=== PATIENT | female | born 1940 | race Caucasian/White ===

== ENCOUNTER → 2018-01-15 | Outpatient (CLI) | payer MEDICARE ==
[2018-01-15 09:41] LABS: HCT 42.8 % (34.0-46.0); HGB 14.7 gm/dL (11.4-16.0); MCH 29.1 pg (25.0-35.0); MCHC 34.4 g/dL (31.0-37.0); MCV 84.4 fL (80.0-100.0); Mean Platelet Volume 6.6; Platelet Count 217 k/uL (150-450); RBC 5.07 m/uL (3.80-5.40); RDW 13.6 % (11.5-15.5)
[2018-01-15 10:19] LABS: ALT 18 U/L (9-52); AST 13 U/L (14-36); Alkaline Phosphatase 105 U/L (38-126); Anion Gap 12 mmol/L; Blood Urea Nitrogen 17 mg/dL (7-17); Calcium 9.3 mg/dL (8.4-10.2); Carbon Dioxide 27 mmol/L (22-30); Chloride 98 mmol/L (98-107); Cholesterol 205 mg/dL (<200); Glucose 302 mg/dL (74-99); HDL Cholesterol 44 mg/dL (40-60); LDL Cholesterol,Calculated 132 mg/dL (0-99); Potassium 4.5 mmol/L (3.5-5.1); Sodium 137 mmol/L (137-145); Total Bilirubin 0.6 mg/dL (0.2-1.3); Total Protein 6.8 g/dL (6.3-8.2); Triglycerides 146 mg/dL (<150)
[2018-01-15 10:31] LABS: T4, Free (Free Thyroxine) 1.34 ng/dL (0.78-2.19)
--- NOTE | 2018-01-15 12:23 | XR ---
EXAMINATION TYPE: XR chest 2V DATE OF EXAM: 01/15/2018 COMPARISON: NONE HISTORY: Shortness of breath TECHNIQUE: Frontal and lateral views of the chest are obtained. FINDINGS: Scattered senescent parenchymal changes noted. Hyperinflation compatible with COPD. No evidence for infiltrate. No evidence for atelectasis. Heart size is stable. Mediastinal structures are stable and grossly unremarkable. No evidence for hilar prominence. Degenerative changes dorsal spine. IMPRESSION: 1. No evidence for acute pulmonary disease.
[2018-01-15 20:06] LABS: Hemoglobin A1C 11.7 % (4.0-6.0)
== END | disposition home or self-care (01) ==
LOC: LABWHC1 09:00
PROVIDERS: ATTEND Internal Medicine
DX: R05 Cough (principal); E11.9 Type 2 diabetes mellitus without complications; E78.5 Hyperlipidemia, unspecified; E03.9 Hypothyroidism, unspecified
CPT/HCPCS: 36415; 71046; 80053; 80061; 82043; 82570; 83036; 84439; 84443; 85027

== ENCOUNTER → 2018-04-30 | Outpatient (CLI) | payer MEDICARE ==
--- NOTE | 2018-04-30 12:00 | CT ---
EXAMINATION TYPE: CT abdomen pelvis w con DATE OF EXAM: 04/30/2018 HISTORY: Abnormal weight loss and type 2 diabetes w/out complications per order. CT DLP: 597.20mGycm Automated Exposure Control for Dose Reduction was Utilized. CONTRAST: CT scan of the abdomen and pelvis is performed with oral water and with IV Contrast, patient injected with 100 ml mL of Isovue 300. Pancreas protocol. COMPARISON: None FINDINGS: LUNG BASES: No significant abnormality is appreciated. LIVER/GB: There is porcelain type gallbladder or calcified wall. PANCREAS: Pancreas is moderately atrophic in appearance particularly mid to distal body and head/unci jesica process. No surrounding inflammatory change or well-formed fluid is present. No calcification or ductal dilatation is noted. SPLEEN: There is peripheral left lateral rim calcification of spleen. ADRENALS: Low dense thickening to both adrenal glands favors benign hyperplasia. KIDNEYS: No significant abnormality is seen. BOWEL: Small size hiatal hernia is present. There is moderate wall thickening of the distal esophagus just superior to this with mildly dilated fluid and air-filled esophagus just proximal to this. Cons ider further investigation with esophagram and/or direct visualization to exclude mass and/or strictu re. The oral contrast does not reach colonic level making evaluation slightly suboptimal. Normal-appearin g appendix is seen from base of cecum best axial image 106. There is no suspicious small or large bow el dilatation. Prominent diverticula are seen in the sigmoid colon without convincing evidence for ac bishop paiute diverticulitis. There is some fecal prominence in the rectum. UTERUS/ADNEXA: Retroverted uterus is seen. Calcification along the left margin axial image 142 favors fibroid LYMPH NODES: No greater than 1cm abdominal or pelvic lymph nodes are appreciated. OSSEOUS STRUCTURES: Osseous structures are demineralized. There is advanced disc space narrowing or o ssific fusion at lumbosacral junction. There is multilevel facet arthropathy in the lower lumbar spin e. OTHER: Moderate calcified plaque of aorta extends into branch vessels. IMPRESSION: 1. Porcelain type gallbladder noted. Surgical referral advised due to increased risk for carcinoma. 2. Attention to distal esophagitis as detailed above. 3. Fairly moderate fat replaced atrophy of pancreas.
== END | disposition home or self-care (01) ==
LOC: RADCTMAIN 09:22
PROVIDERS: ATTEND Internal Medicine
DX: K20.9 Esophagitis, unspecified (principal); K86.89 Other specified diseases of pancreas; E11.9 Type 2 diabetes mellitus without complications
CPT/HCPCS: 74177; Q9967

== ENCOUNTER 2020-06-12 19:56 | Emergency (ER) | payer MEDICARE ==
[2020-06-12 21:03] LABS: Glucose,Whole Blood 218 mg/dL (75-99)
--- NOTE | 2020-06-12 21:04 | CT ---
EXAMINATION TYPE: CT brain claribel tucker con DATE OF EXAM: 06/12/2020 COMPARISON: None HISTORY: Pt fall, hitting front of face on tile floor. CT DLP: 1113.7 mGycm Automated exposure control for dose reduction was used. There is cerebral cortical atrophy. There is no mass effect nor midline shift. There is no sign of in tracranial hemorrhage. Calvarium is intact. Skull base is intact. Cervical vertebra have normal alignment. There is narrowing at C5-6 disc space. The posterior element s are intact. Prevertebral soft tissues are intact. IMPRESSION: Mild degenerative disc changes C5-6. No fracture. Cerebral atrophy. No acute intracranial abnormality. Left frontal scalp hematoma noted.
--- NOTE | 2020-06-12 21:07 | CT ---
EXAMINATION TYPE: CT facial bones wo con DATE OF EXAM: 06/12/2020 COMPARISON: None HISTORY: Pt fall, hitting front of face on tile floor. CT DLP: 1113.7 mGycm Automated exposure control for dose reduction was used. Images were obtained from the bottom of the mandible to the top of the frontal sinuses without contra st. The mandibular ring is intact. Temporomandibular joints appear intact. There is anterior position of the right mandibular condyle that could be due to open mouth position. The zygomatic arches are intac t. There is fairly normal aeration of the paranasal sinuses. There is comminuted fracture of the ante rior nasal bone bilaterally. There is soft tissue swelling around the nasal bone and debris in the an terior nasopharynx. There is soft tissue swelling over the frontal bone. The orbital margins are inta ct. There is no evidence of retro-orbital mass. There is no evidence of a blowout fracture. IMPRESSION: Comminuted nasal bone fracture. Frontal scalp soft tissue swelling.
--- NOTE | 2020-06-12 21:25 | ED ---
General Adult HPI - General Chief complaint: Fall Stated complaint: Fall Time Seen by Provider: 06/12/20 20:10 Source: patient, family, RN notes reviewed, old records reviewed Mode of arrival: wheelchair Limitations: no limitations - History of Present Illness Initial comments: 79-year-old female patient presents to ED for evaluation of chemical fall which occurred about 5 PM. Patient reports that she was walking when she tripped over a box, fell forward, hitting her head on the floor. Pt butch any consciousness. Does report that she has swelling to forehead region, bruising around her eyes. Denies any changes in vision. Denies any other injury. Ambulatory without difficulty. Denies any use of blood thinners. Systemic: Pt denies fatigue, fever/chills, rash. Pt denies weakness, night sweats, weight loss. Neuro: Pt denies headache, visual disturbances, syncope or pre-syncope. HEENT: Pt denies ocular discharge or irritation, otalgia, rhinorrhea, pharyngitis or notable lymphadenopathy. Cardiopulmonary: Pt denies chest pain, SOB, heart palpitations, dyspnea on exertion. Abdominal/GI: Pt denies abdominal pain, n/v/d. : Pt denies dysuria, burning w/ urination, frequency/urgency. Denies new onset urinary or bowel incontinence. MSK: Pt denies myalgia, loss of strength or function in extremities. Neuro: Pt denies new onset weakness, paresthesias. - Related Data Allergies Allergy/AdvReac Type Severity Reaction Status Date / Time No Known Allergies Allergy Verified 06/12/20 20:04 Review of Systems ROS Statement: Those systems with pertinent positive or pertinent negative responses have been documented in the HPI. ROS Other: All systems not noted in ROS Statement are negative. Past Medical History Past Medical History: Diabetes Mellitus, Hyperlipidemia, Hypertension History of Any Multi-Drug Resistant Organisms: None Reported Past Surgical History: No Surgical Hx Reported Past Psychological History: No Psychological Hx Reported Smoking Status: Never smoker Past Alcohol Use History: Occasional Past Drug Use History: None Reported General Exam - General Exam Comments Initial Comments: Constitutional: NAD, AOX3, Pt has pleasant affect. HEENT: NC/AT, trachea midline, neck supple, no lymphadenopathy. Posterior pharynx non erythematous, without exudates. External ears appear normal, without discharge. Mucous membranes moist. Eyes PERRLA, EOM intact. There is no scleral icterus. No pallor noted. Frontal hematoma is noted. Bruising under her eyes bilaterally mild. Swelling to the bridge of nose. No septal hematoma. Cardiopulmonary: RRR, no murmurs, rubs or gallops, no JVD noted. Lungs CTAB in anterior and posterior reilly. No peripheral edema. Abdominal exam: Abdomen soft and non-distended. Abdomen non-tender to palpation in all 4 quadrants. Bowel sounds active in LLQ. No hepatosplenomegaly. No ecchymosis Neuro: CN II-XII intact. No nuchal rigidity. no maritnez sign, no hemotympanum. No cervical spinal tenderness. MSK: Full active ROM in upper and lower extremities, 5/5 stregnth. Limitations: no limitations Course Vital Signs 06/12/20 20:01 Temperature 98.5 F Pulse Rate 85 Respiratory 20 Rate Blood Pressure 202/90 O2 Sat by Pulse 98 Oximetry Medical Decision Making - Medical Decision Making 79-year-old female patient of [facility] chief complaint mechanical fall facial injury. Patient vital signs display mild hypertension, recheck wnl. Physical exam doesn't display frontal scalp hematoma, swelling and bruising around bridge of nose and the eyes. CT brain and C-spine did not display any acute process. CT facial bones displayed comminuted nasal fracture. Patient will be discharged for follow-up with ENT as well as primary care provider return to ED if any worsening symptoms. Case discussed with Dr. Larson. - Lab Data Lab Results 06/12/20 Range/Units 21:02 POC Glucose (mg/dL) 218 H (75-99) mg/dL POC Glu Service Order Clerk ID Pat Willis Disposition Clinical Impression: Nasal bone fracture, Fall Disposition: HOME SELF-CARE Condition: Stable Instructions (If sedation given, give patient instructions): Nasal Fracture (ED), Fall Prevention (ED) Additional Instructions: Follow-up with primary care provider and ENT tomorrow. Do not blow your nose. Return to ER if any worsening symptoms. Is patient prescribed a controlled substance at d/c from ED?: No Referrals: Luc Rivera MD [Primary Care Provider] - 1-2 days Anil Roberto MD [STAFF PHYSICIAN] - 1-2 days
[2020-06-12 22:08] VITALS: BP 186/78; PULSE 84; RESP 18
[2020-06-12 22:12] VITALS: TEMP 98
== END 2020-06-12 22:11 | disposition home or self-care (01) ==
LOC: EC 19:56
DX: S02.2XXA Fracture of nasal bones, initial encounter for closed fracture (principal); I10 Essential (primary) hypertension; W01.198A Fall on same level from slipping, tripping and stumbling with subsequent striking against other object, initial encounter; Y93.01 Activity, walking, marching and hiking; Y92.009 Unspecified place in unspecified non-institutional (private) residence as the place of occurrence of the external cause
CPT/HCPCS: 36415; 70450; 70486; 72125; 99284

== ENCOUNTER 2020-12-26 18:39 | Inpatient (IN) | payer MEDICARE ==
--- NOTE | 2020-12-26 19:10 | ED ---
General Adult HPI - General Chief complaint: Neuro Symptoms/Deficit Stated complaint: trouble gathering thoughts Time Seen by Provider: 12/26/20 18:56 Source: patient, family, RN notes reviewed, old records reviewed Mode of arrival: wheelchair Limitations: no limitations - History of Present Illness Initial comments: 80-year-old female presenting for evaluation of repetitive speech, word finding difficulty. History is provided by the patient and her nephew who is at bedside. He states that he called the patient 2 hours ago and her speech is abnormal she was repeating herself. He is uncertain exactly when this started but according to the patient's nephew yesterday evening at dinner the patient did seem somewhat off. He is unable to exactly quantify what these symptoms. He is unsure what her speech was like. There is no complaint of facial asymmetry, no focal numbness or weakness. No headache. No chest pain. No fever. No recent illnesses. - Related Data Home Medications Medication Instructions Recorded Confirmed Aspirin [Adult Low Dose Aspirin EC] 40.5 mg PO DAILY 12/26/20 12/26/20 Glimepiride [Amaryl] 2 mg PO BID 12/26/20 12/26/20 Lisinopril [Zestril] 10 mg PO DAILY 12/26/20 12/26/20 metFORMIN HCL [Glucophage] 500 mg PO BID 12/26/20 12/26/20 Allergies Allergy/AdvReac Type Severity Reaction Status Date / Time No Known Allergies Allergy Verified 12/26/20 19:59 Review of Systems ROS Statement: Those systems with pertinent positive or pertinent negative responses have been documented in the HPI. ROS Other: All systems not noted in ROS Statement are negative. Past Medical History Past Medical History: Diabetes Mellitus, Hyperlipidemia, Hypertension History of Any Multi-Drug Resistant Organisms: None Reported Past Surgical History: No Surgical Hx Reported Past Psychological History: No Psychological Hx Reported Smoking Status: Never smoker Past Alcohol Use History: Occasional Past Drug Use History: None Reported General Exam Limitations: no limitations General appearance: alert, in no apparent distress Head exam: Present: atraumatic, normocephalic Eye exam: Present: normal appearance, PERRL, EOMI ENT exam: Present: normal exam Neck exam: Present: normal inspection. Absent: tenderness, meningismus Respiratory exam: Present: normal lung sounds bilaterally. Absent: respiratory distress, wheezes Cardiovascular Exam: Present: regular rate, normal rhythm GI/Abdominal exam: Present: soft. Absent: distended, tenderness, guarding Extremities exam: Present: normal inspection, normal capillary refill. Absent: pedal edema Neurological exam: Present: alert, CN II-XII intact, motor sensory deficit (Expressive aphasia). Absent: oriented X3 (2) Psychiatric exam: Present: normal affect, normal mood Skin exam: Present: warm, dry, intact. Absent: cyanosis, diaphoretic Course Vital Signs 12/26/20 12/26/20 18:42 19:47 Temperature 98.2 F Pulse Rate 84 80 Respiratory 18 16 Rate Blood Pressure 233/105 215/99 O2 Sat by Pulse 99 95 Oximetry - Reevaluation(s) Reevaluation #1: 12/26/20 19:10 NIH of 2 EKG Findings - EKG Comments: EKG Findings:: EKG: Normal sinus rhythm, PVC, rate of 86, WA interval 122, QRS duration 84, QTC 4:[address] segment elevation. Medical Decision Making - Medical Decision Making 80 yo female presenting with expressive aphasia, NIH of 2, unclear exactly when the symptoms began. I did discuss case initially with stroke neurologist Dr. Sandoval, patient is not a TPA candidate given the low NIH and uncertain onset of symptoms. He recommends medical management. Head CT is negative for intracranial hemorrhage, CT angiography showing a narrowing at the left middle cerebral artery 1.2 cm may be related to spasm. Recommending MRI. Chest x-rays negative. CBC CMP unremarkable. Patient is in sinus rhythm. She's given aspirin, IV fluids in the emergency department. Case is discussed with Dr. Vega will admit. - Lab Data Result diagrams: 12/26/20 19:06 12/26/20 19:06 Lab Results 12/26/20 12/26/20 12/26/20 Range/Units 19:06 19:06 19:06 WBC 5.5 (3.8-10.6) k/uL RBC 4.00 (3.80-5.40) m/uL Hgb 12.1 (11.4-16.0) gm/dL Hct 34.9 (34.0-46.0) % MCV 87.1 (80.0-100.0) fL MCH 30.2 (25.0-35.0) pg MCHC 34.6 (31.0-37.0) g/dL RDW 14.5 (11.5-15.5) % Plt Count 154 (150-450) k/uL MPV 6.7 Neutrophils % 72 % Lymphocytes % 18 % Monocytes % 6 % Eosinophils % 3 % Basophils % 1 % Neutrophils # 3.9 (1.3-7.7) k/uL Lymphocytes # 1.0 (1.0-4.8) k/uL Monocytes # 0.3 (0-1.0) k/uL Eosinophils # 0.2 (0-0.7) k/uL Basophils # 0.0 (0-0.2) k/uL PT 10.2 (9.0-12.0) sec INR 0.9 (<1.2) APTT 23.3 (22.0-30.0) sec Sodium 136 L (137-145) mmol/L Potassium 4.7 (3.5-5.1) mmol/L Chloride 104 (98-107) mmol/L Carbon Dioxide 26 (22-30) mmol/L Anion Gap 6 mmol/L BUN 25 H (7-17) mg/dL Creatinine 1.07 H (0.52-1.04) mg/dL Est GFR (CKD-EPI)AfAm 58 (>60 ml/min/1.73 sqM) Est GFR (CKD-EPI)NonAf 50 (>60 ml/min/1.73 sqM) Glucose 166 H (74-99) mg/dL Calcium 8.4 (8.4-10.2) mg/dL Total Bilirubin 0.4 (0.2-1.3) mg/dL AST 22 (14-36) U/L ALT 13 (4-34) U/L Alkaline Phosphatase 99 (38-126) U/L Troponin I (0.000-0.034) ng/mL Total Protein 5.5 L (6.3-8.2) g/dL Albumin 3.3 L (3.5-5.0) g/dL 12/26/20 Range/Units 19:06 WBC (3.8-10.6) k/uL RBC (3.80-5.40) m/uL Hgb (11.4-16.0) gm/dL Hct (34.0-46.0) % MCV (80.0-100.0) fL MCH (25.0-35.0) pg MCHC (31.0-37.0) g/dL RDW (11.5-15.5) % Plt Count (150-450) k/uL MPV Neutrophils % % Lymphocytes % % Monocytes % % Eosinophils % % Basophils % % Neutrophils # (1.3-7.7) k/uL Lymphocytes # (1.0-4.8) k/uL Monocytes # (0-1.0) k/uL Eosinophils # (0-0.7) k/uL Basophils # (0-0.2) k/uL PT (9.0-12.0) sec INR (<1.2) APTT (22.0-30.0) sec Sodium (137-145) mmol/L Potassium (3.5-5.1) mmol/L Chloride (98-107) mmol/L Carbon Dioxide (22-30) mmol/L Anion Gap mmol/L BUN (7-17) mg/dL Creatinine (0.52-1.04) mg/dL Est GFR (CKD-EPI)AfAm (>60 ml/min/1.73 sqM) Est GFR (CKD-EPI)NonAf (>60 ml/min/1.73 sqM) Glucose (74-99) mg/dL Calcium (8.4-10.2) mg/dL Total Bilirubin (0.2-1.3) mg/dL AST (14-36) U/L ALT (4-34) U/L Alkaline Phosphatase (38-126) U/L Troponin I <0.012 (0.000-0.034) ng/mL Total Protein (6.3-8.2) g/dL Albumin (3.5-5.0) g/dL Critical Care Time Critical Care Time: Yes Total Critical Care Time: 35 Disposition Clinical Impression: Cerebrovascular accident (CVA) Disposition: ADMITTED IP TO THIS [facility] Condition: Stable Is patient prescribed a controlled substance at d/c from ED?: No Referrals: Inocente Tate MD [Primary Care Provider] - 1-2 days Decision to Admit Reason: Admit from EC Decision Date: 12/26/20 Decision Time: 20:30
[2020-12-26 19:15] LABS: Basophils % (A) 1 %; Eosinophils # (A) 0.2 k/uL (0-0.7); Eosinophils % (A) 3 %; HCT 34.9 % (34.0-46.0); HGB 12.1 gm/dL (11.4-16.0); Lymphocytes % (A) 18 %; MCH 30.2 pg (25.0-35.0); MCHC 34.6 g/dL (31.0-37.0); MCV 87.1 fL (80.0-100.0); Mean Platelet Volume 6.7; Monocytes # (A) 0.3 k/uL (0-1.0); Monocytes % (A) 6 %; Neutrophils # (A) 3.9 k/uL (1.3-7.7); Neutrophils % (A) 72 %; Platelet Count 154 k/uL (150-450); RDW 14.5 % (11.5-15.5); WBC 5.5 k/uL (3.8-10.6)
[2020-12-26 19:25] LABS: INR 0.9 (<1.2); Partial Thromboplastin Time 23.3 sec (22.0-30.0); Prothrombin Time 10.2 sec (9.0-12.0)
[2020-12-26 19:27] LABS: Albumin 3.3 g/dL (3.5-5.0); Calcium 8.4 mg/dL (8.4-10.2); Potassium 4.7 mmol/L (3.5-5.1); Total Bilirubin 0.4 mg/dL (0.2-1.3); Total Protein 5.5 g/dL (6.3-8.2)
--- NOTE | 2020-12-26 19:28 | CT ---
EXAMINATION TYPE: CT brain wo con for TPA DATE OF EXAM: 12/26/2020 COMPARISON: CT scan of the head from 06/12/2020. HISTORY: Neuro deficits. CT DLP: 1055.8 mGycm Automated exposure control for dose reduction was used. FINDINGS: There is no acute intracranial hemorrhage. There is no evidence of large mass. There is no midline sh ift. Tiny low-attenuation areas are seen in the basal ganglia bilaterally and may represent old lacunar in farcts. Mild cerebral atrophy with prominence of the ventricles including the third ventricle is noted. There is no displaced skull fracture. Orbits and globes are intact. Paranasal sinuses are clear. Mastoid air cells are clear. IMPRESSION: NO ACUTE INTRACRANIAL HEMORRHAGE. Tiny foci of mosaic attenuation in the bases bilaterally may repres ent old lacunar infarcts.
--- NOTE | 2020-12-26 19:42 | CT ---
EXAMINATION TYPE: CT angio head neck DATE OF EXAM: 12/26/2020 HISTORY: Neuro deficits. COMPARISON: Correlation made with CT scan of the head obtained on the same day. CT DLP: 330.5 mGycm. Automated Exposure Control for Dose Reduction was Utilized. TECHNIQUE: CTA scan of the neck is performed with IV Contrast, patient injected with 65ml mL of Isov ue 370, axial images are obtained, coronal and sagittal reformatted images are reviewed. Three-D dorian nstructed images are created on an independent workstation and reviewed. Images were obtained. Multiplanar reconstruction submitted images also provided. FINDINGS: Carotid/Vascular Structures: Mild assess grapelike is seen of the origin of the left subclavian arter y. The common carotid and internal carotid arteries are patent. Horizontal M1 portion of the left middle cerebral artery on the left demonstrates long segment stenos is. This could be related to spasm or chronic stenosis. Intervention of the M2 segment widely patent. Right MCA, anterior cerebral arteries, and posterior sternal arteries are patent. Vertebral arteries are widely patent. IMPRESSION: There is a 1.2 cm long segment of stenosis involving the horizontal portion of left middl e cerebral artery which could be related to spasm or chronic disease. MRA or conventional angiography is recommended.
--- NOTE | 2020-12-26 19:59 | XR ---
EXAMINATION TYPE: XR chest 2V DATE OF EXAM: 12/26/2020 COMPARISON: 01/15/2018 HISTORY: Acute mental status change. TECHNIQUE: Frontal and lateral views of the chest are obtained. FINDINGS: There is no focal air space opacity, pleural effusion, or pneumothorax seen. The cardiac silhouette size is within normal limits. The osseous structures are intact. IMPRESSION: No acute cardiopulmonary process.
[2020-12-26] MEDS ORDERED: ASPIRIN 325 MG TAB PO STA (20:02)
[2020-12-26] MEDS ORDERED: SODIUM CHLORIDE 0.9% 500 ML 500 ML IV ONE (20:02)
[2020-12-26] MEDS: SODIUM CHLORIDE 0.9% 1,000 ML IV SCH (20:43)
--- NOTE | 2020-12-26 23:46 | P.HPIM ---
History of Present Illness H&P Date: 12/26/20 The patient is a 80-year-old female with a PMH of type II DM and hypertension who presented to the emergency room with complaints of confusion and speech impairment. History supplemented by the nephew at the bedside. He reports that he last spoke to the patient 2 days ago and she appeared to be doing okay. When he spoke to her again today, she appeared to be confused. He subsequently went to her house and drove her over to the emergency room. He reports that she is having difficulty finding the words to complete her thoughts and that she is repeating herself. Her symptoms reportedly improved en-route to the hospital which she continued to be confused at time of interview as per the nephew. He also reports that over the past year, he has noticed a gradual decline in her ability to perform her ADLs where she is no longer able to organize her medications and manage all the finances etc. When the patient is asked why she is is at the hospital, she notes that she is "not well". She reports that her ankles have been somewhat swollen and that might be why she was brought in. She had word finding difficulty during the interview. The patient is unable to state when her symptoms may have started and the nephew is also not sure. She however denied additional complaints. Denied weakness, numbness, tingling. Denied headaches, visual disturbances, slurred speech, facial asymmetry. Denied chest pain, shortness of breath, fever, chills, cough, nausea, vomiting, abdominal pain, diarrhea. In the emergency room, the patient underwent an extensive evaluation with a CT brain that revealed no acute abnormalities. Vital signs upon presentation were BP 233/105, pulse 85, SpO2 99% on room air, temperature 98.2. 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 Chest x-ray revealed no abnormalities. EKG revealed normal sinus rhythm PVCs at 86 bpm with no ischemic ST/T-wave changes noted as reviewed by me. Laboratory evaluation was remarkable for a sodium 136, BUN 25, creatinine 1.07, glucose 166, troponin less than 0.012, and a coronavirus PCR negative. The patient was evaluated by neuro arch cushion press operator in the emergency room and deemed not a candidate for TPA. Review of Systems Pertinent positives and negatives as discussed in HPI, a complete review of systems was performed and all other systems are negative. Past Medical History Past Medical History: Diabetes Mellitus, Hyperlipidemia, Hypertension History of Any Multi-Drug Resistant Organisms: None Reported Past Surgical History: No Surgical Hx Reported Past Psychological History: No Psychological Hx Reported Smoking Status: Never smoker Past Alcohol Use History: Occasional Past Drug Use History: None Reported Medications and Allergies Home Medications Medication Instructions Recorded Confirmed Type Aspirin [Adult Low Dose Aspirin EC] 40.5 mg PO DAILY 12/26/20 12/26/20 History Glimepiride [Amaryl] 2 mg PO BID 12/26/20 12/26/20 History Lisinopril [Zestril] 10 mg PO DAILY 12/26/20 12/26/20 History metFORMIN HCL [Glucophage] 500 mg PO BID 12/26/20 12/26/20 History Allergies Allergy/AdvReac Type Severity Reaction Status Date / Time No Known Allergies Allergy Verified 12/26/20 19:59 Physical Exam Vitals: Vital Signs Temp Pulse Resp BP Pulse Ox 12/26/20 20:30 80 18 218/115 95 12/26/20 19:47 80 16 215/99 95 12/26/20 18:42 98.2 F 84 18 233/105 99 Intake and Output 12/26/20 12/26/20 12/26/20 06:59 14:59 22:59 Other: Weight 52.163 kg General: non toxic, no distress, appears at stated age, normal weight Derm: no unusual rashes/lesions no unusual ecchymoses, warm, dry Head: atraumatic, normocephalic, symmetric Eyes: EOMI, no lid lag, anicteric sclera, pupils equal round reactive to light ENT: Nose and ears atraumatic, no thrush, no pharyngeal erythema Neck: No thyromegaly, no cervical lymphadenopathy, trachea midline, supple Mouth: no lip lesion, mucus membranes moist Cardiovascular: S1S2 reg, no murmur, positive posterior tibial pulse bilateral, trace marcy LE edema, capillary refill less than 2 seconds Lungs: CTA bilateral, no rhonchi, no rales , no accessory muscle use Abdominal: soft, nontender to palpation, no guarding, no appreciable organomegaly, normal bowel sounds Ext: no gross muscle atrophy, muscle strength 5 out of 5 in all 4 extremities grossly, no contractures, Neuro: CN II-XI grossly intact, light touch intact all 4 extremities, finger to nose within normal limits, no pronator drift noted, no facial asymmetry, expressive aphasia noted Psych: Alert, oriented to person and place, not oriented to time Results CBC & Chem 7: 12/26/20 19:06 12/26/20 19:06 Labs: Abnormal Lab Results - Last 24 Hours (Table) 12/26/20 Range/Units 19:06 Sodium 136 L (137-145) mmol/L BUN 25 H (7-17) mg/dL Creatinine 1.07 H (0.52-1.04) mg/dL Glucose 166 H (74-99) mg/dL Total Protein 5.5 L (6.3-8.2) g/dL Albumin 3.3 L (3.5-5.0) g/dL Assessment and Plan Plan: Expressive aphasia with AMS, suspected CVA -C/w Aspirin -Neurochecks -Neurology consult -Obtain Echocardiogram -Fall precautions -Speech eval -Obtain UA Hypertensive urgency -Permissive HTN in setting of suspected acute CVA -Will restart home meds with no additional antihypertensives for now since systolic < 220 mmHg Type 2 DM -ADDY with FS -No oral hypoglycemics -Check A1C ALIZE, prerenal -C/w gentle hydration -Monitor BMP DVT prophylaxis -IPCDs The patient is admitted with an anticipated greater than 2 midnight stay for evaluation of suspected CVA CODE STATUS: Full Code Discussed with: Patient Anticipated discharge date: 2-[address]: home A total of 35 minutes was spent on the care of this complex patient more than 50% of the time was spent in counseling and care coordination.
[2020-12-27 04:52] LABS: Appearance,Urine Cloudy (Clear); Bacteria,Urine Moderate /hpf; Bilirubin,Urine Negative (Negative); Blood,Urine Small (Negative); Color,Urine Light Yellow; Glucose,Urine (UA) Trace (Negative); Hyaline Casts,Urine 3 /lpf (0-2); Ketones,Urine Negative (Negative); Leukocyte Esterase,Urine Large (Negative); Mucus,Urine Rare /hpf; Nitrite,Urine Positive (Negative); Protein,Urine 3+ (Negative); RBC,Urine 12 /hpf (0-5); Specific Gravity,Urine 1.018 (1.001-1.035); Squamous Epithelial Cell,Urine <1 /hpf (0-4); Urobilinogen,Urine <2.0 mg/dL (<2.0); WBC,Urine >182 /hpf (0-5)
[2020-12-27 06:16] LABS: Glucose,Whole Blood 159 mg/dL (75-99)
[2020-12-27] MEDS: INSULIN ASPART (NovoLOG) 100 UNIT/ML VIAL SQ SCH ×4 (07:28→22:27)
[2020-12-27] MEDS ORDERED: ACETAMINOPHEN TAB 325 MG TAB PO PRN (07:42)
[2020-12-27 08:02] LABS: Calcium 8.2 mg/dL (8.4-10.2)
[2020-12-27] MEDS: ASPIRIN 325 MG TAB PO SCH (08:25)
[2020-12-27] MEDS: HEPARIN SODIUM,PORCINE 5,000 UNIT/ML 1 ML VIAL SQ SCH ×2 (08:25→22:28)
[2020-12-27] MEDS ORDERED: lisinopriL 10 MG TAB PO SCH (09:00)
[2020-12-27 11:58] LABS: Glucose,Whole Blood 227 mg/dL (75-99)
[2020-12-27] MEDS: CLOPIDOGREL 75 MG TAB PO SCH (12:31)
[2020-12-27] MEDS: amLODIPine 5 MG TAB PO SCH (12:31)
[2020-12-27] MEDS: SODIUM CHLORIDE 0.9% 1,000 ML IV SCH (12:32)
[2020-12-27] MEDS: ATORVASTATIN 80 MG TAB PO SCH (12:32)
--- NOTE | 2020-12-27 12:39 | ECHOF ---
Referral Reason:Thrombus MEASUREMENTS -------- HEIGHT: 162.6 cm WEIGHT: 52.2 kg BP: 203/104 RVIDd: 2.6 cm (< 3.3) IVSd: 1.7 cm (0.6 - 1.1) LVIDd: 3.4 cm (3.9 - 5.3) LVPWd: 1.9 cm (0.6 - 1.1) IVSs: 1.8 cm LVIDs: 2.8 cm LVPWs: 2.0 cm LAESV Index (A-L): 46.54 ml/m Ao Diam: 3.2 cm (2.0 - 3.7) AV Cusp: 1.5 cm (1.5 - 2.6) MV EXCURSION: 15.184 mm (> 18.000) MV EF SLOPE: 66 mm/s (70 - 150) EPSS: 0.5 cm MV E Osman: 0.68 m/s MV DecT: 222 ms MV A Osman: 1.64 m/s MV E/A Ratio: 0.41 FINDINGS -------- Sinus rhythm. This was a technically adequate study. The left ventricular size is normal. There is severe concentric left ventricular hypertrophy. Ove rall left ventricular systolic function is normal with, an EF between 55 - 60 %. The right ventricle is normal in size. LA is severely dilated >40 ml/m2 The right atrial size is normal. There is moderate aortic valve sclerosis. There is no evidence of aortic regurgitation. Moderate mitral annular calcification present. Mild mitral regurgitation is present. Mild tricuspid regurgitation present. Right ventricular systolic pressure is normal at < 35 mmHg. The pulmonic valve was not well visualized. There is no pulmonic regurgitation present. The aortic root size is normal. There is no pericardial effusion. CONCLUSIONS -------- 1. There is severe concentric left ventricular hypertrophy. 2. Overall left ventricular systolic function is normal with, an EF between 55 - 60 %. 3. LA is severely dilated >40 ml/m2 4. There is moderate aortic valve sclerosis. 5. Moderate mitral annular calcification present. 6. Mild mitral regurgitation is present. 7. Mild tricuspid regurgitation present. 8. There is no pericardial effusion. HELP DESK REPRESENTATIVE: Arleen Valdez RDCS
--- NOTE | 2020-12-27 14:55 | P.PN ---
Subjective Progress Note Date: 12/27/20 Patient is awake and alert. She denies any difficulty with her speech this morning. No facial droop. No weakness or numbness anywhere in her body. She is scheduled for MRI of the brain later today. No acute events overnight reported by nursing staff. Objective - Vital Signs Vital signs: Vital Signs Temp 98 F 12/27/20 08:00 Pulse 75 12/27/20 12:00 Resp 16 12/27/20 12:00 BP 202/103 12/27/20 12:00 Pulse Ox 97 12/27/20 12:00 Intake & Output 12/26/20 12/27/20 12/27/20 18:59 06:59 18:59 Intake Total 600 Output Total 500 300 Balance -500 300 Weight 52.163 kg 57.7 kg Intake: Oral 600 Output: Urine 500 300 Other: Voiding Method Toilet Toilet # Voids 1 # Bowel Movements 2 - Exam General: The patient is awake and alert, in no distress Eye: there is normal conjunctiva bilaterally. Neck: The neck is supple, there is no JVD. Cardiovascular: Normal S1-S2, no S3-S4, no murmurs. Respiratory: Lungs clear to auscultation bilaterally Gastrointestinal: Abdomen is soft, nontender Musculoskeletal: There is no pedal edema. Neurological:. Speech is normal. Skin: Skin is warm and dry - Labs CBC & Chem 7: 12/26/20 19:06 12/27/20 06:49 Labs: Abnormal Lab Results - Last 24 Hours (Table) 12/26/20 12/27/20 12/27/20 Range/Units 19:06 03:25 06:15 Sodium 136 L (137-145) mmol/L BUN 25 H (7-17) mg/dL Creatinine 1.07 H (0.52-1.04) mg/dL Glucose 166 H (74-99) mg/dL POC Glucose (mg/dL) 159 H (75-99) mg/dL Calcium (8.4-10.2) mg/dL Total Protein 5.5 L (6.3-8.2) g/dL Albumin 3.3 L (3.5-5.0) g/dL Triglycerides (<150) mg/dL Cholesterol (<200) mg/dL LDL Cholesterol, Calc (0-99) mg/dL Urine Appearance Cloudy H (Clear) Urine Protein 3+ H (Negative) Urine Glucose (UA) Trace H (Negative) Urine Blood Small H (Negative) Urine Nitrite Positive H (Negative) Ur Leukocyte Esterase Large H (Negative) Urine RBC 12 H (0-5) /hpf Urine WBC >182 H (0-5) /hpf Urine WBC Clumps Few H (None) /hpf Urine Bacteria Moderate H (None) /hpf Hyaline Casts 3 H (0-2) /lpf Urine Mucus Rare H (None) /hpf 12/27/20 12/27/20 Range/Units 06:49 11:53 Sodium 136 L (137-145) mmol/L BUN 19 H (7-17) mg/dL Creatinine (0.52-1.04) mg/dL Glucose 162 H (74-99) mg/dL POC Glucose (mg/dL) 227 H (75-99) mg/dL Calcium 8.2 L (8.4-10.2) mg/dL Total Protein (6.3-8.2) g/dL Albumin (3.5-5.0) g/dL Triglycerides 192 H (<150) mg/dL Cholesterol 286 H (<200) mg/dL LDL Cholesterol, Calc 195 H (0-99) mg/dL Urine Appearance (Clear) Urine Protein (Negative) Urine Glucose (UA) (Negative) Urine Blood (Negative) Urine Nitrite (Negative) Ur Leukocyte Esterase (Negative) Urine RBC (0-5) /hpf Urine WBC (0-5) /hpf Urine WBC Clumps (None) /hpf Urine Bacteria (None) /hpf Hyaline Casts (0-2) /lpf Urine Mucus (None) /hpf Microbiology - Last 24 Hours (Table) 12/27/20 03:25 Urine Culture - Preliminary Urine,Voided Assessment and Plan Assessment: The patient is a 80-year-old female with a PMH of type II DM and hypertension who presented to the emergency room with complaints of confusion and speech impairment. Patient was evaluated in the ER and admitted to the hospital for further management of her medical problems noted below. In the emergency room, the patient underwent an extensive evaluation with a CT brain that revealed no acute abnormalities. Vital signs upon presentation were BP 233/105, pulse 85, SpO2 99% on room air, temperature 98.2. Chest x-ray revealed no abnormalities. EKG revealed normal sinus rhythm PVCs at 86 bpm with no ischemic ST/T-wave changes noted as reviewed by me. Laboratory evaluation was remarkable for a sodium 136, BUN 25, creatinine 1.07, glucose 166, troponin less than 0.012, and a coronavirus PCR negative. The patient was evaluated by neuro slot editor in the emergency room and deemed not a candidate for TPA. 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 -MRI/MRA of the brain pending -C/w Aspirin. Started on Plavix by neurology -Neurology consulted, appreciate recommendation -Echocardiogram showed preserved ejection fraction with no significant valvular abnormalities and no intracardiac source of stroke -Fall precautions -Speech eval, PT/OT eval Hypertensive emergency -Permissive HTN allowed since admission in setting of suspected acute CVA -Continue home dose of lisinopril 10 mg daily. Add Norvasc 5 mg daily to her regimen. Continue to monitor closely. Uncomplicated UTI -Started on IV ceftriaxone awaiting urine culture Hyperlipidemia -Total cholesterol 286, LDL 195 -Started on Lipitor 80 mg daily Toxo metabolic encephalopathy, now resolved -On presentation secondary to UTI and hypertensive emergency -Need to rule out CVA Type 2 DM -ADDY with FS -No oral hypoglycemics -A1C ordered ALIZE, prerenal -C/w gentle hydration -Monitor BMP DVT prophylaxis -Subcu heparin The patient is admitted with an anticipated greater than 2 midnight stay for evaluation of suspected CVA CODE STATUS: Full Code Discussed with: Patient Anticipated discharge date: 2-[address]: home A total of 35 minutes was spent on the care of this complex patient more than 50% of the time was spent in counseling and care coordination.
[2020-12-27 15:10] LABS: Hemoglobin A1C 6.6 % (4.0-6.0)
--- NOTE | 2020-12-27 15:14 | P.CNNES ---
History of Present Illness Consult date: 12/27/20 Requesting physician: John Paul Guillaume Reason for Consult: CVA History of Present Illness: Patient is a 80-year-old female came to the hospital yesterday at 6:39 PM for evaluation of possible CVA. Patient's provided the history, stating that she was in usual state of health yesterday at 3 PM (LKW). Patient's went to take his dogs for a walk and then he went to [facility]. When he came back at 4:30 PM, he noticed patient was having trouble speaking. She was putting dishes at that time, but having difficulty with finishing words that she started, also her speech was slurring. She could understand everything, but had hard time putting sentences together and difficulty speaking. She was not c onfused. There was no facial droop or focal weakness noted. Apparently they've related for couple more hours before they arrived to the hospital. Vital signs on arrival blood pressure 233/105, pulse rate 84 temperature 98.2. The blood pressure has stayed up, and most recent blood pressure is 196/94. Patient's blood test shares normal CBC, PT/PTT, Chem-7 with sodium 136 potassium 4.7, BUN 25, creatinine 1.07, hepatic panel is normal, troponin negative. Total cholesterol 286, LDL 195, HDL 53 and triglycerides were 92. UA shows large amount of leukocyte Estrace, > 182 WBCs with few clamps. Gonsales S negative. CT head showed no acute intracranial hemorrhage. Tiny foci of mosaic attenuation in the bases bilaterally may represent old lacunar infarcts. CTA of head and neck showed 1.2 cm long segment of stenosis involving the horizontal portion of the left MCA, which could be related to spasm or chronic disease. MRA or conventional angiography is recommended. Chest x-ray showed no acute cardiopulmonary process. EKG shows sinus rhythm with occasional PVCs. Patient takes metformin, lisinopril, glimepiride. Patient states that she takes aspirin only when her foot is hurting, which is very sporadically. She does not take aspirin regimen as mentioned in her home medication list. Patient also mentioning that something was hurting, pointing to the left lower anterior chest region, like everything was poking. She says her head was getting numb, couldn't remember couldn't talk. Patient was only a very light smoker, quit 20 years ago. She has diabetes diagnosed about 2 or 3 years ago which she claims is borderline. She has hypertension. No previous history of strokes or TIA. Patient's mentions that on Saturday, 2 days prior to arrival, patient was laying in the bed when she told her "today is my last day". Her called the ambulance, who checked her out and everything was fine, and they left, as patient declined to go to the hospital. She did not have any focal symptoms at that time. Review of Systems Patient is hard of hearing. Patient has some speech difficulty. Denies any headache any problem with the vision, hoarseness, sore throat dysphagia. She has some left-sided chest pain pointing to the left lower rib cage. All other 14 point of review of systems unremarkable. Past Medical History Past Medical History: Diabetes Mellitus, Hyperlipidemia, Hypertension History of Any Multi-Drug Resistant Organisms: None Reported Past Surgical History: No Surgical Hx Reported Additional Past Surgical History / Comment(s): CATRACTS ABBE 2000 Past Anesthesia/Blood Transfusion Reactions: No Reported Reaction Past Psychological History: No Psychological Hx Reported Smoking Status: Never smoker Past Alcohol Use History: Occasional Past Drug Use History: None Reported - Past Family History Father Family Medical History: No Reported History Mother Family Medical History: No Reported History Medications and Allergies Home Medications Medication Instructions Recorded Confirmed Type Aspirin [Adult Low Dose Aspirin EC] 40.5 mg PO DAILY 12/26/20 12/26/20 History Glimepiride [Amaryl] 2 mg PO BID 12/26/20 12/26/20 History Lisinopril [Zestril] 10 mg PO DAILY 12/26/20 12/26/20 History metFORMIN HCL [Glucophage] 500 mg PO BID 12/26/20 12/26/20 History Allergies Allergy/AdvReac Type Severity Reaction Status Date / Time No Known Allergies Allergy Verified 12/26/20 19:59 Physical Examination - Vital Signs Vital Signs: Vital Signs Temp Pulse Pulse Resp BP BP Pulse Ox 12/27/20 08:00 98 F 71 16 196/94 97 12/27/20 04:00 97.7 F 77 18 203/104 100 12/27/20 00:00 98.2 F 66 18 193/85 96 12/26/20 22:20 98.3 F 82 18 191/85 96 12/26/20 20:30 80 18 218/115 95 12/26/20 19:47 80 16 215/99 95 12/26/20 18:42 98.2 F 84 18 233/105 99 Intake and Output 12/26/20 12/27/20 12/27/20 22:59 06:59 14:59 Output Total 200 300 Balance -200 -300 Output: Urine 200 300 Other: Voiding Method Toilet # Voids 2 1 Weight 52.163 kg 57.7 kg On examination patient is an elderly female, in no acute distress. Patient is alert and awake fully oriented. Patient has some word hesitancy. She can name very well, repeat fine. Patient follows commands well. Mild dysarthria. On cranial examination pupils are round and reactive to light, visual reilly revealed possible right visual field deficits. Extraocular muscles are intact. Face is symmetric, tongue protrudes the midline. Palatal elevation and sensation normal, hearing is significantly decreased, shoulder shrug normal. Facial sensation normal. On muscle strength testing patient has very mild right pronation or drift. The strength is normal in the arms and legs. Deep tendon reflexes are overall decrease and plantars are downgoing. Sensory to touch revealed washable neglect on the left with double simultaneous stimulation, but was very inconsistent. Patient has difficulty with carrying the tasks at times. No obvious ataxia for [id number] testing, tone and bulk of muscles normal. Gait deferred. On general exemption there is no bruit or murmur, since audible. Abdomen soft nontender, peripheral pulses present. No edema. Results - Laboratory Findings CBC and BMP: 12/26/20 19:06 12/27/20 06:49 Abnormal Lab Findings: Abnormal Labs 12/26/20 12/27/20 12/27/20 19:06 03:25 06:15 Sodium 136 L BUN 25 H Creatinine 1.07 H Glucose 166 H POC Glucose (mg/dL) 159 H Calcium Total Protein 5.5 L Albumin 3.3 L Triglycerides Cholesterol LDL Cholesterol, Calc Urine Appearance Cloudy H Urine Protein 3+ H Urine Glucose (UA) Trace H Urine Blood Small H Urine Nitrite Positive H Ur Leukocyte Esterase Large H Urine RBC 12 H Urine WBC >182 H Urine WBC Clumps Few H Urine Bacteria Moderate H Hyaline Casts 3 H Urine Mucus Rare H 12/27/20 06:49 Sodium 136 L BUN 19 H Creatinine Glucose 162 H POC Glucose (mg/dL) Calcium 8.2 L Total Protein Albumin Triglycerides 192 H Cholesterol 286 H LDL Cholesterol, Calc 195 H Urine Appearance Urine Protein Urine Glucose (UA) Urine Blood Urine Nitrite Ur Leukocyte Esterase Urine RBC Urine WBC Urine WBC Clumps Urine Bacteria Hyaline Casts Urine Mucus Assessment and Plan Assessment: * Probable CVA manifesting with speech difficulty, slurring and possible right visual field deficit. CTA of head and neck showed left MCA stenosis. * Hypertension * Diabetes * Hyperlipidemia * Hard of hearing. Plan: * Patient will undergo MRI of the brain to confirm CVA, and also MRA of the brain to follow-up on the left MCA stenosis. * Patient was taking aspirin only sporadically when her foot was hurting. She was not on any antiplatelet medication. Patient has been started on dual antiplatelet medication. Per patient and her , she is already improving as compared to yesterday. * Patient has poorly controlled lipids with cholesterol 286 and LDL 195 and triglycerides were 92. Patient will be started on high-dose statins, Lipitor 80 mg. * We will hemoglobin A1c. * Continue telemetry monitoring. So far showing sinus rhythm in 60s to 70s. * Speech therapy. * We will follow.
--- NOTE | 2020-12-27 16:11 | MR ---
EXAMINATION TYPE: MR angio head wo con DATE OF EXAM: 12/27/2020 COMPARISON: CT angiogram of the head and neck 12/26/2020 HISTORY: CVA, possible left MCA stenosis versus vasospasms TECHNIQUE: Time of flight images focusing on the [place] were performed without contrast. Th ree-dimensional reconstructions performed on an alternate workstation. FINDINGS: Posterior and anterior circulation are patent. There is no evident aneurysm, dissection, or embolus. Stenotic segment of the middle cerebral artery on the left is again seen. 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
--- NOTE | 2020-12-27 16:27 | MR ---
MR brain without contrast HISTORY: Cerebrovascular accident, neuro deficit, acute stroke suspected Multiplanar multisequence imaging through the brain Correlation to CT brain 12/26/2020, MRI brain CTA from Cortical atrophy is noted. There is restricted diffusion in the left posterior parietal lobe, watersh ed area, corresponding increased signal present on inversion recovery T2-weighted sequences. Confluen t hyperintensities also present on inversion recovery T2-weighted sequences in the periventricular, p ericallosal, subcortical white matter. There is asymmetric appearance to the M1 segment of the general intern al carotid artery on the left, some intermediate signal is present corresponding to stenosis seen on MRA possibly corresponding to flow changes at this level due to the stenotic segment. Corpus callosum , pituitary, cervical medullary junction, cerebellopontine angles are within normal limits. Inflammat ory changes present in the mastoid air cells on the right. 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 Age-related changes of atrophy and chronic small vessel ischemia.
[2020-12-27 16:47] LABS: Glucose,Whole Blood 195 mg/dL (75-99)
[2020-12-27 21:17] LABS: Glucose,Whole Blood 208 mg/dL (75-99)
[2020-12-28 06:07] LABS: Glucose,Whole Blood 153 mg/dL (75-99)
[2020-12-28] MEDS: INSULIN ASPART (NovoLOG) 100 UNIT/ML VIAL SQ SCH ×4 (06:46→20:55)
[2020-12-28 08:09] LABS: Basophils % (A) 1 %; Eosinophils # (A) 0.1 k/uL (0-0.7); Eosinophils % (A) 4 %; HCT 34.4 % (34.0-46.0); HGB 11.4 gm/dL (11.4-16.0); Lymphocytes # (A) 0.9 k/uL (1.0-4.8); Lymphocytes % (A) 25 %; MCH 29.7 pg (25.0-35.0); MCHC 33.3 g/dL (31.0-37.0); MCV 89.1 fL (80.0-100.0); Monocytes # (A) 0.2 k/uL (0-1.0); Monocytes % (A) 5 %; Neutrophils # (A) 2.4 k/uL (1.3-7.7); Neutrophils % (A) 65 %; Platelet Count 133 k/uL (150-450); RBC 3.86 m/uL (3.80-5.40); RDW 14.6 % (11.5-15.5); WBC 3.7 k/uL (3.8-10.6)
[2020-12-28 08:34] LABS: Calcium 8.5 mg/dL (8.4-10.2); Potassium 4.2 mmol/L (3.5-5.1)
[2020-12-28] MEDS: HEPARIN SODIUM,PORCINE 5,000 UNIT/ML 1 ML VIAL SQ SCH ×2 (09:16→20:56)
[2020-12-28] MEDS: ASPIRIN 325 MG TAB PO SCH (09:17)
[2020-12-28] MEDS: CLOPIDOGREL 75 MG TAB PO SCH (09:18)
[2020-12-28] MEDS: amLODIPine 5 MG TAB PO SCH (09:18)
[2020-12-28] MEDS: ATORVASTATIN 80 MG TAB PO SCH (09:18)
[2020-12-28] MEDS: lisinopriL 20 MG TAB PO SCH ×2 (09:18→12:30)
[2020-12-28] MEDS ORDERED: amLODIPine 5 MG TAB PO STA (10:49)
--- NOTE | 2020-12-28 10:55 | P.PN ---
Subjective Progress Note Date: 12/28/20 Patient is awake and alert today. She was working with speech therapy when I saw her. Her speech is relatively clear but occasionally patient is having hard time finding words. It is not clear to me if that's secondary to the recent stroke or to her language deficits as patient is [place] and continues to speak [place] at home. She moved here when she was 37 years old. Blood pressure is still not well controlled. I added Norvasc 5 mg daily to her regimen yesterday with no significant improvement in her blood pressure. Objective - Vital Signs Vital signs: Vital Signs Temp 98.5 F 12/28/20 04:00 Pulse 69 12/28/20 04:00 Resp 16 12/28/20 04:00 BP 186/85 12/28/20 04:00 Pulse Ox 97 12/28/20 04:00 Intake & Output 12/27/20 12/28/20 12/28/20 18:59 06:59 18:59 Intake Total 1140 Output Total 700 500 Balance 440 -500 Weight 57 kg Intake: Oral 1140 Output: Urine 700 500 Other: Voiding Method Toilet Toilet # Bowel Movements 1 - Exam General: The patient is awake and alert, in no distress Eye: there is normal conjunctiva bilaterally. Neck: The neck is supple, there is no JVD. Cardiovascular: Normal S1-S2, no S3-S4, no murmurs. Respiratory: Lungs clear to auscultation bilaterally Gastrointestinal: Abdomen is soft, nontender Musculoskeletal: There is no pedal edema. Neurological:. Speech is normal. Skin: Skin is warm and dry - Labs CBC & Chem 7: 12/28/20 07:36 12/28/20 07:36 Labs: Abnormal Lab Results - Last 24 Hours (Table) 12/27/20 12/27/20 12/27/20 Range/Units 06:49 11:53 16:46 WBC (3.8-10.6) k/uL Plt Count (150-450) k/uL Lymphocytes # (1.0-4.8) k/uL BUN (7-17) mg/dL Creatinine (0.52-1.04) mg/dL Glucose (74-99) mg/dL POC Glucose (mg/dL) 227 H 195 H (75-99) mg/dL Hemoglobin A1c 6.6 H (4.0-6.0) % 12/27/20 12/28/20 12/28/20 Range/Units 21:15 06:06 07:36 WBC 3.7 L (3.8-10.6) k/uL Plt Count 133 L (150-450) k/uL Lymphocytes # 0.9 L (1.0-4.8) k/uL BUN (7-17) mg/dL Creatinine (0.52-1.04) mg/dL Glucose (74-99) mg/dL POC Glucose (mg/dL) 208 H 153 H (75-99) mg/dL Hemoglobin A1c (4.0-6.0) % 12/28/20 Range/Units 07:36 WBC (3.8-10.6) k/uL Plt Count (150-450) k/uL Lymphocytes # (1.0-4.8) k/uL BUN 22 H (7-17) mg/dL Creatinine 1.05 H (0.52-1.04) mg/dL Glucose 148 H (74-99) mg/dL POC Glucose (mg/dL) (75-99) mg/dL Hemoglobin A1c (4.0-6.0) % Microbiology - Last 24 Hours (Table) 12/27/20 03:25 Urine Culture - Preliminary Urine,Voided Assessment and Plan Assessment: The patient is a 80-year-old female with a PMH of type II DM and hypertension who presented to the emergency room with complaints of confusion and speech impairment. Patient was evaluated in the ER and admitted to the hospital for further management of her medical problems noted below. In the emergency room, the patient underwent an extensive evaluation with a CT brain that revealed no acute abnormalities. Vital signs upon presentation were BP 233/105, pulse 85, SpO2 99% on room air, temperature 98.2. Chest x-ray revealed no abnormalities. EKG revealed normal sinus rhythm PVCs at 86 bpm with no ischemic ST/T-wave changes noted as reviewed by me. Laboratory evaluation was remarkable for a sodium 136, BUN 25, creatinine 1.07, glucose 166, troponin less than 0.012, and a coronavirus PCR negative. The patient was evaluated by neuro welfare project manager in the emergency room and deemed not a candidate for TPA. 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 -MRI/MRA showed subacute infarct of the left parietal lobe with stenotic segment of the left MCA -CT head on presentation with no acute finding -CT angiogram of the head and neck revealed a 1.2 cm long segment of stenosis involving the horizontal portion of the left MCA possibly due to spasm versus chronic disease with an MRA recommended. -Now on dual antiplatelet therapy with aspirin and Plavix as directed by neurology -Neurology following closely, appreciate recommendation -Echocardiogram showed preserved ejection fraction with no significant valvular abnormalities and no intracardiac source of stroke -Fall precautions -Speech eval, PT/OT eval Hypertensive emergency -Permissive HTN allowed on admission in setting of suspected acute CVA -Home dose of lisinopril increased to 20 mg daily. Norvasc 10 mg daily added to her regimen. Uncomplicated UTI -Started on IV ceftriaxone awaiting urine culture Hyperlipidemia -Total cholesterol 286, LDL 195 -Started on Lipitor 80 mg daily Toxo metabolic encephalopathy, now resolved -On presentation secondary to UTI, CVA, and hypertensive emergency Type 2 DM -ADDY with FS -Well controlled. A1c 6.6 ALIZE, prerenal -Received IV fluid hydration DVT prophylaxis -Subcu heparin CODE STATUS: Full Code Discussed with: Patient Anticipated discharge date: Possibly tomorrow Anticipated discharge place: home A total of 35 minutes was spent on the care of this complex patient more than 50% of the time was spent in counseling and care coordination.
[2020-12-28 11:49] LABS: Glucose,Whole Blood 223 mg/dL (75-99)
--- NOTE | 2020-12-28 16:01 | P.PN ---
Subjective Progress Note Date: 12/28/20 Patient was seen for a follow-up. Patient still has some speech difficulty, per is slightly confused. However no new focal symptoms. Denies headache. Objective - Vital Signs Vital signs: Vital Signs Temp 99.1 F 12/28/20 08:00 Pulse 81 12/28/20 12:00 Resp 16 12/28/20 14:00 BP 204/90 12/28/20 12:00 Pulse Ox 97 12/28/20 12:00 Intake & Output 12/27/20 12/28/20 12/28/20 18:59 06:59 18:59 Intake Total 1140 476 Output Total 700 500 Balance 440 -500 476 Weight 57 kg Intake: Oral 1140 476 Output: Urine 700 500 Other: Voiding Method Toilet Toilet Toilet # Voids 2 # Bowel Movements 1 - Exam Patient able to name some objects, but sometimes not able to name certain other objects and would perseverate. Patient was able to name pen, glasses, but would say pen for straw, pen for thumb. Slight difficulty with repetition. 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 Face is sym metric. Muscle strength normal. Sensations equal. Patient has significant issues with sensation. She can feel either side, but sometimes would neglect the right, sometimes the left on double simultaneous stimulation, very inconsistent. Motor appears normal. No ataxia. - Labs CBC & Chem 7: 12/28/20 07:36 12/28/20 07:36 Labs: Abnormal Lab Results - Last 24 Hours (Table) 12/27/20 12/27/20 12/28/20 Range/Units 16:46 21:15 06:06 WBC (3.8-10.6) k/uL Plt Count (150-450) k/uL Lymphocytes # (1.0-4.8) k/uL BUN (7-17) mg/dL Creatinine (0.52-1.04) mg/dL Glucose (74-99) mg/dL POC Glucose (mg/dL) 195 H 208 H 153 H (75-99) mg/dL 12/28/20 12/28/20 12/28/20 Range/Units 07:36 07:36 11:47 WBC 3.7 L (3.8-10.6) k/uL Plt Count 133 L (150-450) k/uL Lymphocytes # 0.9 L (1.0-4.8) k/uL BUN 22 H (7-17) mg/dL Creatinine 1.05 H (0.52-1.04) mg/dL Glucose 148 H (74-99) mg/dL POC Glucose (mg/dL) 223 H (75-99) mg/dL Microbiology - Last 24 Hours (Table) 12/27/20 03:25 Urine Culture - Preliminary Urine,Voided Gram Neg Bacilli Assessment and Plan Assessment: * Acute CVA involving left parietal lobe, manifesting with speech difficulty, slurring and possible right visual field deficit. CTA of head and neck showed left MCA stenosis. * Acute UTI with gram-negative bacilli in the urine. * Hypertension * Diabetes * Hyperlipidemia * Hard of hearing. Plan: * MRI of the brain revealed subacute infarct left parietal lobe. * MRA of the brain revealed stenotic segment of the left middle cerebral artery in the M1 segment. * Patient needs aggressive medical management at this time. * Continue dual antiplatelet medications indefinitely, because of high risk of recurrent stroke from left MCA stenosis. * We will add Pepcid 20 mg twice a day for gastric ulcer prophylaxis. * Patient has poorly controlled lipids with cholesterol 286 and LDL 195 and triglycerides were 92. Continue high-dose statins, Lipitor 80 mg. * Hemoglobin A1c 6.6, well-controlled diabetes. * Speech therapy. * Patient on Rocephin for acute UTI. * Telemetry monitoring showing sinus rhythm with no arrhythmia. * Discussed with patient's in detail. Addendum: 7:20 PM Nurse reported patient's blood pressure is going around 192-212 systolics. Patient is neurologically unchanged. I spoke to Dr. Ashley about left MCA stenosis, if he would recommend transfer to [facility] for possible MCA stenting. He recommended maximal medical treatment. Only if patient's neurological status get worse, then MCA stenting is indicated. He agreed to cautiously decreased blood pressure. We will start lisinopril 10 mg at bedtime as well. Patient already has received lisinopril 20 mg in the morning, and No rvasc 10 mg in the morning. If patient stays neurologically stable and blood pressure stays up, we will increase lisinopril to 20 mg twice a day. He agreed to maintain on aspirin and Plavix regimen and high-dose statins.
[2020-12-28 16:51] LABS: Glucose,Whole Blood 160 mg/dL (75-99)
[2020-12-28] MEDS ORDERED: lisinopriL 10 MG TAB PO STA (19:14)
[2020-12-28 20:24] LABS: Glucose,Whole Blood 180 mg/dL (75-99)
[2020-12-28] MEDS: FAMOTIDINE 20 MG TAB PO SCH (20:56)
[2020-12-28] MEDS ORDERED: hydrALAZINE HCL 25 MG TAB PO STA (23:15)
[2020-12-29 06:13] LABS: Glucose,Whole Blood 130 mg/dL (75-99)
[2020-12-29] MEDS: INSULIN ASPART (NovoLOG) 100 UNIT/ML VIAL SQ SCH ×4 (06:15→20:06)
[2020-12-29] MEDS: FAMOTIDINE 20 MG TAB PO SCH (08:50)
[2020-12-29] MEDS: amLODIPine 10 MG TAB PO SCH (08:50)
[2020-12-29] MEDS: ASPIRIN 81 MG PO SCH (08:50)
[2020-12-29] MEDS: hydrALAZINE HCL 25 MG TAB PO SCH ×2 (08:50→20:07)
[2020-12-29] MEDS: HEPARIN SODIUM,PORCINE 5,000 UNIT/ML 1 ML VIAL SQ SCH ×2 (08:51→20:06)
[2020-12-29] MEDS: ATORVASTATIN 80 MG TAB PO SCH (08:51)
[2020-12-29] MEDS: CLOPIDOGREL 75 MG TAB PO SCH (08:51)
[2020-12-29] MEDS: lisinopriL 20 MG TAB PO SCH ×2 (08:51→20:07)
[2020-12-29 09:10] LABS: Basophils % (A) 1 %; Eosinophils # (A) 0.2 k/uL (0-0.7); Eosinophils % (A) 4 %; HCT 33.8 % (34.0-46.0); HGB 11.5 gm/dL (11.4-16.0); Lymphocytes # (A) 0.9 k/uL (1.0-4.8); Lymphocytes % (A) 23 %; MCH 29.8 pg (25.0-35.0); MCHC 34.1 g/dL (31.0-37.0); MCV 87.3 fL (80.0-100.0); Mean Platelet Volume 7.3; Monocytes # (A) 0.2 k/uL (0-1.0); Monocytes % (A) 5 %; Neutrophils # (A) 2.5 k/uL (1.3-7.7); Neutrophils % (A) 65 %; Platelet Count 148 k/uL (150-450); RBC 3.87 m/uL (3.80-5.40); RDW 14.5 % (11.5-15.5); WBC 3.8 k/uL (3.8-10.6)
[2020-12-29 09:37] LABS: Calcium 8.3 mg/dL (8.4-10.2); Potassium 4.5 mmol/L (3.5-5.1)
--- NOTE | 2020-12-29 09:50 | P.PN ---
Subjective Progress Note Date: 12/29/20 Patient is awake and alert today. Blood pressure still not well controlled. Her regimen is been adjusted. Patient denies any headache Objective - Vital Signs Vital signs: Vital Signs Temp 98 F 12/29/20 08:00 Pulse 80 12/29/20 08:00 Resp 16 12/29/20 08:00 BP 184/92 12/29/20 08:00 Pulse Ox 96 12/29/20 08:00 Intake & Output 12/28/20 12/29/20 12/29/20 18:59 06:59 18:59 Intake Total 712 180 Balance 712 180 Weight 57.1 kg Intake: Oral 712 180 Other: Voiding Method Toilet # Voids 2 2 - Exam General: The patient is awake and alert, in no distress Eye: there is normal conjunctiva bilaterally. Neck: The neck is supple, there is no JVD. Cardiovascular: Normal S1-S2, no S3-S4, no murmurs. Respiratory: Lungs clear to auscultation bilaterally Gastrointestinal: Abdomen is soft, nontender Musculoskeletal: There is no pedal edema. Neurological:. Speech is normal. Skin: Skin is warm and dry - Labs CBC & Chem 7: 12/29/20 07:15 12/29/20 07:15 Labs: Abnormal Lab Results - Last 24 Hours (Table) 12/28/20 12/28/20 12/28/20 Range/Units 11:47 16:49 20:23 Hct (34.0-46.0) % Plt Count (150-450) k/uL Lymphocytes # (1.0-4.8) k/uL BUN (7-17) mg/dL Glucose (74-99) mg/dL POC Glucose (mg/dL) 223 H 160 H 180 H (75-99) mg/dL Calcium (8.4-10.2) mg/dL 12/29/20 12/29/20 12/29/20 Range/Units 06:12 07:15 07:15 Hct 33.8 L (34.0-46.0) % Plt Count 148 L (150-450) k/uL Lymphocytes # 0.9 L (1.0-4.8) k/uL BUN 21 H (7-17) mg/dL Glucose 130 H (74-99) mg/dL POC Glucose (mg/dL) 130 H (75-99) mg/dL Calcium 8.3 L (8.4-10.2) mg/dL Microbiology - Last 24 Hours (Table) 12/27/20 03:25 Urine Culture - Preliminary Urine,Voided Gram Neg Bacilli Assessment and Plan Assessment: The patient is a 80-year-old female with a PMH of type II DM and hypertension who presented to the emergency room with complaints of confusion and speech impairment. Patient was evaluated in the ER and admitted to the hospital for further management of her medical problems noted below. In the emergency room, the patient underwent an extensive evaluation with a CT brain that revealed no acute abnormalities. Vital signs upon presentation were BP 233/105, pulse 85, SpO2 99% on room air, temperature 98.2. Chest x-ray revealed no abnormalities. EKG revealed normal sinus rhythm PVCs at 86 bpm with no ischemic ST/T-wave changes noted as reviewed by me. Laboratory evaluation was remarkable for a sodium 136, BUN 25, creatinine 1.07, glucose 166, troponin less than 0.012, and a coronavirus PCR negative. The patient was evaluated by neuro beam sealer in the emergency room and deemed not a candidate for TPA. Assessment and Plan: Subacute stroke involving the left parietal lobe -Presented with expressive aphasia and altered mental status, now improved significantly. -MRI/MRA showed subacute infarct of the left parietal lobe with stenotic segment of the left MCA -CT head on presentation with no acute finding -CT angiogram of the head and neck revealed a 1.2 cm long segment of stenosis involving the horizontal portion of the left MCA possibly due to spasm versus chronic disease with an MRA recommended. -Now on dual antiplatelet therapy with aspirin and Plavix as directed by neurology -Neurology following closely, appreciate recommendation -Echocardiogram showed preserved ejection fraction with no significant valvular abnormalities and no intracardiac source of stroke -Fall precautions -Speech eval, PT/OT eval Hypertensive emergency -Permissive HTN allowed on admission in setting of suspected acute CVA -Home dose of lisinopril increased to 20 mg daily. Norvasc 10 mg daily added to her regimen. -Today, I added hydralazine 25 mg twice daily. Continue to monitor blood pressure closely. Uncomplicated UTI -Started on IV ceftriaxone awaiting urine culture to finalize Hyperlipidemia -Total cholesterol 286, LDL 195 -Started on Lipitor 80 mg daily Toxo metabolic encephalopathy, now resolved -On presentation secondary to UTI, CVA, and hypertensive emergency Type 2 DM -ADDY with FS -Well controlled. A1c 6.6 ALIZE, prerenal -Received IV fluid hydration DVT prophylaxis -Subcu heparin CODE STATUS: Full Code Discussed with: Patient Anticipated discharge date: Possibly tomorrow Anticipated discharge place: home A total of 35 minutes was spent on the care of this complex patient more than 50% of the time was spent in counseling and care coordination.
[2020-12-29 11:41] LABS: Glucose,Whole Blood 227 mg/dL (75-99)
--- NOTE | 2020-12-29 13:33 | P.PN ---
Subjective Progress Note Date: 12/29/20 Patient was seen for a follow-up. Patient is doing better than yesterday. Patient denies headache. Patient's speech is better than yesterday. Blood pressure is better controlled 184/92. Objective - Vital Signs Vital signs: Vital Signs Temp 98 F 12/29/20 08:00 Pulse 82 12/29/20 12:00 Resp 16 12/29/20 12:00 BP 164/99 12/29/20 12:00 Pulse Ox 97 12/29/20 12:00 Intake & Output 12/28/20 12/29/20 12/29/20 18:59 06:59 18:59 Intake Total 712 360 Balance 712 360 Weight 57.1 kg Intake: Oral 712 360 Other: Voiding Method Toilet Toilet # Voids 2 2 2 # Bowel Movements 1 - Exam Patient is alert and awake, sitting in the chair. Patient able to name pen silk, then would not able to name nose, ear, straw or a brush. However about 5- 6 minutes later, patient was able to name all these objects with some hesitancy. Patient still has problem with repetition. She was able to point to the window (to her right) and the door (to her left). Previously she was having difficulty acknowledging the window. On muscle strength testing patient has mild right pronator drift. The strength however appears normal. Telemetry monitoring showing sinus rhythm in the 60s. Visual reilly revealed much better acknowledgment of the right side with less neglect. No sensory neglect in the extremities. No ataxia for [id number] testing. - Labs CBC & Chem 7: 12/29/20 07:15 12/29/20 07:15 Labs: Abnormal Lab Results - Last 24 Hours (Table) 12/28/20 12/28/20 12/29/20 Range/Units 16:49 20:23 06:12 Hct (34.0-46.0) % Plt Count (150-450) k/uL Lymphocytes # (1.0-4.8) k/uL BUN (7-17) mg/dL Glucose (74-99) mg/dL POC Glucose (mg/dL) 160 H 180 H 130 H (75-99) mg/dL Calcium (8.4-10.2) mg/dL 12/29/20 12/29/20 12/29/20 Range/Units 07:15 07:15 11:39 Hct 33.8 L (34.0-46.0) % Plt Count 148 L (150-450) k/uL Lymphocytes # 0.9 L (1.0-4.8) k/uL BUN 21 H (7-17) mg/dL Glucose 130 H (74-99) mg/dL POC Glucose (mg/dL) 227 H (75-99) mg/dL Calcium 8.3 L (8.4-10.2) mg/dL Microbiology - Last 24 Hours (Table) 12/27/20 03:25 Urine Culture - Final Urine,Voided Escherichia coli Assessment and Plan Assessment: * Acute CVA involving left parietal lobe, manifesting with speech difficulty, slurring and possible right visual field deficit. * CTA of head and neck showed left MCA stenosis involving M1 segment. * Acute UTI with gram-negative bacilli in the urine. * Hypertension * Diabetes * Hyperlipidemia * Hard of hearing. Plan: * Patient is doing better today as compared to yesterday. Her speech and comprehension and language functions have improved. Continue current medications. Her blood pressure is getting better controlled. May slowly bring it down. If needed, the dose of lisinopril can be increased to 20 mg twice a day. * MRI of the brain revealed subacute infarct left parietal lobe. * MRA of the brain revealed stenotic segment of the left middle cerebral artery in the M1 segment. * Patient needs aggressive medical management at this time. * Continue dual antiplatelet medications indefinitely, because of high risk of recurrent stroke from left MCA stenosis. * We will add Pepcid 20 mg twice a day for gastric ulcer prophylaxis. * Patient has poorly controlled lipids with cholesterol 286 and LDL 195 and triglycerides were 92. Continue high-dose statins, Lipitor 80 mg. * Hemoglobin A1c 6.6, well-controlled diabetes. * Speech therapy. * Patient on Rocephin for acute UTI. * Telemetry monitoring in the last 24 hours showing sinus rhythm with no arrhythmia. * Discussed with patient's in detail.
[2020-12-29 16:58] LABS: Glucose,Whole Blood 215 mg/dL (75-99)
[2020-12-29 19:51] LABS: Glucose,Whole Blood 236 mg/dL (75-99)
[2020-12-30 05:11] VITALS: RESP 16
[2020-12-30 06:27] LABS: Glucose,Whole Blood 156 mg/dL (75-99)
[2020-12-30] MEDS: INSULIN ASPART (NovoLOG) 100 UNIT/ML VIAL SQ SCH (06:36)
[2020-12-30 07:03] LABS: Basophils % (A) 1 %; Eosinophils # (A) 0.3 k/uL (0-0.7); Eosinophils % (A) 6 %; HCT 34.6 % (34.0-46.0); HGB 11.8 gm/dL (11.4-16.0); Lymphocytes # (A) 0.8 k/uL (1.0-4.8); Lymphocytes % (A) 19 %; MCH 29.9 pg (25.0-35.0); MCHC 34.2 g/dL (31.0-37.0); MCV 87.4 fL (80.0-100.0); Mean Platelet Volume 6.9; Monocytes # (A) 0.2 k/uL (0-1.0); Monocytes % (A) 5 %; Neutrophils # (A) 2.7 k/uL (1.3-7.7); Neutrophils % (A) 68 %; Platelet Count 143 k/uL (150-450); RBC 3.96 m/uL (3.80-5.40); RDW 14.5 % (11.5-15.5)
[2020-12-30 07:20] LABS: Calcium 8.4 mg/dL (8.4-10.2); Potassium 4.5 mmol/L (3.5-5.1)
--- NOTE | 2020-12-30 08:24 | P.DS ---
Providers Date of admission: 12/26/20 20:27 Expected date of discharge: 12/30/20 Attending physician: Pepe Vega MD Consults: 12/26/20 20:27 Consult Physician Routine Consulting Provider: Basilia Cruz Consult Reason/Comments: CVA Do you want consulting provider notified?: Yes Primary care physician: Inocente Tate MD Hospital Course: The patient is a 80-year-old female with a PMH of type II DM and hypertension who presented to the emergency room with complaints of confusion and speech impairment. Patient was evaluated in the ER and admitted to the hospital for further management of her medical problems noted below. In the emergency room, the patient underwent an extensive evaluation with a CT brain that revealed no acute abnormalities. Vital signs upon presentation were BP 233/105, pulse 85, SpO2 99% on room air, temperature 98.2. Chest x-ray revealed no abnormalities. EKG revealed normal sinus rhythm PVCs at 86 bpm with no ischemic ST/T-wave changes noted as reviewed by me. Laboratory evaluation was remarkable for a sodium 136, BUN 25, creatinine 1.07, glucose 166, troponin less than 0.012, and a coronavirus PCR negative. The patient was evaluated by neuro webfed offset press operator in the emergency room and deemed not a candidate for TPA. Assessment and Plan: Subacute stroke involving the left parietal lobe -Presented with expressive aphasia and altered mental status, now improved significantly. -MRI/MRA showed subacute infarct of the left parietal lobe with stenotic segment of the left MCA -CT head on presentation with no acute finding -CT angiogram of the head and neck revealed a 1.2 cm long segment of stenosis involving the horizontal portion of the left MCA possibly due to spasm versus chronic disease with an MRA recommended. -continue dual antiplatelet therapy with aspirin and Plavix indefinitely as directed by neurology -Echocardiogram showed preserved ejection fraction with no significant valvular abnormalities and no intracardiac source of stroke -Fall precautions -Speech eval, PT/OT eval Hypertensive emergency -Permissive HTN allowed on admission in setting of suspected acute CVA -Patient regimen adjusted to amlodipine 10 mg daily, lisinopril 20 mg twice a day, hydralazine 25 mg 3 times a day with good improvement in her blood pressure readings -Patient needs close follow-up with PCP in the next 3 days and may require further adjustment on her blood pressure medications Uncomplicated UTI -Started on IV ceftriaxone. Urine culture grew E. coli. Will finish 5 days course of antibiotic Hyperlipidemia -Total cholesterol 286, LDL 195 -Started on Lipitor 80 mg daily Toxo metabolic encephalopathy, now resolved -On presentation secondary to UTI, CVA, and hypertensive emergency Type 2 DM -Resume home dose of metformin and Gliburyde -Well controlled. A1c 6.6 ALIZE, prerenal -Resolved with IV fluid hydration Patient will be discharged home in a stable condition. For further details about this hospitalization please refer to the electronic chart. Time spent on discharge > 30 minutes including counseling and coordination of care Patient Condition at Discharge: Stable Plan - Discharge Summary Discharge Rx Participant: No New Discharge Prescriptions: New hydrALAZINE HCL [Apresoline] 25 mg PO TID #90 tab Aspirin 81 mg PO DAILY #30 chew Atorvastatin [Lipitor] 80 mg PO DAILY #30 tab amLODIPine [Norvasc] 10 mg PO DAILY #30 tab Famotidine [Pepcid] 20 mg PO DAILY #30 tab Clopidogrel [Plavix] 75 mg PO DAILY #30 tab lisinopriL [Zestril] 20 mg PO BID #60 tab Continue metFORMIN HCL [Glucophage] 500 mg PO BID Glimepiride [Amaryl] 2 mg PO BID Discontinued Lisinopril [Zestril] 10 mg PO DAILY Aspirin [Adult Low Dose Aspirin EC] 40.5 mg PO DAILY Discharge Medication List Glimepiride [Amaryl] 2 mg PO BID 12/26/20 [History] metFORMIN HCL [Glucophage] 500 mg PO BID 12/26/20 [History] Aspirin 81 mg PO DAILY #30 chew 12/30/20 [Rx] Atorvastatin [Lipitor] 80 mg PO DAILY #30 tab 12/30/20 [Rx] Clopidogrel [Plavix] 75 mg PO DAILY #30 tab 12/30/20 [Rx] Famotidine [Pepcid] 20 mg PO DAILY #30 tab 12/30/20 [Rx] amLODIPine [Norvasc] 10 mg PO DAILY #30 tab 12/30/20 [Rx] hydrALAZINE HCL [Apresoline] 25 mg PO TID #90 tab 12/30/20 [Rx] lisinopriL [Zestril] 20 mg PO BID #60 tab 12/30/20 [Rx] Follow up Appointment(s)/Referral(s): Inocente Tate MD [Primary Care Provider] - 1-2 days [facility], [NON-STAFF] - Discharge Disposition: HOME WITH HOME HEALTH SERVICES
[2020-12-30] MEDS: ATORVASTATIN 80 MG TAB PO SCH (08:57)
[2020-12-30] MEDS: HEPARIN SODIUM,PORCINE 5,000 UNIT/ML 1 ML VIAL SQ SCH (08:57)
[2020-12-30] MEDS: amLODIPine 10 MG TAB PO SCH (08:57)
[2020-12-30] MEDS: hydrALAZINE HCL 25 MG TAB PO SCH (08:57)
[2020-12-30] MEDS: ASPIRIN 81 MG PO SCH (08:57)
[2020-12-30] MEDS: CLOPIDOGREL 75 MG TAB PO SCH (08:57)
[2020-12-30] MEDS: lisinopriL 20 MG TAB PO SCH (08:57)
[2020-12-30] MEDS ORDERED: FAMOTIDINE 20 MG TAB PO SCH (09:00)
[2020-12-30 09:09] VITALS: BP 187/88; PULSE 78; TEMP 97.6
== END 2020-12-30 10:50 | disposition home health service (06) | DRG 64 ==
LOC: EC 18:39 → 3SCARD 20:27
PROVIDERS: ADMIT Internal Medicine; ATTEND Internal Medicine
DX: I63.512 Cerebral infarction due to unspecified occlusion or stenosis of left middle cerebral artery (principal); G92 Toxic encephalopathy; N17.9 Acute kidney failure, unspecified; N39.0 Urinary tract infection, site not specified; H53.9 Unspecified visual disturbance; R47.01 Aphasia; I10 Essential (primary) hypertension; E11.9 Type 2 diabetes mellitus without complications; Z79.84 Long term (current) use of oral hypoglycemic drugs; I16.0 Hypertensive urgency; F17.200 Nicotine dependence, unspecified, uncomplicated; E78.5 Hyperlipidemia, unspecified; Z20.822 Contact with and (suspected) exposure to COVID-19
CPT/HCPCS: 36415; 70450; 70496; 70498; 70544; 70551; 71046; 80048; 80053; 80061; 81001; 83036; 84484; 85025; 85610; 85730; 87077; 87086; 87186; 87635; 93005; 93306; 99291

== ENCOUNTER 2021-02-16 06:27 | Emergency (ER) | payer MEDICARE ==
[2021-02-16 06:41] VITALS: RESP 18; TEMP 97.7
[2021-02-16] MEDS ORDERED: HYDROmorphone 0.5 MG/0.5 ML SYRINGE IVP STA (06:47)
--- NOTE | 2021-02-16 07:18 | ED ---
Fall HPI - General Chief Complaint: Fall Stated Complaint: Fall Time Seen by Provider: 02/16/21 06:34 Source: patient, family, EMS Mode of arrival: EMS Limitations: no limitations - History of Present Illness Initial Comments: This a 80-year-old female presents emergency from via EMS with chief complaint of fall. Patient had a trip and fall onto her right side, has a small laceration to her right hip region. Patient had no head injury no loss conscious. Patient complains of right hip, right leg and right foot pain. Patient denies abdominal pain no chest pain or shortness breath no syncopal episode. received 75 g of fentanyl by EMS prior arrival. - Related Data Home Medications Medication Instructions Recorded Confirmed Glimepiride [Amaryl] 2 mg PO BID 12/26/20 02/16/21 metFORMIN HCL [Glucophage] 500 mg PO BID 12/26/20 02/16/21 Previous Rx's Medication Instructions Recorded Aspirin 81 mg PO DAILY #30 chew 12/30/20 Atorvastatin [Lipitor] 80 mg PO DAILY #30 tab 12/30/20 Clopidogrel [Plavix] 75 mg PO DAILY #30 tab 12/30/20 Famotidine [Pepcid] 20 mg PO DAILY #30 tab 12/30/20 amLODIPine [Norvasc] 10 mg PO DAILY #30 tab 12/30/20 hydrALAZINE HCL [Apresoline] 25 mg PO TID #90 tab 12/30/20 lisinopriL [Zestril] 20 mg PO BID #60 tab 12/30/20 Allergies Allergy/AdvReac Type Severity Reaction Status Date / Time No Known Allergies Allergy Verified 02/16/21 07:50 Review of Systems ROS Statement: Those systems with pertinent positive or pertinent negative responses have been documented in the HPI. ROS Other: All systems not noted in ROS Statement are negative. Past Medical History Past Medical History: Diabetes Mellitus, Hyperlipidemia, Hypertension History of Any Multi-Drug Resistant Organisms: None Reported Past Surgical History: No Surgical Hx Reported Additional Past Surgical History / Comment(s): CATRACTS ABBE 2000 Past Anesthesia/Blood Transfusion Reactions: No Reported Reaction Past Psychological History: No Psychological Hx Reported Smoking Status: Never smoker Past Alcohol Use History: Occasional Past Drug Use History: None Reported - Past Family History Father Family Medical History: No Reported History Mother Family Medical History: No Reported History General Exam Limitations: altered mental status (Prior CVA) General appearance: alert, in no apparent distress Head exam: Present: atraumatic, normocephalic, normal inspection Eye exam: Present: normal appearance, PERRL, EOMI. Absent: scleral icterus, conjunctival injection, periorbital swelling ENT exam: Present: normal exam, normal oropharynx, mucous membranes moist Neck exam: Present: normal inspection, full ROM. Absent: tenderness, meningismus, lymphadenopathy Respiratory exam: Present: normal lung sounds bilaterally. Absent: respiratory distress, wheezes, rales, rhonchi, stridor Cardiovascular Exam: Present: regular rate, normal rhythm, normal heart sounds. Absent: systolic murmur, diastolic murmur, rubs, gallop, clicks Extremities exam: Present: tenderness (Tenderness the right hip, right femur region and right foot pulses are palpable), other (Small 1 cm laceration to the right hip.). Absent: full ROM Neurological exam: Present: alert, CN II-XII intact, reflexes normal. Absent: oriented X3, motor sensory deficit Skin exam: Present: warm, dry, intact, normal color. Absent: rash Course Vital Signs 02/16/21 02/16/21 02/16/21 06:30 07:58 07:59 Temperature 97.7 F Pulse Rate 78 76 Respiratory 18 18 Rate Blood Pressure 149/89 142/47 O2 Sat by Pulse 93 L 87 L 98 Oximetry Medical Decision Making - Medical Decision Making 80-year-old female presents emergency Department for a fall. X-ray were r eviewed after completion which shows displaced femur fracture. At this time given that there is a fracture and an opening and antibiotics were ordered. Tetanus is updated. I did contact orthopedics who reviewed the images and will come evaluate the patient's patient will be admitted I did contact medicine for surgical clearance. Disposition Clinical Impression: Fall, Fracture of proximal end of right femur, Scapular fracture, Rib fractures Disposition: ADMITTED IP TO THIS [facility] Condition: Fair
[2021-02-16] MEDS ORDERED: DIPH,PERTUS(ACELL)TETVAC-LF 0.5 ML VIAL IM ONE (07:32)
--- NOTE | 2021-02-16 07:38 | XR ---
EXAMINATION TYPE: XR chest 1V DATE OF EXAM: 02/16/2021 COMPARISON: 12/26/2020 HISTORY: Pain TECHNIQUE: Single frontal view of the chest is obtained. FINDINGS: Evaluation the right hemithorax limited due to positioning. Left lung is clear. Coarsened interstitium noted on the right which could be related to positioning. Heart size prominent. Metallic artifact overlying the right hemithorax. IMPRESSION: 1. Limited exam demonstrates coarsened interstitium which could be on the basis of chronic interstiti al lung disease or interstitial pneumonitis.
--- NOTE | 2021-02-16 07:39 | XR ---
EXAMINATION TYPE: XR foot limited RT DATE OF EXAM: 02/16/2021 COMPARISON: NONE HISTORY: Pain TECHNIQUE: Two views are submitted. FINDINGS: The osseous structures are intact. There is no acute fracture or dislocation. Severe arthropathy o f the first MTP joint. Diffuse osteopenia. Calcaneal spurs noted. There is arthropathy of the tarsome tatarsal junction.. IMPRESSION: 1. No acute fracture or dislocation. If symptoms persist, follow-up exam in 7 to 10 days could be ob tained.
--- NOTE | 2021-02-16 07:39 | XR ---
EXAMINATION TYPE: XR femur RT DATE OF EXAM: 02/16/2021 COMPARISON: NONE HISTORY: Pain TECHNIQUE: 5 views submitted FINDINGS: There is a comminuted oblique displaced fracture of the proximal diaphysis of the right fem ur. Soft tissue edema and emphysema noted. There are vascular calcifications. Arthropathy of the hip. Arthropathy of the knee joint. IMPRESSION: Comminuted undisplaced fracture of the proximal femur.
--- NOTE | 2021-02-16 07:40 | XR ---
EXAMINATION TYPE: XR pelvis AP view DATE OF EXAM: 02/16/2021 COMPARISON: NONE HISTORY: Pain There is a displaced fracture of the right femur length is difficult to position the patient results in nondiagnostic exam. Vascular calcifications and diffuse osteopenia noted. IMPRESSION: 1. Displaced fracture of the right femur length difficulty positioning and nondiagnostic exam..
[2021-02-16] MEDS ORDERED: ONDANSETRON 4 MG/2 ML VIAL IVP PRN (07:51)
[2021-02-16] MEDS ORDERED: HYDROmorphone 1 MG/ML 1 ML SYRINGE IVP PRN (07:51)
[2021-02-16] MEDS ORDERED: NALOXONE 0.4 MG/ML 1 ML VIAL IV PRN (07:51)
[2021-02-16] MEDS ORDERED: SODIUM CHLORIDE 0.9% 1,000 ML IV SCH (08:00)
--- NOTE | 2021-02-16 08:24 | XR ---
EXAMINATION TYPE: XR shoulder limited RT DATE OF EXAM: 02/16/2021 CLINICAL HISTORY: Fall injury with pain. TECHNIQUE: 2 views of the right shoulder are attempted. COMPARISON: Same day chest x-ray. FINDINGS: Osseous structures are demineralized which is noted to lower radiographic sensitivity. In a ddition exam is suboptimal due to patient's inability to proper position. There is also overlying yanick thing or blanket material making evaluation suboptimal. No obvious acute displaced fracture is seen at glenohumeral joint. Spurring from the lateral aspect h umeral head. There is mild to moderate narrowing inferior acromioclavicular joint. High positioned hu meral head suggests chronic rotator cuff tear. There is however comminuted displaced fracture through the mid body of the scapula. In addition there are at least acute displaced right lateral rib fractures. Follow-up chest CT is likely warranted. IMPRESSION: As above.
[2021-02-16] MEDS: HYDROmorphone 0.5 MG/0.5 ML SYRINGE IVP PRN ×2 (08:40→10:42)
[2021-02-16 08:42] LABS: Anisocytosis Slight; Basophils # (A) 0.1 k/uL (0-0.2); Basophils % (A) 1 %; Eosinophils # (A) 0.2 k/uL (0-0.7); Eosinophils % (A) 2 %; HCT 23.1 % (34.0-46.0); Lymphocytes # (A) 0.6 k/uL (1.0-4.8); Lymphocytes % (A) 6 %; MCH 29.7 pg (25.0-35.0); MCHC 34.3 g/dL (31.0-37.0); MCV 86.7 fL (80.0-100.0); Monocytes # (A) 0.3 k/uL (0-1.0); Monocytes % (A) 3 %; Neutrophils # (A) 9.3 k/uL (1.3-7.7); Neutrophils % (A) 89 %; Platelet Count 193 k/uL (150-450); RBC 2.67 m/uL (3.80-5.40); RDW 16.4 % (11.5-15.5); WBC 10.5 k/uL (3.8-10.6)
[2021-02-16 08:49] LABS: HGB 7.9 gm/dL (11.4-16.0)
[2021-02-16 08:56] LABS: Albumin 2.1 g/dL (3.5-5.0); Calcium 7.7 mg/dL (8.4-10.2); Potassium 4.1 mmol/L (3.5-5.1); Total Bilirubin 0.3 mg/dL (0.2-1.3); Total Protein 4.2 g/dL (6.3-8.2)
--- NOTE | 2021-02-16 09:00 | P.CNOR ---
History of Present Illness - [facility] Consult date: 02/16/21 Consult reason: fracture History of present illness: Patient is a 80-year-old pleasant female who sustained a fall this morning around 5:30 when she fell down some stairs at home. she is accompanied by her son. The patient is normally a community ambulate or without any assistance. She gets around her house quite well. She did sustain a small stroke last month and was hospitalized due to this but apparently she was not having any physical effects. The son says that she may have had some speech effects from this and some slight cognition effects but otherwise she was getting around fine. She lives at home with her who is also a community ambulate or without any assistance. The patient says that she was on the stairs and slipped and fell. She denies loss of consciousness. She noted acute sudden pain at her right leg. She was found by her and she is brought to the emergency room via ambulance. She is found have a right comminuted proximal femur subtrochanteric shaft fracture. She is found have an area of significant bleeding at the proximal thigh as well. She was neurovascularly intact. She is alert and oriented 3. She denies prior problems with her right leg. She normally endplates without any assistance. Review of Systems She is on Plavix due to her recent cerebral vascular accident. She was prediabetic and is on a number of medicines due to her recent hospitalization. She denies loss of consciousness. She denies any pain in her upper extremities or her left lower extremity. She denies any pain in her back or chest. She denies any neck pain. Her primary complaint of pain is at her right leg with any sort of motion. Past Medical History Past Medical History: CVA/TIA, Diabetes Mellitus, Hyperlipidemia, Hypertension Additional Past Medical History / Comment(s): Last month the patient was hospitalized due to a cerebrovascular accident. Reportedly she did not have any motor loss. The son states that she had some speech changes since then and possibly some cognition changes the time. She is normally a community ambulate without any assistance. History of Any Multi-Drug Resistant Organisms: None Reported Past Surgical History: No Surgical Hx Reported Additional Past Surgical History / Comment(s): CATRACTS ABBE 2000 Past Anesthesia/Blood Transfusion Reactions: No Reported Reaction Past Psychological History: No Psychological Hx Reported Smoking Status: Never smoker Past Alcohol Use History: Occasional Past Drug Use History: None Reported - Past Family History Father Family Medical History: No Reported History Mother Family Medical History: No Reported History Medications and Allergies Home Medications Medication Instructions Recorded Confirmed Type Glimepiride [Amaryl] 2 mg PO BID 12/26/20 02/16/21 History metFORMIN HCL [Glucophage] 500 mg PO BID 12/26/20 02/16/21 History Aspirin 81 mg PO DAILY #30 chew 12/30/20 02/16/21 Rx Atorvastatin [Lipitor] 80 mg PO DAILY #30 tab 12/30/20 02/16/21 Rx Clopidogrel [Plavix] 75 mg PO DAILY #30 tab 12/30/20 02/16/21 Rx Famotidine [Pepcid] 20 mg PO DAILY #30 tab 12/30/20 02/16/21 Rx amLODIPine [Norvasc] 10 mg PO DAILY #30 tab 12/30/20 02/16/21 Rx hydrALAZINE HCL [Apresoline] 25 mg PO TID #90 tab 12/30/20 02/16/21 Rx lisinopriL [Zestril] 20 mg PO BID #60 tab 12/30/20 02/16/21 Rx Allergies Allergy/AdvReac Type Severity Reaction Status Date / Time No Known Allergies Allergy Verified 02/16/21 07:50 Physical Examination Osteopathic Statement: *. No significant issues noted on an osteopathic structural exam other than those noted in the History and Physical/Consult. - Fracture right femur Location of fracture: Right femur some trochanteric area Appearance: varus angulation Open wound: At the right proximal femur there is obvious deformity. Her compartments are soft. There is a small 1 cm area where there is oozing blood at the anterior lateral proximal thigh. She has obvious deformity and crepitus with any sort of motion. Her thigh and calf are soft her ankle and foot is soft and nontender. Her compartments are soft. She is able to move her toes. Her capillary refills less than 2 seconds. Distal pulses are intact. There is obvious instability at her femur. At her left lower extremity compartments are soft. She has good motion. She is nontender to palpation and motion. Her back is nontender pelvis is stable to rock. Her upper extremities have good active passive range motion. Her neck is nontender to palpation range motion. HEENT normocephalic/atraumatic Distal extremity neurovascularly intact: Yes Other injury: muscle injury: yes (Grade 1 open laceration at the proximal thigh) Results - Labs Labs: Abnormal Lab Results - Last 24 Hours (Table) 02/16/21 Range/Units 08:15 RBC 2.67 L (3.80-5.40) m/uL Hgb 7.9 L D (11.4-16.0) gm/dL Hct 23.1 L (34.0-46.0) % RDW 16.4 H (11.5-15.5) % Neutrophils # 9.3 H (1.3-7.7) k/uL Lymphocytes # 0.6 L (1.0-4.8) k/uL H & H 02/16/21 Range/Units 08:15 Hgb 7.9 L D (11.4-16.0) gm/dL Hct 23.1 L (34.0-46.0) % Result Diagrams: 02/16/21 08:15 - Diagnostic results Hip x-ray: report reviewed, image reviewed (Sub trochanteric comminuted displaced proximal femur fracture) Assessment and Plan Assessment: Grade 1 open acute traumatic subtrochanteric femur fracture, comminuted and dis placed Status post fall today at home Recent history of she will vascular accident on Plavix Plan: Grade 1 open acute traumatic subtrochanteric femur fracture, comminuted and displaced Status post fall today at home Recent history of she will vascular accident on Plavix The patient has an acute traumatic grade 1 open subtrochanteric comminuted femur fracture that will require emergent surgical irrigation and debridement with fixation. The patient is on Plavix but she will need surgical intervention despite that today. She is having evaluation with medicine for risk ratification and surgical clearance. Certainly the patient is at increased risk due to her advanced age and recent CVA with current anticoagulation medications. Despite this we will need to pursue surgical intervention on an emergent basis due to the open nature of the injury. I discussed the fact that the open fracture increases the risk with the injury to the patient and with her son at bedside. We will plan surgical irrigation and debridement of the open fracture with internal fixation likely with cerclage wiring and intramedullary rodding. This would give her the best chance of recovery healing and jainism of function. I discussed with him the fact that this is a major injury and has serious potential consequences and she may lose significant amount of her mobility status and independence. Discussed the risk of bleeding risk of infection risk of need for further surgery risk of decreased loss of motion loss of function malunion nonunion hardware failure nerve damage as well as possible palpitations with surgery regarding her heart lungs and overall medical status. I answered their questions best my ability healing which they can understand and they elect to proceed with surgical intervention today.
[2021-02-16 09:02] LABS: Prothrombin Time 10.6 sec (9.0-12.0)
[2021-02-16 09:05] LABS: Partial Thromboplastin Time 20.5 sec (22.0-30.0)
[2021-02-16 09:12] LABS: Appearance,Urine Cloudy (Clear); Bacteria,Urine Many /hpf; Bilirubin,Urine Negative (Negative); Blood,Urine Moderate (Negative); Color,Urine Yellow; Glucose,Urine (UA) Negative (Negative); Ketones,Urine Negative (Negative); Leukocyte Esterase,Urine Large (Negative); Mucus,Urine Rare /hpf; Nitrite,Urine Negative (Negative); PH, Urine 6.5 (5.0-8.0); Protein,Urine 3+ (Negative); RBC,Urine 46 /hpf (0-5); Specific Gravity,Urine 1.013 (1.001-1.035); Squamous Epithelial Cell,Urine <1 /hpf (0-4); Urobilinogen,Urine <2.0 mg/dL (<2.0); WBC,Urine 180 /hpf (0-5)
--- NOTE | 2021-02-16 10:07 | P.HPIM ---
History of Present Illness H&P Date: 02/16/21 Chief Complaint: Fall and right hip pain This is a 80-year-old female with very complex past medical history noted below that presented to the emergency room with right hip pain after sustaining a fall at home. Patient is not providing much history and most of the history was obtained by her son. Apparently she sustained a fall this morning around 5:30 AM when she fell down the stairs at home. Patient does not recall the circumstances of the fall and does not recall whether she hit her head or not. She was complaining of severe right hip pain and was brought into the emergency room for further evaluation. In the ER, patient was found to have a displaced fracture of the right femur, displaced fracture of the right scapula and upper ribs. Computed tomography scan of the chest was recommended for further evaluation. Patient did not have a computed tomography scan of the head or cervical spine on presentation. Patient herself is awake and alert. She appears comfortable when I saw her. She said that her pain is better now after getting pain medications. Patient was discharged last month from the hospital after being admitted for subacute stroke involving the parietal lobe. She is on dual antiplatelet therapy with aspirin and Plavix. She denies any chest pain or shortness of breath at this time. She is usually fairly active and is able to climb stairs with no difficulty. She is known to have underlying hypertension and diabetes. No known chronic kidney disease. 12-lead EKG done in the emergency room reviewed by me showed normal sinus rhythm. Review of Systems Review of system: 14 points review of systems were obtained and were negative except to what were mentioned in the HPI. Past Medical History Past Medical History: CVA/TIA, Diabetes Mellitus, Hyperlipidemia, Hypertension Additional Past Medical History / Comment(s): Last month the patient was hospitalized due to a cerebrovascular accident. Reportedly she did not have any motor loss. The son states that she had some speech changes since then and possibly some cognition changes the time. She is normally a community ambulate without any assistance. History of Any Multi-Drug Resistant Organisms: None Reported Past Surgical History: No Surgical Hx Reported Additional Past Surgical History / Comment(s): CATRACTS ABBE 2000 Past Anesthesia/Blood Transfusion Reactions: No Reported Reaction Past Psychological History: No Psychological Hx Reported Smoking Status: Never smoker Past Alcohol Use History: Occasional Past Drug Use History: None Reported - Past Family History Father Family Medical History: No Reported History Mother Family Medical History: No Reported History Medications and Allergies Home Medications Medication Instructions Recorded Confirmed Type Glimepiride [Amaryl] 2 mg PO BID 12/26/20 02/16/21 History metFORMIN HCL [Glucophage] 500 mg PO BID 12/26/20 02/16/21 History Aspirin 81 mg PO DAILY #30 chew 12/30/20 02/16/21 Rx Atorvastatin [Lipitor] 80 mg PO DAILY #30 tab 12/30/20 02/16/21 Rx Clopidogrel [Plavix] 75 mg PO DAILY #30 tab 12/30/20 02/16/21 Rx Famotidine [Pepcid] 20 mg PO DAILY #30 tab 12/30/20 02/16/21 Rx amLODIPine [Norvasc] 10 mg PO DAILY #30 tab 12/30/20 02/16/21 Rx hydrALAZINE HCL [Apresoline] 25 mg PO TID #90 tab 12/30/20 02/16/21 Rx lisinopriL [Zestril] 20 mg PO BID #60 tab 12/30/20 02/16/21 Rx Allergies Allergy/AdvReac Type Severity Reaction Status Date / Time No Known Allergies Allergy Verified 02/16/21 07:50 Physical Exam Vitals: Vital Signs Temp Pulse Resp BP Pulse Ox 02/16/21 07:59 98 02/16/21 07:58 76 18 142/47 87 L 02/16/21 06:30 97.7 F 78 18 149/89 93 L Intake and Output 02/15/21 02/16/21 02/16/21 22:59 06:59 14:59 Other: Weight 52.163 kg General: The patient is awake and alert, in no distress Eye: there is normal conjunctiva bilaterally. Neck: The neck is supple, there is no JVD. Cardiovascular: Normal S1-S2, no S3-S4, no murmurs. Respiratory: Lungs clear to auscultation bilaterally Gastrointestinal: Abdomen is soft, nontender Musculoskeletal: There is +1 pedal edema. On the right Neurological:. Speech is normal. Skin: Skin is warm and dry Results CBC & Chem 7: 02/16/21 08:15 02/16/21 08:15 Labs: Abnormal Lab Results - Last 24 Hours (Table) 02/16/21 02/16/21 02/16/21 Range/Units 08:15 08:15 08:15 RBC 2.67 L (3.80-5.40) m/uL Hgb 7.9 L D (11.4-16.0) gm/dL Hct 23.1 L (34.0-46.0) % RDW 16.4 H (11.5-15.5) % Neutrophils # 9.3 H (1.3-7.7) k/uL Lymphocytes # 0.6 L (1.0-4.8) k/uL APTT 20.5 L (22.0-30.0) sec Sodium (137-145) mmol/L Chloride (98-107) mmol/L BUN (7-17) mg/dL Glucose (74-99) mg/dL Calcium (8.4-10.2) mg/dL Total Protein (6.3-8.2) g/dL Albumin (3.5-5.0) g/dL Urine Appearance Cloudy H (Clear) Urine Protein 3+ H (Negative) Urine Blood Moderate H (Negative) Ur Leukocyte Esterase Large H (Negative) Urine RBC 46 H (0-5) /hpf Urine WBC 180 H (0-5) /hpf Urine WBC Clumps Few H (None) /hpf Urine Bacteria Many H (None) /hpf Urine Mucus Rare H (None) /hpf SARS-CoV-2 (PCR) (Not Detectd) 02/16/21 02/16/21 Range/Units 08:15 08:15 RBC (3.80-5.40) m/uL Hgb (11.4-16.0) gm/dL Hct (34.0-46.0) % RDW (11.5-15.5) % Neutrophils # (1.3-7.7) k/uL Lymphocytes # (1.0-4.8) k/uL APTT (22.0-30.0) sec Sodium 136 L (137-145) mmol/L Chloride 109 H (98-107) mmol/L BUN 20 H (7-17) mg/dL Glucose 185 H (74-99) mg/dL Calcium 7.7 L (8.4-10.2) mg/dL Total Protein 4.2 L (6.3-8.2) g/dL Albumin 2.1 L (3.5-5.0) g/dL Urine Appearance (Clear) Urine Protein (Negative) Urine Blood (Negative) Ur Leukocyte Esterase (Negative) Urine RBC (0-5) /hpf Urine WBC (0-5) /hpf Urine WBC Clumps (None) /hpf Urine Bacteria (None) /hpf Urine Mucus (None) /hpf SARS-CoV-2 (PCR) Detected A (Not Detectd) Assessment and Plan Assessment: This is a 80-year-old female with very complex past medical history noted below that presented to the emergency room after she sustained a fall at home while going down stairs. Patient was evaluated in the ER and admitted to the hospital under orthopedic surgery for further management of her medical problems noted below. I was asked to see her for medical management and preoperative clearance . 1. Displaced fracture of the right femur: Seen and evaluated by orthopedic. Plan for OR this morning. Patient is at moderate but acceptable risk for surgery. I reviewed her lab work results and 12-lead EKG. 2. Displaced fracture of the right scapula and upper ribs. Computed tomography scan of the chest ordered for further evaluation 3. Mechanical fall with questionable head trauma on dual antiplatelet therapy, I recommended a noncontrast computed tomography scan of the head and cervical spine 4. Uncomplicated UTI, started on IV ceftriaxone awaiting urine culture 5. Recent COVID-19 infection with positive diagnosis 4 weeks ago at the local [facility] pharmacy according to her son. Patient is currently asymptomatic. Chest x- ray showed no acute findings. Patient is not requiring oxygen at this time. 6. Recent CVA involving the left perietal lobe, on dual antiplatelet therapy with aspirin and Plavix. Resume if CT head with no acute findings. 7. Essential hypertension: Blood pressure within acceptable range. I would hold home dose of amlodipine and hydralazine and continue lisinopril 20 mg twice daily 8. Type 2 diabetes, hold oral medications and continue sliding scale insulin 9. DVT prophylaxis with subcu Lovenox
--- NOTE | 2021-02-16 10:08 | P.PN ---
Progress Note - Text Progress Note Date: 02/16/21 Advanced Care Planning Active Diagnosis: Right hip fracture, right scapular and right upper rib fracture Persons present: Patient and her son Summary: Discussed the patient's goals of care in detail. The patient initially was unclear whether she wanted to receive resuscitation or not. Her son is not sure whether she has advanced directive. We discussed the meaning of resuscitation including CPR and possibly intubation. Patient and her son decided to continue with full CODE STATUS for now Time spent: Total time spent face to face in education and discussion directly related to advanced care plannin minutes
[2021-02-16] MEDS ORDERED: ACETAMINOPHEN TAB 325 MG TAB PO PRN (10:16)
--- NOTE | 2021-02-16 10:24 | CT ---
EXAMINATION TYPE: CT chest wo con DATE OF EXAM: 02/16/2021 COMPARISON: Chest and right shoulder x-ray earlier today HISTORY: Fall injury with right-sided pain. Abnormal x-ray. CT DLP: 248.4 mGycm. Automated Exposure Control for Dose Reduction was Utilized. TECHNIQUE: CT scan of the thorax is performed without IV contrast. FINDINGS: LUNGS: There are small right-sided pneumothorax estimated near 10% greatest anteriorly when patient l aying supine. There is small right pleural fluid collection or hemothorax. Patchy groundglass opaciti es throughout both lungs right greater than left could reflect edema and/or infiltrates, pulmonary co ntusion injury is in differential. Areas of organizing consolidation are noted bilaterally greatest i n the periphery of both lungs. Correlate clinically. No mediastinal shift. MEDIASTINUM: Lack of IV contrast is noted to limit evaluation for mediastinal and especially hilar ad enopathy. There are no definitive greater than 1 cm hilar or mediastinal lymph nodes. Small pericardi al effusion is seen measuring up to 9 mm thickness anteriorly. Heart size upper limits of normal. Mil d to moderate right atrial dilatation noted. Enlarged right and left pulmonary arteries, CT findings consistent with underlying pulmonary artery hypertension. Severe three-vessel coronary artery calcifi cation. Calcification at level of mitral valve annulus. OTHER: Demineralization with underlying scoliosis. Mild chronic compression type fracture T4 level wi th superior height loss. Calcified gallbladder wall or porcelain-type gallbladder. Moderate to severe narrowing right acromioclavicular joint. Moderate narrowing right glenohumeral joint. Confirmation of acute comminuted displaced fracture through the right scapula not involving the osseo us glenoid is confirmed. There are additional acute displaced fractures involving the lateral right t hird rib axial image 14 and minimally displaced fractures involving posterior lateral fourth and fift h ribs axial image 16 and 19 respectively. IMPRESSION: 1. Small right-sided pneumothorax estimated 10%. Confirmation of acute comminuted displaced right sca pular fracture without glenoid involvement. Confirmation of acute displaced right lateral third rib a nd minimally displaced posterolateral right fourth and fifth rib fractures. Small right-sided basilar pneumothorax. No mediastinal shift. 2. Bilateral multifocal groundglass opacities and organizing consolidations could reflect pulmonary c ontusion injury, other infectious etiologies not excluded. Progress study advised. 3. Small pericardial effusion. 4. Porcelain type gallbladder, nonemergent surgical consult for cholecystectomy advised. Case discussed with ordering emergency care physician certified first assistant via telephone at time of dictation.
[2021-02-16 10:28] LABS: African American GFR (CKD) 74 (>60 ml/min/1.73 sqM); Anion Gap 0 mmol/L; Blood Urea Nitrogen 21 mg/dL (7-17); Calcium 7.9 mg/dL (8.4-10.2); Carbon Dioxide 27 mmol/L (22-30); Chloride 108 mmol/L (98-107); Glucose 204 mg/dL (74-99); Non-African American GFR(CKD) 64 (>60 ml/min/1.73 sqM); Potassium 4.4 mmol/L (3.5-5.1); Sodium 135 mmol/L (137-145)
--- NOTE | 2021-02-16 10:29 | CT ---
EXAMINATION TYPE: CT brain cspine wo con DATE OF EXAM: 02/16/2021 COMPARISON: Prior CT trauma June 12, 2020 HISTORY: Fall injury with headache and neck pain. CT DLP: 2313.5 mGycm. Automated Exposure Control for Dose Reduction was Utilized. TECHNIQUE: CT scan of the head and cervical spine are performed without contrast. FINDINGS: There is no acute intracranial hemorrhage or midline shift identified. Mild to moderate v entricular and sulcal prominence. Moderate low attenuation throughout the deep and periventricular wh ite matter redemonstrated. There is small to moderate size high right frontal parietal acute scalp he matoma axial image 44 noted. The calvarium is intact. The globes are intact and the visualized sinuse s are clear. Vascular calcification distal internal carotid arteries redemonstrated. Cervical spine is visualized in its entirety from C1 through upper thoracic levels and demonstrates s atisfactory alignment without evidence of acute fracture or dislocation. Prevertebral soft tissue ap pears within normal limits. The C1-C2 articulation is within normal limits on the coronal images. V ertebral body heights are maintained. Osseous structures are demineralized. There is underlying levoc onvex scoliosis centered near cervicothoracic junction redemonstrated. Stable moderate disc space arnaud rowing with mild/moderate posterior spurring C5-C6 level. Stable mild/moderate chronic compression ty pe fracture deformity at T3 level. Axial images show multilevel uncovertebral and facet degenerative changes contributing to multilevel bilateral neural foraminal narrowing. Thyroid gland appears within normal limits. Lung apices redemonstrated known right-sided pneumothorax. There is partial visualiza tion of known acute comminuted displaced right scapular fracture. IMPRESSION: 1. There is no acute fracture or dislocation evident in the cervical spine. 2. No acute intracranial hemorrhage or midline shift is seen. New small to moderate-sized high right frontoparietal acute scalp hematoma noted.
[2021-02-16] MEDS ORDERED: VANCOMYCIN 1,000 MG in SODIUM CHLORIDE 0.9% 250 ML IVPB STA (10:32)
--- NOTE | 2021-02-16 10:39 | P.PN ---
Progress Note - Text Progress Note Date: 02/16/21 The patient has been reevaluated with further testing now available. I had initially been under the impression that this was isolated right femur, however she is found have poly-traumatic issues due to her fall including scapular fracture multiple rib fractures and pneumothorax. With her pneumothorax and recent CVA on load thinners, along with her scapular fracture and upper rib fractures, also a somewhat recent Covid infection, as well as her grade 1 open proximal femur fracture I think the patient is at significant increased risk. Her orthopedic issues certainly need emergent attention however given her multiple traumatic issues and pneumothorax I think she would be best served with definitive care in a tertiary facility. I discussed this with the patient and her son at bedside and they would like to be transferred to tertiary facility. I discussed this with the emergency room staff and he'll start making arrangements for emergent transfer. She is going to receive vancomycin and a right arm sling as well as cleaning and dressing at the right femur wound prior to transfer.
[2021-02-16 11:10] LABS: ALT 18 U/L (4-34); AST 34 U/L (14-36); Albumin 2.1 g/dL (3.5-5.0); Alkaline Phosphatase 75 U/L (38-126); Globulin 2.1 g/dL; Total Bilirubin 0.3 mg/dL (0.2-1.3); Total Protein 4.2 g/dL (6.3-8.2)
[2021-02-16 11:20] VITALS: BP 139/61; PULSE 80
--- NOTE | 2021-02-16 11:26 | ED ---
Medical Decision Making - Medical Decision Making 80-year-old female presented emergency department for a fall patient is found to have fever fracture. Patient's case was discussed with Dr. Reveles evaluated the patient along with hospitalist. Patient started to complain of right shoulder pain x-ray showed possibility of scapular fracture and rib fractures CT was obtained of the chest ordered by Dr. Reveles shows evidence of displaced Rib fracture, 3 rib fractures, small pneumothorax less than 10% not requiring chest tube. Dr. Reveles for the patient very transferred to [facility]. I did discuss the case with Dr. Molina who accepts admission he did state that he would contact trauma team and emergency department patient will be transferred to [facility]. Admission was accepted by Dr. Molina. Patient is neurovascularly intact CT her brain and C-spine is unremarkable. Patient does have evidence of urinary tract infection though she did receive antibiotics for possibility of open fracture. Patient also tested positive for COVID-19 though she had initial test positived 4 weeks ago. - Lab Data Result diagrams: 02/16/21 08:15 02/16/21 10:00 Disposition Clinical Impression: Fall, Fracture of proximal end of right femur, Scapular fracture, Rib fractures, Multiple fractures of ribs, right side, sequela, Pneumothorax, UTI (u rinary tract infection) Disposition: OTHER INSTITUTION NOT DEFINED Condition: Fair - Out of Hospital Transfer - Req. Specs Out of Hospital Transfer - Requested Specifics: Other Emergency Center ([facility])
[2021-02-16] MEDS ORDERED: INSULIN ASPART (NovoLOG) 100 UNIT/ML VIAL SQ SCH (12:30)
[2021-02-16] MEDS ORDERED: lisinopriL 20 MG TAB PO SCH (21:00)
[2021-02-17] MEDS ORDERED: ATORVASTATIN 80 MG TAB PO SCH (09:00)
[2021-02-17] MEDS ORDERED: ENOXAPARIN 40 MG/0.4 ML SYRINGE SQ SCH (09:00)
[2021-02-17] MEDS ORDERED: CLOPIDOGREL 75 MG TAB PO SCH (09:00)
[2021-02-17] MEDS ORDERED: ASPIRIN 81 MG PO SCH (09:00)
[2021-02-17] MEDS ORDERED: FAMOTIDINE 20 MG TAB PO SCH (09:00)
== END 2021-02-16 12:10 | disposition other institution (70) ==
LOC: EC 06:27 → UNDOADMIN 08:06 → 5NMEDONC 08:06 → 4SSUR 09:47
DX: S72.001A Fracture of unspecified part of neck of right femur, initial encounter for closed fracture (principal); S42.111A Displaced fracture of body of scapula, right shoulder, initial encounter for closed fracture; S22.31XA Fracture of one rib, right side, initial encounter for closed fracture; E11.9 Type 2 diabetes mellitus without complications; E78.5 Hyperlipidemia, unspecified; I10 Essential (primary) hypertension; Z23 Encounter for immunization; W01.0XXA Fall on same level from slipping, tripping and stumbling without subsequent striking against object, initial encounter; Z79.84 Long term (current) use of oral hypoglycemic drugs
CPT/HCPCS: 36415; 93005; 86900; 86901; 80053; 85025; 85610; 85730; 86850; 81001; 87086; 87077; 87186; 87636; 72170; 73552; 73020; 73620; 71045; 72125; 70450; 71250; 90715; 99285; 96365; 96367; 90471; 96375 ×2; 96376 ×3; J3370; J0690; J0696; J1170 ×2

== ENCOUNTER → 2021-06-27 | Outpatient (CLI) | payer MEDICARE ==
[2021-06-27 11:24] LABS: Basophils % (A) 1 %; Eosinophils # (A) 0.1 k/uL (0-0.7); Eosinophils % (A) 1 %; HCT 35.9 % (34.0-46.0); HGB 12.3 gm/dL (11.4-16.0); Lymphocytes # (A) 2.1 k/uL (1.0-4.8); Lymphocytes % (A) 38 %; MCH 31.8 pg (25.0-35.0); MCHC 34.1 g/dL (31.0-37.0); Mean Platelet Volume 7.1; Monocytes # (A) 0.3 k/uL (0-1.0); Monocytes % (A) 5 %; Neutrophils % (A) 54 %; Platelet Count 233 k/uL (150-450); Poikilocytosis Slight; RBC 3.86 m/uL (3.80-5.40); RDW 14.4 % (11.5-15.5); WBC 5.6 k/uL (3.8-10.6)
[2021-06-27 11:34] LABS: Albumin 2.3 g/dL (3.5-5.0); Calcium 8.1 mg/dL (8.4-10.2); Potassium 3.4 mmol/L (3.5-5.1); Total Bilirubin 0.6 mg/dL (0.2-1.3); Total Protein 4.9 g/dL (6.3-8.2)
--- NOTE | 2021-06-27 14:54 | US ---
EXAMINATION TYPE: US abdomen limited DATE OF EXAM: 06/27/2021 COMPARISON: CT CLINICAL HISTORY: K82.[address] in PACs EXAM MEASUREMENTS: Liver Length: 14.7 cm CBD: 0.6 cm Right Kidney: 10.9 x 4.5 x 4.7 cm Pancreas: 3mm duct visualized, tail obscured by overlying bowel gas Liver: wnl Gallbladder: ROCIO sign, unable to visualize wall thickness Evidence for sonographic Chairez's sign: No CBD: wnl Right Kidney: Possible parapelvic cyst mid= 1.4 cm Incidental finding of right pleural effusion and small amount of ascites IMPRESSION: 1. Large stone filling the gallbladder. This appearance can also be compatible with patient's reporte d porcelain gallbladder. 2. Peripelvic cyst right kidney
[2021-06-27 15:33] LABS: Creatinine,Urine Random 119.6 mg/dL
[2021-06-27 15:35] LABS: Appearance,Urine Turbid (Clear); Bacteria,Urine Many /hpf; Bilirubin,Urine Negative (Negative); Blood,Urine Large (Negative); Color,Urine Light Red; Glucose,Urine (UA) Negative (Negative); Ketones,Urine Negative (Negative); Leukocyte Esterase,Urine Large (Negative); Mucus,Urine Few /hpf; Nitrite,Urine Negative (Negative); PH, Urine 6.5 (5.0-8.0); Protein,Urine 3+ (Negative); RBC,Urine >182 /hpf (0-5); Specific Gravity,Urine 1.024 (1.001-1.035); Squamous Epithelial Cell,Urine 2 /hpf (0-4); WBC,Urine >182 /hpf (0-5)
[2021-06-28 00:59] LABS: Chol/HDL Ratio 2.84; LDL Cholesterol,Calculated 92.8 mg/dL (0.0-131.0); VLDL Calculation 23.2 mg/dL (5.00-40.00)
== END | disposition home or self-care (01) ==
LOC: RADUSWWP 09:48
PROVIDERS: ATTEND Family Medicine
DX: K80.20 Calculus of gallbladder without cholecystitis without obstruction (principal); N28.1 Cyst of kidney, acquired
CPT/HCPCS: 76705; 80053; 80061; 81001; 82570; 84156; 85025

== ENCOUNTER 2021-07-07 17:27 | Inpatient (IN) | payer MEDICARE ==
--- NOTE | 2021-07-07 18:00 | ED ---
Neuro HPI - General Chief Complaint: Neuro Symptoms/Deficit Stated Complaint: AMS/weak Time Seen by Provider: 07/07/21 17:44 Source: family Mode of arrival: wheelchair Limitations: no limitations - History of Present Illness Is the patient presenting with stroke symptoms?: Yes Initial Comments: Is a 81-year-old female with a history of CVA, hypertension, hyperlipidemia, diabetes who presents him in [facility] for suspected strokelike symptoms. The patient was last seen normal sometime this morning between 4 and 5 AM. The jimenez lozano stated that she got up this morning and went to the bathroom with him and he assisted her. He states that she then woke up around 9:00 which is when the daughter got there. She noted that she wasn't quite herself and wasn't quite acting right at 9:00 however was totally ambulatory and able to carry on with ADLs. She does typically get around with a walker and requires assistance with ambulation and some ADLs. The patient then took a nap around 11 to 11:30 AM. She woke up at 1 PM and the family noted that she seemed very confused and was having slurring of her words and difficulty with speech. She was unable to ambulate so they have decided to bring her to the emergency department because was not improving. The patient does have a history of a stroke back in December of this year that affected the left parietal lobe. She's got some stenosis of the left MCA segment. She is currently on aspirin and Plavix however no anticoagulation. She is reportedly compliant with this. - Related Data Home Medications: Home Medications Medication Instructions Recorded Confirmed Glimepiride [Amaryl] 2 mg PO BID 12/26/20 07/07/21 metFORMIN HCL [Glucophage] 500 mg PO BID 12/26/20 07/07/21 Furosemide [Lasix] 20 mg PO DAILY PRN 07/07/21 07/07/21 Multivit with Calcium,Iron,Min 1 tab PO DAILY 07/07/21 07/07/21 [Women's Multivitamin] Previous Rx's Medication Instructions Recorded Aspirin 81 mg PO DAILY #30 chew 12/30/20 Atorvastatin [Lipitor] 80 mg PO DAILY #30 tab 12/30/20 Clopidogrel [Plavix] 75 mg PO DAILY #30 tab 12/30/20 Famotidine [Pepcid] 20 mg PO DAILY #30 tab 12/30/20 amLODIPine [Norvasc] 10 mg PO DAILY #30 tab 12/30/20 hydrALAZINE HCL [Apresoline] 25 mg PO TID #90 tab 12/30/20 lisinopriL [Zestril] 20 mg PO BID #60 tab 12/30/20 Allergies/Adverse Reactions: Allergies Allergy/AdvReac Type Severity Reaction Status Date / Time No Known Allergies Allergy Verified 07/07/21 17:34 Review of Systems ROS Statement: Those systems with pertinent positive or pertinent negative responses have been documented in the HPI. ROS Other: All systems not noted in ROS Statement are negative. General Exam - General Exam Comments Initial Comments: Constitutional: Awake alert Appears comfortable Head: Normocephalic atraumatic Eyes: no conjunctival injection No scleral icterus EOMI Neck: No JVD Supple Heart: Regular rate rhythm normal S1-S2 no murmurs Lungs: Clear to auscultation bilaterally No wheezing No rales Abdomen: Soft nondistended nontender Extremities: Non edematous DP pulses intact Radial pulses intact Neuro: Patient is awake and alert however unable to really speak. She is able to state her name. Unable to name the month or her age. She seems to have some weakness in the right upper and lower extremity. The left upper Chev[place] seems to be normal. Left lower extremity does have some mild weakness however is deaf stronger when compared to the right. The patient does not have a noticeable facial droop. Patient states that she can feel me in all extremities. However she does have severe medication problems. Appears to be slightly slurring her words. She does blink to threat and all 4 visual reilly. Unable to really perform [id number] her finger to nose testing. The patient won't follow commands. INH of 14 on initial examination Psych: Appropriate mood and affect Limitations: no limitations Stroke MDM - Lab Data Result diagrams: 07/07/21 18:00 07/07/21 18:00 Lab Results 07/07/21 07/07/21 07/07/21 Range/Units 18:00 18:00 18:00 WBC 6.2 (3.8-10.6) k/uL RBC 3.85 (3.80-5.40) m/uL Hgb 12.1 (11.4-16.0) gm/dL Hct 34.6 (34.0-46.0) % MCV 90.0 (80.0-100.0) fL MCH 31.4 (25.0-35.0) pg MCHC 34.9 (31.0-37.0) g/dL RDW 14.7 (11.5-15.5) % Plt Count 361 (150-450) k/uL MPV 6.7 Neutrophils % 58 % Lymphocytes % 36 % Monocytes % 3 % Eosinophils % 1 % Basophils % 1 % Neutrophils # 3.6 (1.3-7.7) k/uL Lymphocytes # 2.2 (1.0-4.8) k/uL Monocytes # 0.2 (0-1.0) k/uL Eosinophils # 0.1 (0-0.7) k/uL Basophils # 0.0 (0-0.2) k/uL Hyperchromasia Slight Poikilocytosis Slight PT 10.3 (9.0-12.0) sec INR 1.0 (<1.2) APTT 23.5 (22.0-30.0) sec Sodium 136 L (137-145) mmol/L Potassium 3.5 (3.5-5.1) mmol/L Chloride 104 (98-107) mmol/L Carbon Dioxide 30 (22-30) mmol/L Anion Gap 2 mmol/L BUN 20 H (7-17) mg/dL Creatinine 0.86 (0.52-1.04) mg/dL Est GFR (CKD-EPI)AfAm 75 (>60 ml/min/1.73 sqM) Est GFR (CKD-EPI)NonAf 65 (>60 ml/min/1.73 sqM) Glucose 156 H (74-99) mg/dL Calcium 8.0 L (8.4-10.2) mg/dL Total Bilirubin 0.4 (0.2-1.3) mg/dL AST 30 (14-36) U/L ALT 14 (4-34) U/L Alkaline Phosphatase 134 H (38-126) U/L Troponin I (0.000-0.034) ng/mL Total Protein 5.1 L (6.3-8.2) g/dL Albumin 2.3 L (3.5-5.0) g/dL Urine Color Urine Appearance (Clear) Urine pH (5.0-8.0) Ur Specific [place] (1.001-1.035) Urine Protein (Negative) Urine Glucose (UA) (Negative) Urine Ketones (Negative) Urine Blood (Negative) Urine Nitrite (Negative) Urine Bilirubin (Negative) Urine Urobilinogen (<2.0) mg/dL Ur Leukocyte Esterase (Negative) Urine RBC (0-5) /hpf Urine WBC (0-5) /hpf Urine WBC Clumps (None) /hpf Ur Squamous Epith Cells (0-4) /hpf Urine Bacteria (None) /hpf Urine Mucus (None) /hpf Urine Yeast (Budding) (None) /hpf 07/07/21 07/07/21 Range/Units 18:00 19:19 WBC (3.8-10.6) k/uL RBC (3.80-5.40) m/uL Hgb (11.4-16.0) gm/dL Hct (34.0-46.0) % MCV (80.0-100.0) fL MCH (25.0-35.0) pg MCHC (31.0-37.0) g/dL RDW (11.5-15.5) % Plt Count (150-450) k/uL MPV Neutrophils % % Lymphocytes % % Monocytes % % Eosinophils % % Basophils % % Neutrophils # (1.3-7.7) k/uL Lymphocytes # (1.0-4.8) k/uL Monocytes # (0-1.0) k/uL Eosinophils # (0-0.7) k/uL Basophils # (0-0.2) k/uL Hyperchromasia Poikilocytosis PT (9.0-12.0) sec INR (<1.2) APTT (22.0-30.0) sec Sodium (137-145) mmol/L Potassium (3.5-5.1) mmol/L Chloride (98-107) mmol/L Carbon Dioxide (22-30) mmol/L Anion Gap mmol/L BUN (7-17) mg/dL Creatinine (0.52-1.04) mg/dL Est GFR (CKD-EPI)AfAm (>60 ml/min/1.73 sqM) Est GFR (CKD-EPI)NonAf (>60 ml/min/1.73 sqM) Glucose (74-99) mg/dL Calcium (8.4-10.2) mg/dL Total Bilirubin (0.2-1.3) mg/dL AST (14-36) U/L ALT (4-34) U/L Alkaline Phosphatase (38-126) U/L Troponin I <0.012 (0.000-0.034) ng/mL Total Protein (6.3-8.2) g/dL Albumin (3.5-5.0) g/dL Urine Color Light Yellow Urine Appearance Cloudy H (Clear) Urine pH 6.5 (5.0-8.0) Ur Specific [place] 1.011 (1.001-1.035) Urine Protein 2+ H (Negative) Urine Glucose (UA) Negative (Negative) Urine Ketones Negative (Negative) Urine Blood Moderate H (Negative) Urine Nitrite Negative (Negative) Urine Bilirubin Negative (Negative) Urine Urobilinogen <2.0 (<2.0) mg/dL Ur Leukocyte Esterase Large H (Negative) Urine RBC 67 H (0-5) /hpf Urine WBC 41 H (0-5) /hpf Urine WBC Clumps Few H (None) /hpf Ur Squamous Epith Cells <1 (0-4) /hpf Urine Bacteria Moderate H (None) /hpf Urine Mucus Occasional H (None) /hpf Urine Yeast (Budding) Few H (None) /hpf - NIH Stroke Scale 1a. Level of Consciousness: (0) alert 1b. LOC Questions: (2) answers no questions correctly 1c. LOC Commands: (1) performs 1 task correctly 2. Best Gaze: (0) normal 3. Visual: (0) no visual loss 4. Facial Palsy: (0) normal symmetrical movement 5a. Motor Arm Left: (0) no drift 5b. Motor Arm Right: (1) drift 6a. Motor Leg Left: (3) no gravity effort 6b. Motor Leg Right: (2) some gravity effort 7. Limb Ataxia: (2) present 2 limbs 8. Sensory: (0) normal 9. Best Language: (2) severe aphasia 10. Dysarthria: (1) mild/moderate dysarthria 11. Extinction/Inattention: (0) no abnormality - Medical Decision Making This is 81-year-old female presents emergency department for strokelike symptoms. Last known normal was sometime between 4 and 5 AM. The patient had not been acting right since about 9 AM today. She took a nap around 11:00 he woke up at 1 and then was having trouble with speech and cannot ambulate and was confused. Family brought her in to the emergency department. The patient was outside the TPA window. Initially she was awake and alert however did have an NIH of 14 and seemed to be severely aphasic. She was taken off her CT and CTA which were both unremarkable except for old septal malacia from previous stroke in December. When she returned she did have a seizure. This stopped on its own and it appeared that she was coming back to baseline however was still somewhat postictal when she had a second seizure. Decision was made at that time to intubate the patient started on propofol and lower with Keppra. Patient's blood pressure also was severely elevated on arrival which is improved now that she i s on a ventilator and sedated. I did speak with the neurologist on-call, Dr. paul estrada, who agreed no TPA and stated that there is no intervention performed landed for the patient. Patient will be admitted here to the ICU under Dr. Duvall. Dr. Fraser was consulted. Psoas Dr. Giraldo appeared Past Medical History Past Medical History: CVA/TIA, Diabetes Mellitus, Hyperlipidemia, Hypertension Additional Past Medical History / Comment(s): Last month the patient was hospitalized due to a cerebrovascular accident. Reportedly she did not have any motor loss. The son states that she had some speech changes since then and possibly some cognition changes the time. She is normally a community ambulate without any assistance. History of Any Multi-Drug Resistant Organisms: None Reported Past Surgical History: No Surgical Hx Reported Additional Past Surgical History / Comment(s): CATRACTS ABBE 2000 Past Anesthesia/Blood Transfusion Reactions: No Reported Reaction Past Psychological History: No Psychological Hx Reported Smoking Status: Never smoker Past Alcohol Use History: Occasional Past Drug Use History: None Reported - Past Family History Father Family Medical History: No Reported History Mother Family Medical History: No Reported History Course Vital Signs 07/07/21 07/07/21 07/07/21 17:29 18:22 19:20 Temperature 98.4 F Pulse Rate 84 82 77 Respiratory 16 18 14 Rate Blood Pressure 210/98 260/112 132/88 O2 Sat by Pulse 95 100 100 Oximetry - Reevaluation(s) Reevaluation #1: 07/07/21 18:30 Patient was found to have a seizure. She was postictal and the room and satting in the 60s. The patient appears cyanotic. I was able to perform rescue breathing for her for a brief period of time. The plan was to attempt int ubation however the patient started to wake up and open her eyes to voice. Reevaluation #2: 07/07/21 19:02 Patient had a second seizure and decision was made to intubate the patient at this time due to status epilepticus. Propofol was started. 1 g of Keppra was ordered. The patient did have resolution of the seizure activity prior to intubation however was postictal. See procedure report for further details. Patient will be sedated with propofol. I did speak with Dr. galindo about left from neurology prior to this occurring who stated that patient is not TPA candidate because of outside the window. States it likely nothing to be done even if there is a large vessel occlusion due the patient's baseline status and history of heart. He stated that he would call back if he determine the patient to be a candidate. Reevaluation #3: 07/07/21 19:09 EKG showing normal sinus rhythm with a rate of 80. No abnormal ST segment changes. There is T-wave flattening inferiorly. QTC is 459. Other intervals normal. No ectopy. Procedures - Intubation Mg Given: 2 (Ativan) Paralytic: Succinylcholine Mg Given: 100 Laryngoscope: Sanya Size: 4 ET Tube Size: 7.5 ET Tube Uncuffed: Yes Tube Secured Depth (cm): 21 Tube Secured Location: lips Tube Placement Confirmation: visualized tube passing through cords, equal breath sounds bilaterally, no breath sounds over epigastrium, confirmation by capnometry Patient Tolerated Procedure: well Intubation Complications: none Critical Care Time Critical Care Time: Yes Total Critical Care Time: 60 Critical Care Time: Critical care time spent getting history from the family and the patient, examining the patient, multiple re-evaluations of the patient, entering orders or labs and radiographic studies, interpreting those labs and radiographic studies, consultation with multiple consultants, ventilator management, cardiac monitoring, hypertensive emergency, status epilepticus, and acute strokelike symptoms Disposition Clinical Impression: Status epilepticus, UTI (urinary tract infection), Stroke-like symptoms Disposition: ADMITTED IP TO THIS HOSP Condition: Critical Instructions (If sedation given, give patient instructions): Seizure/Epilepsy Discharge Instructions & Follow-Up Referrals: Inocente Tate MD [Primary Care Provider] - 1-2 days
[2021-07-07 18:12] LABS: Basophils % (A) 1 %; Eosinophils # (A) 0.1 k/uL (0-0.7); Eosinophils % (A) 1 %; HCT 34.6 % (34.0-46.0); HGB 12.1 gm/dL (11.4-16.0); Hyperchromasia Slight; Lymphocytes # (A) 2.2 k/uL (1.0-4.8); Lymphocytes % (A) 36 %; MCH 31.4 pg (25.0-35.0); MCHC 34.9 g/dL (31.0-37.0); Mean Platelet Volume 6.7; Monocytes # (A) 0.2 k/uL (0-1.0); Monocytes % (A) 3 %; Neutrophils # (A) 3.6 k/uL (1.3-7.7); Neutrophils % (A) 58 %; Platelet Count 361 k/uL (150-450); Poikilocytosis Slight; RBC 3.85 m/uL (3.80-5.40); RDW 14.7 % (11.5-15.5); WBC 6.2 k/uL (3.8-10.6)
[2021-07-07 18:22] LABS: Albumin 2.3 g/dL (3.5-5.0); Potassium 3.5 mmol/L (3.5-5.1); Total Bilirubin 0.4 mg/dL (0.2-1.3); Total Protein 5.1 g/dL (6.3-8.2)
[2021-07-07 18:23] LABS: Partial Thromboplastin Time 23.5 sec (22.0-30.0); Prothrombin Time 10.3 sec (9.0-12.0)
[2021-07-07] MEDS ORDERED: levETIRAcetam IV 1,000 MG in SALINE 1 100ML.BAG IVPB STA (18:24)
--- NOTE | 2021-07-07 18:34 | CT ---
EXAMINATION TYPE: CT brain wo con for TPA DATE OF EXAM: 07/07/2021 COMPARISON: 02/16/2021 HISTORY: Altered mental status. CT DLP: 1102.8 mGycm Automated exposure control for dose reduction was used. There is cerebral cortical atrophy. There is old 5 cm wedge-shaped cortical infarct in the left poste rior temporal lobe. There is no mass effect nor midline shift. There is no sign of intracranial hemor rhage. Calvarium is intact. Skull base is intact. IMPRESSION: Old left posterior temporal lobe infarct has increased in size compared to old exam.
[2021-07-07] MEDS ORDERED: LORazepam 2 MG/ML INJ IV STA (18:36)
[2021-07-07] MEDS ORDERED: SUCCINYLCHOLINE CHLORIDE VIAL 200 MG/10 ML VIAL IV STA (18:38)
--- NOTE | 2021-07-07 18:40 | XR ---
EXAMINATION TYPE: XR chest 1V portable DATE OF EXAM: 07/07/2021 COMPARISON: NONE HISTORY: Fall. Trauma. TECHNIQUE: Single view FINDINGS: There is blunting of the costophrenic angles. There is pulmonary vascular congestion. There are chest leads. Heart appears slightly enlarged. There are no hilar masses. There is increased dens ity over the Right lung consistent with a layering pleural effusion. There is deformity of the right scapula that could relate to destructive changes. Clinical correlation needed. IMPRESSION: There is moderate right pleural effusion and small left pleural effusion significantly in creased compared to old exam. There is probably some congestive heart failure. No pneumothorax. Old r ight-sided rib fractures noted. Possible destructive changes or deformity at the right scapula.
--- NOTE | 2021-07-07 18:55 | CT ---
EXAMINATION TYPE: CT angio head neck DATE OF EXAM: 07/07/2021 COMPARISON: 12/26/2020 HISTORY: Altered mental status. CT DLP: 284.7 mGycm Automated exposure control for dose reduction was used. CONTRAST: Performed with IV Contrast, patient injected with 65 mL of Isovue 370. Images obtained from the aortic arch to the vertex of the brain with IV contrast. There are 3-D post processed images. There are moderately large bilateral pleural effusions. There is normal branching pattern of the grea t vessels on the aortic arch. There is bilateral arterial flow in the subclavian arteries. There is a rterial flow in the common internal and external carotid arteries bilaterally. There is wide patency of the carotid artery bifurcations. There is arterial flow in both vertebral arteries. There is arter ial flow in the vertebrobasilar artery system. There is no evidence of carotid or vertebral artery an eurysm or dissection. There is arterial flow in the anterior middle and posterior cerebral arteries. There is no mass effec t. I see no evidence of intracranial arterial stenosis. There is no sign of aneurysm or neovascularit y. There is normal enhancement of the venous sinuses. IMPRESSION: Negative CT angiogram of the neck. Negative CT angiogram of the brain. No adverse change. No evidence of hemodynamic stenosis.
--- NOTE | 2021-07-07 18:57 | XR ---
EXAMINATION TYPE: XR chest 1V DATE OF EXAM: 07/07/2021 COMPARISON: 07/07/2021 HISTORY: Single view TECHNIQUE: FINDINGS: There is blunting of the costophrenic angles. Endotracheal tube is 1 cm from the artem. There is mi ld pulmonary congestion. There are chest leads. IMPRESSION: Endotracheal tube is low and should BE pulled back 2 cm. There are pleural effusions and basilar pulmonary infiltrates without change compared to exam one hour ago.
[2021-07-07 19:34] LABS: Appearance,Urine Cloudy (Clear); Bacteria,Urine Moderate /hpf; Bilirubin,Urine Negative (Negative); Blood,Urine Moderate (Negative); Budding Yeast,Urine Few /hpf; Color,Urine Light Yellow; Glucose,Urine (UA) Negative (Negative); Ketones,Urine Negative (Negative); Leukocyte Esterase,Urine Large (Negative); Mucus,Urine Occasional /hpf; Nitrite,Urine Negative (Negative); PH, Urine 6.5 (5.0-8.0); Protein,Urine 2+ (Negative); RBC,Urine 67 /hpf (0-5); Specific Gravity,Urine 1.011 (1.001-1.035); Squamous Epithelial Cell,Urine <1 /hpf (0-4); Urobilinogen,Urine <2.0 mg/dL (<2.0); WBC,Urine 41 /hpf (0-5)
[2021-07-07] MEDS: SODIUM CHLORIDE 0.9% 1,000 ML IV SCH (20:20)
[2021-07-07] MEDS: levETIRAcetam IV 750 MG in SODIUM CHLORIDE 0.9% 100 ML IVPB SCH (21:47)
[2021-07-07 22:43] LABS: Glucose,Whole Blood 157 mg/dL (75-99)
[2021-07-07] MEDS ORDERED: LORazepam 2 MG/ML INJ IV PRN (23:12)
[2021-07-07] MEDS ORDERED: hydrALAZINE HCL 25 MG TAB PO SCH (23:26)
[2021-07-07] MEDS ORDERED: CLEVIDIPINE BUTYRATE 25 MG in EMPTY BAG 1 BAG IV SCH (23:30)
[2021-07-08] MEDS: FAMOTIDINE 20 MG/2 ML VIAL IV SCH ×2 (00:01→09:04)
--- NOTE | 2021-07-08 01:12 | P.HPIM ---
History of Present Illness H&P Date: 07/07/21 Chief Complaint: right sided weakness , aphasia 81 year old female with DM , HTN , recent stroke , patient brought in for stroke like symptoms she woke up at 4-5 AM and was doing ok, as her baseline needed help going to the bathroom, then around 9 am she did not look quite well, and around 11 am she decided to take a nap, when woke up around 1 PM she had speech difficulties, slurring, and unable to ambulate with right sided weakness, that when family decided to get her to the hospital initial evaluation in the ED, showed NIH of 14 however, she was out of the ther aputic window for Tpa, CTA of head and neck unremarkable , CT of brain showed old left posterior christian lobe infarct increase in size compared to December 2020. patient then had two seizure episodes aborted on its own, however, second one was followed by post ictal confusion , and ED decided to intubate patient and load her with Keppra , her blood pressure at that point was elevated too. ED discussed case with interventional neurology mergers and acquisitions attorney , and no recommendation for any immediate intervention at this time patient is currently intubated and sedated, history obtained from medical records and talking to the nephew at bedside. Nephew indicated that she was feeling weak for couple days now , she has poor apetite , and she spends all day laying down in bed, he is not aware of any pressure ulcers. she does not have chronic partida Review of Systems ROS unobtainable: due to endotracheal tube Past Medical History Past Medical History: CVA/TIA, Diabetes Mellitus, Hyperlipidemia, Hypertension Additional Past Medical History / Comment(s): Last month the patient was hospitalized due to a cerebrovascular accident. Reportedly she did not have any motor loss. The son states that she had some speech changes since then and possibly some cognition changes the time. She is normally a community ambulate without any assistance. History of Any Multi-Drug Resistant Organisms: None Reported Past Surgical History: No Surgical Hx Reported Additional Past Surgical History / Comment(s): CATRACTS ABBE 2000 Past Anesthesia/Blood Transfusion Reactions: No Reported Reaction Past Psychological History: No Psychological Hx Reported Smoking Status: Never smoker Past Alcohol Use History: Occasional Past Drug Use History: None Reported - Past Family History Father Family Medical History: No Reported History Mother Family Medical History: No Reported History Medications and Allergies Home Medications Medication Instructions Recorded Confirmed Type Glimepiride [Amaryl] 2 mg PO BID 12/26/20 07/07/21 History metFORMIN HCL [Glucophage] 500 mg PO BID 12/26/20 07/07/21 History Aspirin 81 mg PO DAILY #30 chew 12/30/20 07/07/21 Rx Atorvastatin [Lipitor] 80 mg PO DAILY #30 tab 12/30/20 07/07/21 Rx Clopidogrel [Plavix] 75 mg PO DAILY #30 tab 12/30/20 07/07/21 Rx Famotidine [Pepcid] 20 mg PO DAILY #30 tab 12/30/20 07/07/21 Rx amLODIPine [Norvasc] 10 mg PO DAILY #30 tab 12/30/20 07/07/21 Rx hydrALAZINE HCL [Apresoline] 25 mg PO TID #90 tab 12/30/20 07/07/21 Rx lisinopriL [Zestril] 20 mg PO BID #60 tab 12/30/20 07/07/21 Rx Furosemide [Lasix] 20 mg PO DAILY PRN 07/07/21 07/07/21 History Multivit with Calcium,Iron,Min 1 tab PO DAILY 07/07/21 07/07/21 History [Women's Multivitamin] Allergies Allergy/AdvReac Type Severity Reaction Status Date / Time No Known Allergies Allergy Verified 07/07/21 17:34 Physical Exam Vitals: Vital Signs Temp Pulse Resp BP Pulse Ox 07/07/21 22:00 98.0 F 68 14 142/88 100 07/07/21 21:00 98.1 F 68 14 140/86 100 07/07/21 20:55 70 14 146/87 100 07/07/21 20:20 69 14 133/83 100 07/07/21 20:00 98.1 F 72 14 113/73 100 07/07/21 19:20 77 14 132/88 100 07/07/21 19:00 98.1 F 86 14 207/114 100 07/07/21 18:40 98.2 F 101 H 14 208/160 100 07/07/21 18:25 98.3 F 80 22 210/118 100 07/07/21 18:22 82 18 260/112 100 07/07/21 17:29 98.4 F 84 16 210/98 95 Intake and Output 07/07/21 07/07/21 07/08/21 14:59 22:59 06:59 Intake Total 7.683 Balance 7.683 Intake: Intake, IV Titration 7.683 Amount propofoL 1,000 mg In 7.683 Empty Bag 1 bag @ Titrate IV .Q0M [facility] Rx#: [id number] Other: Weight 61.235 kg Constitutional: intubated sedated Eyes: Anicteric sclerae, moist conjunctiva, Pupils equal round reactive to light ENMT: NC/AT Neck: Supple, no masses, or JVD No carotid bruits No thyromegaly Lungs: Clear to auscultation Clear to percussion Normal respiratory effort, no accessory muscle use Cardiovascular: Heart regular in rate and rhythm, No murmurs, gallops, or rubs +3 peripheral edema Abdominal: Soft, edema of the flanks Nontender, no guarding, rebound or rigidity Abdomen moving with respiration Normoactive bowel sounds No hepatomegaly, No splenomegaly No palpable mass No abdominal wall hernia noted Skin: cold extremities, no rashes no ulcers , unknown if patient has pressure ulcers at this time, will re-evaluate when she goes to ICU Extremities: No digital cyanosis No clubbing Pedal pulses weak bilaterally , capillary refill immediate Radial pulses intact and symmetrical bilateral leg and thigh edema , dependant type , pitting , no blisters Psychiatric: intubated sedated Neuro unable to assess at this time Lymphatics: no palpable cervical or supraclavicular , or inguinal lymph nodes Results CBC & Chem 7: 07/07/21 18:00 07/07/21 18:00 Labs: Abnormal Lab Results - Last 24 Hours (Table) 07/07/21 07/07/21 07/07/21 Range/Units 18:00 19:19 22:41 Sodium 136 L (137-145) mmol/L BUN 20 H (7-17) mg/dL Glucose 156 H (74-99) mg/dL POC Glucose (mg/dL) 157 H (75-99) mg/dL Calcium 8.0 L (8.4-10.2) mg/dL Alkaline Phosphatase 134 H (38-126) U/L Total Protein 5.1 L (6.3-8.2) g/dL Albumin 2.3 L (3.5-5.0) g/dL Urine Appearance Cloudy H (Clear) Urine Protein 2+ H (Negative) Urine Blood Moderate H (Negative) Ur Leukocyte Esterase Large H (Negative) Urine RBC 67 H (0-5) /hpf Urine WBC 41 H (0-5) /hpf Urine WBC Clumps Few H (None) /hpf Urine Bacteria Moderate H (None) /hpf Urine Mucus Occasional H (None) /hpf Urine Yeast (Budding) Few H (None) /hpf Assessment and Plan Assessment: Stroke like symptoms with recent stroke back in December 2020 status epilepticus (2 seizures in ED, with no return to baseline after second seizure episode) Vent dependant for airway protection due to metabolic encephalopathy with stroke and recurrent seizure plan continue with ASA , plavix neuro checks neuro consult check limited Echo (LVEF December 2020 55-60%) lipid profile CT brain and CTA head and neck reviewed ,in crease size of old left posterior temporal infarct sedation with propofol continue with keppra ICU consult icu care check EEG DM hyperglycemia insulin sliding scale Q6hr malignant hypertension allow for permissive hypertension for 24-48 hours await further neuro recommendations monitor for early signs of hemorrhagic conversion UTI follow up cultures rocephin IVPB q24hr prognosis guarded follow up electrolytes full code mechanical DVT PPX anticipated length of stay > 2 midnights PT eval , for discharge planning
[2021-07-08 01:49] LABS: Glucose,Whole Blood 114 mg/dL (75-99)
[2021-07-08] MEDS: INSULIN ASPART (NovoLOG) 100 UNIT/ML VIAL SQ SCH ×4 (02:17→19:09)
[2021-07-08 05:48] LABS: ABG HCO3 31 mmol/L (21-25); ABG Oxygen Saturation 99.6 % (94-97); ABG PCO2 34 mmHg (35-45); ABG PO2 149 mmHg (83-108); ABG TCO2 32 mmol/L (19-24); Allen Test Performed? Yes
[2021-07-08 06:00] LABS: ABG PH 7.57 (7.35-7.45)
[2021-07-08 06:24] LABS: Glucose,Whole Blood 97 mg/dL (75-99)
[2021-07-08 06:39] LABS: Calcium 7.5 mg/dL (8.4-10.2)
--- NOTE | 2021-07-08 07:22 | XR ---
EXAMINATION TYPE: XR chest 1V portable DATE OF EXAM: 07/08/2021 COMPARISON: 07/07/2020 HISTORY: 81 years Female. STUDY INDICATION GIVEN: Severe aspiration risk/Mechanically ventilated . TECHNIQUE: Portable chest radiograph IMPRESSION: Endotracheal tube the midthoracic trachea. Enteric tube courses into the stomach, sidehole is at the gastroesophageal junction recommend advancing 5 cm. Small bilateral left greater than right pleural effusion and bibasilar left greater than right opacit ies which could be on the basis of subsegmental atelectasis and/or pneumonic infiltrate. Mild pulmona ry edema changes. Findings are not significantly changed compared to prior. Nonenlarged cardiac silhouette. Curvilinear opacity over the right lower abdomen unknown clinical significance, was seen on prior dontrell dy. Should be correlated with surgical history and external objects. Osseous structures appear stable. Mild chest wall edema.
[2021-07-08 07:27] LABS: Potassium 2.7 mmol/L (3.5-5.1)
[2021-07-08] MEDS: SODIUM CHLORIDE 0.9% 1,000 ML IV SCH ×2 (07:41→19:10)
[2021-07-08] MEDS ORDERED: amLODIPine 10 MG TAB PO SCH (09:00)
[2021-07-08] MEDS ORDERED: ASPIRIN 81 MG PO SCH (09:00)
[2021-07-08] MEDS ORDERED: lisinopriL 20 MG TAB PO SCH (09:00)
[2021-07-08] MEDS: POTASSIUM CHLORIDE 10 MEQ in WATER FOR INJECTION 1 100ML.BAG IVPB SCH ×6 (09:04→20:35)
[2021-07-08] MEDS: CLOPIDOGREL 75 MG TAB PO SCH (09:04)
[2021-07-08] MEDS: ATORVASTATIN 80 MG TAB PO SCH (09:04)
--- NOTE | 2021-07-08 09:34 | P.CNNES ---
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 Seems that the patient was last seen normal between 4:56 AM on 07/07/2021 and she got up to the bathroom with him and he assisted her and she took then the daughter felt like the patient was not herself around 9:00 in the morning yesterday then she took a nap around 11 to 11:30 AM and woke up at 1 PM and that the family felt that she was very confused having slurring the speech difficulty with speech and as a result the they called EMS. Some of the patient's home medication consist of Lipitor 80 mg a daily, Plavix 75 mg daily, aspirin 81 mg daily, Lasix, amlodipine, hydralazine, lisinopril, metformin, glimepiride. Upon reviewing medical record the patient was last seen by Dr. Cruz (Neuro- Hospitalist) on 12/29/2020 and he noted that the patient had acute CVA over the left parietal manifesting with speech difficulties slurring speech and possible right visual field defect. At that time also she had a left MCA stenosis involving the M1 and it seems that the patient did not get any intervention. It was recommended for patient to be on dual antiplatelet but definitely because of risk of recurrent stroke from left MCA according to the's note and to continue Lipitor 80 mg daily at bedtime. Please defer to Dr. Cruz's note for further details. Some of the workup in hospital consisted of: Initial vital signs was blood pressure of 210/98, heart rate of 84, respiratory of 16, temperature of 98.4 Fahrenheit oral and pulse ox of 95% room air. Her most recent blood pressure systolic is been in the range of 130s to 140s but predominantly in the 140s and diastolic between 70s and 80s. He be switched differential is unremarkable. Chemistry panel is the initial serum glucose is 156 which is slightly elevated but not remarkable. Initial sodium is 136 which is not remarkable produced minimally low, creatinine L4 0.86, calcium of 8.0. AST of 30 ALT of 14. In the ED the patient NIH stroke scale was 14 (2 loss of consciousness question, 1 for loss of consciousness commands, 1 for right arm drift, 3 for left leg drift, 2 for left leg drift, 2 for limb ataxia, 2 for language, 1 for dysarthria) Then the patient in the ED was found to have a seizure and was post ictal and satting in the 60s and she was appeared cyanotic but then she started to wake up and opening her eyes to voice per the ED team. Then she had a second seizure after 30 minutes from the onset of the first one and as a result the the ED team intubated her since they're concerned that patient was in status and they start the patient on propofol and ordered 1 g of Keppra. The ED team stated he gave patient total of 2mg of Ativan (but do not see an order for it or that it was given. Unless it was not scanned in the computer system). CT of the head was done and it was reported as old left posterior temporal lobe infarct has increased in size compared to old exam. I personally feel it's was predominately left parietal. CT angiography of the head and neck was reported as negative for both. Stroke code was activated in the ED spoke with the stroke/intervention neurologist and they stated that the patient is not a TPA candidate since outside the window. No intervention. Other workup patient has a urinalysis which is suggestive of urinary tract infection Review of Systems Review of system is limited because of the patient condition but the prone positive and negative as per HPI. Past Medical History Past Medical History: CVA/TIA, Diabetes Mellitus, Hyperlipidemia, Hypertension Additional Past Medical History / Comment(s): Last month the patient was hospitalized due to a cerebrovascular accident. Reportedly she did not have any motor loss. The son states that she had some speech changes since then and possibly some cognition changes the time. She is normally a community ambulate without any assistance. History of Any Multi-Drug Resistant Organisms: None Reported Past Surgical History: No Surgical Hx Reported Additional Past Surgical History / Comment(s): CATRACTS ABBE 2000 Past Anesthesia/Blood Transfusion Reactions: No Reported Reaction Past Psychological History: No Psychological Hx Reported Smoking Status: Never smoker Past Alcohol Use History: Occasional Past Drug Use History: None Reported - Past Family History Father Family Medical History: No Reported History Mother Family Medical History: No Reported History Medications and Allergies Home Medications Medication Instructions Recorded Confirmed Type Glimepiride [Amaryl] 2 mg PO BID 12/26/20 07/07/21 History metFORMIN HCL [Glucophage] 500 mg PO BID 12/26/20 07/07/21 History Aspirin 81 mg PO DAILY #30 chew 12/30/20 07/07/21 Rx Atorvastatin [Lipitor] 80 mg PO DAILY #30 tab 12/30/20 07/07/21 Rx Clopidogrel [Plavix] 75 mg PO DAILY #30 tab 12/30/20 07/07/21 Rx Famotidine [Pepcid] 20 mg PO DAILY #30 tab 12/30/20 07/07/21 Rx amLODIPine [Norvasc] 10 mg PO DAILY #30 tab 12/30/20 07/07/21 Rx hydrALAZINE HCL [Apresoline] 25 mg PO TID #90 tab 12/30/20 07/07/21 Rx lisinopriL [Zestril] 20 mg PO BID #60 tab 12/30/20 07/07/21 Rx Furosemide [Lasix] 20 mg PO DAILY PRN 07/07/21 07/07/21 History Multivit with Calcium,Iron,Min 1 tab PO DAILY 07/07/21 07/07/21 History [Women's Multivitamin] Allergies Allergy/AdvReac Type Severity Reaction Status Date / Time No Known Allergies Allergy Verified 07/07/21 17:34 Physical Examination - Vital Signs Vital Signs: Vital Signs Temp Pulse Resp BP Pulse Ox 07/08/21 07:00 94.8 F L 56 L 14 99 07/08/21 06:30 55 L 11 L 99 07/08/21 06:00 54 L 11 L 149/79 99 07/08/21 05:30 55 L 14 141/76 100 07/08/21 05:00 54 L 11 L 137/85 99 07/08/21 04:30 57 L 10 L 147/80 99 07/08/21 04:00 97.6 F 57 L 11 L 143/76 99 07/08/21 03:30 58 L 13 138/76 99 07/08/21 03:00 57 L 11 L 136/75 100 07/08/21 02:30 57 L 14 132/75 99 07/08/21 02:00 61 5 L 150/82 99 07/08/21 01:30 63 4 L 142/74 99 07/08/21 01:00 67 6 L 138/75 99 07/08/21 00:30 68 3 L 133/83 100 07/08/21 00:00 65 8 L 133/76 99 07/07/21 23:41 64 14 133/76 99 07/07/21 23:30 65 5 L 181/96 100 07/07/21 23:07 97.5 F L 66 14 133/76 100 07/07/21 23:00 66 14 181/96 100 07/07/21 22:41 72 20 07/07/21 22:00 98.0 F 68 14 142/88 100 07/07/21 21:00 98.1 F 68 14 140/86 100 07/07/21 20:55 70 14 146/87 100 07/07/21 20:20 69 14 133/83 100 07/07/21 20:00 98.1 F 72 14 113/73 100 07/07/21 19:20 77 14 132/88 100 07/07/21 19:00 98.1 F 86 14 207/114 100 07/07/21 18:40 98.2 F 101 H 14 208/160 100 07/07/21 18:25 98.3 F 80 22 210/118 100 07/07/21 18:22 82 18 260/112 100 07/07/21 17:29 98.4 F 84 16 210/98 95 Intake and Output 07/07/21 07/08/21 07/08/21 22:59 06:59 14:59 Intake Total 7.683 800 100 Output Total 390 30 Balance 7.683 410 70 Intake: IV 800 100 Sodium Chloride 0.9% 1, 800 100 000 ml @ 100 mls/hr IV . Q10H [facility] Rx#:[id number] Intake, IV Titration 7.683 Amount propofoL 1,000 mg In 7.683 Empty Bag 1 bag @ Titrate IV .Q0M [facility] Rx#: [id number] Output: Urine 390 30 Other: Voiding Method Indwelling Catheter Weight 62 kg 70.7 kg GENERAL: The patient is lying in bed and does not seem in acute distress. CHEST: The heart rate is regular rate rhythm. No murmurs to auscultation. No carotid bruit bilaterally. LUNG: Clear to auscultation bilaterally no wheezing noted throughout. Not labored breathing. Intubated and on ventilator. ABDOMEN/GI: Bowel sounds present in all 4 quadrants. No tenderness to palpation throughout. NEUROLOGICAL: Limited since patient was on Propofol 30mcg/kg/min that was held for 10 minutes prior to examination and Intubated and on ventilator. Higher mental function: She not communicating but squeezed her left hand to command. The patient is moving her head side to side. Cranial nerves: I had to manually open her eyes. The pupils are round, equal (3mm) and reactive to light. Primary gaze is midline. She will turn her head side to side. No appreciable facial weakness. Is breathing over the vent. Motor: The strength is moving bilateral upper extremities spontaneously (left > right). Also moving the left lower extremity and minimally over the right. Normal bulk. Cerebellum:Could not assess. Sensation: Could not assess light touch. Reflexes (right/left): 2+ Plantars are mute bilaterally. Results - Laboratory Findings CBC and BMP: 07/08/21 05:21 07/08/21 05:21 Abnormal Lab Findings: Abnormal Labs 07/07/21 07/07/21 07/07/21 18:00 19:19 22:41 ABG pH ABG pCO2 ABG pO2 ABG HCO3 ABG Total CO2 ABG O2 Saturation Sodium 136 L Potassium BUN 20 H Glucose 156 H POC Glucose (mg/dL) 157 H Calcium 8.0 L Alkaline Phosphatase 134 H Total Protein 5.1 L Albumin 2.3 L Urine Appearance Cloudy H Urine Protein 2+ H Urine Blood Moderate H Ur Leukocyte Esterase Large H Urine RBC 67 H Urine WBC 41 H Urine WBC Clumps Few H Urine Bacteria Moderate H Urine Mucus Occasional H Urine Yeast (Budding) Few H 07/08/21 07/08/21 07/08/21 01:47 05:21 05:45 ABG pH 7.57 H* ABG pCO2 34 L ABG pO2 149 H ABG HCO3 31 H ABG Total CO2 32 H ABG O2 Saturation 99.6 H Sodium Potassium 2.7 L* BUN 19 H Glucose POC Glucose (mg/dL) 114 H Calcium 7.5 L Alkaline Phosphatase Total Protein Albumin Urine Appearance Urine Protein Urine Blood Ur Leukocyte Esterase Urine RBC Urine WBC Urine WBC Clumps Urine Bacteria Urine Mucus Urine Yeast (Budding) Assessment and Plan Assessment: New onset seizure: Likely due to history of stroke and exacerbated by acute UTI.--no further seizure since in ICU Old left parietal ischemic stroke (12/2020) and seems there is some progression compared to prior imaging Acute UTI which can exacerbate patient old stroke symptoms. Rule out new stroke. 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 Acute respiratory distress requiring intubation and ventilation because of seizure. Hypertension and presented uncontrolled Hyperlipidemia Hard of hearing Plan: * Ordered MRI of the brain and to be done once the patient is stable. * Continue Keppra 750 mg IV every 12 hours. * EEG is ordered. * Patient is currently on aspirin 300 mg rectally for now and she has an order for Plavix 75 mg daily. When she is able to swallow which changed to aspirin to 81 mg daily. She does have a new stroke then the possibly we can stop Plavix and start the patient on Brilinta 90mg 1 tab bid. She is on Lipitor 80 mg daily. * 2-D echo, lipid panel are ordered and pending. Ordered TSH level. * Routine neurochecks * Placed on cardiac monitoring * PT, OT and PRUNER are consulted. * We'll defer the management of urinary tract infection to primary team. Currently she is on ceftriaxone. * We'll defer the rest of the medical management to the primary team and ICU team. The plan is discussed with the ICU team. Thank for the consultation. Brett Rich M.D. Neuro-hospitalist Time with Patient: Greater than 30
[2021-07-08] MEDS: MAGNESIUM SULFATE-D5W PMX 1 GM in DEXTROSE/WATER 1 100ML.BAG IVPB SCH ×2 (09:59→15:03)
[2021-07-08] MEDS: levETIRAcetam IV 750 MG in SODIUM CHLORIDE 0.9% 100 ML IVPB SCH ×2 (09:59→20:34)
[2021-07-08 10:36] LABS: Magnesium 2.1 mg/dL (1.6-2.3)
[2021-07-08 10:38] LABS: Basophils % (A) 1 %; Eosinophils % (A) 1 %; HCT 28.8 % (34.0-46.0); Lymphocytes # (A) 1.8 k/uL (1.0-4.8); Lymphocytes % (A) 33 %; MCH 31.8 pg (25.0-35.0); MCHC 34.2 g/dL (31.0-37.0); MCV 93.2 fL (80.0-100.0); Mean Platelet Volume 7.7; Monocytes # (A) 0.2 k/uL (0-1.0); Monocytes % (A) 5 %; Neutrophils # (A) 3.2 k/uL (1.3-7.7); Neutrophils % (A) 60 %; Platelet Count 265 k/uL (150-450); RBC 3.09 m/uL (3.80-5.40); WBC 5.4 k/uL (3.8-10.6)
[2021-07-08 10:48] LABS: HGB 9.8 gm/dL (11.4-16.0)
[2021-07-08] MEDS: ASPIRIN 300 MG SUPP RECTAL SCH (11:08)
[2021-07-08 11:54] LABS: Chol/HDL Ratio 3.37; LDL Cholesterol,Calculated 62.2 mg/dL (0.0-131.0); VLDL Calculation 34.8 mg/dL (5.00-40.00)
[2021-07-08 11:56] LABS: T4, Free (Free Thyroxine) 0.82 ng/dL (0.78-2.19)
--- NOTE | 2021-07-08 12:26 | P.CNPUL ---
History of Present Illness Consult date: 07/08/21 Requesting physician: Megan Rivas Reason for consult: other (Acute CVA) Chief complaint: Mental status change History of present illness: This is a 81-year-old female with history of previous CVA, back in December 2020, history of hypertension and dyslipidemia diabetes, history of dyslipidemia, patient was brought into the ER mostly because of 1 day history of mental status change, and weakness. Patient was also noted by her daughter to be confused, weak, and unable to speak. Speech was noted to be slurred, hence she was brought into the ER by EMS, and workup was initiated for potential acute CVA, patient had basically had been diagnostic studies, and as she returned to the ER from her diagnostic studies, patient had 2 seizures. And it up intubated and mechanically ventilated. Admitted to the ICU and I was asked to see her on consultation. Not much history could be obtained from the patient. Patient is intubated, on mechanical ventilation, assist control rate of 12 tidal volume of 375 FiO2 35% PEEP of 5 ABG showed a pO2 of 149 pCO2 of 34 pH of 7.57 patient is now off propofol, she did receive Keppra yesterday in the ER, she was seen by the neurologist today, and he had no problem weaning and extubating the patient, felt that her seizures are presently under control. He is recommending however an MRI, and hopefully this will be done post extubation. CBC today is re latively normal. ABG as noted earlier. Potassium is low at 2.7 being corrected as per protocol. Rest of her metabolic profile was basically unremarkable. Troponin was 0.0-4. Blood sugar was 97 chest x-ray this morning showed no significant abnormality except for minimal subsegmental atelectasis, doubt infiltrate Review of Systems ROS unobtainable: due to endotracheal tube Past Medical History Past Medical History: CVA/TIA, Diabetes Mellitus, Hyperlipidemia, Hypertension Additional Past Medical History / Comment(s): Last month the patient was hospitalized due to a cerebrovascular accident. Reportedly she did not have any motor loss. The son states that she had some speech changes since then and possibly some cognition changes the time. She is normally a community ambulate without any assistance. History of Any Multi-Drug Resistant Organisms: None Reported Past Surgical History: No Surgical Hx Reported Additional Past Surgical History / Comment(s): CATRACTS ABBE 2000 Past Anesthesia/Blood Transfusion Reactions: No Reported Reaction Past Psychological History: No Psychological Hx Reported Smoking Status: Never smoker Past Alcohol Use History: Occasional Past Drug Use History: None Reported - Past Family History Father Family Medical History: No Reported History Mother Family Medical History: No Reported History Medications and Allergies Home Medications Medication Instructions Recorded Confirmed Type Glimepiride [Amaryl] 2 mg PO BID 12/26/20 07/07/21 History metFORMIN HCL [Glucophage] 500 mg PO BID 12/26/20 07/07/21 History Aspirin 81 mg PO DAILY #30 chew 12/30/20 07/07/21 Rx Atorvastatin [Lipitor] 80 mg PO DAILY #30 tab 12/30/20 07/07/21 Rx Clopidogrel [Plavix] 75 mg PO DAILY #30 tab 12/30/20 07/07/21 Rx Famotidine [Pepcid] 20 mg PO DAILY #30 tab 12/30/20 07/07/21 Rx amLODIPine [Norvasc] 10 mg PO DAILY #30 tab 12/30/20 07/07/21 Rx hydrALAZINE HCL [Apresoline] 25 mg PO TID #90 tab 12/30/20 07/07/21 Rx lisinopriL [Zestril] 20 mg PO BID #60 tab 12/30/20 07/07/21 Rx Furosemide [Lasix] 20 mg PO DAILY PRN 07/07/21 07/07/21 History Multivit with Calcium,Iron,Min 1 tab PO DAILY 07/07/21 07/07/21 History [Women's Multivitamin] Allergies Allergy/AdvReac Type Severity Reaction Status Date / Time No Known Allergies Allergy Verified 07/07/21 17:34 Physical Exam Vitals: Vital Signs Temp Pulse Resp BP Pulse Ox 07/08/21 11:00 71 19 164/96 99 07/08/21 10:00 64 12 146/86 99 07/08/21 09:00 64 20 138/78 98 07/08/21 08:00 94.6 F L 53 L 14 127/71 99 07/08/21 07:00 94.8 F L 56 L 14 99 07/08/21 06:30 55 L 11 L 99 07/08/21 06:00 54 L 11 L 149/79 99 07/08/21 05:30 55 L 14 141/76 100 09/18/21 05:00 54 L 11 L 137/85 99 07/08/21 04:30 57 L 10 L 147/80 99 07/08/21 04:00 97.6 F 57 L 11 L 143/76 99 07/08/21 03:30 58 L 13 138/76 99 07/08/21 03:00 57 L 11 L 136/75 07/08/21 02:30 57 L 14 132/75 07/08/21 02:00 61 5 L 150/82 99 07/08/21 01:30 63 4 L 142/74 99 07/08/21 01:00 67 6 L 138/75 99 07/08/21 00:30 68 3 L 133/83 07/08/21 00:00 65 8 L 133/76 99 07/07/21 23:41 64 14 133/76 99 07/07/21 23:30 65 5 L 181/96 07/07/21 23:07 97.5 F L 66 14 133/76 07/07/21 23:00 66 14 181/96 07/07/21 22:41 72 20 07/07/21 22:00 98.0 F 68 14 142/88 07/07/21 21:00 98.1 F 68 14 140/86 07/07/21 20:55 70 14 146/87 07/07/21 20:20 69 14 133/83 07/07/21 20:00 98.1 F 72 14 113/73 07/07/21 19:20 77 14 132/88 07/07/21 19:00 98.1 F 86 14 207/114 07/07/21 18:40 98.2 F 101 H 14 208/160 07/07/21 18:25 98.3 F 80 22 210/118 07/07/21 18:22 82 18 260/112 07/07/21 17:29 98.4 F 84 16 210/98 95 Intake and Output 07/07/21 07/08/21 07/08/21 22:59 06:59 14:59 Intake Total 7.683 800 300 Output Total 390 90 Balance 7.683 410 210 Intake: IV 800 300 Sodium Chloride 0.9% 1, 800 300 000 ml @ 100 mls/hr IV . Q10H [facility] Rx#:[id number] Intake, IV Titration 7.683 Amount propofoL 1,000 mg In 7.683 Empty Bag 1 bag @ Titrate IV .Q0M [facility] Rx#: [id number] Output: Urine 390 90 Other: Voiding Method Indwelling Catheter Weight 62 kg 70.7 kg Physical Exam: Revealed a 81-year-old female, intubated, mechanically ventilated, just went off propofol. Could not assess mental status. And her neurological status fully. Head: Atraumatic, normocephalic, endotracheal tube and orogastric tube are intact. HEENT:[Neck is supple.] [No neck masses.] [No thyromegaly.] [No JVD.] Chest: [Symmetrical chest expansion, diminished at the bases no crackles or rhonchi or wheezes. Cardiac Exam: [Normal S1 and S2, no S3 gallop, no murmur.] Abdomen: [Soft, nontender, no megaly, no rebound, no guarding, normal bowel sounds.] Extremities: [No clubbing, no edema, no cyanosis.] Neurological Exam: Patient is intubated mechanically ventilated, waking up from propofol, and follows very simple instructions. Psychiatric: Could not fully assess. Results - Laboratory Findings CBC and BMP: 07/08/21 05:21 07/08/21 05:21 ABG ABG pH 7.57 (7.35-7.45) H* 07/08/21 05:45 ABG pCO2 34 mmHg (35-45) L 07/08/21 05:45 ABG pO2 149 mmHg (83-108) H 07/08/21 05:45 ABG O2 Saturation 99.6 % (94-97) H 07/08/21 05:45 PT/INR, D-dimer PT 10.3 sec (9.0-12.0) 07/07/21 18:00 INR 1.0 (<1.2) 07/07/21 18:00 Abnormal lab findings: Abnormal Labs 07/07/21 07/07/21 07/07/21 18:00 19:19 22:41 RBC Hgb Hct ABG pH ABG pCO2 ABG pO2 ABG HCO3 ABG Total CO2 ABG O2 Saturation Sodium 136 L Potassium BUN 20 H Glucose 156 H POC Glucose (mg/dL) 157 H Calcium 8.0 L Alkaline Phosphatase 134 H Total Protein 5.1 L Albumin 2.3 L Triglycerides TSH Urine Appearance Cloudy H Urine Protein 2+ H Urine Blood Moderate H Ur Leukocyte Esterase Large H Urine RBC 67 H Urine WBC 41 H Urine WBC Clumps Few H Urine Bacteria Moderate H Urine Mucus Occasional H Urine Yeast (Budding) Few H 07/08/21 07/08/21 07/08/21 01:47 05:21 05:21 RBC 3.09 L Hgb 9.8 L D Hct 28.8 L ABG pH ABG pCO2 ABG pO2 ABG HCO3 ABG Total CO2 ABG O2 Saturation Sodium Potassium 2.7 L* BUN 19 H Glucose POC Glucose (mg/dL) 114 H Calcium 7.5 L Alkaline Phosphatase Total Protein Albumin Triglycerides 174.0 H TSH Urine Appearance Urine Protein Urine Blood Ur Leukocyte Esterase Urine RBC Urine WBC Urine WBC Clumps Urine Bacteria Urine Mucus Urine Yeast (Budding) 07/08/21 07/08/21 05:21 05:45 RBC Hgb Hct ABG pH 7.57 H* ABG pCO2 34 L ABG pO2 149 H ABG HCO3 31 H ABG Total CO2 32 H ABG O2 Saturation 99.6 H Sodium Potassium BUN Glucose POC Glucose (mg/dL) Calcium Alkaline Phosphatase Total Protein Albumin Triglycerides TSH 0.019 L Urine Appearance Urine Protein Urine Blood Ur Leukocyte Esterase Urine RBC Urine WBC Urine WBC Clumps Urine Bacteria Urine Mucus Urine Yeast (Budding) - Diagnostic Findings Chest x-ray: image reviewed (As noted in HPI.) Additional studies: Brain CT and CT angiography of the head and neck as noted earlier in HPI. Assessment and Plan Assessment: Impression: Acute hypoxic respiratory failure secondary to CVA and seizures/new onset. Old left parietal ischemic stroke Suspect acute urinary tract infection Benign essential hypertension Dyslipidemia History of left MCA stenosis History of right 2 diabetes. History of hypercholesterolemia. Recommendation: Continue ventilatory support however the patient will be given at least a trial of weaning off propofol. And if tolerated with good proceed to possible extubation. Antibiotics empirically for her presumptive urinary tract infection. Continue Keppra. Continue aspirin and Plavix Continue neuro checks. Continue to monitor in the ICU closely. EEG is pending. MRI is pending. Continue GI and DVT prophylaxis. We will continue to monitor while in the ICU. Again may consider at least a trial of weaning and if tolerated may extubate the patient today. Prognosis is relatively guarded. And the patient is critically ill. Time with Patient: Greater than 30
--- NOTE | 2021-07-08 12:33 | ECHOF ---
Referral Reason:recurrent stroke , anasarca MEASUREMENTS -------- HEIGHT: 165.1 cm WEIGHT: 70.3 kg BP: 136/75 RVIDd: 2.9 cm (< 3.3) IVSd: 1.5 cm (0.6 - 1.1) LVIDd: 3.5 cm (3.9 - 5.3) LVPWd: 1.4 cm (0.6 - 1.1) IVSs: 1.7 cm LVIDs: 2.0 cm LVPWs: 1.6 cm LA Diam: 3.5 cm (2.7 - 3.8) Ao Diam: 3.5 cm (2.0 - 3.7) AV Cusp: 1.9 cm (1.5 - 2.6) MV EXCURSION: 11.800 mm (> 18.000) MV EF SLOPE: 10 mm/s (70 - 150) EPSS: 0.9 cm MV E Osman: 0.60 m/s MV DecT: 532 ms MV A Osman: 1.06 m/s MV E/A Ratio: 0.57 RAP: 5.00 mmHg RVSP: 21.05 mmHg FINDINGS -------- Sinus rhythm. This was a technically adequate study. The left ventricular size is normal. There is moderate concentric left ventricular hypertrophy. L eft ventricular systolic function is hyperdynamic with an estimated EF of >70%. The right ventricle is normal in size. The left atrium is normal in size. The right atrium is normal in size. Interatrial and interventricular septum intact. The aortic valve is trileaflet, and appears structurally normal. No aortic stenosis or regurgitation. There is trace mitral regurgitation. Mild tricuspid regurgitation present. Right ventricular systolic pressure is normal at < 35 mmHg. Trace/mild (physiologic) pulmonic regurgitation. The aortic root size is normal. Normal inferior vena cava with normal inspiratory collapse consistent with estimated right atrial pre ssure of 5 mmHg. There is a small to moderate, generalized pericardial effusion present. No tamponade physiology. CONCLUSIONS -------- 1. The left ventricular size is normal. 2. There is moderate concentric left ventricular hypertrophy. 3. Left ventricular systolic function is hyperdynamic with an estimated EF of >70%. 4. The aortic valve is trileaflet, and appears structurally normal. No aortic stenosis or regurgitati on. 5. There is trace mitral regurgitation. 6. Mild tricuspid regurgitation present. 7. Trace/mild (physiologic) pulmonic regurgitation. 8. There is a small to moderate, generalized pericardial effusion present. 9. No tamponade physiology. BACKHAUL DRIVER: Shy Maddox RDCS
[2021-07-08 13:14] LABS: Glucose,Whole Blood 84 mg/dL (75-99)
--- NOTE | 2021-07-08 14:36 | P.PN ---
Subjective Progress Note Date: 07/08/21 Patient is a 81-year-old female with a history of diabetes, hypertension, and a recent stroke who presented to the ER with complaints of right-sided weakness. On arrival to the ER she had an NIH of 14 and was out of the therapeutic window for TPA. She underwent a CT of the head and neck which was unremarkable. CT of the brain showed old left posterior temporal lobe infarct with increased size compared to December 2020. Patient had 2 seizures on the ER which aborted spontaneously. The second one was followed by post ictal confusion and she was subsequently intubated and admitted to the ICU. Pulmonary and neurology were consulted. Patient seen and examined at bedside. She is currently sedated on the vent. She is shaking head yes and no but is not following commands. General: non toxic, no distress, appears at stated age Derm: warm, dry Head: atraumatic, normocephalic, symmetric Eyes: Pupils equal round react to light, EOMI, no lid lag, anicteric sclera Mouth: no lip lesion, mucus membranes moist Cardiovascular: S1S2 reg, no murmur, positive posterior tibial pulse bilateral, Lungs: CTA bilateral, no rhonchi, no rales , no accessory muscle use Abdominal: soft, nontender to palpation, no guarding, no appreciable organomegaly Ext: no gross muscle atrophy, diffuse anasarca, no contractures Neuro: Grimaces to pain in all 4 extremities, possible slight withdrawal, not moving all 4 extremities in response to commands. Psych: lethargic, nodding head yes or no but not moving extremities. Worsening of prior CVA symptoms Seizure 2 Vent dependent respiratory Left MCA stenosis - Neuro recs apprecaied, MRI once off vent, eeg, keppra - ASA, statin - conitnue plavix once passed swallow, conisder changing from plavix to Brillenta - pt/ot/bean snapper - await echo - allow 24 hours of premissive HTN -Critical care management of the vent -Plan is for wean today. diffuse anasarca sever protein calorie malnutrution - await echo - dietitan recs Diabetes mellitus type 2 -Home Glucophage, Amaryl -Sliding-scale insulin -Follow blood sugars -Check hemoglobin A1c Hypertensive urgency on admission - BP now in acceptable range - home meds on hold for 24 hours and treat if systolic >180 Hypokalemia, undetermined etiology -Replacement per protocol Sick euthyroidism -Repeat TSH in 4-6 weeks Anemia, no signs or symptoms of bleeding -Follow CBC -No indication for transfusion -Check iron studies UTI - rocephin - await culture results DVT prophylaxis: Lovenox Discussed with: Nursing Anticipated discharge: Undetermined Anticipated discharge place: Undetermined A total of 45 minutes was spent on the care of this complex patient more than 50% of the time was spent in counseling and care coordination. Objective - Vital Signs Vital signs: Vital Signs Temp 94.6 F L 07/08/21 08:00 Pulse 71 07/08/21 11:00 Resp 19 07/08/21 11:00 BP 164/96 07/08/21 11:00 Pulse Ox 99 07/08/21 11:00 Intake & Output 07/07/21 07/08/21 07/08/21 18:59 06:59 18:59 Intake Total 1.836 805.847 300 Output Total 390 90 Balance 1.836 415.847 210 Weight 61.235 kg 70.7 kg Intake: IV 800 300 Sodium Chloride 0.9% 1, 800 300 000 ml @ 100 mls/hr IV . Q10H [facility] Rx#:[id number] Intake, IV Titration 1.836 5.847 Amount propofoL 1,000 mg In 1.836 5.847 Empty Bag 1 bag @ Titrate IV .Q0M [facility] Rx#: [id number] Output: Urine 390 90 Other: Voiding Method Indwelling Catheter - Labs CBC & Chem 7: 07/08/21 05:21 07/08/21 05:21 Labs: Abnormal Lab Results - Last 24 Hours (Table) 07/07/21 07/07/21 07/07/21 Range/Units 18:00 19:19 22:41 RBC (3.80-5.40) m/uL Hgb (11.4-16.0) gm/dL Hct (34.0-46.0) % ABG pH (7.35-7.45) ABG pCO2 (35-45) mmHg ABG pO2 (83-108) mmHg ABG HCO3 (21-25) mmol/L ABG Total CO2 (19-24) mmol/L ABG O2 Saturation (94-97) % Sodium 136 L (137-145) mmol/L Potassium (3.5-5.1) mmol/L BUN 20 H (7-17) mg/dL Glucose 156 H (74-99) mg/dL POC Glucose (mg/dL) 157 H (75-99) mg/dL Calcium 8.0 L (8.4-10.2) mg/dL Alkaline Phosphatase 134 H (38-126) U/L Total Protein 5.1 L (6.3-8.2) g/dL Albumin 2.3 L (3.5-5.0) g/dL Triglycerides (0.0-149.0) mg/dL TSH (0.465-4.680) mIU/L Urine Appearance Cloudy H (Clear) Urine Protein 2+ H (Negative) Urine Blood Moderate H (Negative) Ur Leukocyte Esterase Large H (Negative) Urine RBC 67 H (0-5) /hpf Urine WBC 41 H (0-5) /hpf Urine WBC Clumps Few H (None) /hpf Urine Bacteria Moderate H (None) /hpf Urine Mucus Occasional H (None) /hpf Urine Yeast (Budding) Few H (None) /hpf 07/08/21 07/08/21 07/08/21 Range/Units 01:47 05:21 05:21 RBC 3.09 L (3.80-5.40) m/uL Hgb 9.8 L D (11.4-16.0) gm/dL Hct 28.8 L (34.0-46.0) % ABG pH (7.35-7.45) ABG pCO2 (35-45) mmHg ABG pO2 (83-108) mmHg ABG HCO3 (21-25) mmol/L ABG Total CO2 (19-24) mmol/L ABG O2 Saturation (94-97) % Sodium (137-145) mmol/L Potassium 2.7 L* (3.5-5.1) mmol/L BUN 19 H (7-17) mg/dL Glucose (74-99) mg/dL POC Glucose (mg/dL) 114 H (75-99) mg/dL Calcium 7.5 L (8.4-10.2) mg/dL Alkaline Phosphatase (38-126) U/L Total Protein (6.3-8.2) g/dL Albumin (3.5-5.0) g/dL Triglycerides 174.0 H (0.0-149.0) mg/dL TSH (0.465-4.680) mIU/L Urine Appearance (Clear) Urine Protein (Negative) Urine Blood (Negative) Ur Leukocyte Esterase (Negative) Urine RBC (0-5) /hpf Urine WBC (0-5) /hpf Urine WBC Clumps (None) /hpf Urine Bacteria (None) /hpf Urine Mucus (None) /hpf Urine Yeast (Budding) (None) /hpf 07/08/21 07/08/21 Range/Units 05:21 05:45 RBC (3.80-5.40) m/uL Hgb (11.4-16.0) gm/dL Hct (34.0-46.0) % ABG pH 7.57 H* (7.35-7.45) ABG pCO2 34 L (35-45) mmHg ABG pO2 149 H (83-108) mmHg ABG HCO3 31 H (21-25) mmol/L ABG Total CO2 32 H (19-24) mmol/L ABG O2 Saturation 99.6 H (94-97) % Sodium (137-145) mmol/L Potassium (3.5-5.1) mmol/L BUN (7-17) mg/dL Glucose (74-99) mg/dL POC Glucose (mg/dL) (75-99) mg/dL Calcium (8.4-10.2) mg/dL Alkaline Phosphatase (38-126) U/L Total Protein (6.3-8.2) g/dL Albumin (3.5-5.0) g/dL Triglycerides (0.0-149.0) mg/dL TSH 0.019 L (0.465-4.680) mIU/L Urine Appearance (Clear) Urine Protein (Negative) Urine Blood (Negative) Ur Leukocyte Esterase (Negative) Urine RBC (0-5) /hpf Urine WBC (0-5) /hpf Urine WBC Clumps (None) /hpf Urine Bacteria (None) /hpf Urine Mucus (None) /hpf Urine Yeast (Budding) (None) /hpf
[2021-07-08 16:49] LABS: Glucose,Whole Blood 76 mg/dL (75-99)
[2021-07-08] MEDS ORDERED: SODIUM CHLORIDE 0.9% 500 ML 500 ML IV ONE (17:20)
[2021-07-08 18:58] LABS: Glucose,Whole Blood 55 mg/dL (75-99)
[2021-07-08] MEDS ORDERED: DEXTROSE 50% SYRINGE 50 ML IVP ONE (19:06)
[2021-07-08 20:49] LABS: Glucose,Whole Blood 115 mg/dL (75-99)
[2021-07-08 23:51] LABS: Glucose,Whole Blood 72 mg/dL (75-99)
[2021-07-09] MEDS: INSULIN ASPART (NovoLOG) 100 UNIT/ML VIAL SQ SCH ×5 (00:36→22:08)
[2021-07-09] MEDS ORDERED: FUROSEMIDE 10 MG/ML 4 ML VIAL IV STA ×2 (02:08→09:55)
[2021-07-09] MEDS: POTASSIUM CHLORIDE 10 MEQ in WATER FOR INJECTION 1 100ML.BAG IVPB SCH ×4 (02:15→06:10)
[2021-07-09] MEDS: SODIUM CHLORIDE 0.9% 1,000 ML IV SCH ×2 (03:36→12:44)
[2021-07-09 04:20] LABS: HGB 9.3 gm/dL (11.4-16.0); MCH 31.4 pg (25.0-35.0); MCHC 33.2 g/dL (31.0-37.0); MCV 94.5 fL (80.0-100.0); Mean Platelet Volume 7.2; Platelet Count 235 k/uL (150-450); RBC 2.97 m/uL (3.80-5.40); RDW 14.6 % (11.5-15.5); WBC 4.8 k/uL (3.8-10.6)
[2021-07-09 04:45] LABS: Calcium 7.2 mg/dL (8.4-10.2); Potassium 3.5 mmol/L (3.5-5.1)
[2021-07-09] MEDS ORDERED: DEXTROSE 50% SYRINGE 50 ML IVP STA (05:04)
[2021-07-09 05:41] LABS: Glucose,Whole Blood 121 mg/dL (75-99)
[2021-07-09 06:55] LABS: Glucose,Whole Blood 106 mg/dL (75-99)
--- NOTE | 2021-07-09 09:27 | XR ---
EXAMINATION TYPE: XR chest 1V portable DATE OF EXAM: 07/09/2021 Comparison: 07/08/2021 Clinical History: 81-year-old female pleural effusion and pulmonary edema Findings: Multiple skin folds project at the right mid and lower lung limiting the evaluation. Heart appears jairo rderline enlarged. There are at least small bilateral pleural effusions. Prominent retrocardiac opaci ty persists. Multiple right-sided rib fracture deformities noted with patient's kyphotic positioning. Left apex obscured by the patient's overlying chin. Impression: Limited kyphotic positioning. The patient's chin obscures the left apex. Continued effusions bilatera lly, at least small in size. Extensive retrocardiac atelectasis and/or consolidation also persists. R ight-sided rib fracture deformities better seen on this kyphotic exam.
[2021-07-09] MEDS: CLOPIDOGREL 75 MG TAB PO SCH (10:20)
[2021-07-09] MEDS: ATORVASTATIN 80 MG TAB PO SCH (10:20)
[2021-07-09] MEDS: FAMOTIDINE 20 MG/2 ML VIAL IV SCH (10:20)
[2021-07-09] MEDS: levETIRAcetam IV 750 MG in SODIUM CHLORIDE 0.9% 100 ML IVPB SCH ×2 (10:20→20:37)
[2021-07-09 11:53] LABS: Ferritin 283.5 ng/mL (10.0-291.0)
[2021-07-09 12:03] LABS: % Iron Saturation 16.56 (12.00-45.00)
--- NOTE | 2021-07-09 12:09 | P.PN ---
Subjective Progress Note Date: 07/09/21 The patient is seen at bedside and per the ICU nurse she was extubated yesterday and no further seizure. She is not following commands but moving extremities spontaneously. Objective - Vital Signs Vital signs: Vital Signs Temp 98.6 F 07/09/21 08:00 Pulse 73 07/09/21 11:00 Resp 26 H 07/09/21 11:00 BP 170/94 07/09/21 11:00 Pulse Ox 94 L 07/09/21 11:00 Intake & Output 07/08/21 07/09/21 07/09/21 18:59 06:59 18:59 Intake Total 1100 2100 420 Output Total 340 720 700 Balance 760 1380 -280 Weight 71.3 kg Intake: IV 1100 2100 420 Potassium Chloride 10 meq 100 400 In Water For Injection 1 100ml.bag @ 100 mls/hr IVPB Q1HR [facility] Rx#: [id number] Sodium Chloride 0.9% 1, 1000 1200 420 000 ml @ 100 mls/hr IV . Q10H [facility] Rx#:[id number] Sodium Chloride 0.9% 500 500 ml 500 ml @ 999 mls/hr IV .Q31M [facility] Rx#:[id number] Output: Urine 340 720 700 Other: Voiding Method Indwelling Catheter Indwelling Catheter Indwelling Catheter - Exam GENERAL: The patient is lying in bed and is not in acute distress. NEUROLOGICAL: Higher mental function: The patient is awake, alert, oriented to self. But is repeating her name the year she is born. She is not following commands or otherwise having conversation. No neglect. Cranial nerves: The pupils are round, equal and reactive to light. EOM in tracking throughout the room and no nystagmus note. No facial weakness. No dysarthria. Rest of cranial nerves could not be assessed because of her conditi on. Motor: Gait is deferred. The strength is moving all extremities above gravity (but appears to be lifting left upper > right but seems inconsistent). Normal tone and bulk. Cerebellum: Could not assess. Sensation: Could not assess. Reflexes (right/left): 2+ uppers while lowers are 1+ (has moderate amount of edema in lowers). . WORK-UP: In the ED the patient NIH stroke scale was 14 (2 loss of consciousness question, 1 for loss of consciousness commands, 1 for right arm drift, 3 for left leg drift, 2 for left leg drift, 2 for limb ataxia, 2 for language, 1 for dysarthri a) Then the patient in the ED was found to have a seizure and was post ictal and satting in the 60s and she was appeared cyanotic but then she started to wake up and opening her eyes to voice per the ED team. Then she had a second seizure after 30 minutes from the onset of the first one and as a result the the ED team intubated her since they're concerned that patient was in status and they start the patient on propofol and ordered 1 g of Keppra. The ED team stated he gave patient total of 2mg of Ativan (but do not see an order for it or that it was given. Unless it was not scanned in the computer system). CT of the head was done and it was reported as old left posterior temporal lobe infarct has increased in size compared to old exam. I personally feel it's was predominately left parietal. CT angiography of the head and neck was reported as negative for both. 2-D echo was reported as moderate consider left ventricle hypertrophy. Ejection fraction more than 70%. Left atrium is normal in size. Small to moderate generalized pericardial effusion present. Lipid panel: Triglyceride of 174, cholesterol 138, LDL of the 62 and HDL 41. TSH of 0.019 which is low but the free T4 is 0.82. Other workup patient has a urinalysis which is suggestive of urinary tract infection AST of 30 ALT of 14 - Labs CBC & Chem 7: 07/09/21 03:29 07/09/21 08:19 Labs: Abnormal Lab Results - Last 24 Hours (Table) 07/08/21 07/08/21 07/08/21 Range/Units 18:57 20:46 23:04 RBC (3.80-5.40) m/uL Hgb (11.4-16.0) gm/dL Hct (34.0-46.0) % Sodium (137-145) mmol/L Potassium 3.3 L (3.5-5.1) mmol/L Chloride (98-107) mmol/L Glucose (74-99) mg/dL POC Glucose (mg/dL) 55 L 115 H (75-99) mg/dL Calcium (8.4-10.2) mg/dL 09/18/21 09/19/21 09/19/21 Range/Units 23:49 03:29 03:29 RBC 2.97 L (3.80-5.40) m/uL Hgb 9.3 L (11.4-16.0) gm/dL Hct 28.0 L (34.0-46.0) % Sodium 135 L (137-145) mmol/L Potassium (3.5-5.1) mmol/L Chloride 109 H (98-107) mmol/L Glucose 48 L* (74-99) mg/dL POC Glucose (mg/dL) 72 L (75-99) mg/dL Calcium 7.2 L (8.4-10.2) mg/dL 07/09/21 07/09/21 Range/Units 05:40 06:53 RBC (3.80-5.40) m/uL Hgb (11.4-16.0) gm/dL Hct (34.0-46.0) % Sodium (137-145) mmol/L Potassium (3.5-5.1) mmol/L Chloride (98-107) mmol/L Glucose (74-99) mg/dL POC Glucose (mg/dL) 121 H 106 H (75-99) mg/dL Calcium (8.4-10.2) mg/dL Assessment and Plan Assessment: New onset seizure: Likely due to history of stroke and exacerbated by acute UTI.--no further seizure since in ICU Encephalopathy seems due to (hypoglycemia 55) and underlying UTI. Rule out stroke especially since preservating. Hypoglycemia can mimic stroke. 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 Rule out new stro ke. 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 Acute respiratory distress requiring intubation and ventilation because of seizure. Hypertension and presented uncontrolled Hyperlipidemia Hard of hearing Plan: * MRI of the brain is pending. * Continue Keppra 750 mg IV every 12 hours. * EEG is ordered. * Patient is currently on aspirin 300 mg rectally for now and she has an order for Plavix 75 mg daily. Will change ASA to 81mg PO (home dose). If she does have a new stroke then the possibly we can stop Plavix and start the patient on Brilinta 90mg 1 tab bid. She is on Lipitor 80 mg daily. * Routine neurochecks * Placed on cardiac monitoring * PT, OT and STRATIGRAPHER are consulted. * Please avoid any hypoglycemic episodes, and will defer management to ICU and primary team. * We'll defer the management of urinary tract infection to primary team. Currently she is on ceftriaxone. * We'll defer the rest of the medical management to the primary team and ICU team. The plan is discussed with the ICU team. Thank for the consultation. Brett Rich M.D. Neuro-hospitalist Time with Patient: Less than 30
[2021-07-09 12:32] LABS: Glucose,Whole Blood 90 mg/dL (75-99)
--- NOTE | 2021-07-09 12:37 | P.PN ---
Subjective Progress Note Date: 07/09/21 Principal diagnosis: Acute hypoxic failure secondary to CVA and new onset seizure This is a 81-year-old female with history of previous CVA, back in December 2020, history of hypertension and dyslipidemia diabetes, history of dyslipidemia, patient was brought into the ER mostly because of 1 day history of mental status change, and weakness. Patient was also noted by her daughter to be confused, weak, and unable to speak. Speech was noted to be slurred, hence she was brought into the ER by EMS, and workup was initiated for potential acute CVA, patient had basically had been diagnostic studies, and as she returned to the ER from her diagnostic studies, patient had 2 seizures. And it up intubated and mechanically ventilated. Admitted to the ICU and I was asked to see her on consultation. Not much history could be obtained from the patient. Patient is intubated, on mechanical ventilation, assist control rate of 12 tidal volume of 375 FiO2 35% PEEP of 5 ABG showed a pO2 of 149 pCO2 of 34 pH of 7.57 patient is now off propofol, she did receive Keppra yesterday in the ER, she was seen by the neurologist today, and he had no problem weaning and extubating the patient, felt that her seizures are presently under control. He is recommending however an MRI, and hopefully this will be done post extubation. CBC today is relatively normal. ABG as noted earlier. Potassium is low at 2.7 being corrected as per protocol. Rest of her metabolic profile was basically un remarkable. Troponin was 0.0-4. Blood sugar was 97 chest x-ray this morning showed no significant abnormality except for minimal subsegmental atelectasis, doubt infiltrate Patient was reevaluated today on 07/09/2021, patient remains in the ICU, extubated, tolerated the extubation. Patient was extubated yesterday. She is moving all extremities spontaneously, seems to be a bit confused, thinks this is 1940, actually patient was born in [birth year]. Couldn't tell me where she was or time and person. Patient is oriented to self only. She knew her birthday otherwise she didn't know much. Patient seems to be quite comfortable from the pulmonary perspective, she is not in any distress, she is only on 2 L nasal cannula. And yesterday when she was extubated 2 was placed on 12/435% BiPAP. Patient had poor urine output yesterday, given fluid boluses later on given Lasix and she seems to improve with Lasix. Today she seems quite swollen and edematous, and I'm recommending more Lasix to be given today. Labs today she had relatively normal CBC and normal electrolytes, normal renal profile however her sugar was low earlier today at 48, presently 106. Chest x-ray showed cardiomegaly and bilateral pleural effusions, hence I'm recommending IV fluid to KVO, and diuretics today. Objective - Vital Signs Vital signs: Vital Signs Temp 97.7 F 07/09/21 12:00 Pulse 79 07/09/21 12:00 Resp 16 07/09/21 12:00 BP 162/87 07/09/21 12:00 Pulse Ox 95 07/09/21 12:00 Intake & Output 07/08/21 07/09/21 07/09/21 18:59 06:59 18:59 Intake Total 1100 2100 440 Output Total 340 720 950 Balance 760 1380 -510 Weight 71.3 kg Intake: IV 1100 2100 440 Potassium Chloride 10 meq 100 400 In Water For Injection 1 100ml.bag @ 100 mls/hr IVPB Q1HR [facility] Rx#: [id number] Sodium Chloride 0.9% 1, 1000 1200 440 000 ml @ 100 mls/hr IV . Q10H [facility] Rx#:[id number] Sodium Chloride 0.9% 500 500 ml 500 ml @ 999 mls/hr IV .Q31M [facility] Rx#:[id number] Output: Urine 340 720 950 Other: Voiding Method Indwelling Catheter Indwelling Catheter Indwelling Catheter - Exam Physical Exam: Revealed a 81-year-old female, sitting in bed, on 2 L nasal cannula, in no distress. Head: Atraumatic, normocephalic HEENT:[Neck is supple.] [No neck masses.] [No thyromegaly.] [No JVD.] Chest: [Symmetrical chest expansion, diminished at the bases , minimal crackles at the bases. Cardiac Exam: [Normal S1 and S2, no S3 gallop, no murmur.] Abdomen: [Soft, nontender, no megaly, no rebound, no guarding, normal bowel sounds.] Extremities: [No clubbing, 2+ bipedal edema, no cyanosis, forearms also also noted to be swollen. Neurological Exam: Patient is confused, moving all extremities properly, does not follow instructions, no gross focal deficits. Patient knows only the years she was born patient is generally weak. Psychiatric: Depressed mood, blunt affect, confused mental status. - Labs CBC & Chem 7: 07/09/21 03:29 07/09/21 08:19 Labs: Abnormal Lab Results - Last 24 Hours (Table) 07/08/21 07/08/21 07/08/21 Range/Units 18:57 20:46 23:04 RBC (3.80-5.40) m/uL Hgb (11.4-16.0) gm/dL Hct (34.0-46.0) % Sodium (137-145) mmol/L Potassium 3.3 L (3.5-5.1) mmol/L Chloride (98-107) mmol/L Glucose (74-99) mg/dL POC Glucose (mg/dL) 55 L 115 H (75-99) mg/dL Calcium (8.4-10.2) mg/dL Iron (50-170) ug/dL TIBC (228-460) ug/dL 07/08/21 07/09/21 07/09/21 Range/Units 23:49 03:29 03:29 RBC 2.97 L (3.80-5.40) m/uL Hgb 9.3 L (11.4-16.0) gm/dL Hct 28.0 L (34.0-46.0) % Sodium 135 L (137-145) mmol/L Potassium (3.5-5.1) mmol/L Chloride 109 H (98-107) mmol/L Glucose 48 L* (74-99) mg/dL POC Glucose (mg/dL) 72 L (75-99) mg/dL Calcium 7.2 L (8.4-10.2) mg/dL Iron 26 L (50-170) ug/dL TIBC 157 L (228-460) ug/dL 07/09/21 07/09/21 Range/Units 05:40 06:53 RBC (3.80-5.40) m/uL Hgb (11.4-16.0) gm/dL Hct (34.0-46.0) % Sodium (137-145) mmol/L Potassium (3.5-5.1) mmol/L Chloride (98-107) mmol/L Glucose (74-99) mg/dL POC Glucose (mg/dL) 121 H 106 H (75-99) mg/dL Calcium (8.4-10.2) mg/dL Iron (50-170) ug/dL TIBC (228-460) ug/dL Assessment and Plan Assessment: Impression: Acute hypoxic respiratory failure secondary to CVA and seizures/new onset. George swartz was initially intubated upon her initial presentation but she was extubated yesterday 07/08/2021 Old left parietal ischemic stroke Suspect acute urinary tract infection Benign essential hypertension Dyslipidemia History of left MCA stenosis History of right 2 diabetes. History of hypercholesterolemia. Recommendation: Continue to monitor in the ICU. Neurology is recommending MRI of the brain. And this is pending. Antibiotics empirically for her presumptive urinary tract infection. Continue Keppra. 750 mg IV push every 12 hours. EEG is pending. Continue aspirin and Plavix Continue neuro checks. Continue to monitor in the ICU closely. EEG is pending. Physical therapy and occupational therapy consulted. Continue to monitor sugars closely as she had episodes of hypoglycemia. Continue GI and DVT prophylaxis.. Prognosis is relatively guarded. Time with Patient: Less than 30
--- NOTE | 2021-07-09 15:58 | P.PN ---
Subjective Progress Note Date: 07/09/21 Principal diagnosis: Altered mentation Patient is a 81-year-old female with a history of diabetes, hypertension, and a recent stroke who presented to the ER with complaints of right-sided weakness. On arrival to the ER she had an NIH of 14 and was out of the therapeutic window for TPA. She underwent a CT of the head and neck which was unremarkable. CT of the brain showed old left posterior temporal lobe infarct with increased size compared to December 2020. Patient had 2 seizures on the ER which aborted spontaneously. The second one was followed by post ictal confusion and she was subsequently intubated and admitted to the ICU. Pulmonary and neurology were co nsulted. Patient was extubated on 07/08. She remained confused. Patient seen and examined at bedside. Eyes are open and she is looking at me. She follows some very simple commands but not others. When asked what year it is she reports June. General: non toxic, no distress, appears at stated age Derm: warm, dry Head: atraumatic, normocephalic, symmetric Eyes: Pupils equal round react to light, EOMI, no lid lag, anicteric sclera Mouth: no lip lesion, mucus membranes moist Cardiovascular: S1S2 reg, no murmur, positive posterior tibial pulse bilateral, Lungs: CTA bilateral, no rhonchi, no rales , no accessory muscle use Abdominal: soft, nontender to palpation, no guarding, no appreciable organomegaly Ext: no gross muscle atrophy, diffuse anasarca, no contractures Neuro: Withdrawal to pain in bilateral upper and lower extremities, pupils equal round reactive to light, tongue is symmetrical, uvula palate elevation symmetrical, motor racer strength equal bilaterally, patient was unable to follow commands to lift her legs off the bed or to keep her legs in the air. She was also unable to follow commands to flex and extend supinate and pronate her upper extremities. Psych: Awake, repeat the word yes to asking to do commands but does not follow through with them. When asked year she states June when asked where she has asked she does not answer the question. 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 greater than 70% - Resume lisinopril and follow blood pressures diffuse anasarca sever protein calorie malnutrution - Encourage oral intake - dietitan recs Diabetes mellitus type 2 with hypoglycemia -Home Glucophage, Amaryl -Sliding-scale insulin -Follow blood sugars -Hemoglobin A1c pending Hypertensive urgency on admission - BP now in acceptable range -Resume lisinopril Hypokalemia, undetermined etiology -Replacement per protocol Sick euthyroidism -Repeat TSH in 4-6 weeks Anemia, no signs or symptoms of bleeding -Follow CBC -No indication for transfusion -Check iron studies UTI - rocephin - await culture results Vent dependent respiratory, resolved DVT prophylaxis: Lovenox Discussed with: Nursing Anticipated discharge: Undetermined Anticipated discharge place: Undetermined A total of 45 minutes was spent on the care of this complex patient more than 50% of the time was spent in counseling and care coordination. Objective - Vital Signs Vital signs: Vital Signs Temp 97.7 F 07/09/21 12:00 Pulse 80 07/09/21 13:00 Resp 19 07/09/21 13:00 BP 169/97 07/09/21 13:00 Pulse Ox 94 L 07/09/21 13:00 Intake & Output 07/08/21 07/09/21 07/09/21 18:59 06:59 18:59 Intake Total 1100 2100 440 Output Total 340 720 950 Balance 760 1380 -510 Weight 71.3 kg Intake: IV 1100 2100 440 Potassium Chloride 10 meq 100 400 In Water For Injection 1 100ml.bag @ 100 mls/hr IVPB Q1HR [facility] Rx#: [id number] Sodium Chloride 0.9% 1, 1000 1200 440 000 ml @ 100 mls/hr IV . Q10H [facility] Rx#:[id number] Sodium Chloride 0.9% 500 500 ml 500 ml @ 999 mls/hr IV .Q31M [facility] Rx#:[id number] Output: Urine 340 720 950 Other: Voiding Method Indwelling Catheter Indwelling Catheter Indwelling Catheter - Labs CBC & Chem 7: 07/09/21 03:29 07/09/21 08:19 Labs: Abnormal Lab Results - Last 24 Hours (Table) 07/08/21 07/08/21 07/08/21 Range/Units 18:57 20:46 23:04 RBC (3.80-5.40) m/uL Hgb (11.4-16.0) gm/dL Hct (34.0-46.0) % Sodium (137-145) mmol/L Potassium 3.3 L (3.5-5.1) mmol/L Chloride (98-107) mmol/L Glucose (74-99) mg/dL POC Glucose (mg/dL) 55 L 115 H (75-99) mg/dL Calcium (8.4-10.2) mg/dL Iron (50-170) ug/dL TIBC (228-460) ug/dL 07/08/21 07/09/21 07/09/21 Range/Units 23:49 03:29 03:29 RBC 2.97 L (3.80-5.40) m/uL Hgb 9.3 L (11.4-16.0) gm/dL Hct 28.0 L (34.0-46.0) % Sodium 135 L (137-145) mmol/L Potassium (3.5-5.1) mmol/L Chloride 109 H (98-107) mmol/L Glucose 48 L* (74-99) mg/dL POC Glucose (mg/dL) 72 L (75-99) mg/dL Calcium 7.2 L (8.4-10.2) mg/dL Iron 26 L (50-170) ug/dL TIBC 157 L (228-460) ug/dL 07/09/21 07/09/21 Range/Units 05:40 06:53 RBC (3.80-5.40) m/uL Hgb (11.4-16.0) gm/dL Hct (34.0-46.0) % Sodium (137-145) mmol/L Potassium (3.5-5.1) mmol/L Chloride (98-107) mmol/L Glucose (74-99) mg/dL POC Glucose (mg/dL) 121 H 106 H (75-99) mg/dL Calcium (8.4-10.2) mg/dL Iron (50-170) ug/dL TIBC (228-460) ug/dL
[2021-07-09] MEDS: lisinopriL 20 MG TAB PO SCH (20:37)
[2021-07-09 22:09] LABS: Glucose,Whole Blood 97 mg/dL (75-99)
[2021-07-10] MEDS: SODIUM CHLORIDE 0.9% 1,000 ML IV SCH ×2 (01:04→09:48)
[2021-07-10 04:47] LABS: HCT 28.2 % (34.0-46.0); HGB 9.6 gm/dL (11.4-16.0); MCH 31.2 pg (25.0-35.0); MCHC 34.1 g/dL (31.0-37.0); MCV 91.6 fL (80.0-100.0); Mean Platelet Volume 6.9; Platelet Count 281 k/uL (150-450); RBC 3.08 m/uL (3.80-5.40); WBC 4.1 k/uL (3.8-10.6)
[2021-07-10 05:06] LABS: Calcium 7.4 mg/dL (8.4-10.2); Potassium 3.7 mmol/L (3.5-5.1)
[2021-07-10] MEDS: POTASSIUM CHLORIDE 10 MEQ in WATER FOR INJECTION 1 100ML.BAG IVPB SCH ×2 (06:36→06:37)
--- NOTE | 2021-07-10 08:54 | P.PN ---
Subjective Progress Note Date: 07/10/21 Principal diagnosis: Altered mentation Patient is a 81-year-old female with a history of diabetes, hypertension, and a recent stroke who presented to the ER with complaints of right-sided weakness. On arrival to the ER she had an NIH of 14 and was out of the therapeutic window for TPA. She underwent a CT of the head and neck which was unremarkable. CT of the brain showed old left posterior temporal lobe infarct with increased size compared to December 2020. Patient had 2 seizures on the ER which aborted spontaneously. The second one was followed by post ictal confusion and she was subsequently intubated and admitted to the ICU. Pulmonary and neurology were co nsulted. Patient was extubated on 07/08. She remained confused. Patient seen and examined at bedside. Eyes open, saying yes/no but no other words. Denies pain/ SOB. General: non toxic, no distress, appears at stated age Derm: warm, dry Head: atraumatic, normocephalic, symmetric Eyes: EOMI, no lid lag, anicteric sclera Mouth: no lip lesion, mucus membranes moist Cardiovascular: S1S2 reg, no murmur, positive posterior tibial pulse bilateral, Lungs: Decreased bs bilateral, no rhonchi, no rales , no accessory muscle use Abdominal: soft, nontender to palpation, no guarding, no appreciable organomegaly Ext: no gross muscle atrophy, no edema, no contractures Neuro: CN II-XI grossly intact, no focal neuro deficits Psych: Alert, oriented, appropriate affect Worsening of prior CVA symptoms -concerns for possible new stroke versus worsening of symptoms in the setting of UTI and possible hypoglycemia Seizure 2, without recurrence Left MCA stenosis, resolved on repeat CTA head and neck HTN urgency - Neuro recs apprecaied, MRI and eeg today, keppra - ASA, statin - After MRI conisder changing from plavix to Brillenta if new jaycee - 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 Vent dependent respiratory, resolved Hypokalemia, resolved DVT prophylaxis: Lovenox Discussed with: Nursing Anticipated discharge: Undetermined Anticipated discharge place: Undetermined A total of 35 minutes was spent on the care of this complex patient more than 50% of the time was spent in counseling and care coordination. Objective - Vital Signs Vital signs: Vital Signs Temp 98.0 F 07/10/21 08:00 Pulse 73 07/10/21 08:00 Resp 25 H 07/10/21 08:00 BP 185/86 07/10/21 08:00 Pulse Ox 97 07/10/21 08:00 Intake & Output 07/09/21 07/10/21 07/10/21 18:59 06:59 18:59 Intake Total 560 540 40 Output Total 1600 670 60 Balance -1040 -130 -20 Weight 70.9 kg Intake: IV 560 540 40 Potassium Chloride 10 meq 200 In Water For Injection 1 100ml.bag @ 100 mls/hr IVPB Q1HR [facility] Rx#: [id number] Sodium Chloride 0.9% 1, 560 240 40 000 ml @ 100 mls/hr IV . Q10H [facility] Rx#:[id number] levETIRAcetam IV 750 mg 100 In Sodium Chloride 0.9% 100 ml @ 400 mls/hr IVPB Q12HR [facility] Rx#:[id number] Output: Urine 1600 670 60 Other: Voiding Method Indwelling Catheter Indwelling Catheter Indwelling Catheter - Labs CBC & Chem 7: 07/10/21 04:03 07/10/21 04:03 Labs: Abnormal Lab Results - Last 24 Hours (Table) 07/09/21 07/10/21 07/10/21 Range/Units 03:29 04:03 04:03 RBC 3.08 L (3.80-5.40) m/uL Hgb 9.6 L (11.4-16.0) gm/dL Hct 28.2 L (34.0-46.0) % Sodium 135 L (137-145) mmol/L Glucose 72 L (74-99) mg/dL Calcium 7.4 L (8.4-10.2) mg/dL Iron 26 L (50-170) ug/dL TIBC 157 L (228-460) ug/dL
[2021-07-10] MEDS: ASPIRIN 81 MG PO SCH (09:34)
[2021-07-10] MEDS: lisinopriL 20 MG TAB PO SCH ×2 (09:34→22:18)
[2021-07-10] MEDS: ATORVASTATIN 80 MG TAB PO SCH (09:34)
[2021-07-10] MEDS: CLOPIDOGREL 75 MG TAB PO SCH (09:34)
[2021-07-10] MEDS: FAMOTIDINE 20 MG/2 ML VIAL IV SCH (09:35)
[2021-07-10] MEDS: INSULIN ASPART (NovoLOG) 100 UNIT/ML VIAL SQ SCH ×4 (09:37→21:30)
[2021-07-10] MEDS: amLODIPine 10 MG TAB PO SCH (09:37)
[2021-07-10] MEDS: FUROSEMIDE 10 MG/ML 4 ML VIAL IV SCH ×2 (09:37→15:45)
[2021-07-10] MEDS: hydrALAZINE HCL 25 MG TAB PO SCH ×4 (09:37→22:30)
--- NOTE | 2021-07-10 09:50 | P.PN ---
Subjective Progress Note Date: 07/10/21 Principal diagnosis: Acute hypoxic failure secondary to CVA and new onset seizure This is a 81-year-old female with history of previous CVA, back in December 2020, history of hypertension and dyslipidemia diabetes, history of dyslipidemia, patient was brought into the ER mostly because of 1 day history of mental status change, and weakness. Patient was also noted by her daughter to be confused, weak, and unable to speak. Speech was noted to be slurred, hence she was brought into the ER by EMS, and workup was initiated for potential acute CVA, patient had basically had been diagnostic studies, and as she returned to the ER from her diagnostic studies, patient had 2 seizures. And it up intubated and mechanically ventilated. Admitted to the ICU and I was asked to see her on consultation. Not much history could be obtained from the patient. Patient is intubated, on mechanical ventilation, assist control rate of 12 tidal volume of 375 FiO2 35% PEEP of 5 ABG showed a pO2 of 149 pCO2 of 34 pH of 7.57 patient is now off propofol, she did receive Keppra yesterday in the ER, she was seen by the neurologist today, and he had no problem weaning and extubating the patient, felt that her seizures are presently under control. He is recommending however an MRI, and hopefully this will be done post extubation. CBC today is relatively normal. ABG as noted earlier. Potassium is low at 2.7 being corrected as per protocol. Rest of her metabolic profile was basically u nremarkable. Troponin was 0.0-4. Blood sugar was 97 chest x-ray this morning showed no significant abnormality except for minimal subsegmental atelectasis, doubt infiltrate Patient was reevaluated today on 07/09/2021, patient remains in the ICU, extubated, tolerated the extubation. Patient was extubated yesterday. She is moving all extremities spontaneously, seems to be a bit confused, thinks this is 1940, actually patient was born in 1939. Couldn't tell me where she was or time and person. Patient is oriented to self only. She knew her birthday otherwise she didn't know much. Patient seems to be quite comfortable from the pulmonary perspective, she is not in any distress, she is only on 2 L nasal cannula. And yesterday when she was extubated 2 was placed on 12/435% BiPAP. Patient had poor urine output yesterday, given fluid boluses later on given Lasix and she seems to improve with Lasix. Today she seems quite swollen and edematous, and I'm recommending more Lasix to be given today. Labs today she had relatively normal CBC and normal electrolytes, normal renal profile however her sugar was low earlier today at 48, presently 106. Chest x-ray showed cardiomegaly and marcy ateral pleural effusions, hence I'm recommending IV fluid to KVO, and diuretics today. On 07/10/2021 patient seen in follow-up in the intensive care unit. She is awake, in no acute distress, she remains still disoriented to date, confused, but does not appear to be in any acute distress, she is breathing comfortably, she is on room air, her pulse ox is 97%. Afebrile, blood pressure is elevated on today's vital signs, 185/86, she is going to be started on hydralazine 25 mg 3 times daily, and Zestril 20 mg twice daily, and these are home medications. No acute events overnight, no seizure activity per nursing staff. She remains on Keppra, and Ativan for breakthrough seizures. Remains on Rocephin for urinary tract infection. Past chest x-ray yesterday showed continued pleural effusions bilaterally, small in size. There was extensive retrocardiac atelectasis and/or consolidation. There were right-sided rib fracture deformities. Patient has been getting diuretics intermittently, she received 2 doses of IV Lasix 40 mg, and she is in -1.1 L net fluid balance over the last 24 hours, today she was started on Lasix 40 mg twice daily. No fever or chills overnight. Today's labs have been reviewed, white blood cell count is 4.1, hemoglobin is 9.6, sodium is 135, Dostinex twice and renal profile were within normal limits. Objective - Vital Signs Vital signs: Vital Signs Temp 98.0 F 07/10/21 08:00 Pulse 73 07/10/21 08:00 Resp 25 H 07/10/21 08:00 BP 185/86 07/10/21 08:00 Pulse Ox 97 07/10/21 08:00 Intake & Output 07/09/21 07/10/21 07/10/21 18:59 06:59 18:59 Intake Total 560 540 40 Output Total 1600 670 60 Balance -1040 -130 -20 Weight 70.9 kg Intake: IV 560 540 40 Potassium Chloride 10 meq 200 In Water For Injection 1 100ml.bag @ 100 mls/hr IVPB Q1HR [facility] Rx#: [id number] Sodium Chloride 0.9% 1, 560 240 40 000 ml @ 100 mls/hr IV . Q10H [facility] Rx#:[id number] levETIRAcetam IV 750 mg 100 In Sodium Chloride 0.9% 100 ml @ 400 mls/hr IVPB Q12HR [facility] Rx#:[id number] Output: Urine 1600 670 60 Other: Voiding Method Indwelling Catheter Indwelling Catheter Indwelling Catheter - Exam GENERAL EXAM: Alert, very pleasant, 81-year-old confused white female, resting in bed, on room air with a pulse ox of 96% comfortable in no apparent distress. HEAD: Normocephalic/atraumatic. EYES: Normal reaction of pupils, equal size. Conjunctiva pink, sclera white. NOSE: Clear with pink turbinates. THROAT: No erythema or exudates. NECK: No masses, no JVD, no thyroid enlargement, no adenopathy. CHEST: No chest wall deformity. Symmetrical expansion. LUNGS: Equal air entry with diminished breath sounds and some crackles at the bases CVS: Regular rate and rhythm, normal S1 and S2, no gallops, no murmurs, no rubs ABDOMEN: Soft, nontender. No hepatosplenomegaly, normal bowel sounds, no guarding or rigidity. EXTREMITIES: No clubbing, no edema, no cyanosis, 2+ pulses and upper and lower extremities. MUSCULOSKELETAL: Muscle strength and tone normal. SPINE: No scoliosis or deformity SKIN: No rashes CENTRAL NERVOUS SYSTEM: Alert and oriented -2. No focal deficits, tone is normal in all 4 extremities. PSYCHIATRIC: Alert and oriented -2. Appropriate affect. Intact judgment and insight. - Labs CBC & Chem 7: 07/10/21 04:03 07/10/21 04:03 Labs: Abnormal Lab Results - Last 24 Hours (Table) 07/09/21 07/10/21 07/10/21 Range/Units 03:29 04:03 04:03 RBC 3.08 L (3.80-5.40) m/uL Hgb 9.6 L (11.4-16.0) gm/dL Hct 28.2 L (34.0-46.0) % Sodium 135 L (137-145) mmol/L Glucose 72 L (74-99) mg/dL Calcium 7.4 L (8.4-10.2) mg/dL Iron 26 L (50-170) ug/dL TIBC 157 L (228-460) ug/dL Assessment and Plan Plan: Assessment: #1. Acute hypoxic respiratory failure secondary to CVA and a new onset seizures. The patient was initially intubated upon her initial presentation for protection of her airway on 07/07/2021, and extubated on 07/08/2021 #2. 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 Hypoglycemia and acute urinary tract infection on presentation, patient continues on Rocephin #4. Small bilateral pleural effusions #5. Benign essential hypertension #6. History of left MCA stenosis #7. History of diabetes mellitus type 2 #8. History of hypercholesterolemia #9. Altered mental status, likely related to metabolic encephalopathy plan: IV fluids to KVO Continue IV Lasix Follow-up chest x-ray in the morning Follow-up labs No seizure activity reported by nursing staff Continue Keppra We'll discontinue Ativan Patient's home blood pressure medications have been restarted She continues on aspirin, Plavix, and high-dose Lipitor She is stable for transfer out of intensive care unit today to general medical floor with remote telemetry I performed a history & physical examination of the patient and discussed their management with my nurse practitioner, Keshia Lawson. I reviewed the nurse practitioner's note and agree with the documented findings and plan of care. Lung sounds are positive for diminished breath sounds throughout the lung fi elds. The findings and the impression was discussed with the patient. I attest to the documentation by the nurse practitioner. Time with Patient: Less than 30
[2021-07-10] MEDS: levETIRAcetam IV 750 MG in SODIUM CHLORIDE 0.9% 100 ML IVPB SCH ×2 (09:51→22:18)
[2021-07-10 10:31] VITALS: BMI 25.9
--- NOTE | 2021-07-10 11:51 | P.PN ---
Subjective Progress Note Date: 07/10/21 Patient was seen for a follow-up. Patient initially seen by Dr. Brett Rich. Please refer to his note for details. Patient is laying comfortably in the bed. She is slightly confused, partially undressed, fumbling with the blankets. No seizures reported since she has been in the hospital. Objective - Vital Signs Vital signs: Vital Signs Temp 98.0 F 07/10/21 08:00 Pulse 101 H 07/10/21 11:00 Resp 18 07/10/21 11:00 BP 180/127 07/10/21 11:00 Pulse Ox 94 L 07/10/21 11:00 Intake & Output 07/09/21 07/10/21 07/10/21 18:59 06:59 18:59 Intake Total 560 540 100 Output Total 1600 670 150 Balance -1040 -130 -50 Weight 70.9 kg 70.9 kg Intake: IV 560 540 100 Potassium Chloride 10 meq 200 In Water For Injection 1 100ml.bag @ 100 mls/hr IVPB Q1HR [facility] Rx#: [id number] Sodium Chloride 0.9% 1, 560 240 100 000 ml @ 100 mls/hr IV . Q10H [facility] Rx#:[id number] levETIRAcetam IV 750 mg 100 In Sodium Chloride 0.9% 100 ml @ 400 mls/hr IVPB Q12HR [facility] Rx#:[id number] Output: Urine 1600 670 150 Other: Voiding Method Indwelling Catheter Indwelling Catheter Indwelling Catheter - Exam GENERAL: The patient is lying in bed and is not in acute distress. She appears confused. NEUROLOGICAL: Higher mental function: The patient is awake, alert, oriented to self. Patient mainly speaks Urdu language. No neglect. Cranial nerves: The pupils are round, equal and reactive to light. EOM in tracking throughout the room and no nystagmus note. No facial weakness. No dysarthria. Rest of cranial nerves could not be assessed because of her conditi on. Motor: Gait is deferred. The strength is moving all extremities above gravity (but appears to be lifting left upper > right but seems inconsistent). Normal tone and bulk. Cerebellum: Could not assess. Sensation: Could not assess. Reflexes (right/left): 2+ uppers while lowers are 1+ (has moderate amount of edema in lowers). . - Labs CBC & Chem 7: 07/11/21 03:28 07/11/21 03:28 Labs: Abnormal Lab Results - Last 24 Hours (Table) 07/09/21 07/10/21 07/10/21 Range/Units 03:29 04:03 04:03 RBC 3.08 L (3.80-5.40) m/uL Hgb 9.6 L (11.4-16.0) gm/dL Hct 28.2 L (34.0-46.0) % Sodium 135 L (137-145) mmol/L Glucose 72 L (74-99) mg/dL Calcium 7.4 L (8.4-10.2) mg/dL Iron 26 L (50-170) ug/dL TIBC 157 L (228-460) ug/dL Assessment and Plan Assessment: New onset seizure: Likely due to history of stroke and exacerbated by acute UTI.--no further seizure since in ICU Encephalopathy seems due to (hypoglycemia 55) and underlying UTI. Rule out stroke especially since preservating. Hypoglycemia can mimic stroke. 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 Rule out new stroke. 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 Acute respiratory distress requiring intubation and ventilation because of seizure. Hypertension and presented uncontrolled Hyperlipidemia Hard of hearing Plan: * MRI of the brain is pending. * Continue Keppra 750 mg IV every 12 hours. We will change to by mouth, when a ble to take by mouth. * EEG revealed moderate focal slowing in the left temporal region, suggestive of focal cortical neuronal dysfunction, may suggest underlying structure abnormality. No obvious epileptiform activity was seen. Also revealed mild generalized slowing and disorganization of the background consistent with encephalopathy * Patient is currently on aspirin 300 mg rectally for now and she has an order for Plavix 75 mg daily. Will change ASA to 81mg PO (home dose). If she does have a new stroke then the possibly we can stop Plavix and start the patient on Brilinta 90mg 1 tab bid. She is on Lipitor 80 mg daily. * Routine neurochecks * Placed on cardiac monitoring * PT, OT and DOCK SUPERINTENDENT are consulted. * Please avoid any hypoglycemic episodes, and will defer management to ICU and primary team. * We'll defer the management of urinary tract infection to primary team. Currently she is on ceftriaxone. * We'll defer the rest of the medical management to the primary team and ICU team. Previous workup: CT of the head was done and it was reported as old left posterior temporal lobe infarct has increased in size compared to old exam. I personally feel it's was predominately left parietal. CT angiography of the head and neck was reported as negative for both. 2-D echo was reported as moderate consider left ventricle hypertrophy. Ejection fraction more than 70%. Left atrium is normal in size. Small to moderate generalized pericardial effusion present. Lipid panel: Triglyceride of 174, cholesterol 138, LDL of the 62 and HDL 41. TSH of 0.019 which is low but the free T4 is 0.82.
--- NOTE | 2021-07-10 13:06 | EEG ---
ELECTROENCEPHALOGRAM REPORT DATE OF SERVICE: 07/10/2021 PREAMBLE: This is a 81-year-old female with new onset seizure. This study is performed to evaluate for any epileptiform activity. EEG FINDINGS: This is a 21 channel routine EEG recording patient utilizing 10/20 international system with referential and bipolar montages. Background consists of well-developed, but poorly regulated, somewhat disorganized mixed frequencies of moderate amplitude theta, with some faster and slower frequencies rhythm seen in bihemispheric region. There is continuous moderate to high amplitude focal slowing in polymorphic delta range seen in the left hemispheric region, maximal left temporal. No definitive epileptiform activity was seen. Photic driving response was not seen. Some brief stage 2 sleep was seen with presence of some sleep spindles. EKG channel showed no arrhythmia. IMPRESSION: This is an abnormal EEG due to: 1. Continuous focal slowing in polymorphic delta range in the left temporal region, suggestive of focal cortical neuronal dysfunction, possibly indicating underlying structural abnormality. 2. Mild generalized slowing and disorganization of the background, consistent with mild encephalopathy. 3. No obvious epileptiform activity was seen. May consider prolonged EEG, if your suspicion for seizures is high. MMODL / IJN: [id number] / JUDSON
[2021-07-10 13:10] LABS: Glucose,Whole Blood 112 mg/dL (75-99)
[2021-07-10 17:13] LABS: Glucose,Whole Blood 122 mg/dL (75-99)
[2021-07-10 22:22] LABS: Glucose,Whole Blood 161 mg/dL (75-99)
[2021-07-11 03:57] LABS: HCT 32.2 % (34.0-46.0); HGB 10.2 gm/dL (11.4-16.0); MCH 30.4 pg (25.0-35.0); MCHC 31.8 g/dL (31.0-37.0); MCV 95.5 fL (80.0-100.0); Mean Platelet Volume 7.3; Platelet Count 258 k/uL (150-450); RBC 3.37 m/uL (3.80-5.40); RDW 14.3 % (11.5-15.5); WBC 5.3 k/uL (3.8-10.6)
[2021-07-11 04:08] LABS: Calcium 7.8 mg/dL (8.4-10.2); Potassium 4.2 mmol/L (3.5-5.1)
[2021-07-11 05:25] LABS: T4, Free (Free Thyroxine) 0.46 ng/dL (0.78-2.19)
[2021-07-11 06:15] LABS: Glucose,Whole Blood 169 mg/dL (75-99)
[2021-07-11] MEDS: INSULIN ASPART (NovoLOG) 100 UNIT/ML VIAL SQ SCH ×4 (06:19→22:09)
[2021-07-11] MEDS: FUROSEMIDE 10 MG/ML 4 ML VIAL IV SCH ×3 (08:23→22:08)
[2021-07-11] MEDS: FAMOTIDINE 20 MG/2 ML VIAL IV SCH (08:23)
[2021-07-11] MEDS: hydrALAZINE HCL 25 MG TAB PO SCH ×3 (08:32→22:11)
[2021-07-11] MEDS: CLOPIDOGREL 75 MG TAB PO SCH (08:32)
[2021-07-11] MEDS: ASPIRIN 81 MG PO SCH (08:32)
[2021-07-11] MEDS: ATORVASTATIN 80 MG TAB PO SCH (08:32)
[2021-07-11] MEDS: lisinopriL 20 MG TAB PO SCH ×2 (08:32→22:09)
[2021-07-11] MEDS: amLODIPine 10 MG TAB PO SCH (08:32)
[2021-07-11] MEDS: LEVOTHYROXINE 75 MCG TAB PO SCH (08:34)
[2021-07-11] MEDS: levETIRAcetam IV 750 MG in SODIUM CHLORIDE 0.9% 100 ML IVPB SCH (09:26)
--- NOTE | 2021-07-11 10:36 | P.PN ---
Subjective Progress Note Date: 07/11/21 Principal diagnosis: Acute hypoxic respiratory failure secondary to CVA and new onset seizure This is a 81-year-old female with history of previous CVA, back in December 2020, history of hypertension and dyslipidemia diabetes, history of dyslipidemia, patient was brought into the ER mostly because of 1 day history of mental status change, and weakness. Patient was also noted by her daughter to be confused, weak, and unable to speak. Speech was noted to be slurred, hence she was brought into the ER by EMS, and workup was initiated for potential acute CVA, patient had basically had been diagnostic studies, and as she returned to the ER from her diagnostic studies, patient had 2 seizures. And it up intubated and mechanically ventilated. Admitted to the ICU and I was asked to see her on consultation. Not much history could be obtained from the patient. Patient is intubated, on mechanical ventilation, assist control rate of 12 tidal volume of 375 FiO2 35% PEEP of 5 ABG showed a pO2 of 149 pCO2 of 34 pH of 7.57 patient is now off propofol, she did receive Keppra yesterday in the ER, she was seen by the neurologist today, and he had no problem weaning and extubating the patient, felt that her seizures are presently under control. He is recommending however an MRI, and hopefully this will be done post extubation. CBC today is relatively normal. ABG as noted earlier. Potassium is low at 2.7 being corrected as per protocol. Rest of her metabolic profile was basically unremarkable. Troponin was 0.0-4. Blood sugar was 97 chest x-ray this morning showed no significant abnormality except for minimal subsegmental atelectasis, doubt infiltrate Patient was reevaluated today on 07/09/2021, patient remains in the ICU, extubated, tolerated the extubation. Patient was extubated yesterday. She is moving all extremities spontaneously, seems to be a bit confused, thinks this is 1940, actually patient was born in 1940. Couldn't tell me where she was or time and person. Patient is oriented to self only. She knew her birthday otherwise she didn't know much. Patient seems to be quite comfortable from the pulmonary perspective, she is not in any distress, she is only on 2 L nasal cannula. And yesterday when she was extubated 2 was placed on 12/435% BiPAP. Patient had poor urine output yesterday, given fluid boluses later on given Lasix and she seems to improve with Lasix. Today she seems quite swollen and edematous, and I'm recommending more Lasix to be given today. Labs today she had relatively normal CBC and normal electrolytes, normal renal profile however her sugar was low earlier today at 48, presently 106. Chest x-ray showed cardiomegaly and bilateral pleural effusions, hence I'm recommending IV fluid to KVO, and diuretics today. On 07/10/2021 patient seen in follow-up in the intensive care unit. She is awake, in no acute distress, she remains still disoriented to date, confused, but does not appear to be in any acute distress, she is breathing comfortably, she is on room air, her pulse ox is 97%. Afebrile, blood pressure is elevated on today's vital signs, 185/86, she is going to be started on hydralazine 25 mg 3 times daily, and Zestril 20 mg twice daily, and these are home medications. No acute events overnight, no seizure activity per nursing staff. She remains on Keppra, and Ativan for breakthrough seizures. Remains on Rocephin for urinary tract infection. Past chest x-ray yesterday showed continued pleural effusions bilaterally, small in size. There was extensive retrocardiac atelectasis and/or consolidation. There were right-sided rib fracture deformities. Patient has been getting diuretics intermittently, she received 2 doses of IV Lasix 40 mg, and she is in -1.1 L net fluid balance over the last 24 hours, today she was started on Lasix 40 mg twice daily. No fever or chills overnight. Today's labs have been reviewed, white blood cell count is 4.1, hemoglobin is 9.6, sodium is 135, Dostinex twice and renal profile were within normal limits. The patient is seen today 07/11/2021 in follow-up in the intensive care unit. She is currently resting comfortably in bed. Awake and alert in no acute distress. Somewhat slow to respond. He is maintaining good O2 saturations in the 90s on room air. 0.9 normal saline at 10 MLS per hour. EEG revealed continuous focal slowing in the left temporal region possibly indicating underlying structural abnormality area mild generalized slowing and disorganization consistent with mild encephalopathy. No obvious epileptiform activity noted. White count 5.3. Hemoglobin 10.2. Sodium 135. Potassium 4.2. Creatinine 0.89. Glucose 182. TSH 81.4. Free T4 0.46. Calcium 7.8. She's been initiated on levothyroxine at 75 g daily. Continued on Keppra. Antibiotics in the form of ceftriaxone. Remains on IV diuretics. Currently in a -1.1 L balance. Objective - Vital Signs Vital signs: Vital Signs Temp 97.6 F 07/11/21 08:00 Pulse 77 07/11/21 08:00 Resp 16 07/11/21 08:00 BP 161/107 07/11/21 08:00 Pulse Ox 96 07/11/21 08:00 Intake & Output 07/10/21 07/11/21 07/11/21 18:59 06:59 18:59 Intake Total 270 60 Output Total 150 Balance 120 60 Weight 70.9 kg Intake: IV 120 10 Sodium Chloride 0.9% 1, 100 000 ml @ 100 mls/hr IV . Q10H [facility] Rx#:[id number] ns 20 10 Intake, IV Titration 50 Amount cefTRIAXone 1 gm In 50 Sodium Chloride 0.9% 50 ml @ 100 mls/hr IVPB Q24HR [facility] Rx#:[id number] Oral 100 50 Output: Urine 150 Other: Voiding Method Diaper Diaper Diaper # Voids 1 2 # Bowel Movements 1 - Exam GENERAL EXAM: Alert, very pleasant, 81-year-old confused female patient, resting in bed, on room air with a pulse ox of 96% comfortable in no apparent distress. HEAD: Normocephalic/atraumatic. EYES: Normal reaction of pupils, equal size. Conjunctiva pink, sclera white. NOSE: Clear with pink turbinates. THROAT: No erythema or exudates. NECK: No masses, no JVD, no thyroid enlargement, no adenopathy. CHEST: No chest wall deformity. Symmetrical expansion. LUNGS: Equal air entry with diminished breath sounds and some crackles at the bases CVS: Regular rate and rhythm, normal S1 and S2, no gallops, no murmurs, no rubs ABDOMEN: Soft, nontender. No hepatosplenomegaly, normal bowel sounds, no guarding or rigidity. EXTREMITIES: No clubbing, no edema, no cyanosis, 2+ pulses and upper and lower extremities. MUSCULOSKELETAL: Muscle strength and tone normal. SPINE: No scoliosis or deformity SKIN: No rashes CENTRAL NERVOUS SYSTEM: No focal deficits, tone is normal in all 4 extremities. PSYCHIATRIC: Alert and oriented -2. Appropriate affect. Intact judgment and insight. - Labs CBC & Chem 7: 07/11/21 03:28 07/11/21 03:28 Labs: Abnormal Lab Results - Last 24 Hours (Table) 07/10/21 07/10/21 07/10/21 Range/Units 13:08 17:10 22:20 RBC (3.80-5.40) m/uL Hgb (11.4-16.0) gm/dL Hct (34.0-46.0) % Sodium (137-145) mmol/L Chloride (98-107) mmol/L BUN (7-17) mg/dL Glucose (74-99) mg/dL POC Glucose (mg/dL) 112 H 122 H 161 H (75-99) mg/dL Calcium (8.4-10.2) mg/dL TSH (0.465-4.680) mIU/L Free T4 (0.78-2.19) ng/dL 07/11/21 07/11/21 07/11/21 Range/Units 03:28 03:28 06:14 RBC 3.37 L (3.80-5.40) m/uL Hgb 10.2 L (11.4-16.0) gm/dL Hct 32.2 L (34.0-46.0) % Sodium 135 L (137-145) mmol/L Chloride 108 H (98-107) mmol/L BUN 18 H (7-17) mg/dL Glucose 182 H (74-99) mg/dL POC Glucose (mg/dL) 169 H (75-99) mg/dL Calcium 7.8 L (8.4-10.2) mg/dL TSH 81.400 H (0.465-4.680) mIU/L Free T4 0.46 L (0.78-2.19) ng/dL Assessment and Plan Assessment: 1 Acute hypoxic respiratory failure secondary to CVA and a new onset seizures. 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 Rich She is stable from the pulmonary and critical care standpoint Transfer to the regular medical floor with telemetry Levothyroxine initiated Remains on IV diuretics Follow-up chest x-ray in a.m. We will continue to follow I, the cosigning physician, performed a history & physical examination of the patient. Lungs sounds crackles in the posterior bases,. Maintaining good O2 saturations in the 90s on room air. I discussed the assessment and plan of care with my nurse practitioner, Nancy Biggs. I attest to the above note as dictated by her.
[2021-07-11 11:33] LABS: Glucose,Whole Blood 189 mg/dL (75-99)
--- NOTE | 2021-07-11 13:22 | CDI ---
Documentation Clarification Form Date: 07/11/2021 12:50:34 PM From: Mine Duong RN CCDS Admit Date: 07/07/2021 08:06:00 PM Patient Name: Alicia Gordon Visit Number: [id number] Discharge Date: ATTENTION: The Clinical Documentation Specialists (CDI) and [facility] Coding Staff appreciate your assistance in clarifying documentation. Please respond to the clarification below the line at the bottom and electronically sign. The CDI & [facility] Coding staff will review the response and follow-up if needed. Please note: Queries are made part of the Legal Health Record. If you have any questions, please contact the author of this message via ITS. Dr. Vahe Dubois Conflicting documentation has been found in the medical record. As attending physician, please provide clarification. Moderate protein calorie malnutrition, H&P, 07/07. Severe protein calorie malnutrition, Medicine progress notes 07/08, 07/09 & 07/10. History/Risk Factors: 81-year-old female presents to the ED for speech difficulty, unable to ambulate with right sided weakness. Medical History: CVA last month, TIA, HTN. H&P 07/11 Clinical Indicators: Anasarca with dependent edema. H&P, 07/07. Dietitian Consult 07/10 - Poor appetite, AMS, eating less than 25% of estimated needs. 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 Estimated protein needs: protein range (grams/kg) 1.2. Estimated Protein needs: (grams/day) 68. Nutritional Diagnosis: Inadequate energy intake related to poor appetite and AMS. Treatment: 07/10 Texture modified diet; Carbohydrate modified diet. Glucerna TID. Please clarify which diagnosis is most appropriate: [ X] Moderate Protein Calorie Malnutrition [ ] Severe Protein Calorie Malnutrition [ ] Other (please specify) [ ] Unable to determine (Template Last Revised: December 2020) MTDD
--- NOTE | 2021-07-11 13:23 | P.PN ---
Subjective Progress Note Date: 07/11/21 Patient was seen and evaluated by me this morning. She is awake and alert. She does not have any complaints. She has diffuse anasarca up to the hips. She was started on IV Lasix few days ago with minimal response. Objective - Vital Signs Vital signs: Vital Signs Temp 97.6 F 07/11/21 08:00 Pulse 77 07/11/21 08:00 Resp 16 07/11/21 08:00 BP 161/107 07/11/21 08:00 Pulse Ox 96 07/11/21 08:00 Intake & Output 07/10/21 07/11/21 07/11/21 18:59 06:59 18:59 Intake Total 270 60 Output Total 150 Balance 120 60 Weight 70.9 kg Intake: IV 120 10 Sodium Chloride 0.9% 1, 100 000 ml @ 100 mls/hr IV . Q10H ARASH Rx#:[id number] ns 20 10 Intake, IV Titration 50 Amount cefTRIAXone 1 gm In 50 Sodium Chloride 0.9% 50 ml @ 100 mls/hr IVPB Q24HR ARASH Rx#:[id number] Oral 100 50 Output: Urine 150 Other: Voiding Method Diaper Diaper Diaper # Voids 1 2 # Bowel Movements 1 - Exam General: The patient is awake and alert, in no distress Eye: there is normal conjunctiva bilaterally. Neck: The neck is supple, there is no JVD. Cardiovascular: Normal S1-S2, no S3-S4, no murmurs. Respiratory: Lungs clear to auscultation bilaterally Gastrointestinal: Abdomen is soft, nontender Musculoskeletal: There is +2 edema up to the hip bilaterally Neurological:. Speech is normal. Skin: Skin is warm and dry - Labs CBC & Chem 7: 07/11/21 03:28 07/11/21 03:28 Labs: Abnormal Lab Results - Last 24 Hours (Table) 07/10/21 07/10/21 07/11/21 Range/Units 17:10 22:20 03:28 RBC 3.37 L (3.80-5.40) m/uL Hgb 10.2 L (11.4-16.0) gm/dL Hct 32.2 L (34.0-46.0) % Sodium (137-145) mmol/L Chloride (98-107) mmol/L BUN (7-17) mg/dL Glucose (74-99) mg/dL POC Glucose (mg/dL) 122 H 161 H (75-99) mg/dL Calcium (8.4-10.2) mg/dL TSH (0.465-4.680) mIU/L Free T4 (0.78-2.19) ng/dL 07/11/21 07/11/21 07/11/21 Range/Units 03:28 06:14 11:30 RBC (3.80-5.40) m/uL Hgb (11.4-16.0) gm/dL Hct (34.0-46.0) % Sodium 135 L (137-145) mmol/L Chloride 108 H (98-107) mmol/L BUN 18 H (7-17) mg/dL Glucose 182 H (74-99) mg/dL POC Glucose (mg/dL) 169 H 189 H (75-99) mg/dL Calcium 7.8 L (8.4-10.2) mg/dL TSH 81.400 H (0.465-4.680) mIU/L Free T4 0.46 L (0.78-2.19) ng/dL Assessment and Plan Assessment: Patient is a 81-year-old female with a history of diabetes, hypertension, and a recent stroke who presented to the ER with complaints of right-sided weakness. On arrival to the ER she had an NIH of 14 and was out of the therapeutic window for TPA. She underwent a CT of the head and neck which was unremarkable. CT of the brain showed old left posterior temporal lobe infarct with increased size compared to December 2020. Patient had 2 seizures on the ER which aborted spont aneously. The second one was followed by post ictal confusion and she was subsequently intubated and admitted to the ICU. Pulmonary and neurology were consulted. Patient was extubated on 07/08. 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 I started levothyroxin daily. Repeat lab work in 2-3 weeks. Anemia, no signs or symptoms of bleeding -Follow CBC -No indication for transfusion -Check iron studies UTI - rocephin - await culture results, culture was obtianed 48 hours after abx started so may be negative. - Check bladder scan to rule out retention Vent dependent respiratory, resolved Hypokalemia, resolved DVT prophylaxis: Lovenox Discussed with: Nursing Anticipated discharge: Undetermined Anticipated discharge place: Undetermined A total of 35 minutes was spent on the care of this complex patient more than 50% of the time was spent in counseling and care coordination.
[2021-07-11 16:54] LABS: Glucose,Whole Blood 120 mg/dL (75-99)
--- NOTE | 2021-07-11 16:57 | MR ---
MRI OF THE BRAIN WO History: Seizure and concern for acute stroke. COMPARISON: CT 07/07/2021. TECHNIQUE: Multiplanar multisequence MR imaging of the brain was obtained without the use of IV cont rast. FINDINGS: There is small subcentimeter restricted diffusion focus in the anterior left periventricular subcorte x.No acute intracranial hemorrhage or abnormal extra-axial fluid collection are noted.There is no mid line shift or mass effect. There is marked periventricular white matter T2 FLAIR hyperintensities, in keeping with chronic microvascular disease. There is left parietal lobe encephalomalacia with T2 isabel ne through on the diffusion weighted images. Visualized vascular flow voids are unremarkable. Visualized paranasal sinuses and mastoid air cells are patent and aerated. IMPRESSION: Acute tiny anterior left periventricular infarct. Marked white matter disease. Left parietal lobe encephalomalacia.
--- NOTE | 2021-07-11 17:13 | P.PN ---
Subjective Progress Note Date: 07/11/21 Patient was seen for a follow-up. Patient initially seen by Dr. Brett Rich. Please refer to his note for details. Patient's relative was present today. She states patient is doing better, understanding better. Still has some garbled speech. She states that patient was brought to the hospital because she did not seem like herself, was confused, staring off, not talking. She had a seizure in the hospital when she stopped breathing. Patient is laying comfortably in the bed. No seizures reported since she has been in the hospital. Objective - Vital Signs Vital signs: Vital Signs Temp 97.3 F L 07/11/21 11:00 Pulse 83 07/11/21 11:00 Resp 16 07/11/21 11:00 BP 125/59 07/11/21 11:00 Pulse Ox 96 07/11/21 11:00 Intake & Output 07/10/21 07/11/21 07/11/21 18:59 06:59 18:59 Intake Total 270 60 400 Output Total 150 Balance 120 60 400 Weight 70.9 kg Intake: IV 120 10 110 Sodium Chloride 0.9% 1, 100 000 ml @ 100 mls/hr IV . Q10H ARASH Rx#:[id number] levETIRAcetam IV 750 mg 100 In Sodium Chloride 0.9% 100 ml @ 400 mls/hr IVPB Q12HR ARASH Rx#:[id number] ns 20 10 10 Intake, IV Titration 50 50 Amount cefTRIAXone 1 gm In 50 50 Sodium Chloride 0.9% 50 ml @ 100 mls/hr IVPB Q24HR ARASH Rx#:[id number] Oral 100 50 240 Output: Urine 150 Other: Voiding Method Diaper Diaper Diaper # Voids 1 2 1 # Bowel Movements 1 - Exam GENERAL: The patient is lying in bed and is not in acute distress. She appears confused. NEUROLOGICAL: Higher mental function: Patient states her relative name is Gina although she is a pleasant but confused. Patient has some slurred speech. Patient knows her date of and then continues to perseverate on her date of . For every question, she repeats her date of . The patient is awake, alert, oriented to self. No neglect. Cranial nerves: The pupils are round, equal and reactive to light. EOM in tracking throughout the room and no nystagmus note. No facial weakness. No dysarthria. Rest of cranial nerves could not be assessed because of her condition. Motor: Gait is deferred. Patient has right pronator drift. The strength is difficult to assess because of her cooperation. Biceps 5 -to 4+ on the right, 5 on left. 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 Plantar flexion is normal. Right leg appears slightly weaker. She can wiggle her feet equally. The strength is moving all extremities above gravity. Normal tone and bulk. Cerebellum: Could not assess. Sensation: Could not assess. Reflexes (right/left): 2+ uppers while lowers are 1+ (has moderate amount of edema in lowers). . - Labs CBC & Chem 7: 07/11/21 03:28 07/11/21 03:28 Labs: Abnormal Lab Results - Last 24 Hours (Table) 07/10/21 07/10/21 07/11/21 Range/Units 17:10 22:20 03:28 RBC 3.37 L (3.80-5.40) m/uL Hgb 10.2 L (11.4-16.0) gm/dL Hct 32.2 L (34.0-46.0) % Sodium (137-145) mmol/L Chloride (98-107) mmol/L BUN (7-17) mg/dL Glucose (74-99) mg/dL POC Glucose (mg/dL) 122 H 161 H (75-99) mg/dL Calcium (8.4-10.2) mg/dL TSH (0.465-4.680) mIU/L Free T4 (0.78-2.19) ng/dL 07/11/21 07/11/21 07/11/21 Range/Units 03:28 06:14 11:30 RBC (3.80-5.40) m/uL Hgb (11.4-16.0) gm/dL Hct (34.0-46.0) % Sodium 135 L (137-145) mmol/L Chloride 108 H (98-107) mmol/L BUN 18 H (7-17) mg/dL Glucose 182 H (74-99) mg/dL POC Glucose (mg/dL) 169 H 189 H (75-99) mg/dL Calcium 7.8 L (8.4-10.2) mg/dL TSH 81.400 H (0.465-4.680) mIU/L Free T4 0.46 L (0.78-2.19) ng/dL Assessment and Plan Assessment: New onset seizure: Likely due to history of stroke and exacerbated by acute UTI.--no further seizure since in ICU Acute tiny ischemic stroke, involving the anterior left periventricular region. Encephalopathy seems due to (hypoglycemia 55) and underlying UTI, and if perhaps related to stroke. Hypoglycemia can mimic stroke. 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 Acute respiratory distress requiring intubation and ventilation because of seizure. Status post extubation. Hypertension and presented uncontrolled Hyperlipidemia Hard of hearing Plan: * MRI of the brain revealed acute tiny anterior left periventricular infarct. Marked white matter disease. Left parietal lobe encephalomalacia. * We will switch from Plavix to Brilinta 90 mg twice a day. * Continue Keppra 750 mg twice a day. If she remains stable, may consider decreasing it to 500 mg twice a day. * EEG revealed moderate focal slowing in the left temporal region, suggestive of focal cortical neuronal dysfunction, may suggest underlying structure abnormality. No obvious epileptiform activity was seen. Also revealed mild generalized slowing and disorganization of the background consistent with encephalopathy * Continue Lipitor 80 mg daily. * CT angiography of the head and neck was reported as negative for both. * 2-D echo was reported as moderate concentric left ventricle hypertrophy. Ejection fraction more than 70%. Left atrium is normal in size. Small to moderate generalized pericardial effusion present. * Lipid panel: Triglyceride of 174, cholesterol 138, LDL of the 62 and HDL 41. * Hemoglobin A1c 5.6 * PT, OT and SLOT TECHNICIAN are consulted. * Please avoid any hypoglycemic episodes, and will defer management to ICU and primary team. * We'll defer the management of urinary tract infection to primary team. Currently she is on ceftriaxone. * Discussed with patient's nephew in detail.
[2021-07-11 21:28] LABS: Glucose,Whole Blood 110 mg/dL (75-99)
[2021-07-11] MEDS: TICAGRELOR 90 MG TAB PO SCH (23:45)
[2021-07-12] MEDS: LEVOTHYROXINE 75 MCG TAB PO SCH ×2 (05:19→07:42)
[2021-07-12] MEDS: INSULIN ASPART (NovoLOG) 100 UNIT/ML VIAL SQ SCH ×4 (07:36→21:28)
[2021-07-12 07:38] LABS: Glucose,Whole Blood 105 mg/dL (75-99)
[2021-07-12] MEDS: ASPIRIN 81 MG PO SCH (07:41)
[2021-07-12] MEDS: ATORVASTATIN 80 MG TAB PO SCH (07:41)
[2021-07-12] MEDS: FUROSEMIDE 10 MG/ML 4 ML VIAL IV SCH ×2 (07:41→21:27)
[2021-07-12] MEDS: hydrALAZINE HCL 25 MG TAB PO SCH (07:41)
[2021-07-12] MEDS: TICAGRELOR 90 MG TAB PO SCH ×2 (07:41→23:19)
[2021-07-12] MEDS: lisinopriL 20 MG TAB PO SCH ×2 (07:41→21:28)
[2021-07-12] MEDS: amLODIPine 10 MG TAB PO SCH (07:42)
[2021-07-12] MEDS: FAMOTIDINE 20 MG TAB PO SCH (07:42)
--- NOTE | 2021-07-12 08:42 | XR ---
EXAMINATION TYPE: XR chest 1V portable DATE OF EXAM: 07/12/2021 Comparison: 07/09/2021 Clinical History: 81-year-old female Pleural effusions Findings: Heart mildly enlarged. Interstitial prominence. Improving aeration especially in the right lung. Smal l pleural effusions and left basilar retrocardiac opacity remains Impression: There may be mild pulmonary vascular congestion though overall aeration is improving from 07/09/2021. Continued small effusions with adjacent atelectasis and/or consolidation.
[2021-07-12 10:02] LABS: African American GFR (CKD) 71 (>60 ml/min/1.73 sqM); Anion Gap 1 mmol/L; Blood Urea Nitrogen 17 mg/dL (7-17); Carbon Dioxide 31 mmol/L (22-30); Chloride 104 mmol/L (98-107); Glucose 150 mg/dL (74-99); Magnesium 1.9 mg/dL (1.6-2.3); Non-African American GFR(CKD) 61 (>60 ml/min/1.73 sqM); Potassium 3.7 mmol/L (3.5-5.1); Sodium 136 mmol/L (137-145)
[2021-07-12] MEDS: ASPIRIN 300 MG SUPP RECTAL SCH (10:03)
--- NOTE | 2021-07-12 11:21 | P.PN ---
Subjective Progress Note Date: 07/12/21 Principal diagnosis: CVA. Acute hypoxic respiratory failure secondary to CVA and new onset seizure This is a 81-year-old female with history of previous CVA, back in December 2020, history of hypertension and dyslipidemia diabetes, history of dyslipidemia, patient was brought into the ER mostly because of 1 day history of mental status change, and weakness. Patient was also noted by her daughter to be confused, weak, and unable to speak. Speech was noted to be slurred, hence she was brought into the ER by EMS, and workup was initiated for potential acute CVA, patient had basically had been diagnostic studies, and as she returned to the ER from her diagnostic studies, patient had 2 seizures. And it up intubated and mechanically ventilated. Admitted to the ICU and I was asked to see her on consultation. Not much history could be obtained from the patient. Patient is intubated, on mechanical ventilation, assist control rate of 12 tidal volume of 375 FiO2 35% PEEP of 5 ABG showed a pO2 of 149 pCO2 of 34 pH of 7.57 patient is now off propofol, she did receive Keppra yesterday in the ER, she was seen by the neurologist today, and he had no problem weaning and extubating the patient, felt that her seizures are presently under control. He is recommending however an MRI, and hopefully this will be done post extubation. CBC today is relatively normal. ABG as noted earlier. Potassium is low at 2.7 being corrected as per protocol. Rest of her metabolic profile was basically unremarkable. Troponin was 0.0-4. Blood sugar was 97 chest x-ray this morning showed no significant abnormality except for minimal subsegmental atelectasis, doubt infiltrate Patient was reevaluated today on 07/09/2021, patient remains in the ICU, extubated, tolerated the extubation. Patient was extubated yesterday. She is moving all extremities spontaneously, seems to be a bit confused, thinks this is 1940, actually patient was born in 1939. Couldn't tell me where she was or time and person. Patient is oriented to self only. She knew her birthday otherwise she didn't know much. Patient seems to be quite comfortable from the pulmonary perspective, she is not in any distress, she is only on 2 L nasal cannula. And yesterday when she was extubated 2 was placed on 12/435% BiPAP. Patient had poor urine output yesterday, given fluid boluses later on given Lasix and she seems to improve with Lasix. Today she seems quite swollen and edematous, and I'm recommending more Lasix to be given today. Labs today she had relatively normal CBC and normal electrolytes, normal renal profile however her sugar was low earlier today at 48, presently 106. Chest x-ray showed cardiomegaly and bilateral pleural effusions, hence I'm recommending IV fluid to KVO, and diuretics today. On 07/10/2021 patient seen in follow-up in the intensive care unit. She is awake, in no acute distress, she remains still disoriented to date, confused, but does not appear to be in any acute distress, she is breathing comfortably, she is on room air, her pulse ox is 97%. Afebrile, blood pressure is elevated on today's vital signs, 185/86, she is going to be started on hydralazine 25 mg 3 times daily, and Zestril 20 mg twice daily, and these are home medications. No acute events overnight, no seizure activity per nursing staff. She remains on Keppra, and Ativan for breakthrough seizures. Remains on Rocephin for urinary tract infection. Past chest x-ray yesterday showed continued pleural effusions bilaterally, small in size. There was extensive retrocardiac atelectasis and/or consolidation. There were right-sided rib fracture deformities. Patient has been getting diuretics intermittently, she received 2 doses of IV Lasix 40 mg, and she is in -1.1 L net fluid balance over the last 24 hours, today she was started on Lasix 40 mg twice daily. No fever or chills overnight. Today's labs have been reviewed, white blood cell count is 4.1, hemoglobin is 9.6, sodium is 135, Dostinex twice and renal profile were within normal limits. The patient is seen today 07/11/2021 in follow-up in the intensive care unit. She is currently resting comfortably in bed. Awake and alert in no acute distress. Somewhat slow to respond. He is maintaining good O2 saturations in the 90s on room air. 0.9 normal saline at 10 MLS per hour. EEG revealed continuous focal slowing in the left temporal region possibly indicating underlying structural abnormality area mild generalized slowing and disorganization consistent with mild encephalopathy. No obvious epileptiform activity noted. White count 5.3. Hemoglobin 10.2. Sodium 135. Potassium 4.2. Creatinine 0.89. Glucose 182. TSH 81.4. Free T4 0.46. Calcium 7.8. She's been initiated on levothyroxine at 75 g daily. Continued on Keppra. Antibiotics in the form of ceftriaxone. Remains on IV diuretics. Currently in a -1.1 L balance. Progress note dated 07/12/2021. The patient is seen in room 517. Previously, she was being seen in the intensive care unit. Any IV fluids. She's not having any additional neurologic issues. Her respiratory status is also very stable. Today's labs include a sodium of 136, potassium 3.7, chloride 104, CO2 31, anion gap 1, BUN 17, and creatinine 0.90. Chest x-ray shows improving pattern and pulmonary vascular congestion. Objective - Vital Signs Vital signs: Vital Signs Temp 97.4 F L 07/12/21 07:00 Pulse 76 07/12/21 07:00 Resp 20 07/12/21 07:00 BP 174/83 07/12/21 07:00 Pulse Ox 97 07/12/21 07:00 Intake & Output 07/11/21 07/12/21 07/12/21 18:59 06:59 18:59 Intake Total 640 400 720 Output Total 400 Balance 240 400 720 Intake: IV 110 levETIRAcetam IV 750 mg 100 In Sodium Chloride 0.9% 100 ml @ 400 mls/hr IVPB Q12HR ARASH Rx#:[id number] ns 10 Intake, IV Titration 50 Amount cefTRIAXone 1 gm In 50 Sodium Chloride 0.9% 50 ml @ 100 mls/hr IVPB Q24HR ARASH Rx#:[id number] Oral 480 400 720 Output: Urine 400 Other: Voiding Method Diaper Diaper # Voids 1 3 - Exam No acute distress, oriented 3. Currently on room air. Saturations are excellent. HEENT examination is grossly unremarkable. Neck supple. Full range of motion. No adenopathy thyromegaly or neck vein distention. Cardiovascular examination reveals regular rhythm rate. S1-S2 normal. No S3 or S4. No discernible murmur noted. Heart rate 76 bpm. Lungs reveal clear breath sounds. Breath sounds are equal bilaterally. No adve ntitious lung sounds including wheezes rhonchi or crackles. Abdomen soft bowel sounds are heard. No masses or tenderness. Extremities are intact. No cyanosis clubbing or edema. Skin is without rash or lesion. Neurologic examination is brief but nonfocal. - Labs CBC & Chem 7: 07/11/21 03:28 07/12/21 09:36 Labs: Abnormal Lab Results - Last 24 Hours (Table) 07/11/21 07/11/21 07/11/21 Range/Units 11:30 16:53 21:01 Sodium (137-145) mmol/L Carbon Dioxide (22-30) mmol/L Glucose (74-99) mg/dL POC Glucose (mg/dL) 189 H 120 H 110 H (75-99) mg/dL Calcium (8.4-10.2) mg/dL 07/12/21 07/12/21 Range/Units 07:23 09:36 Sodium 136 L (137-145) mmol/L Carbon Dioxide 31 H (22-30) mmol/L Glucose 150 H (74-99) mg/dL POC Glucose (mg/dL) 105 H (75-99) mg/dL Calcium 8.0 L (8.4-10.2) mg/dL Microbiology - Last 24 Hours (Table) 07/09/21 14:17 Urine Culture - Preliminary Urine,Catheterized Assessment and Plan Assessment: 1 Acute hypoxic respiratory failure secondary to CVA and a new onset seizures. The patient was initially intubated upon her initial presentation for protection of her airway on 07/07/2021, and extubated on 07/08/2021, currently on room air. 2 Old parietal ischemic stroke. 3 Hypoglycemia and acute urinary tract infection on presentation, patient continues on Rocephin. 4 Small bilateral pleural effusions. 5 Benign essential hypertension. 6 History of left MCA stenosis. 7 History of diabetes mellitus type 2. 8 History of hypercholesterolemia. 9 Altered mental status, likely related to metabolic encephalopathy. 10 Hypothyroidism, TSH 81.4, free T4 0.46, initiated on levothyroxine. Plan: Plan dated 07/12/2021. The patient is doing well. From the pulmonary standpoint, the patient's doing very well. She's not requiring any supplemental oxygen. She denies shortness of breath, cough, wheezing, or phlegm production. Moving forward, we will see the patient only as needed. No additional recommendations are made at this time. Time with Patient: Less than 30
[2021-07-12 12:18] LABS: Glucose,Whole Blood 149 mg/dL (75-99)
--- NOTE | 2021-07-12 14:17 | P.PN ---
Subjective Progress Note Date: 07/12/21 Patient is doing well today. No acute events overnight. Objective - Vital Signs Vital signs: Vital Signs Temp 97.5 F L 07/12/21 12:22 Pulse 80 07/12/21 12:22 Resp 19 07/12/21 12:22 BP 153/80 07/12/21 12:22 Pulse Ox 96 07/12/21 12:22 Intake & Output 07/11/21 07/12/21 07/12/21 18:59 06:59 18:59 Intake Total 640 400 720 Output Total 400 Balance 240 400 720 Weight 70.9 kg Intake: IV 110 levETIRAcetam IV 750 mg 100 In Sodium Chloride 0.9% 100 ml @ 400 mls/hr IVPB Q12HR [facility] Rx#:[id number] ns 10 Intake, IV Titration 50 Amount cefTRIAXone 1 gm In 50 Sodium Chloride 0.9% 50 ml @ 100 mls/hr IVPB Q24HR [facility] Rx#:[id number] Oral 480 400 720 Output: Urine 400 Other: Voiding Method Diaper Diaper Diaper # Voids 1 3 - Exam General: The patient is awake and alert, in no distress Eye: there is normal conjunctiva bilaterally. Neck: The neck is supple, there is no JVD. Cardiovascular: Normal S1-S2, no S3-S4, no murmurs. Respiratory: Lungs clear to auscultation bilaterally Gastrointestinal: Abdomen is soft, nontender Musculoskeletal: There is +2 edema up to the hip bilaterally Neurological:. Speech is normal. Skin: Skin is warm and dry - Labs CBC & Chem 7: 07/11/21 03:28 07/12/21 09:36 Labs: Abnormal Lab Results - Last 24 Hours (Table) 07/11/21 07/11/21 07/12/21 Range/Units 16:53 21:01 07:23 Sodium (137-145) mmol/L Carbon Dioxide (22-30) mmol/L Glucose (74-99) mg/dL POC Glucose (mg/dL) 120 H 110 H 105 H (75-99) mg/dL Calcium (8.4-10.2) mg/dL 07/12/21 07/12/21 Range/Units 09:36 12:13 Sodium 136 L (137-145) mmol/L Carbon Dioxide 31 H (22-30) mmol/L Glucose 150 H (74-99) mg/dL POC Glucose (mg/dL) 149 H (75-99) mg/dL Calcium 8.0 L (8.4-10.2) mg/dL Microbiology - Last 24 Hours (Table) 07/09/21 14:17 Urine Culture - Preliminary Urine,Catheterized Assessment and Plan Assessment: Patient is a 81-year-old female with a history of diabetes, hypertension, and a recent stroke who presented to the ER with complaints of right-sided weakness. On arrival to the ER she had an NIH of 14 and was out of the therapeutic window for TPA. She underwent a CT of the head and neck which was unremarkable. CT of the brain showed old left posterior temporal lobe infarct with increased size compared to December 2020. Patient had 2 seizures on the ER which aborted spontaneously. The second one was followed by post ictal confusion and she was subsequently intubated and admitted to the ICU. Pulmonary and neurology were consulted. Patient was extubated on 07/08. 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 I started levothyroxin daily. Repeat lab work in 2-3 weeks. Anemia, no signs or symptoms of bleeding -Follow CBC -No indication for transfusion -Check iron studies UTI - rocephin - await culture results, culture was obtianed 48 hours after abx started so may be negative. - Check bladder scan to rule out retention Vent dependent respiratory, resolved Hypokalemia, resolved DVT prophylaxis: Lovenox Discussed with: Nursing Anticipated discharge: Undetermined Anticipated discharge place: Undetermined A total of 35 minutes was spent on the care of this complex patient more than 50% of the time was spent in counseling and care coordination.
[2021-07-12] MEDS: hydrALAZINE HCL 50 MG TAB PO SCH ×2 (16:16→21:28)
[2021-07-12 17:24] LABS: Glucose,Whole Blood 202 mg/dL (75-99)
--- NOTE | 2021-07-12 18:19 | P.PN ---
Subjective Progress Note Date: 07/12/21 Patient was seen for a follow-up. Patient initially seen by Dr. Brett Rich. Please refer to his note for details. Patient's and nephew Mr. Herb Strickland present today. Patient still has significant problem with comprehension, expressive speech difficulty. Patient is still confused. Physical therapist saw the patient and she was not responding as well. She needed. Port for her to stand. Speech therapy also has noticed that she was not finishing sentences, not capable of explaining her thoughts. Patient has history of right hip and right shoulder surgery as well. No further seizures reported. Patient is laying comfortably in the bed. No seizures reported since she has been in the hospital. Objective - Vital Signs Vital signs: Vital Signs Temp 98.2 F 07/12/21 15:17 Pulse 77 07/12/21 15:17 Resp 16 07/12/21 15:17 BP 143/88 07/12/21 15:17 Pulse Ox 96 07/12/21 15:17 Intake & Output 07/11/21 07/12/21 07/12/21 18:59 06:59 18:59 Intake Total 687 863 8878 Output Total 400 Balance 461 235 7399 Weight 70.9 kg Intake: IV 110 levETIRAcetam IV 750 mg 100 In Sodium Chloride 0.9% 100 ml @ 400 mls/hr IVPB Q12HR [facility] Rx#:[id number] ns 10 Intake, IV Titration 50 Amount cefTRIAXone 1 gm In 50 Sodium Chloride 0.9% 50 ml @ 100 mls/hr IVPB Q24HR [facility] Rx#:[id number] Oral 633 959 1104 Output: Urine 400 Other: Voiding Method Diaper Diaper Diaper # Voids 1 3 - Exam GENERAL: The patient is lying in bed and is not in acute distress. She appears confused. NEUROLOGICAL: Higher mental function: Patient states it is October 2004. She knows she is in [facility], but does not know the state. Patient has perseveration. Mildly slurred speech. Cranial nerves: The pupils are round, equal and reactive to light. EOM in tracking throughout the room and no nystagmus note. No facial weakness. No dysarthria. Rest of cranial nerves could not be assessed because of her condition. Motor: Gait is deferred. Patient has right pronator drift. The strength is difficult to assess because of her cooperation. Biceps 5 on the right, 5 on left. Triceps 5-. Facilities Maintenance Supervisor is equal bilaterally. Patient able to lift both legs off the bed to 30 equally bilaterally. Normal tone and bulk. Sensation: Could not assess. Reflexes (right/left): 2+ uppers while lowers are 1+ (has moderate amount of edema in lowers). . - Labs CBC & Chem 7: 07/11/21 03:28 07/12/21 09:36 Labs: Abnormal Lab Results - Last 24 Hours (Table) 07/11/21 07/12/21 07/12/21 Range/Units 21:01 07:23 09:36 Sodium 136 L (137-145) mmol/L Carbon Dioxide 31 H (22-30) mmol/L Glucose 150 H (74-99) mg/dL POC Glucose (mg/dL) 110 H 105 H (75-99) mg/dL Calcium 8.0 L (8.4-10.2) mg/dL 07/12/21 07/12/21 Range/Units 12:13 17:18 Sodium (137-145) mmol/L Carbon Dioxide (22-30) mmol/L Glucose (74-99) mg/dL POC Glucose (mg/dL) 149 H 202 H (75-99) mg/dL Calcium (8.4-10.2) mg/dL Microbiology - Last 24 Hours (Table) 07/09/21 14:17 Urine Culture - Preliminary Urine,Catheterized Assessment and Plan Assessment: New onset seizure: Likely due to history of stroke and exacerbated by acute UTI.--no further seizure since in ICU Acute tiny ischemic stroke, involving the anterior left periventricular region. Encephalopathy seems due to (hypoglycemia 55) and underlying UTI, and if perhaps related to stroke. Hypoglycemia can mimic stroke. 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 Acute respiratory distress requiring intubation and ventilation because of seizure. Status post extubation. Hypertension and presented uncontrolled Hyperlipidemia Hard of hearing Plan: * MRI of the brain revealed acute tiny anterior left periventricular infarct. Marked white matter disease. Left parietal lobe encephalomalacia. * We will switch from Plavix to Brilinta 90 mg twice a day. * Decrease Keppra to 500 mg twice a day. * EEG revealed moderate focal slowing in the left temporal region, suggestive of focal cortical neuronal dysfunction, may suggest underlying structural abnormality. No obvious epileptiform activity was seen. Also revealed mild generalized slowing and disorganization of the background consistent with encephalopathy * Continue Lipitor 80 mg daily. * CT angiography of the head and neck was reported as negative for both. * 2-D echo was reported as moderate concentric left ventricle hypertrophy. Ejection fraction more than 70%. Left atrium is normal in size. Small to moderate generalized pericardial effusion present. * Lipid panel: Triglyceride of 174, cholesterol 138, LDL of the 62 and HDL 41. * Hemoglobin A1c 5.6 * PT, OT and BIODIESEL PRODUCT DEVELOPMENT MANAGER are consulted. * Please avoid any hypoglycemic episodes, and will defer management to ICU and primary team. * We'll defer the management of urinary tract infection to primary team. Currently she is on ceftriaxone. * Discussed with patient's nephew in detail. Neurologically clear for transfer to rehab facility. * Recommend follow-up with neurologist as an outpatient.
[2021-07-12 21:04] LABS: Glucose,Whole Blood 147 mg/dL (75-99)
[2021-07-12] MEDS: levETIRAcetam 500 MG TAB PO SCH (21:28)
[2021-07-13 02:17] LABS: Glucose,Whole Blood 156 mg/dL (75-99)
[2021-07-13] MEDS: LEVOTHYROXINE 75 MCG TAB PO SCH (05:44)
[2021-07-13 07:32] LABS: Glucose,Whole Blood 130 mg/dL (75-99)
[2021-07-13] MEDS: ATORVASTATIN 80 MG TAB PO SCH (08:50)
[2021-07-13] MEDS: FUROSEMIDE 10 MG/ML 4 ML VIAL IV SCH ×2 (08:50→21:11)
[2021-07-13] MEDS: TICAGRELOR 90 MG TAB PO SCH ×2 (08:50→21:12)
[2021-07-13] MEDS: ASPIRIN 81 MG PO SCH (08:50)
[2021-07-13] MEDS: levETIRAcetam 500 MG TAB PO SCH ×2 (08:50→21:11)
[2021-07-13] MEDS: lisinopriL 20 MG TAB PO SCH ×2 (08:50→21:12)
[2021-07-13] MEDS: FAMOTIDINE 20 MG TAB PO SCH (08:50)
[2021-07-13] MEDS: hydrALAZINE HCL 50 MG TAB PO SCH ×3 (08:50→21:11)
[2021-07-13] MEDS: INSULIN ASPART (NovoLOG) 100 UNIT/ML VIAL SQ SCH ×4 (08:55→21:12)
[2021-07-13 09:35] LABS: African American GFR (CKD) 65 (>60 ml/min/1.73 sqM); Anion Gap 2 mmol/L; Blood Urea Nitrogen 17 mg/dL (7-17); Calcium 8.2 mg/dL (8.4-10.2); Carbon Dioxide 33 mmol/L (22-30); Chloride 102 mmol/L (98-107); Glucose 159 mg/dL (74-99); Magnesium 1.9 mg/dL (1.6-2.3); Non-African American GFR(CKD) 57 (>60 ml/min/1.73 sqM); Potassium 3.6 mmol/L (3.5-5.1); Sodium 137 mmol/L (137-145)
[2021-07-13 11:32] LABS: Glucose,Whole Blood 208 mg/dL (75-99)
--- NOTE | 2021-07-13 16:25 | P.PN ---
Subjective Progress Note Date: 07/13/21 07/13/2021: Patient is sitting comfortably in the recliner. Patient denies headache. No dizziness. Her telemetry monitoring showing sinus rhythm, sinus bradycardia in the 50s and some PVCs. 07/12/2021: Patient's and nephew Mr. Herb Strickland present today. Patient still has significant problem with comprehension, expressive speech difficulty. Patient is still confused. Physical therapist saw the patient and she was not responding as well. She needed. Port for her to stand. Speech therapy also has noticed that she was not finishing sentences, not capable of explaining her thoughts. Patient has history of right hip and right shoulder surgery as well. No further seizures reported. Patient is laying comfortably in the bed. No seizures reported since she has been in the hospital. Objective - Vital Signs Vital signs: Vital Signs Temp 97.5 F L 07/13/21 13:00 Pulse 80 07/13/21 13:00 Resp 14 07/13/21 13:00 BP 169/78 07/13/21 13:00 Pulse Ox 95 07/13/21 13:00 Intake & Output 07/12/21 07/13/21 07/13/21 18:59 06:59 18:59 Intake Total 2450 300 Balance 2450 300 Weight 70.9 kg Intake: Intake, IV Titration 50 Amount cefTRIAXone 1 gm In 50 Sodium Chloride 0.9% 50 ml @ 100 mls/hr IVPB Q24HR [facility] Rx#:[id number] Oral 2400 300 Other: Voiding Method Diaper Diaper Diaper # Voids 3 3 # Bowel Movements 1 - Exam GENERAL: The patient is sitting comfortably in the recliner. NEUROLOGICAL: Higher mental function: Patient continues to be aphasic. Patient able to name objects like pencil and glasses, but not the knuckles. She could not repeat. She was able to follow simple commands like "point to the window", "point to the ceiling". When I asked the month, patient states was Saturday and then patient perseverates on Saturday for every question asked. Cranial nerves: The pupils are round, equal and reactive to light. EOM in tracking throughout the room and no nystagmus note. No facial weakness. Mild dysarthria. Rest of cranial nerves could not be assessed because of her condition. Motor: Gait is deferred. Patient has right pronator drift. Patient spontaneously moves her arms equally. Sensation: Could not assess. Reflexes (right/left): 2+ uppers while lowers are 1+ (has moderate amount of edema in lowers). . - Labs CBC & Chem 7: 07/11/21 03:28 07/13/21 09:04 Labs: Abnormal Lab Results - Last 24 Hours (Table) 07/12/21 07/12/21 07/13/21 Range/Units 17:18 20:46 01:58 Carbon Dioxide (22-30) mmol/L Glucose (74-99) mg/dL POC Glucose (mg/dL) 202 H 147 H 156 H (75-99) mg/dL Calcium (8.4-10.2) mg/dL 07/13/21 07/13/21 07/13/21 Range/Units 07:27 09:04 11:31 Carbon Dioxide 33 H (22-30) mmol/L Glucose 159 H (74-99) mg/dL POC Glucose (mg/dL) 130 H 208 H (75-99) mg/dL Calcium 8.2 L (8.4-10.2) mg/dL Microbiology - Last 24 Hours (Table) 07/09/21 14:17 Urine Culture - Final Urine,Catheterized Assessment and Plan Assessment: New onset seizure: Likely due to history of stroke and exacerbated by acute UTI.--no further seizure since in admission to the hospital Acute tiny ischemic stroke, involving the anterior left periventricular region. Encephalopathy seems due to (hypoglycemia 55) and underlying UTI, and if perhaps related to stroke. Hypoglycemia can mimic stroke. 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 Acute respiratory distress requiring intubation and ventilation because of seizure. Status post extubation. Hypertension and presented uncontrolled Hyperlipidemia Hard of hearing Plan: * MRI of the brain revealed acute tiny anterior left periventricular infarct. Marked white matter disease. Left parietal lobe encephalomalacia. * We will switch from Plavix to Brilinta 90 mg twice a day. Continue aspirin 81 mg daily. * Decrease Keppra to 500 mg twice a day. * EEG revealed moderate focal slowing in the left temporal region, suggestive of focal cortical neuronal dysfunction, may suggest underlying structural abnormality. No obvious epileptiform activity was seen. Also revealed mild generalized slowing and disorganization of the background consistent with encephalopathy * Continue Lipitor 80 mg daily. * CT angiography of the head and neck was reported as negative for both. * 2-D echo was reported as moderate concentric left ventricle hypertrophy. Ejection fraction more than 70%. Left atrium is normal in size. Small to moderate generalized pericardial effusion present. * Lipid panel: Triglyceride of 174, cholesterol 138, LDL of the 62 and HDL 41. * Hemoglobin A1c 5.6 * PT, OT and SUPERVISOR SAWING AND ASSEMBLY are consulted. * Please avoid any hypoglycemic episodes, and will defer management to ICU and primary team. * We'll defer the management of urinary tract infection to primary team. Currently she is on ceftriaxone. * Neurologically clear for transfer to rehab facility. * Recommend follow-up with neurologist as an outpatient.
--- NOTE | 2021-07-13 16:25 | P.PN ---
Subjective Patient is doing well today. No acute events overnight. Lower extremity edema is improving gradually. Objective - Vital Signs Vital signs: Vital Signs Temp 97.5 F L 07/13/21 13:00 Pulse 80 07/13/21 13:00 Resp 14 07/13/21 13:00 BP 169/78 07/13/21 13:00 Pulse Ox 95 07/13/21 13:00 Intake & Output 07/12/21 07/13/21 07/13/21 18:59 06:59 18:59 Intake Total 2450 300 Balance 2450 300 Weight 70.9 kg Intake: Intake, IV Titration 50 Amount cefTRIAXone 1 gm In 50 Sodium Chloride 0.9% 50 ml @ 100 mls/hr IVPB Q24HR [facility] Rx#:[id number] Oral 2400 300 Other: Voiding Method Diaper Diaper Diaper # Voids 3 3 # Bowel Movements 1 - Exam General: The patient is awake and alert, in no distress Eye: there is normal conjunctiva bilaterally. Neck: The neck is supple, there is no JVD. Cardiovascular: Normal S1-S2, no S3-S4, no murmurs. Respiratory: Lungs clear to auscultation bilaterally Gastrointestinal: Abdomen is soft, nontender Musculoskeletal: There is +2 edema up to the hip bilaterally Neurological:. Speech is normal. Skin: Skin is warm and dry - Labs CBC & Chem 7: 07/11/21 03:28 07/13/21 09:04 Labs: Abnormal Lab Results - Last 24 Hours (Table) 07/12/21 07/12/21 07/13/21 Range/Units 17:18 20:46 01:58 Carbon Dioxide (22-30) mmol/L Glucose (74-99) mg/dL POC Glucose (mg/dL) 202 H 147 H 156 H (75-99) mg/dL Calcium (8.4-10.2) mg/dL 07/13/21 07/13/21 07/13/21 Range/Units 07:27 09:04 11:31 Carbon Dioxide 33 H (22-30) mmol/L Glucose 159 H (74-99) mg/dL POC Glucose (mg/dL) 130 H 208 H (75-99) mg/dL Calcium 8.2 L (8.4-10.2) mg/dL Microbiology - Last 24 Hours (Table) 09/19/21 14:17 Urine Culture - Final Urine,Catheterized Assessment and Plan Assessment: Patient is a 81-year-old female with a history of diabetes, hypertension, and a recent stroke who presented to the ER with complaints of right-sided weakness. On arrival to the ER she had an NIH of 14 and was out of the therapeutic window for TPA. She underwent a CT of the head and neck which was unremarkable. CT of the brain showed old left posterior temporal lobe infarct with increased size compared to December 2020. Patient had 2 seizures on the ER which aborted spontaneously. The second one was followed by post ictal confusion and she was subsequently intubated and admitted to the ICU. Pulmonary and neurology were consulted. Patient was extubated on 07/08. 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 Discharge planning to [facility] tomorrow diffuse anasarca sever protein calorie malnutrution - Encourage oral intake - dietitan recs - Lasix IVP BID - Discontinue amlodipine as it may be contributing to lower extremity edema Diabetes mellitus type 2 with hypoglycemia -Home Glucophage, Amaryl -Sliding-scale insulin -Follow blood sugars -Hemoglobin A1c pending Sick euthyroidism -TSH is significantly elevated. I started levothyroxin daily. Repeat lab work in 2-3 weeks. Anemia, no signs or symptoms of bleeding -Follow CBC -No indication for transfusion -Check iron studies UTI - rocephin - await culture results, culture was obtianed 48 hours after abx started so may be negative. - Check bladder scan to rule out retention Vent dependent respiratory, resolved Hypokalemia, resolved DVT prophylaxis: Lovenox Discussed with: Nursing Anticipated discharge: Undetermined Anticipated discharge place: Undetermined A total of 35 minutes was spent on the care of this complex patient more than 50% of the time was spent in counseling and care coordination.
[2021-07-13 16:57] LABS: Glucose,Whole Blood 217 mg/dL (75-99)
[2021-07-13 20:03] LABS: Glucose,Whole Blood 212 mg/dL (75-99)
[2021-07-14 01:48] LABS: Glucose,Whole Blood 95 mg/dL (75-99)
[2021-07-14] MEDS: LEVOTHYROXINE 75 MCG TAB PO SCH (05:15)
[2021-07-14 07:19] LABS: Glucose,Whole Blood 70 mg/dL (75-99)
[2021-07-14] MEDS: INSULIN ASPART (NovoLOG) 100 UNIT/ML VIAL SQ SCH ×4 (07:24→22:01)
[2021-07-14] MEDS: ATORVASTATIN 80 MG TAB PO SCH (07:49)
[2021-07-14] MEDS: levETIRAcetam 500 MG TAB PO SCH ×2 (07:49→21:59)
[2021-07-14] MEDS: ASPIRIN 81 MG PO SCH (07:49)
[2021-07-14] MEDS: lisinopriL 20 MG TAB PO SCH ×2 (07:50→22:01)
[2021-07-14] MEDS: hydrALAZINE HCL 50 MG TAB PO SCH ×3 (07:50→21:59)
[2021-07-14] MEDS: FUROSEMIDE 10 MG/ML 4 ML VIAL IV SCH ×2 (07:50→22:02)
[2021-07-14] MEDS: FAMOTIDINE 20 MG TAB PO SCH (07:50)
[2021-07-14] MEDS: TICAGRELOR 90 MG TAB PO SCH ×2 (07:54→21:59)
[2021-07-14 09:15] LABS: Basophils % (A) 1 %; Eosinophils # (A) 0.1 k/uL (0-0.7); Eosinophils % (A) 2 %; HCT 36.7 % (34.0-46.0); HGB 12.2 gm/dL (11.4-16.0); Lymphocytes # (A) 1.9 k/uL (1.0-4.8); Lymphocytes % (A) 34 %; MCH 31.4 pg (25.0-35.0); MCHC 33.4 g/dL (31.0-37.0); MCV 94.1 fL (80.0-100.0); Mean Platelet Volume 6.9; Monocytes # (A) 0.3 k/uL (0-1.0); Monocytes % (A) 5 %; Neutrophils # (A) 3.3 k/uL (1.3-7.7); Neutrophils % (A) 57 %; Platelet Count 307 k/uL (150-450); RDW 14.2 % (11.5-15.5); WBC 5.7 k/uL (3.8-10.6)
[2021-07-14 09:28] LABS: African American GFR (CKD) 56 (>60 ml/min/1.73 sqM); Anion Gap 3 mmol/L; Blood Urea Nitrogen 18 mg/dL (7-17); Calcium 8.4 mg/dL (8.4-10.2); Carbon Dioxide 35 mmol/L (22-30); Chloride 99 mmol/L (98-107); Glucose 95 mg/dL (74-99); Magnesium 1.9 mg/dL (1.6-2.3); Non-African American GFR(CKD) 49 (>60 ml/min/1.73 sqM); Potassium 3.7 mmol/L (3.5-5.1); Sodium 137 mmol/L (137-145)
[2021-07-14 11:53] LABS: Glucose,Whole Blood 186 mg/dL (75-99)
--- NOTE | 2021-07-14 14:02 | P.DS ---
Providers Date of admission: 07/07/21 20:06 Expected date of discharge: 07/14/21 Attending physician: Megan Rivas MD Consults: 07/07/21 20:13 Consult Physician Routine Consulting Provider: Brett Rich Consult Reason/Comments: Seizure, Stroke like symptoms Do you want consulting provider notified?: Already Contacted Consult Physician Routine Consulting Provider: Marlen Levine Consult Reason/Comments: ICU management Do you want consulting provider notified?: Already Contacted Primary care physician: Inocente Tate MD Hospital Course: Patient is a 81-year-old female with a history of diabetes, hypertension, and a recent stroke who presented to the ER with complaints of right-sided weakness. On arrival to the ER she had an NIH of 14 and was out of the therapeutic window for TPA. She underwent a CT of the head and neck which was unremarkable. CT of the brain showed old left posterior temporal lobe infarct with increased size compared to December 2020. Patient had 2 seizures on the ER which aborted spontaneously. The second one was followed by post ictal confusion and she was subsequently intubated and admitted to the ICU. Pulmonary and neurology were consulted. Patient was extubated on 07/08. 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 I started levothyroxin daily. Repeat lab work in 2-3 weeks. Anemia, no signs or symptoms of bleeding -Follow CBC Patient was seen and evaluated by me this morning. She was doing fairly well. Her god daughter was at bedside. Plan to discharge to [facility]. Physical exam: General: The patient is awake and alert, in no distress Eye: there is normal conjunctiva bilaterally. Neck: The neck is supple, there is no JVD. Cardiovascular: Normal S1-S2, no S3-S4, no murmurs. Respiratory: Lungs clear to auscultation bilaterally Gastrointestinal: Abdomen is soft, nontender Musculoskeletal: There is +1 pedal edema. Neurological:. Speech is normal. Skin: Skin is warm and dry Patient Condition at Discharge: Critical Plan - Discharge Summary Discharge Rx Participant: Yes New Discharge Prescriptions: New levETIRAcetam [Keppra] 500 mg PO Q12HR tab Furosemide [Lasix] 40 mg PO DAILY #30 tablet Levothyroxine Sodium [Synthroid] 75 mcg PO DAILY@0630 tab hydrALAZINE HCL [Apresoline] 75 mg PO TID #30 tab Ticagrelor [Brilinta] 90 mg PO BID tab Continue metFORMIN HCL [Glucophage] 500 mg PO BID Glimepiride [Amaryl] 2 mg PO BID Aspirin 81 mg PO DAILY #30 chew Atorvastatin [Lipitor] 80 mg PO DAILY #30 tab Famotidine [Pepcid] 20 mg PO DAILY #30 tab lisinopriL [Zestril] 20 mg PO BID #60 tab Multivit with Calcium,Iron,Min [Women's Multivitamin] 1 tab PO DAILY Discontinued hydrALAZINE HCL [Apresoline] 25 mg PO TID #90 tab amLODIPine [Norvasc] 10 mg PO DAILY #30 tab Clopidogrel [Plavix] 75 mg PO DAILY #30 tab Furosemide [Lasix] 20 mg PO DAILY PRN PRN Reason: Edema Discharge Medication List Glimepiride [Amaryl] 2 mg PO BID 12/26/20 [History] metFORMIN HCL [Glucophage] 500 mg PO BID 12/26/20 [History] Aspirin 81 mg PO DAILY #30 chew 12/30/20 [Rx] Atorvastatin [Lipitor] 80 mg PO DAILY #30 tab 12/30/20 [Rx] Famotidine [Pepcid] 20 mg PO DAILY #30 tab 12/30/20 [Rx] lisinopriL [Zestril] 20 mg PO BID #60 tab 12/30/20 [Rx] Multivit with Calcium,Iron,Min [Women's Multivitamin] 1 tab PO DAILY 07/07/21 [History] Furosemide [Lasix] 40 mg PO DAILY #30 tablet 07/14/21 [Rx] Levothyroxine Sodium [Synthroid] 75 mcg PO DAILY@0630 tab 07/14/21 [Rx] Ticagrelor [Brilinta] 90 mg PO BID tab 07/14/21 [Rx] hydrALAZINE HCL [Apresoline] 75 mg PO TID #30 tab 07/14/21 [Rx] levETIRAcetam [Keppra] 500 mg PO Q12HR tab 07/14/21 [Rx] Follow up Appointment(s)/Referral(s): Inocente Tate MD [Primary Care Provider] - 1-2 days Patient Instructions/Handouts: Seizure/Epilepsy Discharge Instructions & Follow-Up Discharge Disposition: TRANSFER TO SNF/ECF
--- NOTE | 2021-07-14 15:28 | P.PN ---
Subjective Progress Note Date: 07/14/21 07/14/2021: Patient is sitting comfortably in the recliner. Patient's relative Ms. Johnson also arrived. Primary physician Dr. Dubois was also there. Patient offers no complaints. Patient will be transferred to [facility]. 07/13/2021: Patient is sitting comfortably in the recliner. Patient denies h eadache. No dizziness. Her telemetry monitoring showing sinus rhythm, sinus bradycardia in the 50s and some PVCs. 07/12/2021: Patient's and nephew Mr. Herb Strickland present today. Patient still has significant problem with comprehension, expressive speech difficulty. Patient is still confused. Physical therapist saw the patient and she was not responding as well. She needed. Port for her to stand. Speech therapy also has noticed that she was not finishing sentences, not capable of explaining her thoughts. Patient has history of right hip and right shoulder surgery as well. No further seizures reported. Patient is laying comfortably in the bed. No seizures reported since she has been in the hospital. Objective - Vital Signs Vital signs: Vital Signs Temp 97.9 F 07/14/21 12:05 Pulse 82 07/14/21 12:05 Resp 16 07/14/21 12:05 BP 157/67 07/14/21 12:05 Pulse Ox 98 07/14/21 12:05 Intake & Output 07/13/21 07/14/21 07/14/21 18:59 06:59 18:59 Weight 70.9 kg Other: Voiding Method Diaper Diaper Diaper # Voids 4 # Bowel Movements 1 - Exam GENERAL: The patient is sitting comfortably in the recliner. NEUROLOGICAL: Higher mental function: Patient continues to be significantly aphasic. Patient perseverates on her date of 1940. She states current month is June, then again goes into her birthday. Patient able to name objects like pencil and glasses, but not the knuckles. She could not repeat. She was able to follow simple commands like "point to the window", "point to the ceiling". When I asked the month, patient states was Saturday and then patient perseverates on Saturday for every question asked. Cranial nerves: The pupils are round, equal and reactive to light. EOM in tracking throughout the room and no nystagmus note. No facial weakness. No obvious dysarthria. Rest of cranial nerves could not be assessed because of her condition. Motor: Gait is deferred. Patient has right pronator drift. Patient spontaneously moves her arms equally. Sensation: Could not assess. Reflexes (right/left): 2+ uppers while lowers are 1+ (has moderate amount of edema in lowers). Patient has significant peripheral edema in bilateral lower extremities including upper extremities. - Labs CBC & Chem 7: 07/14/21 08:40 07/14/21 08:40 Labs: Abnormal Lab Results - Last 24 Hours (Table) 07/13/21 07/13/21 07/14/21 Range/Units 16:56 20:02 07:18 Carbon Dioxide (22-30) mmol/L BUN (7-17) mg/dL Creatinine (0.52-1.04) mg/dL POC Glucose (mg/dL) 217 H 212 H 70 L (75-99) mg/dL 07/14/21 07/14/21 Range/Units 08:40 11:52 Carbon Dioxide 35 H (22-30) mmol/L BUN 18 H (7-17) mg/dL Creatinine 1.09 H (0.52-1.04) mg/dL POC Glucose (mg/dL) 186 H (75-99) mg/dL Assessment and Plan Assessment: New onset seizure: Likely due to history of stroke and exacerbated by acute UTI.--no further seizure since in admission to the hospital Acute tiny ischemic stroke, involving the anterior left periventricular region. Encephalopathy seems due to (hypoglycemia 55) and underlying UTI, and if perhaps related to stroke. Hypoglycemia can mimic stroke. 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 Acute respiratory distress requiring intubation and ventilation because of seizure. Status post extubation. History of Covid-19 in January 2021. Hypertension and presented uncontrolled Hypothyroidism, started on Synthroid. Hyperlipidemia Hard of hearing Plan: * MRI of the brain revealed acute tiny anterior left periventricular infarct. Marked white matter disease. Left parietal lobe encephalomalacia. * We will switch from Plavix to Brilinta 90 mg twice a day. Continue aspirin 81 mg daily. * Decrease Keppra to 500 mg twice a day. * EEG revealed moderate focal slowing in the left temporal region, suggestive of focal cortical neuronal dysfunction, may suggest underlying structural abnormality. No obvious epileptiform activity was seen. Also revealed mild generalized slowing and disorganization of the background consistent with encephalopathy * Continue Lipitor 80 mg daily. * CT angiography of the head and neck was reported as negative for both. I reviewed CTA of head and neck to Dr. Wolfe, who feels that there may be mild around 50% stenosis of the distal M1 segment on the left. The previous CTA probably had an artifact. * 2-D echo was reported as moderate concentric left ventricle hypertrophy. Ejection fraction more than 70%. Left atrium is normal in size. Small to moderate generalized pericardial effusion present. We will check 2-D echo with bubble study to rule out PFO. * Telemetry monitoring shows sinus rhythm, first-degree AV block and some PVCs. Patient never had any A. fib noted on telemetry since admission. Consider event monitor placement. * Lipid panel: Triglyceride of 174, cholesterol 138, LDL of the 62 and HDL 41. * Hemoglobin A1c 5.6 * PT, OT and PAINTER ROUGH are consulted. * UTI completed treatment with ceftriaxone. * Neurologically clear for transfer to rehab facility. * Recommend follow-up with neurologist as an outpatient. Addendum: Patient has small to moderate generalized pericardial effusion. Also had recurrent strokes, which appears embolic. Patient needs JOSE to rule out embolic source. We will initiate cardiology consultation. May need a loop recorder placement. I discussed with patient's relative Ms Johnson, patient's nephew Herb, and patient's . They strongly recommended cardiology consultation as an inp atient rather than outpatient. Discussed with Dr Dubois and the nursing staff. Repeat TSH. Canceled discharge today. Time with Patient: Greater than 30
[2021-07-14 17:35] LABS: Glucose,Whole Blood 218 mg/dL (75-99)
--- NOTE | 2021-07-14 18:41 | ECHOF ---
Referral Reason: MEASUREMENTS -------- HEIGHT: 165.1 cm WEIGHT: 70.8 kg BP: FINDINGS -------- Limited Study Contrast study was performed with 2 iv injections of 8 ccs of agitated normal saline, at rest, and wi th cough. Bubble study to rule out shunt. Due to image quality test is inconclusive. There is a small to moderate generalized pericardial effusion present. Large Pleural Effusion. CONCLUSIONS -------- 1. Limited Study 2. Contrast study was performed with 2 iv injections of 8 ccs of agitated normal saline, at rest, and with cough. 3. Bubble study to rule out shunt. Due to poor image quality test is inconclusive. 4. There is a small to moderate generalized pericardial effusion present. 5. Large Pleural Effusion. YARD DRIVER: Celi Burrell RDCS
[2021-07-14 21:05] LABS: Glucose,Whole Blood 198 mg/dL (75-99)
[2021-07-15 03:04] LABS: Glucose,Whole Blood 131 mg/dL (75-99)
[2021-07-15] MEDS: LEVOTHYROXINE 75 MCG TAB PO SCH (06:15)
[2021-07-15 07:47] LABS: Glucose,Whole Blood 116 mg/dL (75-99)
[2021-07-15] MEDS: INSULIN ASPART (NovoLOG) 100 UNIT/ML VIAL SQ SCH ×4 (08:37→22:37)
[2021-07-15] MEDS: ASPIRIN 81 MG PO SCH (08:43)
[2021-07-15] MEDS: lisinopriL 20 MG TAB PO SCH ×2 (08:43→22:38)
[2021-07-15] MEDS: FAMOTIDINE 20 MG TAB PO SCH (08:43)
[2021-07-15] MEDS: hydrALAZINE HCL 50 MG TAB PO SCH ×2 (08:43→16:51)
[2021-07-15] MEDS: FUROSEMIDE 10 MG/ML 4 ML VIAL IV SCH (08:43)
[2021-07-15] MEDS: TICAGRELOR 90 MG TAB PO SCH ×2 (08:43→22:38)
[2021-07-15] MEDS: ATORVASTATIN 80 MG TAB PO SCH (08:43)
[2021-07-15] MEDS: levETIRAcetam 500 MG TAB PO SCH ×2 (08:43→22:38)
--- NOTE | 2021-07-15 10:48 | P.CRDCN ---
History of Present Illness Consult date: 07/15/21 History of present illness: This is a 81-year-old female was admitted to the hospital with recurrent CVA. Cardiology consult is requested for possible JOSE and also loop recorder insertion. There is no EKG in the chart. Her rhythm seemed to be regular. Patient already had breakfast this morning. We'll tentatively scheduled for JOSE on Saturday. If he is negative, no pericardial insertion can be done Saturday. Bubble study was negative for the presence of PFO. No significant past cardiac history. Rest of the information can be gathered from consultants notes Review of Systems As per the chart Past Medical History Past Medical History: CVA/TIA, Diabetes Mellitus, Hyperlipidemia, Hypertension Additional Past Medical History / Comment(s): Last month the patient was ho spitalized due to a cerebrovascular accident. Reportedly she did not have any motor loss. The son states that she had some speech changes since then and possibly some cognition changes the time. She is normally a community ambulate without any assistance. History of Any Multi-Drug Resistant Organisms: None Reported Past Surgical History: No Surgical Hx Reported Additional Past Surgical History / Comment(s): CATRACTS ABBE 2000 Past Anesthesia/Blood Transfusion Reactions: No Reported Reaction Past Psychological History: No Psychological Hx Reported Smoking Status: Never smoker Past Alcohol Use History: Occasional Past Drug Use History: None Reported - Past Family History Father Family Medical History: No Reported History Mother Family Medical History: No Reported History Medications and Allergies Home Medications Medication Instructions Recorded Confirmed Type Glimepiride [Amaryl] 2 mg PO BID 12/26/20 07/07/21 History metFORMIN HCL [Glucophage] 500 mg PO BID 12/26/20 07/07/21 History Aspirin 81 mg PO DAILY #30 chew 12/30/20 07/07/21 Rx Atorvastatin [Lipitor] 80 mg PO DAILY #30 tab 12/30/20 07/07/21 Rx Famotidine [Pepcid] 20 mg PO DAILY #30 tab 12/30/20 07/07/21 Rx lisinopriL [Zestril] 20 mg PO BID #60 tab 12/30/20 07/07/21 Rx Multivit with Calcium,Iron,Min 1 tab PO DAILY 07/07/21 07/07/21 History [Women's Multivitamin] Furosemide [Lasix] 40 mg PO DAILY #30 tablet 07/14/21 Rx Levothyroxine Sodium [Synthroid] 75 mcg PO DAILY@0630 tab 07/14/21 Rx Ticagrelor [Brilinta] 90 mg PO BID tab 07/14/21 Rx hydrALAZINE HCL [Apresoline] 75 mg PO TID #30 tab 07/14/21 Rx levETIRAcetam [Keppra] 500 mg PO Q12HR tab 07/14/21 Rx Allergies Allergy/AdvReac Type Severity Reaction Status Date / Time No Known Allergies Allergy Verified 07/07/21 17:34 Physical Exam Vitals: Vital Signs Temp Pulse Resp BP Pulse Ox 07/15/21 05:50 97 F L 79 20 187/83 96 07/14/21 19:45 97.8 F 80 20 180/69 97 07/14/21 12:05 97.9 F 82 16 157/67 98 Intake and Output 07/14/21 07/15/21 07/15/21 22:59 06:59 14:59 Intake Total 100 Output Total 400 Balance -400 100 Intake: Oral 100 Output: Urine 400 Other: Voiding Method Diaper # Voids 2 4 GENERAL EXAM: Patient is alert and oriented and doesn't appear to be in any acute distress HEENT: Normocephalic. Normal reaction of pupils, equal size, normal range of extraocular motion. No erythema or exudates in the throat. NECK: No masses, no nuchal rigidity. CHEST: No chest wall deformity. LUNGS: Equal air entry with no crackles or wheeze. HEART: S1 and S2 normal with no audible mumurs or gallops. Regular rhythm, femorals equal on both sides.. ABDOMEN: No hepatosplenomegaly, normal bowel sounds, no guarding or rigidity. SKIN: No rashes CENTRAL NERVOUS SYSTEM: As per neurology EXTREMITIES: No cyanosis, clubbing or edema. Results 07/14/21 08:40 07/14/21 08:40 Current Medications Generic Name Dose Route Start Last Admin Trade Name Freq PRN Reason Stop Dose Admin Aspirin 81 mg 07/10/21 09:00 07/15/21 08:43 Aspirin 81 Mg PO 81 mg DAILY ARASH Administration Atorvastatin Calcium 80 mg 07/08/21 09:00 07/15/21 08:43 Atorvastatin 80 Mg Tab PO 80 mg DAILY ARASH Administration Famotidine 20 mg 07/12/21 09:00 07/15/21 08:43 Famotidine 20 Mg Tab PO 20 mg DAILY ARASH Administration Furosemide 40 mg 07/10/21 09:00 07/15/21 08:43 Furosemide 10 Mg/Ml 4 Ml Vial IV 40 mg Q12HR ARASH Administration Hydralazine HCl 50 mg 07/12/21 16:00 07/15/21 08:43 Hydralazine Hcl 50 Mg Tab PO 50 mg TID ARASH Administration Insulin Aspart 0 unit 07/09/21 17:30 07/15/21 08:37 Insulin Aspart (Novolog) 100 Unit/Ml Vial SQ Not Given ACHS ARASH Protocol Levetiracetam 500 mg 07/12/21 21:00 07/15/21 08:43 Levetiracetam 500 Mg Tab PO 500 mg Q12HR ARASH Administration Levothyroxine Sodium 75 mcg 07/11/21 07:40 07/15/21 06:15 Levothyroxine 75 Mcg Tab PO Not Given DAILY@0630 ARASH Lisinopril 20 mg 07/09/21 21:00 07/15/21 08:43 Lisinopril 20 Mg Tab PO 20 mg BID ARASH Administration Ticagrelor 90 mg 07/11/21 21:00 07/15/21 08:43 Ticagrelor 90 Mg Tab PO 90 mg BID ARASH Administration Intake and Output 07/14/21 07/15/21 07/15/21 22:59 06:59 14:59 Intake Total 100 Output Total 400 Balance -400 100 Intake: Oral 100 Output: Urine 400 Other: Voiding Method Diaper # Voids 2 4 07/14/21 08:40 07/14/21 08:40 EKG Interpretations (text) Not available Assessment and Plan (1) UTI (urinary tract infection) Current Visit: Yes Status: Acute Code(s): N39.0 - URINARY TRACT INFECTION, SITE NOT SPECIFIED SNOMED Code(s): 38001482 (2) Cerebrovascular accident (CVA) Current Visit: No Status: Acute Code(s): I63.9 - CEREBRAL INFARCTION, UNSPECIFIED SNOMED Code(s): 989517771 Plan: Get an EKG. Reviewed the echo and also bubble study. Possible JOSE and loop rec order insertion on Saturday
[2021-07-15 12:26] LABS: Glucose,Whole Blood 181 mg/dL (75-99)
--- NOTE | 2021-07-15 17:11 | P.PN ---
Subjective Progress Note Date: 07/15/21 07/15/2021: This is a tele-neurology follow performed today on 07/15/2021. Patient's nephew Mr. Estevez was present today. Patient is essentially unchanged. Appears comfortable. 07/14/2021: Patient is sitting comfortably in the recliner. Patient's relative Ms. Johnson also arrived. Primary physician Dr. Dubois was also there. Patient offers no complaints. Patient will be transferred to [facility]. 07/13/2021: Patient is sitting comfortably in the recliner. Patient denies headache. No dizziness. Her telemetry monitoring showing sinus rhythm, sinus bradycardia in the 50s and some PVCs. 07/12/2021: Patient's and nephew Mr. Herb Strickland present today. Patient still has significant problem with comprehension, expressive speech difficulty. Patient is still confused. Physical therapist saw the patient and she was not responding as well. She needed. Port for her to stand. Speech therapy also has noticed that she was not finishing sentences, not capable of explaining her thoughts. Patient has history of right hip and right shoulder surgery as well. No further seizures reported. Patient is laying comfortably in the bed. No seizures reported since she has been in the hospital. Objective - Vital Signs Vital signs: Vital Signs Temp 98 F 07/15/21 13:00 Pulse 82 07/15/21 13:00 Resp 16 07/15/21 13:00 BP 177/83 07/15/21 13:00 Pulse Ox 96 07/15/21 13:00 Intake & Output 07/14/21 07/15/21 07/15/21 18:59 06:59 18:59 Intake Total 100 Output Total 400 Balance -300 Weight 70.9 kg Intake: Oral 100 Output: Urine 400 Other: Voiding Method Diaper Diaper Bedside Commode Diaper # Voids 2 4 - Exam GENERAL: The patient is laying comfortably in her bed. NEUROLOGICAL: Higher mental function: Patient continues to be significantly aphasic. Patient perseverates on her date of 1940. She states current month is June, then again goes into her birthday. Rest of the examination deferred. - Labs CBC & Chem 7: 07/14/21 08:40 07/14/21 08:40 Labs: Abnormal Lab Results - Last 24 Hours (Table) 07/14/21 07/14/21 07/15/21 Range/Units 17:33 20:58 02:51 POC Glucose (mg/dL) 218 H 198 H 131 H (75-99) mg/dL TSH (0.350-5.500) uIU/mL 07/15/21 07/15/21 07/15/21 Range/Units 05:53 07:41 12:14 POC Glucose (mg/dL) 116 H 181 H (75-99) mg/dL TSH 110.760 H (0.350-5.500) uIU/mL Assessment and Plan Assessment: New onset seizure: Likely due to history of stroke and exacerbated by acute UTI.--no further seizure since in admission to the hospital Acute tiny ischemic stroke, involving the anterior left periventricular region. Encephalopathy seems due to (hypoglycemia 55) and underlying UTI, and if perhaps related to stroke. Hypoglycemia can mimic stroke. Old left parietal ischemic stroke (12/2020) and seems there is some progression compared to prior imaging Old left MCA stensois involving M1 (12/2020) without intervention and currently not reported MCA stenosis. Acute respiratory distress requiring intubation and ventilation because of seizure. Status post extubation. History of Covid-19 in January 2021. Hypertension and presented uncontrolled Hypothyroidism, started on Synthroid. Hyperlipidemia Hard of hearing Plan: * MRI of the brain revealed acute tiny anterior left periventricular infarct. Marked white matter disease. Left parietal lobe encephalomalacia. Her strokes appears embolic. Limited 2-D echo was performed to check for PFO. Due to poor image quality, test is inconclusive. Patient needs JOSE. * We will switch from Plavix to Brilinta 90 mg twice a day. Continue aspirin 81 mg daily. * Decrease Keppra to 500 mg twice a day. * EEG revealed moderate focal slowing in the left temporal region, suggestive of focal cortical neuronal dysfunction, may suggest underlying structural abnormality. No obvious epileptiform activity was seen. Also revealed mild generalized slowing and disorganization of the background consistent with encephalopathy * Continue Lipitor 80 mg daily. * CT angiography of the head and neck was reported as negative for both. I reviewed CTA of head and neck to Dr. Wolfe, who feels that there may be mild around 50% stenosis of the distal M1 segment on the left. The previous CTA probably had an artifact. * 2-D echo was reported as moderate concentric left ventricle hypertrophy. Ejection fraction more than 70%. Left atrium is normal in size. Small to moderate generalized pericardial effusion present. We will check 2-D echo with bubble study to rule out PFO. * Telemetry monitoring shows sinus rhythm, first-degree AV block and some PVCs. Patient never had any A. fib noted on telemetry since admission. Consider loop monitor placement, to rule out paroxysmal atrial fibrillation. * Lipid panel: Triglyceride of 174, cholesterol 138, LDL of the 62 and HDL 41. * Hemoglobin A1c 5.6 * Repeat TSH was 110.76. Patient needs further evaluation of severe hypothyroidism. Informed patient's primary physician. * Discussed with patient's nephew in detail.
[2021-07-15 17:36] LABS: Glucose,Whole Blood 257 mg/dL (75-99)
--- NOTE | 2021-07-15 17:38 | P.PN ---
Subjective Patient discharge was canceled yesterday by neurology as there was a concern of possible embolic source of her stroke and a JOSE was requested Chest is doing fairly well today. She is awake and alert. Blood pressure not well controlled. Objective - Vital Signs Vital signs: Vital Signs Temp 98 F 07/15/21 13:00 Pulse 82 07/15/21 13:00 Resp 16 07/15/21 13:00 BP 177/83 07/15/21 13:00 Pulse Ox 96 07/15/21 13:00 Intake & Output 07/14/21 07/15/21 07/15/21 18:59 06:59 18:59 Intake Total 100 Output Total 400 Balance -300 Weight 70.9 kg Intake: Oral 100 Output: Urine 400 Other: Voiding Method Diaper Diaper Bedside Commode Diaper # Voids 2 4 2 - Exam General: The patient is awake and alert, in no distress Eye: there is normal conjunctiva bilaterally. Neck: The neck is supple, there is no JVD. Cardiovascular: Normal S1-S2, no S3-S4, no murmurs. Respiratory: Lungs clear to auscultation bilaterally Gastrointestinal: Abdomen is soft, nontender Musculoskeletal: There is +2 edema up to the hip bilaterally Neurological:. Speech is normal. Skin: Skin is warm and dry - Labs CBC & Chem 7: 07/14/21 08:40 07/14/21 08:40 Labs: Abnormal Lab Results - Last 24 Hours (Table) 07/14/21 07/14/21 07/15/21 Range/Units 17:33 20:58 02:51 POC Glucose (mg/dL) 218 H 198 H 131 H (75-99) mg/dL TSH (0.350-5.500) uIU/mL 07/15/21 07/15/21 07/15/21 Range/Units 05:53 07:41 12:14 POC Glucose (mg/dL) 116 H 181 H (75-99) mg/dL TSH 110.760 H (0.350-5.500) uIU/mL Assessment and Plan Assessment: Patient is a 81-year-old female with a history of diabetes, hypertension, and a recent stroke who presented to the ER with complaints of right-sided weakness. On arrival to the ER she had an NIH of 14 and was out of the therapeutic window for TPA. She underwent a CT of the head and neck which was unremarkable. CT of the brain showed old left posterior temporal lobe infarct with increased size compared to December 2020. Patient had 2 seizures on the ER which aborted spontaneously. The second one was followed by post ictal confusion and she was subsequently intubated and admitted to the ICU. Pulmonary and neurology were consulted. Patient was extubated on 07/08. Acute ischemic stroke involving the left anterior left periventricular region Worsening of prior CVA symptoms New onset seizure 2, without recurrence HTN urgency - Neuro recs apprecaied, MRI and eeg reviewed, keppra twice daily -JOSE on Saturday - ASA, statin -Plavix which to Brilllenta - pt/ot/account assistant - Echocardiogram with EF greater than 70% - Lisisopril and hydralazine -Norvasc discontinued secondary to lower extremity edema -Switch IV Lasix to oral 4 mg daily diffuse anasarca sever protein calorie malnutrution - dietitan recs - Lasix - Discontinue amlodipine as it may be contributing to lower extremity edema Diabetes mellitus type 2 with hypoglycemia -Home Glucophage, Amaryl -Sliding-scale insulin -Follow blood sugars -Hemoglobin A1c pending Sick euthyroidism -TSH is significantly elevated. I started levothyroxin daily. Repeat lab work in 2-3 weeks. Anemia, no signs or symptoms of bleeding -Follow CBC -No indication for transfusion -Check iron studies UTI -Finished antibiotic course with Rocephin Vent dependent respiratory, resolved Hypokalemia, resolved DVT prophylaxis: Lovenox Discussed with: Nursing Anticipated discharge: Undetermined Anticipated discharge place: Undetermined A total of 35 minutes was spent on the care of this complex patient more than 50% of the time was spent in counseling and care coordination.
[2021-07-15 20:39] LABS: Glucose,Whole Blood 231 mg/dL (75-99)
[2021-07-15] MEDS: hydrALAZINE HCL 25 MG TAB PO SCH (22:38)
[2021-07-16 01:25] LABS: Glucose,Whole Blood 149 mg/dL (75-99)
[2021-07-16 07:28] LABS: Glucose,Whole Blood 130 mg/dL (75-99)
[2021-07-16] MEDS: levETIRAcetam 500 MG TAB PO SCH ×2 (08:25→21:51)
[2021-07-16] MEDS: ASPIRIN 81 MG PO SCH (08:26)
[2021-07-16] MEDS: hydrALAZINE HCL 25 MG TAB PO SCH ×2 (08:26→15:11)
[2021-07-16] MEDS: lisinopriL 20 MG TAB PO SCH ×2 (08:26→21:52)
[2021-07-16] MEDS: ATORVASTATIN 80 MG TAB PO SCH (08:26)
[2021-07-16] MEDS: LEVOTHYROXINE 75 MCG TAB PO SCH (08:26)
[2021-07-16] MEDS: TICAGRELOR 90 MG TAB PO SCH ×2 (08:27→21:52)
[2021-07-16] MEDS: INSULIN ASPART (NovoLOG) 100 UNIT/ML VIAL SQ SCH ×4 (08:27→21:50)
[2021-07-16] MEDS: FUROSEMIDE 40 MG TAB PO SCH (08:27)
[2021-07-16] MEDS: FAMOTIDINE 20 MG TAB PO SCH (08:27)
[2021-07-16 11:29] LABS: Glucose,Whole Blood 201 mg/dL (75-99)
[2021-07-16] MEDS: carvediloL 12.5 MG TAB PO SCH ×2 (12:35→17:55)
--- NOTE | 2021-07-16 16:52 | P.PN ---
Subjective Patient is doing well today. She does not have any complaints. Objective - Vital Signs Vital signs: Vital Signs Temp 98.4 F 07/16/21 12:53 Pulse 81 07/16/21 12:53 Resp 17 07/16/21 12:53 BP 165/78 07/16/21 12:53 Pulse Ox 95 07/16/21 12:53 Intake & Output 07/15/21 07/16/21 07/16/21 18:59 06:59 18:59 Intake Total 100 Balance 100 Intake: Oral 100 Other: Voiding Method Bedside Commode Bedside Commode Diaper Diaper Diaper Incontinent # Voids 2 3 - Exam General: The patient is awake and alert, in no distress Eye: there is normal conjunctiva bilaterally. Neck: The neck is supple, there is no JVD. Cardiovascular: Normal S1-S2, no S3-S4, no murmurs. Respiratory: Lungs clear to auscultation bilaterally Gastrointestinal: Abdomen is soft, nontender Musculoskeletal: There is +2 edema up to the hip bilaterally Neurological:. Speech is normal. Skin: Skin is warm and dry - Labs CBC & Chem 7: 07/14/21 08:40 07/14/21 08:40 Labs: Abnormal Lab Results - Last 24 Hours (Table) 07/15/21 07/15/21 07/16/21 Range/Units 17:32 20:33 01:23 POC Glucose (mg/dL) 257 H 231 H 149 H (75-99) mg/dL 07/16/21 07/16/21 Range/Units 07:22 11:25 POC Glucose (mg/dL) 130 H 201 H (75-99) mg/dL Assessment and Plan Assessment: Patient is a 81-year-old female with a history of diabetes, hypertension, and a recent stroke who presented to the ER with complaints of right-sided weakness. On arrival to the ER she had an NIH of 14 and was out of the therapeutic window for TPA. She underwent a CT of the head and neck which was unremarkable. CT of the brain showed old left posterior temporal lobe infarct with increased size compared to December 2020. Patient had 2 seizures on the ER which aborted spontaneously. The second one was followed by post ictal confusion and she was subsequently intubated and admitted to the ICU. Pulmonary and neurology were consulted. Patient was extubated on 07/08. 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 I started levothyroxin daily. Repeat lab work in 2-3 weeks. Anemia, no signs or symptoms of bleeding -Follow CBC -No indication for transfusion -Check iron studies UTI -Finished antibiotic course with Rocephin Vent dependent respiratory, resolved Hypokalemia, resolved DVT prophylaxis: Lovenox Discussed with: Nursing Anticipated discharge: Undetermined Anticipated discharge place: Undetermined A total of 35 minutes was spent on the care of this complex patient more than 50% of the time was spent in counseling and care coordination.
[2021-07-16 17:30] LABS: Glucose,Whole Blood 301 mg/dL (75-99)
[2021-07-16 20:15] LABS: Glucose,Whole Blood 262 mg/dL (75-99)
[2021-07-17] MEDS: hydrALAZINE HCL 25 MG TAB PO SCH ×4 (00:37→22:59)
[2021-07-17 01:38] LABS: Glucose,Whole Blood 185 mg/dL (75-99)
[2021-07-17] MEDS: LEVOTHYROXINE 75 MCG TAB PO SCH (06:16)
[2021-07-17 07:24] LABS: Glucose,Whole Blood 144 mg/dL (75-99)
[2021-07-17] MEDS: INSULIN ASPART (NovoLOG) 100 UNIT/ML VIAL SQ SCH ×4 (08:33→20:17)
[2021-07-17] MEDS ORDERED: fentaNYL (PF) 50 MCG/ML 2 ML AMP ONE (08:36)
[2021-07-17] MEDS: BENZOCAINE SPRAY 1 CAN MUCOUS MEM ONE ×2 (08:55→09:00)
[2021-07-17] MEDS ORDERED: SODIUM CHLORIDE 0.9% 500 ML 500 ML IV ONE (08:55)
[2021-07-17] MEDS ORDERED: fentaNYL (PF) 50 MCG/ML 2 ML AMP IV ONE ×2 (09:03)
[2021-07-17] MEDS ORDERED: MIDAZOLAM 2 MG/2 ML VIAL IV ONE (09:03)
[2021-07-17] MEDS: FUROSEMIDE 40 MG TAB PO SCH (10:14)
[2021-07-17] MEDS: ASPIRIN 81 MG PO SCH (10:15)
[2021-07-17] MEDS: carvediloL 12.5 MG TAB PO SCH ×2 (10:15→18:07)
[2021-07-17] MEDS: ATORVASTATIN 80 MG TAB PO SCH (10:15)
[2021-07-17] MEDS: FAMOTIDINE 20 MG TAB PO SCH (10:15)
[2021-07-17] MEDS: lisinopriL 20 MG TAB PO SCH ×2 (10:15→20:17)
[2021-07-17] MEDS: TICAGRELOR 90 MG TAB PO SCH ×2 (10:19→20:56)
[2021-07-17] MEDS: levETIRAcetam 500 MG TAB PO SCH ×2 (11:02→20:17)
[2021-07-17 11:09] LABS: Glucose,Whole Blood 110 mg/dL (75-99)
--- NOTE | 2021-07-17 12:28 | P.PN ---
Subjective Patient is doing well today. JOSE done this morning awaiting report. There is a 2.5 hours EEG test ordered by neurology to be done tomorrow. Patient does not have any complaints. No events overnight reported by nursing staff. Objective - Vital Signs Vital signs: Vital Signs Temp 98.3 F 07/17/21 11:33 Pulse 63 07/17/21 12:00 Resp 16 07/17/21 12:00 BP 130/66 07/17/21 12:00 Pulse Ox 95 07/17/21 12:00 Intake & Output 07/16/21 07/17/21 07/17/21 18:59 06:59 18:59 Intake Total 1080 500 100 Balance 1080 500 100 Intake: IV 100 Oral 1080 500 Other: Voiding Method Diaper Diaper Diaper Incontinent Incontinent Incontinent # Voids 3 # Bowel Movements 1 0 - Exam General: The patient is awake and alert, in no distress Eye: there is normal conjunctiva bilaterally. Neck: The neck is supple, there is no JVD. Cardiovascular: Normal S1-S2, no S3-S4, no murmurs. Respiratory: Lungs clear to auscultation bilaterally Gastrointestinal: Abdomen is soft, nontender Musculoskeletal: There is + edema Neurological:. Speech is normal. Skin: Skin is warm and dry - Labs CBC & Chem 7: 07/14/21 08:40 07/14/21 08:40 Labs: Abnormal Lab Results - Last 24 Hours (Table) 07/15/21 07/16/21 07/16/21 Range/Units 05:53 17:21 20:14 POC Glucose (mg/dL) 301 H 262 H (75-99) mg/dL Free T4 0.60 L (0.80-1.80) ng/dL 07/17/21 07/17/21 07/17/21 Range/Units 01:37 07:16 11:06 POC Glucose (mg/dL) 185 H 144 H 110 H (75-99) mg/dL Free T4 (0.80-1.80) ng/dL Assessment and Plan Assessment: Patient is a 81-year-old female with a history of diabetes, hypertension, and a recent stroke who presented to the ER with complaints of right-sided weakness. On arrival to the ER she had an NIH of 14 and was out of the therapeutic window for TPA. She underwent a CT of the head and neck which was unremarkable. CT of the brain showed old left posterior temporal lobe infarct with increased size compared to December 2020. Patient had 2 seizures on the ER which aborted spontaneously. The second one was followed by post ictal confusion and she was subsequently intubated and admitted to the ICU. Pulmonary and neurology were consulted. Patient was extubated on 07/08. 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 I started levothyroxin daily. Repeat lab work in 2-3 weeks. Anemia, no signs or symptoms of bleeding -Follow CBC -No indication for transfusion -Check iron studies UTI -Finished antibiotic course with Rocephin Vent dependent respiratory, resolved Hypokalemia, resolved DVT prophylaxis: Lovenox Discussed with: Nursing Anticipated discharge: Undetermined Anticipated discharge place: Undetermined A total of 35 minutes was spent on the care of this complex patient more than 50% of the time was spent in counseling and care coordination.
[2021-07-17 17:23] LABS: Glucose,Whole Blood 329 mg/dL (75-99)
[2021-07-17 20:16] LABS: Glucose,Whole Blood 319 mg/dL (75-99)
[2021-07-18 02:00] LABS: Glucose,Whole Blood 175 mg/dL (75-99)
[2021-07-18] MEDS: LEVOTHYROXINE 75 MCG TAB PO SCH (06:01)
[2021-07-18 07:01] LABS: Glucose,Whole Blood 106 mg/dL (75-99)
[2021-07-18] MEDS: INSULIN ASPART (NovoLOG) 100 UNIT/ML VIAL SQ SCH ×2 (07:30→13:58)
--- NOTE | 2021-07-18 08:26 | P.TEE ---
Indications for Procedure(s): Unexplained Recurrent CVA Date of Procedure: 07/18/21 Preoperative Diagnosis: Unexplained CVA Postoperative Diagnosis: Presence of PFO Description of Procedure(s): INDICATION: Unexplained recurrent CVA/TIA CONSENT: Informed verbal consent was obtained from patient and family PROCEDURE: Patient was brought to the lab in a fasting state. She was prepped and draped in the usual fashion. Patient was given IV sedation with 2 mg of Versed and 25 g of fentanyl. A lubricated Omni probe was introduced into oropharynx and was advanced into the esophagus. Multiple views were obtained both from the esophagus and stomach. Patient tolerated the procedure well. No immediate complications. Color, pulsed and continuous her Doppler studies were performed. Saline contrast bubble injections also performed FINDINGS: The aortic valve is tricuspid with normal functioning valve. The mitral valve appeared to be normal with mild regurgitation. Tricuspid valve function appeared within normal with mild regurgitation. The left atrial appendage appeared to be free of any clot. Interatrial septum showed excessive motion. Saline contrast bubble injection showed crossing of bubbles across the interatrial septum. There also appeared to be mild [id number] shunt spontaneously. Left ventricle function appeared within normal IMPRESSION: #1. Presence of PFO #2. No clot in left atrial appendage #3. Basically, normal valvular function. #4. Normal preserved LV function PLAN: Continue current medical therapy. May consider closure of the PFO
[2021-07-18] MEDS: hydrALAZINE HCL 25 MG TAB PO SCH (08:41)
[2021-07-18] MEDS: FAMOTIDINE 20 MG TAB PO SCH (08:41)
[2021-07-18] MEDS: carvediloL 12.5 MG TAB PO SCH (08:41)
[2021-07-18] MEDS: TICAGRELOR 90 MG TAB PO SCH (08:41)
[2021-07-18] MEDS: FUROSEMIDE 40 MG TAB PO SCH (08:41)
[2021-07-18] MEDS: levETIRAcetam 500 MG TAB PO SCH (08:41)
[2021-07-18] MEDS: ATORVASTATIN 80 MG TAB PO SCH (08:41)
[2021-07-18] MEDS: lisinopriL 20 MG TAB PO SCH (08:41)
[2021-07-18] MEDS: ASPIRIN 81 MG PO SCH (08:41)
[2021-07-18 12:21] LABS: Glucose,Whole Blood 210 mg/dL (75-99)
--- NOTE | 2021-07-18 12:42 | P.DS ---
Providers Date of admission: 07/07/21 20:06 Expected date of discharge: 07/18/21 Attending physician: Megan Rivas MD Consults: 07/07/21 20:13 Consult Physician Routine Consulting Provider: Brett Rich Consult Reason/Comments: Seizure, Stroke like symptoms Do you want consulting provider notified?: Already Contacted Consult Physician Routine Consulting Provider: Marlen Levine Consult Reason/Comments: ICU management Do you want consulting provider notified?: Already Contacted 07/14/21 16:38 Consult Physician Routine Consulting Provider: Jamie Rosenthal Consult Reason/Comments: Pt with recurrent strokes, JOSE, mild to moderate pericardial effusion Do you want consulting provider notified?: Yes Primary care physician: Inocente Tate MD Hospital Course: Patient is a 81-year-old female with a history of diabetes, hypertension, and a recent stroke who presented to the ER with complaints of right-sided weakness. On arrival to the ER she had an NIH of 14 and was out of the therapeutic window for TPA. She underwent a CT of the head and neck which was unremarkable. CT of the brain showed old left posterior temporal lobe infarct with increased size compared to December 2020. Patient had 2 seizures on the ER which aborted spontaneously. The second one was followed by post ictal confusion and she was subsequently intubated and admitted to the ICU. Pulmonary and neurology were consulted. Patient was extubated on 07/08. Acute ischemic stroke involving the left anterior left periventricular region Worsening of prior CVA symptoms New onset seizure 2, without recurrence HTN urgency - Neuro recs apprecaied, MRI and eeg reviewed, keppra twice daily -JOSE showed small PFO. I discussed with neurology. 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 I started levothyroxin 112 mcg daily. Repeat lab work in 2-3 weeks. Anemia, no signs or symptoms of bleeding -Follow CBC UTI -Finished antibiotic course with Rocephin Vent dependent respiratory, resolved Hypokalemia, resolved Patient will be discharged [facility] for physical therapy. Follow up as directed. Plan of care discussed with her God daughter. General: The patient is awake and alert, in no distress Eye: there is normal conjunctiva bilaterally. Neck: The neck is supple, there is no JVD. Cardiovascular: Normal S1-S2, no S3-S4, no murmurs. Respiratory: Lungs clear to auscultation bilaterally Gastrointestinal: Abdomen is soft, nontender Musculoskeletal: There is +1 pedal edema. Neurological:. Speech is normal. Skin: Skin is warm and dry Patient Condition at Discharge: Fair Plan - Discharge Summary Discharge Rx Participant: Yes New Discharge Prescriptions: New levETIRAcetam [Keppra] 500 mg PO Q12HR tab Furosemide [Lasix] 40 mg PO DAILY #30 tablet Levothyroxine Sodium [Synthroid] 112 mcg PO DAILY@0630 tab hydrALAZINE HCL [Apresoline] 75 mg PO TID #30 tab Ticagrelor [Brilinta] 90 mg PO BID tab carvediloL [Coreg*] 12.5 mg PO BID-W/MEALS tab Continue metFORMIN HCL [Glucophage] 500 mg PO BID Glimepiride [Amaryl] 2 mg PO BID Aspirin 81 mg PO DAILY #30 chew Atorvastatin [Lipitor] 80 mg PO DAILY #30 tab Famotidine [Pepcid] 20 mg PO DAILY #30 tab lisinopriL [Zestril] 20 mg PO BID #60 tab Multivit with Calcium,Iron,Min [Women's Multivitamin] 1 tab PO DAILY Discontinued hydrALAZINE HCL [Apresoline] 25 mg PO TID #90 tab amLODIPine [Norvasc] 10 mg PO DAILY #30 tab Clopidogrel [Plavix] 75 mg PO DAILY #30 tab Furosemide [Lasix] 20 mg PO DAILY PRN PRN Reason: Edema Discharge Medication List Glimepiride [Amaryl] 2 mg PO BID 12/26/20 [History] metFORMIN HCL [Glucophage] 500 mg PO BID 12/26/20 [History] Aspirin 81 mg PO DAILY #30 chew 12/30/20 [Rx] Atorvastatin [Lipitor] 80 mg PO DAILY #30 tab 12/30/20 [Rx] Famotidine [Pepcid] 20 mg PO DAILY #30 tab 12/30/20 [Rx] lisinopriL [Zestril] 20 mg PO BID #60 tab 12/30/20 [Rx] Multivit with Calcium,Iron,Min [Women's Multivitamin] 1 tab PO DAILY 07/07/21 [History] Furosemide [Lasix] 40 mg PO DAILY #30 tablet 07/14/21 [Rx] Ticagrelor [Brilinta] 90 mg PO BID tab 07/14/21 [Rx] hydrALAZINE HCL [Apresoline] 75 mg PO TID #30 tab 07/14/21 [Rx] levETIRAcetam [Keppra] 500 mg PO Q12HR tab 07/14/21 [Rx] Levothyroxine Sodium [Synthroid] 112 mcg PO DAILY@0630 tab 07/18/21 [Rx] carvediloL [Coreg*] 12.5 mg PO BID-W/MEALS tab 07/18/21 [Rx] Follow up Appointment(s)/Referral(s): Inocente Tate MD [Primary Care Provider] - 1-2 days Edgar Jansen MD [STAFF PHYSICIAN] - 1 Week Patient Instructions/Handouts: Seizure/Epilepsy Discharge Instructions & Follow-Up Discharge Disposition: TRANSFER TO SNF/ECF
--- NOTE | 2021-07-18 13:30 | P.PN ---
Subjective this is a 81-year-old female with a past medical history of CVA in 12/2020, left MCA stenosis, type 2 diabetes, hyperlipidemia, hypertension. 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 Cardiology consulted for JOSE which was performed on 07/17/21. Patient presented to the hospital on 07/07/2021 with complaints of confusion, unable to ambulate, some speech difficulty. In the emergency department, patient was found to have a seizure and was postictal and oxygen saturations were in the 60s per the ER and she was appeared cyanotic but then she started to wake up and opening her eyes to voice. Apparently she proceeded to have a second seizure after 30 minutes from the onset of the first one, patient was subsequently intubated and transported to the ICU. She was extubated the next day and had no further seizure. Her MRI revealed acute tiny anterior left periventricular infarct, Marked white matter disease, Left parietal lobe encephalomalacia. Patient underwent JOSE with Dr. Jansen in 07/17/2021 which revealed the presence of a PFO, no clot in left atrial appendage, normal valvular function, preserved systolic function. Plan for patinent to undergo a 2.5 hour EEG today. Patient seen at bedside, she is pleasantly confused. Shes alert, oriented to herself only. She denies any pain or shortness of breath. GENERAL: In no acute distress. NECK: Supple without JVD or thyromegaly. LUNGS: Breath sounds clear to auscultation bilaterally. Respiration equal and unlabored. No wheezes, rales or rhonchi. HEART: Regular rate and rhythm without murmurs, rubs or gallops. S1 and S2 heard. EXTREMITIES: Normal range of motion, no edema. No clubbing or cyanosis. Peripheral pulses intact. ASSESSMENT: Seizure Acute tiny infarct involving the anterior left periventricular region. History CVA left parietal ischemic stroke December 2020 Old left MCA stensois involving M1 December 2020 Acute respiratory distress requiring intubation and ventilation because of seizure, extubated on 07/08 History of Covid-19 in January 2021. Hypertension Hypothyroidism, started on Synthroid. Hyperlipidemia Type 2 Diabetes PLAN: From a cardiology perspective, we recommend event monitor to evaluate for arrythmia, this can be done as an outpatient. In terms of patient's PFO we can discuss further recommendations as an outpatient in the office. Recommend follow up with Dr. Jansen in 1 week. Objective - Vital Signs Vital signs: Vital Signs Temp 97.4 F L 07/18/21 04:25 Pulse 73 07/18/21 08:35 Resp 16 07/18/21 04:25 BP 159/72 07/18/21 08:35 Pulse Ox 96 07/18/21 04:25 Intake & Output 07/17/21 07/18/21 07/18/21 18:59 06:59 18:59 Intake Total 100 400 Balance 100 400 Intake: IV 100 Oral 400 Other: Voiding Method Diaper Diaper Diaper Incontinent Incontinent Incontinent # Voids 6 1 # Bowel Movements 2 1 - Labs CBC & Chem 7: 07/14/21 08:40 07/14/21 08:40 Labs: Abnormal Lab Results - Last 24 Hours (Table) 07/17/21 07/17/21 07/18/21 Range/Units 17:21 20:14 01:58 POC Glucose (mg/dL) 329 H 319 H 175 H (75-99) mg/dL 07/18/21 Range/Units 07:00 POC Glucose (mg/dL) 106 H (75-99) mg/dL
[2021-07-18 13:42] VITALS: BP 157/69; PULSE 69; RESP 17; TEMP 97.9
--- NOTE | 2021-07-20 12:47 | CDI ---
Documentation Clarification Form Date: 07/20/2021 10:58:42 AM From: Mine Duong RN CCDS Admit Date: 07/07/2021 08:06:00 PM Patient Name: Alicia Gordon Visit Number: [id number] Discharge Date: 07/18/2021 04:42:00 PM ATTENTION: The Clinical Documentation Specialists (CDI) and [facility] Coding Staff appreciate your assistance in clarifying documentation. Please respond to the clarification below the line at the bottom and electronically sign. The CDI & [facility] Coding staff will review the response and follow-up if needed. Please note: Queries are made part of the Legal Health Record. If you have any questions, please contact the author of this message via ITS. Dr. Vahe Dubois Conflicting documentation has been found in the medical record. As attending physician, please provide clarification. Acute Hypoxic Respiratory failure secondary to CVA and seizures / new onset. Pulmonary Consult 07/08 Vent dependent for airway protection due to metabolic encephalopathy with stroke and recurrent seizure. H&P 07/07 History/Risk Factors: 81-year-old female presents to the ED confusion, slurring words and difficulty with speech. Medical History: CVA/TIA, DM and HTN. H&P 07/07. Clinical Indicators: 07/07 17:29 B/P 210/98; HR 84; Temp 98.4 F; RR 16; SpO2 95% Room Air. 07/07 19:20 - B/P 207/114; HR 86; Temp 98.1 F; RR 14; SpO2 100% Mechanical Ventilation. Extubation 07/08/21 12:10. Discharge Summary 07/18: Patient had 2 seizures in the ER which aborted spontaneously. The second one was followed by postictal confusion and she was subsequently intubated and admitted to the ICU. Treatment: Ventilator - Intubation 07/07 Extubated 07/08 Please clarify which diagnosis is most appropriate: [ ] Acute Respiratory failure ruled out, ventilator for airway protection. [ X] Acute Respiratory failure [ ] Other (please specify) [ ] Unable to determine (Template Last Revised: December 2020) MTDD
== END 2021-07-18 16:42 | DRG 64 ==
LOC: EC 17:27 → 2SICU 20:06 → 5NMEDONC 07-11 18:40
PROVIDERS: ADMIT Internal Medicine; ATTEND Internal Medicine
PROC: 5A1935Z Respiratory Ventilation, Less than 24 Consecutive Hours (ICD-10-PCS; principal; 2021-07-07)
PROC: 0BH17EZ Insertion of Endotracheal Airway into Trachea, Via Natural or Artificial Opening (ICD-10-PCS; principal; 2021-07-07)
PROC: 5A09357 Assistance with Respiratory Ventilation, Less than 24 Consecutive Hours, Continuous Positive Airway Pressure (ICD-10-PCS; 2021-07-08)
PROC: B246ZZ4 Ultrasonography of Right and Left Heart, Transesophageal (ICD-10-PCS; 2021-07-17)
DX: I63.9 Cerebral infarction, unspecified (principal); J96.01 Acute respiratory failure with hypoxia; G93.41 Metabolic encephalopathy; S22.31XA Fracture of one rib, right side, initial encounter for closed fracture; N39.0 Urinary tract infection, site not specified; E44.0 Moderate protein-calorie malnutrition; J90 Pleural effusion, not elsewhere classified; I31.3 Pericardial effusion (noninflammatory); Q21.1 Atrial septal defect; I11.9 Hypertensive heart disease without heart failure; E11.65 Type 2 diabetes mellitus with hyperglycemia; E11.649 Type 2 diabetes mellitus with hypoglycemia without coma; G40.901 Epilepsy, unspecified, not intractable, with status epilepticus; I16.0 Hypertensive urgency; R29.714 NIHSS score 14; Z20.822 Contact with and (suspected) exposure to COVID-19; E03.9 Hypothyroidism, unspecified; E07.81 Sick-euthyroid syndrome; E78.00 Pure hypercholesterolemia, unspecified; E87.6 Hypokalemia; H91.90 Unspecified hearing loss, unspecified ear; I66.02 Occlusion and stenosis of left middle cerebral artery; I49.3 Ventricular premature depolarization; R47.01 Aphasia; E78.5 Hyperlipidemia, unspecified; D64.9 Anemia, unspecified; Z79.02 Long term (current) use of antithrombotics/antiplatelets; Z79.82 Long term (current) use of aspirin; Z79.84 Long term (current) use of oral hypoglycemic drugs; Z79.890 Hormone replacement therapy; Z86.16 Personal history of COVID-19; Z79.899 Other long term (current) drug therapy; Z98.42 Cataract extraction status, left eye; Z98.41 Cataract extraction status, right eye
CPT/HCPCS: 31500; 36410; 36415; 36600; 70450; 70496; 70498; 70551; 71045; 76937; 80048; 80053; 80061; 81001; 82728; 82805; 83036; 83540; 83550; 83735; 84132; 84439; 84443; 84484; 85025; 85027; 85610; 85730; 87086; 87635; 93005; 93306; 93308; 93312; 93320; 93325; 94002; 94003; 94660; 95713; 95816; 96374; 96375; 99291

== ENCOUNTER 2021-07-18 22:25 | Emergency (ER) | payer MEDICARE ==
[2021-07-18 22:33] VITALS: TEMP 98
--- NOTE | 2021-07-18 23:11 | CT ---
EXAMINATION TYPE: CT brain claribel tucker con DATE OF EXAM: 07/18/2021 COMPARISON: None HISTORY: fall CT DLP: 1261.5 mGycm Automated exposure control for dose reduction was used. Images obtained of the brain and cervical spine without contrast. There is cerebral cortical atrophy. There is no mass effect nor midline shift. There is no evidence o f intracranial hemorrhage. There is wedge-shaped 4 cm area of hypodensity left posterior temporal par ietal lobe consistent with old infarct. There is large frontal scalp hematoma that measures up to 1.5 cm in thickness. The skull base is intact. There is normal aeration of the mastoid sinuses. Cervical vertebra have normal alignment. Posterior elements are intact. Facet joints are intact. Ther e is C5-6 mild disc space narrowing and endplate spur formation. IMPRESSION: There is old left hemisphere posterior temporal parietal infarct without change. Scalp hematoma. No a cute intracranial abnormality. Mild spondylotic changes in the cervical spine without change..
--- NOTE | 2021-07-18 23:49 | ED ---
Fall HPI - General Chief Complaint: Fall Stated Complaint: Fall Time Seen by Provider: 07/18/21 22:29 Source: EMS, RN notes reviewed, old records reviewed Mode of arrival: EMS Limitations: altered mental status, physical limitation - History of Present Illness Initial Comments: This is a 81-year-old female to the emergency department. Patient presents today for evaluation regards to significant swelling to the anterior for after fall out of bed patient did fall and hit her head. Patient has dementia so poor story and recently had significant stroke so further poor strain. No other traumatic injury is noted per staff. History of pain from EMS and staff transfer paperwork MD Complaint: fall -: hour(s) Fall From: out of bed When Fall Occurred: 1-[address] Fall Occurred: home Loss of Consciousness: none Prolonged Down Time?: no Symptoms Prior to Fall: none Location: head Severity: moderate Severity scale (1-10): 3 Quality: aching Context: tripped/slipped Associated Symptoms: headache - Related Data Home Medications Medication Instructions Recorded Confirmed Multivit with Calcium,Iron,Min 1 tab PO DAILY@169907/07/21 07/19/21 [Women's Multivitamin] Atorvastatin [Lipitor] 80 mg PO HS@2100 07/18/21 07/19/21 Magnesium Hydroxide [Milk of 7,200 mg PO DAILY PRN 07/18/21 07/19/21 Magnesia Concentrate] Na Phos,M-B/Na Phos,Di-Ba [Fleet 133 ml RECTAL DAILY PRN 07/18/21 07/19/21 Adult] bisacodyL [Dulcolax] 10 mg RECTAL DAILY PRN 07/18/21 07/19/21 Aspirin 81 mg PO DAILY@169907/19/21 07/19/21 Ticagrelor [Brilinta] 90 mg PO BID@0800,169907/19/21 07/19/21 hydrALAZINE HCL [Apresoline] 75 mg PO TID@0600,1400,2200 07/19/21 07/19/21 lisinopriL [Zestril] 20 mg PO BID@0800,1700 07/19/21 07/19/21 Previous Rx's Medication Instructions Recorded Amoxic-Pot Clav 500-125 mg 1 each PO BID 7 Days #14 tab 07/24/21 [Augmentin 500-125 mg] Ferrous Sulfate [Iron (65 MG 325 mg PO BID-W/MEALS tab 07/24/21 Elemental)] Furosemide [Lasix] 20 mg PO DAILY tab 07/24/21 INSULIN ASPART (NovoLOG) [NovoLOG 0 unit SQ ACHS ml 07/24/21 (formulary)] Levothyroxine Sodium [Synthroid] 137 mcg PO DAILY@0600 tab 07/24/21 Omeprazole [PriLOSEC] 20 mg PO AC-BID #60 cap 07/24/21 levETIRAcetam [Keppra] 750 mg PO BID@0800,2100 tab 07/24/21 Allergies Allergy/AdvReac Type Severity Reaction Status Date / Time No Known Allergies Allergy Verified 07/19/21 12:57 Review of Systems ROS Statement: Those systems with pertinent positive or pertinent negative responses have been documented in the HPI. ROS Other: All systems not noted in ROS Statement are negative. Past Medical History Past Medical History: CVA/TIA, Diabetes Mellitus, Hyperlipidemia, Hypertension Additional Past Medical History / Comment(s): Last month the patient was hospitalized due to a cerebrovascular accident. Reportedly she did not have any motor loss. The son states that she had some speech changes since then and possibly some cognition changes the time. She is normally a community ambulate without any assistance. History of Any Multi-Drug Resistant Organisms: None Reported Past Surgical History: No Surgical Hx Reported Additional Past Surgical History / Comment(s): CATRACTS ABBE 2000 Past Anesthesia/Blood Transfusion Reactions: No Reported Reaction Past Psychological History: No Psychological Hx Reported Smoking Status: Never smoker Past Alcohol Use History: Occasional Past Drug Use History: None Reported - Past Family History Father Family Medical History: No Reported History Mother Family Medical History: No Reported History General Exam General appearance: alert, in no apparent distress Head exam: Present: normocephalic, normal inspection. Absent: atraumatic (Significant hematoma to the forehead) Eye exam: Present: normal appearance, PERRL, EOMI. Absent: scleral icterus, conjunctival injection, periorbital swelling ENT exam: Present: normal exam, mucous membranes moist Neck exam: Present: normal inspection. Absent: tenderness, meningismus, lymphadenopathy Respiratory exam: Present: normal lung sounds bilaterally. Absent: respiratory distress, wheezes, rales, rhonchi, stridor Cardiovascular Exam: Present: regular rate, normal rhythm, normal heart sounds. Absent: systolic murmur, diastolic murmur, rubs, gallop, clicks GI/Abdominal exam: Present: soft, normal bowel sounds. Absent: distended, tenderness, guarding, rebound, rigid Extremities exam: Present: normal inspection, full ROM, normal capillary refill. Absent: tenderness, pedal edema, joint swelling, calf tenderness Back exam: Present: normal inspection Neurological exam: Present: alert, oriented X3, CN II-XII intact Psychiatric exam: Present: normal affect, normal mood Skin exam: Present: warm, dry, intact, normal color. Absent: rash Course Vital Signs 07/18/21 07/19/21 22:28 00:23 Temperature 98 F Pulse Rate 69 64 Respiratory 19 18 Rate Blood Pressure 183/90 145/73 O2 Sat by Pulse 97 96 Oximetry - Reevaluation(s) Reevaluation #1: Medical record is reviewed Patient symptoms are improved here in the emergency department Patient is informed results and questions answered Patient is in no acute distress Patient okay for discharge home Medical Decision Making - Medical Decision Making 81 female status post fall fall out of bed did hit head does have a genetic hematoma over forehead but no other traumatic injury is noted. Patient can be discharged home Disposition Clinical Impression: Fall, Head injury, Traumatic hematoma of forehead Disposition: HOME SELF-CARE Condition: Good Instructions (If sedation given, give patient instructions): Fall Prevention for Older Adults (ED), Head Injury (ED), Hematoma (ED) Is patient prescribed a controlled substance at d/c from ED?: No Referrals: Jason Gonzalez MD [Primary Care Provider] - 1-2 days
[2021-07-19 00:24] VITALS: BP 145/73; PULSE 64; RESP 18
== END 2021-07-19 00:54 | disposition home or self-care (01) ==
LOC: EC 22:25
DX: S00.83XA Contusion of other part of head, initial encounter (principal); E11.9 Type 2 diabetes mellitus without complications; I10 Essential (primary) hypertension; E78.5 Hyperlipidemia, unspecified; F03.90 Unspecified dementia, unspecified severity, without behavioral disturbance, psychotic disturbance, mood disturbance, and anxiety; Z79.4 Long term (current) use of insulin; Z79.82 Long term (current) use of aspirin; Z79.899 Other long term (current) drug therapy; Z86.73 Personal history of transient ischemic attack (TIA), and cerebral infarction without residual deficits; W06.XXXA Fall from bed, initial encounter; Y92.009 Unspecified place in unspecified non-institutional (private) residence as the place of occurrence of the external cause
CPT/HCPCS: 70450; 72125; 99284

== ENCOUNTER 2021-07-19 12:22 | Inpatient (IN) | payer MEDICARE ==
[2021-07-19] MEDS ORDERED: SODIUM CHLORIDE 0.9% 1,000 ML IV STA (12:39)
--- NOTE | 2021-07-19 12:54 | ED ---
General Adult HPI - General Chief complaint: Altered Mental Status Stated complaint: Altered Mental Status Time Seen by Provider: 07/19/21 12:27 Source: patient, EMS, RN notes reviewed Mode of arrival: EMS Limitations: language barrier, altered mental status - History of Present Illness Initial comments: Patient is a pleasant 81-year-old female presenting to the emergency department following episode of decreased responsiveness. Patient reportedly did have a fall last night. Patient also reportedly playing of some chest discomfort. Patient appeared normal this morning. Around 11 AM patient reportedly had decreased responsiveness and had to be aggressively aroused. Patient is arousable and will at this point. Patient has limited speaking/Italian ability and history is somewhat limited. Patient denies headache. Patient does seem to complain of some chest discomfort. - Related Data Home Medications Medication Instructions Recorded Confirmed Glimepiride [Amaryl] 2 mg PO BID@0800,1700 12/26/20 07/19/21 metFORMIN HCL [Glucophage] 500 mg PO BID@0800,1700 12/26/20 07/19/21 Multivit with Calcium,Iron,Min 1 tab PO DAILY@1700 07/07/21 07/19/21 [Women's Multivitamin] Atorvastatin [Lipitor] 80 mg PO HS@2100 07/18/21 07/19/21 Levothyroxine Sodium [Synthroid] 112 mcg PO DAILY@0600 07/18/21 07/19/21 Magnesium Hydroxide [Milk of 7,200 mg PO DAILY PRN 07/18/21 07/19/21 Magnesia Concentrate] Na Phos,M-B/Na Phos,Di-Ba [Fleet 133 ml RECTAL DAILY PRN 07/18/21 07/19/21 Adult] bisacodyL [Dulcolax] 10 mg RECTAL DAILY PRN 07/18/21 07/19/21 Aspirin 81 mg PO DAILY@169907/19/21 07/19/21 Famotidine [Pepcid] 20 mg PO DAILY@0800 07/19/21 07/19/21 Furosemide [Lasix] 40 mg PO DAILY@0800 07/19/21 07/19/21 Ticagrelor [Brilinta] 90 mg PO BID@0800,1700 07/19/21 07/19/21 carvediloL [Coreg*] 12.5 mg PO BID@0800,1700 07/19/21 07/19/21 hydrALAZINE HCL [Apresoline] 75 mg PO TID@0600,1400,2200 07/19/21 07/19/21 levETIRAcetam [Keppra] 500 mg PO BID@0800,2100 07/19/21 07/19/21 lisinopriL [Zestril] 20 mg PO BID@0800,1700 07/19/21 07/19/21 Allergies Allergy/AdvReac Type Severity Reaction Status Date / Time No Known Allergies Allergy Verified 07/19/21 12:57 Review of Systems ROS Statement: Those systems with pertinent positive or pertinent negative responses have been documented in the HPI. ROS Other: All systems not noted in ROS Statement are negative. Limitations: ROS unobtainable due to patients medical condition Past Medical History Past Medical History: CVA/TIA, Diabetes Mellitus, Hyperlipidemia, Hypertension Additional Past Medical History / Comment(s): Last month the patient was hospitalized due to a cerebrovascular accident. Reportedly she did not have any motor loss. The son states that she had some speech changes since then and possibly some cognition changes the time. She is normally a community ambulate without any assistance. History of Any Multi-Drug Resistant Organisms: None Reported Past Surgical History: No Surgical Hx Reported Additional Past Surgical History / Comment(s): CATRACTS ABBE 2000 Past Anesthesia/Blood Transfusion Reactions: No Reported Reaction Past Psychological History: No Psychological Hx Reported Smoking Status: Never smoker Past Alcohol Use History: Occasional Past Drug Use History: None Reported - Past Family History Father Family Medical History: No Reported History Mother Family Medical History: No Reported History General Exam Limitations: language barrier, altered mental status General appearance: alert, in no apparent distress Head exam: Present: other (Forehead ecchymosis and swelling extending to the right orbit region) Eye exam: Present: normal appearance, PERRL, EOMI ENT exam: Present: normal oropharynx Neck exam: Present: normal inspection. Absent: tenderness Respiratory exam: Present: normal lung sounds bilaterally Cardiovascular Exam: Present: regular rate, normal rhythm GI/Abdominal exam: Present: soft. Absent: tenderness Extremities exam: Present: normal inspection, full ROM. Absent: tenderness Neurological exam: Present: alert Expanded Neurological exam: Present: other (Reported chronic right-sided weakness from previous stroke) Patient oriented to: Present: person, place (Patient notes she is in port her on, further orientation on place limited). Absent: time Cranial nerves: EOM's Intact: Normal Motor strength exam: RUE: 5, LUE: 5, RLE: 3, LLE: 5 Eye Response: (4) open spontaneously Motor Response: (6) obeys commands Verbal Response: (4) confused conversation Psychiatric exam: Present: normal affect, normal mood Skin exam: Present: other (Ecchymosis) Course Vital Signs 07/19/21 12:25 Temperature 97.9 F Pulse Rate 70 Respiratory 18 Rate Blood Pressure 130/65 O2 Sat by Pulse 100 Oximetry EKG Findings - EKG Comments: EKG Findings:: Sinus rhythm with rate of 67. W[place] 134. QRS 78. QT 4:30. QTC 454. Normal axis. Low QRS voltage. Poor R-wave progression. No acute ST change. PVC present. Medical Decision Making - Medical Decision Making Case was discussed with Dr. Gonzalez who states he only is on the chart to see the patient and long-term. He states otherwise patient should go to [facility]. Dr. Doan was contacted who states patient is city call. Case was discussed with Dr. flores who is unclear as far as except admission. Dr. izaguirre did call back and will accept covering for hospital call. Patient reevaluated and resting comfortably in bed. Alert. Patient and family updated. - Lab Data Result diagrams: 07/19/21 13:45 07/19/21 13:45 Lab Results 07/19/21 07/19/21 07/19/21 Range/Units 13:45 13:45 13:45 WBC 6.0 (3.8-10.6) k/uL RBC 3.08 L (3.80-5.40) m/uL Hgb 9.7 L D (11.4-16.0) gm/dL Hct 27.9 L (34.0-46.0) % MCV 90.4 (80.0-100.0) fL MCH 31.5 (25.0-35.0) pg MCHC 34.8 (31.0-37.0) g/dL RDW 15.1 (11.5-15.5) % Plt Count 267 (150-450) k/uL MPV 7.3 Neutrophils % 74 % Lymphocytes % 19 % Monocytes % 4 % Eosinophils % 1 % Basophils % 1 % Neutrophils # 4.4 (1.3-7.7) k/uL Lymphocytes # 1.2 (1.0-4.8) k/uL Monocytes # 0.3 (0-1.0) k/uL Eosinophils # 0.1 (0-0.7) k/uL Basophils # 0.0 (0-0.2) k/uL PT 10.1 (9.0-12.0) sec INR 0.9 (<1.2) APTT 23.1 (22.0-30.0) sec D-Dimer 4.11 H (<0.60) mg/L FEU Sodium 135 L (137-145) mmol/L Potassium 4.7 (3.5-5.1) mmol/L Chloride 102 (98-107) mmol/L Carbon Dioxide 32 H (22-30) mmol/L Anion Gap 1 mmol/L BUN 28 H (7-17) mg/dL Creatinine 1.08 H (0.52-1.04) mg/dL Est GFR (CKD-EPI)AfAm 57 (>60 ml/min/1.73 sqM) Est GFR (CKD-EPI)NonAf 49 (>60 ml/min/1.73 sqM) Glucose 144 H (74-99) mg/dL Calcium 8.4 (8.4-10.2) mg/dL Total Bilirubin 0.4 (0.2-1.3) mg/dL AST 52 H (14-36) U/L ALT 40 H (4-34) U/L Alkaline Phosphatase 104 (38-126) U/L Troponin I (0.000-0.034) ng/mL NT-Pro-B Natriuret Pep pg/mL Total Protein 4.7 L (6.3-8.2) g/dL Albumin 2.2 L (3.5-5.0) g/dL Coronavirus (PCR) (Not Detectd) 07/19/21 07/19/21 07/19/21 Range/Units 13:45 13:45 14:52 WBC (3.8-10.6) k/uL RBC (3.80-5.40) m/uL Hgb (11.4-16.0) gm/dL Hct (34.0-46.0) % MCV (80.0-100.0) fL MCH (25.0-35.0) pg MCHC (31.0-37.0) g/dL RDW (11.5-15.5) % Plt Count (150-450) k/uL MPV Neutrophils % % Lymphocytes % % Monocytes % % Eosinophils % % Basophils % % Neutrophils # (1.3-7.7) k/uL Lymphocytes # (1.0-4.8) k/uL Monocytes # (0-1.0) k/uL Eosinophils # (0-0.7) k/uL Basophils # (0-0.2) k/uL PT (9.0-12.0) sec INR (<1.2) APTT (22.0-30.0) sec D-Dimer (<0.60) mg/L FEU Sodium (137-145) mmol/L Potassium (3.5-5.1) mmol/L Chloride (98-107) mmol/L Carbon Dioxide (22-30) mmol/L Anion Gap mmol/L BUN (7-17) mg/dL Creatinine (0.52-1.04) mg/dL Est GFR (CKD-EPI)AfAm (>60 ml/min/1.73 sqM) Est GFR (CKD-EPI)NonAf (>60 ml/min/1.73 sqM) Glucose (74-99) mg/dL Calcium (8.4-10.2) mg/dL Total Bilirubin (0.2-1.3) mg/dL AST (14-36) U/L ALT (4-34) U/L Alkaline Phosphatase (38-126) U/L Troponin I <0.012 (0.000-0.034) ng/mL NT-Pro-B Natriuret Pep 2210 pg/mL Total Protein (6.3-8.2) g/dL Albumin (3.5-5.0) g/dL Coronavirus (PCR) Not Detected (Not Detectd) - Radiology Data Radiology results: report reviewed (Computed tomography scan cervical spine shows degenerative changes and foraminal narrowing C5-C6. No acute osseous abnormality. Computed tomography scan brain shows atrophy and mild chronic appearing. Ventricular white matter ischemic changes. Superficial soft tissue hematoma.), image reviewed (Pelvis x-ray shows no fracture or dislocation. Two- view chest x-ray shows cardiomegaly with venous congestion and small effusions.) Disposition Clinical Impression: Unresponsive episode Disposition: ADMITTED IP TO THIS HOSP Is patient prescribed a controlled substance at d/c from ED?: No Referrals: Jason Gonzalez MD [Primary Care Provider] - 1-2 days Decision Time: 17:38
--- NOTE | 2021-07-19 13:38 | XR ---
EXAMINATION TYPE: XR chest 2V DATE OF EXAM: 07/19/2021 COMPARISON: 07/12/2021 HISTORY: Shortness of breath TECHNIQUE: Frontal and lateral views of the chest are obtained. FINDINGS: Scattered senescent parenchymal changes noted. Hyperinflation compatible with COPD. Continued cardiomegaly with pulmonary venous congestion and small effusions. Mediastinal structures a re stable and grossly unremarkable. No evidence for hilar prominence. Degenerative changes dorsal spine. IMPRESSION: 1. Continued cardiomegaly with pulmonary venous congestion and small effusions.
--- NOTE | 2021-07-19 13:40 | XR ---
EXAMINATION TYPE: XR pelvis AP view DATE OF EXAM: 07/19/2021 CLINICAL HISTORY: pain TECHNIQUE: Single view the pelvis is submitted. FINDINGS: No evidence for fracture, dislocation or bony lesion. Dynamic compression screws and intra medullary juliet proximal right femur. Mild degenerative joint space narrowing bilaterally. SI joints ap pear symmetric. IMPRESSION: 1. No acute fracture or dislocation seen. ICD 10 NO FRACTURE, INITIAL EVALUATION
--- NOTE | 2021-07-19 13:40 | CT ---
EXAMINATION TYPE: CT brain claribel wo con DATE OF EXAM: 07/19/2021 COMPARISON: 07/18/2021 HISTORY: Fall, syncope last night. Facial swelling and bruising CT DLP: 1242.8 mGycm, Automated exposure control for dose reduction was used. CONTRAST: None CT of the brain is performed utilizing 3 mm thick sections through the posterior fossa and 3 mm thick sections through the remaining calvarium. Study is performed within 24 hours of arrival to the hospital. No abnormal hyperdensity is present to suggest an acute intracranial hemorrhage. No mass lesion is evident. No acute infarcts are evident. Periventricular white matter hypodensity is present, likely on the ba sis of chronic white matter ischemic changes. An old watershed infarct on the left is a period Ventricles and sulci are somewhat prominent for the patient age. Paranasal sinuses and mastoid air cells within the [id number] are clear. There is superficial soft tissue swelling and frontal hematoma. This hematoma measures 1.6 x 3.7 cm i n size. Series 205 image 26. IMPRESSIONS: 1. Atrophy with mild chronic appearing periventricular white matter ischemic changes. CT cervical spine. COMPARISON: None CT of the cervical spine is performed in the axial plane at 2 mm thick sections. Reconstructed image s in the coronal, and sagittal plane are reviewed on the computer. No acute fractures are evident. Vertebral body alignment is normal. There is narrowing of disc height at C5-C6 and milder at C6-7 and C7-T1. Posterior endplate spurring is present C5-6. Some facet changes are evident. Vertebral body heights are preserved. Neural foraminal narrowing is present at C5-6 and C4-5. No AP spinal canal stenosis present. IMPRESSIONS: 1. Degenerative disc changes and foraminal narrowing greatest at C5-6. 2. No acute osseous abnormality
[2021-07-19 14:05] LABS: Basophils % (A) 1 %; Eosinophils # (A) 0.1 k/uL (0-0.7); Eosinophils % (A) 1 %; HCT 27.9 % (34.0-46.0); Lymphocytes # (A) 1.2 k/uL (1.0-4.8); Lymphocytes % (A) 19 %; MCH 31.5 pg (25.0-35.0); MCHC 34.8 g/dL (31.0-37.0); MCV 90.4 fL (80.0-100.0); Mean Platelet Volume 7.3; Monocytes # (A) 0.3 k/uL (0-1.0); Monocytes % (A) 4 %; Neutrophils # (A) 4.4 k/uL (1.3-7.7); Neutrophils % (A) 74 %; Platelet Count 267 k/uL (150-450); RBC 3.08 m/uL (3.80-5.40); RDW 15.1 % (11.5-15.5)
[2021-07-19 14:10] LABS: HGB 9.7 gm/dL (11.4-16.0)
[2021-07-19 14:17] LABS: INR 0.9 (<1.2); Partial Thromboplastin Time 23.1 sec (22.0-30.0); Prothrombin Time 10.1 sec (9.0-12.0)
[2021-07-19 14:18] LABS: Albumin 2.2 g/dL (3.5-5.0); Calcium 8.4 mg/dL (8.4-10.2); Potassium 4.7 mmol/L (3.5-5.1); Total Bilirubin 0.4 mg/dL (0.2-1.3); Total Protein 4.7 g/dL (6.3-8.2)
--- NOTE | 2021-07-19 15:20 | CT ---
CT CHEST FOR PULMONARY EMBOLISM. EXAMINATION TYPE: CT angio chest DATE OF EXAM: 07/19/2021 INDICATION: high test CT DLP: 313.3 mGycm, Automated exposure control for dose reduction was used. CONTRAST: Patient injected with 80 mL of Isovue 370. COMPARISON: 02/16/2021 TECHNIQUE: CT of the chest is performed on a spiral scan at 2 mm thick sections. Study is performed with intravenous contrast timed for evaluation for pulmonary embolism. This will limit additional po rtions of the evaluation. 3-D MIP images reconstructed by the technologist are reviewed on the compu ter in the coronal and sagittal planes. FINDINGS: No persistent filling defects are evident to suggest an acute pulmonary embolism. No mediastinal or hilar adenopathy enlarged by CT criteria is evident. The ascending aorta diameter at the level of the main pulmonary artery is 3.3 cm. The main pulmonary artery diameter at the bifur cation is 2.7 cm. Marked coronary artery calcification is present. Small to moderate bilateral pleural effusions are present. There is a moderate pericardial effusion T here is some heterogeneity through the thyroid. Limited CT section through the upper abdomen are unremarkable. IMPRESSIONS: 1. Small to moderate bilateral pleural effusions. Some compressive atelectasis at the left base. Find ings have worsened over the interval. 2. Moderate pericardial effusion. 3. No acute pulmonary embolism
[2021-07-19] MEDS ORDERED: bisacodyL 10 MG SUPP RECTAL PRN (17:03)
[2021-07-19] MEDS ORDERED: NALOXONE 0.4 MG/ML 1 ML VIAL IV PRN (17:38)
[2021-07-19 18:05] LABS: Glucose,Whole Blood 112 mg/dL (75-99)
[2021-07-19] MEDS: INSULIN ASPART (NovoLOG) 100 UNIT/ML VIAL SQ SCH ×2 (18:05→22:00)
[2021-07-19] MEDS: FUROSEMIDE 10 MG/ML 2 ML VIAL IV SCH ×2 (18:08→22:01)
--- NOTE | 2021-07-19 18:38 | US ---
EXAMINATION TYPE: US liver DATE OF EXAM: 07/19/2021 COMPARISON: US 06/27/2021 CLINICAL HISTORY: elevated liver enz. Difficult exam as patient is in an altered mental status and ke pt pushing my hand away. EXAM MEASUREMENTS: Liver Length: 15.2 cm Gallbladder Wall: 0.4 cm CBD: 0.7 cm Right Kidney: 9.6 x 4.3 x 4.5 cm Pancreas: Obscured by bowel gas Liver: wnl Gallbladder: ROCIO sign. Possible pericholecystic fluid visualized, but very difficult to evaluate gal lbladder wall due to ROCIO sign Evidence for sonographic Chairez's sign: No CBD: Dilated Right Kidney: No hydronephrosis or masses seen IMPRESSION: Contracted gallbladder with stones. No evidence of right renal obstruction. No dilated ducts. Common bile duct consistent with chronic gallbladder dysfunction.
[2021-07-19] MEDS ORDERED: levETIRAcetam 500 MG TAB PO SCH (21:00)
[2021-07-19 21:22] LABS: Glucose,Whole Blood 102 mg/dL (75-99)
[2021-07-19] MEDS: ATORVASTATIN 80 MG TAB PO SCH ×2 (22:03→22:06)
--- NOTE | 2021-07-19 22:13 | P.HPIM ---
History of Present Illness This is a pleasant 72 female with past medical history of CVA/TIA, Diabetes Mellitus, Hyperlipidemia, Hypertension, she was recently discharged from the hospital yesterday for stroke and 2 seizures (thought secondary to UTI and her stroke and hypoglycemia then) and she was discharged to [facility] for rehab. She is normally a community ambulate without any assistance. Patient is poor historian omission were obtained with the help of the Mr. Pepe at bedside and nephew. As per patient has been confused over the last 3 days and actually he thinks today she is even more awake than when she left the hospital yesterday. As per family they have been told patient was trying to get up by herself and she fell on her face with resultant a bruise on her forehead and around both her eyes. She is awake and alert now, she knows she is an [facility] and knows it is June but she could not tell a year or the name of the president but she could recognize her at bed side and his name She denies any pain. She denies headache or chest pain or abdominal pain. No leg pain. She could move both upper and lower extremities slowly and symmetrically. She denies double vision or blurred vision. No slurred speech. She denies any urinary or bowel complaints. However patient looks very weak and somewhat confused and does not follow all but only some of commands appropriately, As per patient has first stroke in 12/2020, she was diagnosed with Covid within 1 month after that, she fell at home on January this year and she broke her right femur, right shoulder blade and few ribs before she come back to the hospital already this month for stroke and altered mental status Also recently she has abnormal labs with hyperthyroidism with a free T4 of 0.6 and high TSH of 110. Recently her vitamin B12 was low normal at 331 Vitas looks stable Labs are unremarkable CBC however her hemoglobin is 9.7 which is similar to one week ago INR is 0.9, d-dimer is elevated at 4.1 Sodium 135, creatinine 1.08. Bilirubin is normal 0.4 and mildly elevated AST 52 and ALT 40. Carson negative less than 0.012. ProBNP is mildly elevated at 2210 Coronavirus not detected CTA of the chest: Small to moderate bilateral pleural effusion. Some compressive atelectasis find this may be worsened overall, moderate pericardial effusion no PE CT of the brain: No acute process. There is atrophy with mild chronic appearing periventricular white matter ischemic changes. No acute infarct per radiologist CT of the cervical spine no fracture. Degenerative disc changes and foraminal narrowing greatest at C5-C6 Chest x-ray: Cardiomegaly with pulmonary venous congestion and small effusion Echocardiogram on 07/08: Ejection fraction more than 70%. Moderate LVH MRI of the brain on 07/10: Acute tiny anterior left periventricular infarct. Marked white matter disease. Left parietal lobe encephalomalacia She has liver ultrasound on 06/27 showing large stone filling the gallbladder. An emergency room patient was started on normal saline Review of Systems CONSTITUTIONAL: No fever, no malaise, no fatigue. HEENT: No recent visual problems or hearing problems. Denied any sore throat. CARDIOVASCULAR: No orthopnea, PND, no palpitations, no syncope. PULMONARY: No shortness of breath, no cough, no hemoptysis. GASTROINTESTINAL: No diarrhea, no nausea, no vomiting, no abdominal pain. Normoactive bowel sounds. NEUROLOGICAL: No headaches, no weakness, no numbness. HEMATOLOGICAL: Denies any bleeding or petechiae. GENITOURINARY: Denies any burning micturition, frequency, or urgency. MUSCULOSKELETAL/RHEUMATOLOGICAL: Denies any joint pain, swelling, or any muscle pain. ENDOCRINE: Denies any polyuria or polydipsia. Past Medical History Past Medical History: CVA/TIA, Diabetes Mellitus, Hyperlipidemia, Hypertension Additional Past Medical History / Comment(s): Last month the patient was hospitalized due to a cerebrovascular accident. Reportedly she did not have any motor loss. The son states that she had some speech changes since then and possibly some cognition changes the time. She is normally a community ambulate without any assistance. History of Any Multi-Drug Resistant Organisms: None Reported Past Surgical History: No Surgical Hx Reported Additional Past Surgical History / Comment(s): CATRACTS ABBE 2000 Past Anesthesia/Blood Transfusion Reactions: No Reported Reaction Past Psychological History: No Psychological Hx Reported Smoking Status: Never smoker Past Alcohol Use History: Occasional Past Drug Use History: None Reported - Past Family History Father Family Medical History: No Reported History Mother Family Medical History: No Reported History Medications and Allergies Home Medications Medication Instructions Recorded Confirmed Type Glimepiride [Amaryl] 2 mg PO BID@0800,1700 12/26/20 07/19/21 History metFORMIN HCL [Glucophage] 500 mg PO BID@0800,1700 12/26/20 07/19/21 History Multivit with Calcium,Iron,Min 1 tab PO DAILY@169907/07/21 07/19/21 History [Women's Multivitamin] Atorvastatin [Lipitor] 80 mg PO HS@209907/18/21 07/19/21 History Levothyroxine Sodium [Synthroid] 112 mcg PO DAILY@0607/18/21 07/19/21 History Magnesium Hydroxide [Milk of 7,200 mg PO DAILY PRN 07/18/21 07/19/21 History Magnesia Concentrate] Na Phos,M-B/Na Phos,Di-Ba [Fleet 133 ml RECTAL DAILY PRN 07/18/21 07/19/21 History Adult] bisacodyL [Dulcolax] 10 mg RECTAL DAILY PRN 07/18/21 07/19/21 History Aspirin 81 mg PO DAILY@169907/19/21 07/19/21 History Famotidine [Pepcid] 20 mg PO DAILY@0807/19/21 07/19/21 History Furosemide [Lasix] 40 mg PO DAILY@0807/19/21 07/19/21 History Ticagrelor [Brilinta] 90 mg PO BID@0800,169907/19/21 07/19/21 History carvediloL [Coreg*] 12.5 mg PO BID@0800,17007/19/21 07/19/21 History hydrALAZINE HCL [Apresoline] 75 mg PO TID@0600,1400,2200 07/19/21 07/19/21 History levETIRAcetam [Keppra] 500 mg PO BID@0800,2100 07/19/21 07/19/21 History lisinopriL [Zestril] 20 mg PO BID@0800,17007/19/21 07/19/21 History Allergies Allergy/AdvReac Type Severity Reaction Status Date / Time No Known Allergies Allergy Verified 07/19/21 12:57 Physical Exam Vitals: Vital Signs Temp Pulse Resp BP Pulse Ox 07/19/21 12:25 97.9 F 70 18 130/65 100 Intake and Output 07/19/21 07/19/21 07/19/21 06:59 14:59 22:59 Other: Weight 67.268 kg -GENERAL: The patient is alert and oriented x2 to place with partially to person and time, not in any acute distress. Well developed, well nourished. Generally weak and deconditioned HEENT: Pupils are round and equally reacting to light. EOMI. No scleral icterus. No conjunctival pallor. Normocephalic, atraumatic. No pharyngeal erythema. No thyromegaly. CARDIOVASCULAR: S1 and S2 present. No murmurs, rubs, or gallops. PULMONARY: Chest is clear to auscultation, no wheezing or crackles. ABDOMEN: Soft, nontender, nondistended, normoactive bowel sounds. No palpable organomegaly. MUSCULOSKELETAL: No joint swelling or deformity. -EXTREMITIES: No cyanosis, clubbing, . Bilateral pitting leg edema NEUROLOGICAL: Gross neurological examination did not reveal any focal deficits. -SKIN: No rashes. No petechiae. She has a bruise on her forehead with some swelling, and Mohamud Arnold both eyes Results CBC & Chem 7: 07/19/21 13:45 07/19/21 13:45 Labs: Abnormal Lab Results - Last 24 Hours (Table) 07/19/21 07/19/21 07/19/21 Range/Units 13:45 13:45 13:45 RBC 3.08 L (3.80-5.40) m/uL Hgb 9.7 L D (11.4-16.0) gm/dL Hct 27.9 L (34.0-46.0) % D-Dimer 4.11 H (<0.60) mg/L FEU Sodium 135 L (137-145) mmol/L Carbon Dioxide 32 H (22-30) mmol/L BUN 28 H (7-17) mg/dL Creatinine 1.08 H (0.52-1.04) mg/dL Glucose 144 H (74-99) mg/dL AST 52 H (14-36) U/L ALT 40 H (4-34) U/L Total Protein 4.7 L (6.3-8.2) g/dL Albumin 2.2 L (3.5-5.0) g/dL Assessment and Plan Assessment: Fall with head trauma with a bruise on both eyes and forehead Size weakness and deconditioning Altered mental status, could be elements of vascular dementia given her multiple strokes maybe also some elements of metabolic encephalopathy Anasarca multifactorial most likely contributing to acute on chronic diastolic CHF with ejection fraction of more than 70% Chronic kidney disease stage III Mildly elevated liver enzymes Degenerative disc disease especially at C5 to C6 Vascular dementia with possible elements of Alzheimer dementia Multiple hospitalization Hypothyroidism History of seizure Diabetes mellitus Hypertension History of CVA/TIA Plan: This is a pleasant 81 years old female who presents with fall and altered mental status and deconditioning Continue with neuro check, neurology service consult Saw the patient on Lasix 20 mg twice daily fluid restriction We'll check liver ultrasound Continue with insulin sliding scale Check your the bladder scan and urinalysis Recheck thyroid function tests, liver enzymes and ammonia and B12/folate Labs and medication were reviewed.. Continue same treatment. Continue with symptomatic treatment. Resume home medication. Monitor lytes and vitals. DVT and GI prophylaxis. Further recommendations depends on the clinical course of the patient DVT prophylaxis: Subcutaneous heparin GI Prophylaxis: Pepcid PT/OT: Pending Prognosis is guarded discussed CODE STATUS with the , he going to consider it with his son told and till then she remains full code and he agrees with that
[2021-07-19 23:10] LABS: Appearance,Urine Clear (Clear); Bacteria,Urine Rare /hpf; Bilirubin,Urine Negative (Negative); Blood,Urine Moderate (Negative); Color,Urine Light Yellow; Glucose,Urine (UA) Negative (Negative); Ketones,Urine Negative (Negative); Leukocyte Esterase,Urine Small (Negative); Nitrite,Urine Negative (Negative); PH, Urine 7.5 (5.0-8.0); Protein,Urine 1+ (Negative); RBC,Urine 57 /hpf (0-5); Specific Gravity,Urine 1.012 (1.001-1.035); Urobilinogen,Urine <2.0 mg/dL (<2.0); WBC,Urine 6 /hpf (0-5)
[2021-07-20] MEDS ORDERED: LEVOTHYROXINE 112 MCG TAB PO SCH (06:00)
[2021-07-20 07:22] LABS: Glucose,Whole Blood 69 mg/dL (75-99)
[2021-07-20 07:31] LABS: Glucose,Whole Blood 84 mg/dL (75-99)
[2021-07-20 07:50] LABS: ALT 29 U/L (4-34); AST 36 U/L (14-36); African American GFR (CKD) 52 (>60 ml/min/1.73 sqM); Albumin 1.9 g/dL (3.5-5.0); Albumin/Globulin Ratio 0.9; Alkaline Phosphatase 89 U/L (38-126); Anion Gap 2 mmol/L; Blood Urea Nitrogen 26 mg/dL (7-17); Calcium 8.2 mg/dL (8.4-10.2); Carbon Dioxide 33 mmol/L (22-30); Chloride 102 mmol/L (98-107); Globulin 2.2 g/dL; Glucose 63 mg/dL (74-99); Magnesium 2.1 mg/dL (1.6-2.3); Non-African American GFR(CKD) 45 (>60 ml/min/1.73 sqM); Sodium 137 mmol/L (137-145); Total Bilirubin 0.3 mg/dL (0.2-1.3); Total Protein 4.1 g/dL (6.3-8.2)
[2021-07-20] MEDS ORDERED: FAMOTIDINE 20 MG TAB PO SCH (08:00)
[2021-07-20] MEDS ORDERED: TICAGRELOR 90 MG TAB PO SCH (08:00)
[2021-07-20] MEDS ORDERED: lisinopriL 20 MG TAB PO SCH (08:00)
[2021-07-20] MEDS: INSULIN ASPART (NovoLOG) 100 UNIT/ML VIAL SQ SCH ×4 (08:49→23:06)
[2021-07-20 09:20] LABS: Basophils # (A) 0.04 X 10*3/uL (0.00-0.10); Basophils % (A) 0.8 %; Eosinophils # (A) 0.12 X 10*3/uL (0.04-0.35); Eosinophils % (A) 2.5 %; HCT 24.9 % (37.2-46.3); HGB 7.6 g/dL (12.0-15.0); Lymphocytes # (A) 1.35 X 10*3/uL (0.90-5.00); Lymphocytes % (A) 28.5 %; MCH 29.6 pg (27.0-32.0); MCHC 30.5 g/dL (32.0-37.0); MCV 96.9 fL (80.0-97.0); Mean Platelet Volume 9.9 fL (9.5-12.2); Monocytes # (A) 0.33 X 10*3/uL (0.20-1.00); Neutrophils # (A) 2.86 X 10*3/uL (1.80-7.70); Neutrophils % (A) 60.6 %; Platelet Count 223 X 10*3/uL (140-440); RBC 2.57 X 10*6/uL (4.10-5.20); RDW 14.6 % (11.5-14.5); WBC 4.73 X 10*3/uL (4.50-10.00)
[2021-07-20] MEDS: carvediloL 12.5 MG TAB PO SCH ×2 (09:27→17:17)
[2021-07-20] MEDS: FUROSEMIDE 10 MG/ML 2 ML VIAL IV SCH ×2 (09:27→23:40)
[2021-07-20] MEDS ORDERED: LEVOTHYROXINE 25 MCG TAB PO ONE (11:18)
--- NOTE | 2021-07-20 11:19 | P.PN ---
Subjective This is a pleasant 72 female with past medical history of CVA/TIA, Diabetes Mellitus, Hyperlipidemia, Hypertension, she was recently discharged from the hospital yesterday for stroke and 2 seizures (thought secondary to UTI and her stroke and hypoglycemia then) and she was discharged to [facility] for rehab. She is normally a community ambulate without any assistance. Patient is poor historian omission were obtained with the help of the Mr. Pepe at bedside and nephew. As per patient has been confused over the last 3 days and actually he thinks today she is even more awake than when she left the hospital yesterday. As per family they have been told patient was trying to get up by herself and she fell on her face with resultant a bruise on her forehead and around both her eyes. She is awake and alert now, she knows she is an [facility] and knows it is June but she could not tell a year or the name of the president but she could recognize her at bed side and his name She denies any pain. She denies headache or chest pain or abdominal pain. No leg pain. She could move both upper and lower extremities slowly and symmetrically. She denies double vision or blurred vision. No slurred speech. She denies any urinary or bowel complaints. However patient looks very weak and somewhat confused and does not follow all but only some of commands appropriately, As per patient has first stroke in 12/2020, she was diagnosed with Covid within 1 month after that, she fell at home on January this year and she broke her right femur, right shoulder blade and few ribs before she come back to the hospital already this month for stroke and altered mental status Also recently she has abnormal labs with hyperthyroidism with a free T4 of 0.6 and high TSH of 110. Recently her vitamin B12 was low normal at 331 Vitas looks stable Labs are unremarkable CBC however her hemoglobin is 9.7 which is similar to one week ago INR is 0.9, d-dimer is elevated at 4.1 Sodium 135, creatinine 1.08. Bilirubin is normal 0.4 and mildly elevated AST 52 and ALT 40. Carson negative less than 0.012. ProBNP is mildly elevated at 2210 Coronavirus not detected CTA of the chest: Small to moderate bilateral pleural effusion. Some compressive atelectasis find this may be worsened overall, moderate pericardial effusion no PE CT of the brain: No acute process. There is atrophy with mild chronic appearing periventricular white matter ischemic changes. No acute infarct per radiologist CT of the cervical spine no fracture. Degenerative disc changes and foraminal narrowing greatest at C5-C6 Chest x-ray: Cardiomegaly with pulmonary venous congestion and small effusion Echocardiogram on 07/08: Ejection fraction more than 70%. Moderate LVH MRI of the brain on 07/10: Acute tiny anterior left periventricular infarct. Marked white matter disease. Left parietal lobe encephalomalacia She has liver ultrasound on 06/27 showing large stone filling the gallbladder. An emergency room patient was started on normal saline 07/20/2021 Patient today is still awake and alert but confused similar to yesterday. She knows she is an [facility] but she is disoriented to time and percent. She denies any specific complaints. No headache or weakness or numbness. No chest pain or dyspnea. No coughing. No abdominal pain. No urinary complaints or diarrhea. Has external urine catheter and she has good urine output per staff about it hasn't been calculated yet. She is on fluid restriction Is hemodynamically stable. Blood pressure is 137/62. Her home dose of hydralazine is a still on hold. She was hypoglycemic this morning 60 01/28/2084. Her metformin and glimepiride were on hold since admission. Her hemoglobin dropped 9.7 down to 7.6. Reglan to repeat hemoglobin tonight and transfuse as it is less than 7. She is on aspirin and purulent but no subcu heparin, for her recent history of stroke and cardiac problems. Her liver enzymes back to normal and she has contracted gallbladder. Urine analysis showing some blood but there is also suspicion of infection. We are going to repeat urine analysis and sent for urine culture. Currently she is on IV Lasix 20 mg twice a day We will do anemia workup, surgery team already been consulted for gallbladder disease and also for anemia I talked to the yesterday is going to discuss it with the rest of the family including his son to decide if to make patient DO NOT RESUSCITATE, he understands and agrees she remains full court told them Review of Systems -CONSTITUTIONAL: No fever, no malaise, but she has generalized fatigue. HEENT: No recent visual problems or hearing problems. Denied any sore throat. CARDIOVASCULAR: No orthopnea, PND, no palpitations, no syncope. PULMONARY: No shortness of breath, no cough, no hemoptysis. GASTROINTESTINAL: No diarrhea, no nausea, no vomiting, no abdominal pain. Normoa ctive bowel sounds. NEUROLOGICAL: No headaches, no weakness, no numbness. HEMATOLOGICAL: Denies any bleeding or petechiae. Active Medications Generic Name Dose Route Start Last Admin Trade Name Freq PRN Reason Stop Dose Admin Aspirin 81 mg 07/20/21 17:00 Aspirin 81 Mg PO DAILY@1700 [facility] Atorvastatin Calcium 80 mg 07/19/21 21:00 07/19/21 22:06 Atorvastatin 80 Mg Tab PO Not Given HS@2100 [facility] Bisacodyl 10 mg 07/19/21 17:03 Bisacodyl 10 Mg Supp RECTAL DAILY PRN Constipation Carvedilol 12.5 mg 07/20/21 08:00 07/20/21 09:27 Carvedilol 12.5 Mg Tab PO 12.5 mg BID@0800,1700 [facility] Administration Famotidine 20 mg 07/20/21 08:00 07/20/21 09:26 Famotidine 20 Mg Tab PO 20 mg DAILY@0800 [facility] Administration Furosemide 20 mg 07/19/21 17:05 07/20/21 09:27 Furosemide 10 Mg/Ml 2 Ml Vial IV 20 mg BID ARASH Administration Insulin Aspart 0 unit 07/19/21 17:30 07/20/21 08:49 Insulin Aspart (Novolog) 100 Unit/Ml Vial SQ Not Given ACHS [facility] Protocol Levetiracetam 750 mg 07/20/21 08:00 07/20/21 09:28 Levetiracetam 750 Mg Tab PO 750 mg BID@0800,2100 [facility] Administration Levothyroxine Sodium 112 mcg 07/20/21 06:00 07/20/21 06:07 Levothyroxine 112 Mcg Tab PO 112 mcg DAILY@0600 [facility] Administration Lisinopril 20 mg 07/20/21 08:00 07/20/21 09:27 Lisinopril 20 Mg Tab PO 20 mg BID@0800,1700 [facility] Administration Naloxone HCl 0.2 mg 07/19/21 17:38 Naloxone 0.4 Mg/Ml 1 Ml Vial IV Q2M PRN Opioid Reversal Ticagrelor 90 mg 07/20/21 08:00 07/20/21 09:26 Ticagrelor 90 Mg Tab PO 90 mg BID@0800,1700 ARASH Administration Objective - Vital Signs Vital signs: Vital Signs Temp 97.7 F 07/20/21 08:00 Pulse 62 07/20/21 08:00 Resp 16 07/20/21 08:00 BP 137/62 07/20/21 08:00 Pulse Ox 96 07/20/21 08:00 Intake & Output 07/19/21 07/20/21 07/20/21 18:59 06:59 18:59 Weight 67.268 kg 67.268 kg Other: Voiding Method External Catheter # Voids 1 - Exam -GENERAL: The patient is alert and oriented x2 to place with partially to person and time, not in any acute distress. Well developed, well nourished. Generally weak and deconditioned HEENT: Pupils are round and equally reacting to light. EOMI. No scleral icterus. No conjunctival pallor. Normocephalic, atraumatic. No pharyngeal erythema. No thyromegaly. CARDIOVASCULAR: S1 and S2 present. No murmurs, rubs, or gallops. PULMONARY: Chest is clear to auscultation, no wheezing or crackles. ABDOMEN: Soft, nontender, nondistended, normoactive bowel sounds. No palpable organomegaly. MUSCULOSKELETAL: No joint swelling or deformity. -EXTREMITIES: No cyanosis, clubbing, . Bilateral pitting leg edema NEUROLOGICAL: Gross neurological examination did not reveal any focal deficits. -SKIN: No rashes. No petechiae. She has a bruise on her forehead with some swelling, and bruise around both eyes, looks better than on admission - Labs CBC & Chem 7: 07/20/21 05:50 07/20/21 05:50 Labs: Abnormal Lab Results - Last 24 Hours (Table) 07/19/21 07/19/21 07/19/21 Range/Units 13:45 13:45 13:45 RBC 3.08 L (3.80-5.40) m/uL Hgb 9.7 L D (11.4-16.0) gm/dL Hct 27.9 L (34.0-46.0) % MCHC (32.0-37.0) g/dL RDW (11.5-14.5) % D-Dimer 4.11 H (<0.60) mg/L FEU Sodium 135 L (137-145) mmol/L Carbon Dioxide 32 H (22-30) mmol/L BUN 28 H (7-17) mg/dL Creatinine 1.08 H (0.52-1.04) mg/dL Glucose 144 H (74-99) mg/dL POC Glucose (mg/dL) (75-99) mg/dL Calcium (8.4-10.2) mg/dL AST 52 H (14-36) U/L ALT 40 H (4-34) U/L Total Protein 4.7 L (6.3-8.2) g/dL Albumin 2.2 L (3.5-5.0) g/dL TSH (0.465-4.680) mIU/L Urine Protein (Negative) Urine Blood (Negative) Ur Leukocyte Esterase (Negative) Urine RBC (0-5) /hpf Urine WBC (0-5) /hpf Urine Bacteria (None) /hpf 07/19/21 07/19/21 07/19/21 Range/Units 18:04 21:20 22:49 RBC (3.80-5.40) m/uL Hgb (11.4-16.0) gm/dL Hct (34.0-46.0) % MCHC (32.0-37.0) g/dL RDW (11.5-14.5) % D-Dimer (<0.60) mg/L FEU Sodium (137-145) mmol/L Carbon Dioxide (22-30) mmol/L BUN (7-17) mg/dL Creatinine (0.52-1.04) mg/dL Glucose (74-99) mg/dL POC Glucose (mg/dL) 112 H 102 H (75-99) mg/dL Calcium (8.4-10.2) mg/dL AST (14-36) U/L ALT (4-34) U/L Total Protein (6.3-8.2) g/dL Albumin (3.5-5.0) g/dL TSH (0.465-4.680) mIU/L Urine Protein 1+ H (Negative) Urine Blood Moderate H (Negative) Ur Leukocyte Esterase Small H (Negative) Urine RBC 57 H (0-5) /hpf Urine WBC 6 H (0-5) /hpf Urine Bacteria Rare H (None) /hpf 07/20/21 07/20/21 07/20/21 Range/Units 05:50 05:50 07:13 RBC 2.57 L (3.80-5.40) m/uL Hgb 7.6 L (11.4-16.0) gm/dL Hct 24.9 L (34.0-46.0) % MCHC 30.5 L (32.0-37.0) g/dL RDW 14.6 H (11.5-14.5) % D-Dimer (<0.60) mg/L FEU Sodium (137-145) mmol/L Carbon Dioxide 33 H (22-30) mmol/L BUN 26 H (7-17) mg/dL Creatinine 1.16 H (0.52-1.04) mg/dL Glucose 63 L (74-99) mg/dL POC Glucose (mg/dL) 69 L (75-99) mg/dL Calcium 8.2 L (8.4-10.2) mg/dL AST (14-36) U/L ALT (4-34) U/L Total Protein 4.1 L (6.3-8.2) g/dL Albumin 1.9 L (3.5-5.0) g/dL TSH 80.000 H (0.465-4.680) mIU/L Urine Protein (Negative) Urine Blood (Negative) Ur Leukocyte Esterase (Negative) Urine RBC (0-5) /hpf Urine WBC (0-5) /hpf Urine Bacteria (None) /hpf Assessment and Plan Assessment: Fall with head trauma with a bruise on both eyes and forehead Generalized weakness and deconditioning Altered mental status, could be elements of vascular dementia given her multiple strokes maybe also some elements of metabolic encephalopathy Anasarca multifactorial most likely contributing to acute on chronic diastolic CHF with ejection fraction of more than 70% anemia with a drop in hemoglobin Abnormal urine analysis, rule out UTI Chronic kidney disease stage III Mildly elevated liver enzymes Degenerative disc disease especially at C5 to C6 Vascular dementia with possible elements of Alzheimer dementia Multiple hospitalization Hypothyroidism History of seizure Diabetes mellitus Hypertension History of CVA/TIA Plan: This is a pleasant 81 years old female who presents with fall and altered mental status and deconditioning Continue with neuro check, neurology service consult continue on Lasix 20 mg twice daily We'll check liver and renal ultrasound Continue with insulin sliding scale Check your the bladder scan and urinalysis and urine culture Increased dose of levothyroxine 112 of 237. Labs and medication were reviewed.. Continue same treatment. Continue with symptomatic treatment. Resume home medication. Monitor lytes and vitals. DVT and GI prophylaxis. Further recommendations depends on the clinical course of the patient DVT prophylaxis: No Subcutaneous heparin. Because of anemia and already on aspirin and Vicryl in the GI Prophylaxis: Pepcid PT/OT: Pending Prognosis is guarded discussed CODE STATUS with the , he going to consider it with his son told and till then she remains full code and he agrees with that
--- NOTE | 2021-07-20 12:30 | P.CRDCN ---
History of Present Illness History of present illness: HISTORY OF PRESENTING ILLNESS This is a 81-year-old female with a past medical history of recent CVA 06/2021, Seizure 06/2021, recent diagnosis of PFO on JOSE 07/18/21, CVA in 12/2020, left MCA stenosis, femur fracture 01/2021, type 2 diabetes, hyperlipidemia, hypertension. She does not follow with a financial associate. We have been asked to see in consultation for CHF and fall. Patient is a poor historian, HPI obtained from chart review. Patient was recently discharged from the hospital yesterday for stroke and 2 seizures, cardiology was consulted for a JOSE which was performed and patient was found to have a PFO. 30 day event monitor was recommended, however patient was dischared to [facility] for rehab and recommended to follow up with Dr. Jansen in one week. Apparently, patient has been more confused over the last 3 days, difficulty to arouse, the patient was trying to get up by herself and she fell on her face with resultant a bruise on her forehead and around both her eyes. Patient unfortunately cannot give specifics of what occurred but she does remember falling, it is unclear if the patient passed out. She denies any chest pain, shortness of breath, lightheadedness, dizziness, palpitations. She is lying in bed comfortably. DIAGNOSTICS EKG reveals sinus rhythm, artifact noted, HR 67, PVC. Telemetry tracings indicate sinus rhythm, heart rate 5560s, occasional PVCs, no arrhythmia or pauses noted. Chest xray cardiomegaly with pulmonary venous congestion. Small pleural effusions. CT chest revealed small to moderate pleural effusions findings have worsened with interval. Moderate pericardial effusion. Pelvis x-ray with no fracture. Liver ultrasound- contracted gallbladder with stones, no evidence of obstruction CT head and cervical spine revealed mild chronic appearing periventricular white matter ischemic changes. Degenerative disc changes Laboratory reviewed WBCs 4.7, hemoglobin 7.6, platelets 223, sodium 137, potassium 4.0, BUN 26, serum creatinine 1.16, troponin negative x3, Pro BNP 2210, TSH elevated, free T4 pending, D Dimer 4.1. Current cardiac medications include carvedilol 12.5 mg twice a day, Lasix 20 mg IV twice a day, lisinopril 20 mg twice a day, Brilinta 90 mg twice a day, aspirin 81 mg daily, atorvastatin 80 mg nightly REVIEW OF SYSTEMS At the time of my exam: CONSTITUTIONAL: Denies fever or chills. CARDIOVASCULAR: Denies chest pain, shortness of breath, orthopnea, PND or palpitations. RESPIRATORY: Denies cough. GASTROINTESTINAL: Denies abdominal pain, diarrhea, constipation, nausea or vomiting. MUSCULOSKELETAL: Denies myalgias. NEUROLOGIC: Denies numbness, tingling, headacbe or weakness. ENDOCRINE: Denies fatigue, weight change, polydipsia or polyurina. GENITOURINARY: Denies burning, hematuria or urgency with micturation. HEMATOLOGIC: Denies history of anemia or bleeding. PHYSICAL EXAMINATION Blood pressure 137/62, heart rate 62, afebrile, maintaining saturations on room air. CONSTITUTIONAL: No apparent distress. HEENT: Head is normocephalic. Bruising forehead and bilateral eyes. Sclerae anicteric. Mucous membranes of the mouth are moist. No JVD. No carotid bruit. CHEST EXAMINATION: Lungs are diminished bases to auscultation. No chest wall tenderness is noted on palpation or with deep breathing. HEART EXAMINATION: Regular rate and rhythm. S1, S2 heard. No murmurs, gallops or rub. ABDOMEN: Soft, nontender. Positive bowel sounds. EXTREMITIES: 2+ peripheral pulses, 2+ lower extremity edema and no calf tenderness. NEUROLOGIC EXAMINATION: Patient is awake,alert oriented to herself only. ASSESSMENT: Fall, possibly syncopal episode vs debility Lower extremity edema, elevated proBNP possibly related to acute diastolic heart failure Acute Kidney Injury Anemia- hgb 7.6 today from 9.7 Recent Seizure May 2021 Recent CVA May 2021 involving the anterior left periventricular region. Recent Diagnosis of PFO on JOSE 07/18/21 History CVA left parietal ischemic stroke December 2020 Old left MCA stensois involving M1 December 2020 Acute respiratory distress requiring intubation and ventilation because of seizure, extubated on 07/08 History of Covid-19 in January 2021. Hypertension Hypothyroidism, started on Synthroid. Hyperlipidemia Type 2 Diabetes PLAN: -Continue cardiac telemetry -Continue IV diuresis, monitor patient's renal function and electrolytes -Patient with drop in her hemoglobin, monitor cbc -Recommend 30 day event monitor prior to discharge -Continue current medical therapy -Further recommendations based on clinical course Nurse Practitioner note has been reviewed, I agree with a documented findings and plan of care. Patient was seen and examined. Past Medical History Past Medical History: CVA/TIA, Diabetes Mellitus, Hyperlipidemia, Hypertension Additional Past Medical History / Comment(s): Last month the patient was hospitalized due to a cerebrovascular accident. Reportedly she did not have any motor loss. The son states that she had some speech changes since then and possibly some cognition changes the time. She is normally a community ambulate without any assistance. History of Any Multi-Drug Resistant Organisms: None Reported Past Surgical History: No Surgical Hx Reported Additional Past Surgical History / Comment(s): CATRACTS ABBE 2000 Past Anesthesia/Blood Transfusion Reactions: No Reported Reaction Past Psychological History: No Psychological Hx Reported Smoking Status: Never smoker Past Alcohol Use History: Occasional Past Drug Use History: None Reported - Past Family History Father Family Medical History: No Reported History Mother Family Medical History: No Reported History Medications and Allergies Home Medications Medication Instructions Recorded Confirmed Type Glimepiride [Amaryl] 2 mg PO BID@0800,1700 12/26/20 07/19/21 History metFORMIN HCL [Glucophage] 500 mg PO BID@0800,1700 12/26/20 07/19/21 History Multivit with Calcium,Iron,Min 1 tab PO DAILY@1700 07/07/21 07/19/21 History [Women's Multivitamin] Atorvastatin [Lipitor] 80 mg PO HS@2100 07/18/21 07/19/21 History Levothyroxine Sodium [Synthroid] 112 mcg PO DAILY@0600 07/18/21 07/19/21 History Magnesium Hydroxide [Milk of 7,200 mg PO DAILY PRN 07/18/21 07/19/21 History Magnesia Concentrate] Na Phos,M-B/Na Phos,Di-Ba [Fleet 133 ml RECTAL DAILY PRN 07/18/21 07/19/21 History Adult] bisacodyL [Dulcolax] 10 mg RECTAL DAILY PRN 07/18/21 07/19/21 History Aspirin 81 mg PO DAILY@17007/19/21 07/19/21 History Famotidine [Pepcid] 20 mg PO DAILY@0800 07/19/21 07/19/21 History Furosemide [Lasix] 40 mg PO DAILY@0807/19/21 07/19/21 History Ticagrelor [Brilinta] 90 mg PO BID@0800,1700 07/19/21 07/19/21 History carvediloL [Coreg*] 12.5 mg PO BID@0800,1700 07/19/21 07/19/21 History hydrALAZINE HCL [Apresoline] 75 mg PO TID@0600,1400,2200 07/19/21 07/19/21 History levETIRAcetam [Keppra] 500 mg PO BID@0800,2100 07/19/21 07/19/21 History lisinopriL [Zestril] 20 mg PO BID@0800,1700 07/19/21 07/19/21 History Allergies Allergy/AdvReac Type Severity Reaction Status Date / Time No Known Allergies Allergy Verified 07/19/21 12:57 Physical Exam Vitals: Vital Signs Temp Pulse Pulse Resp BP BP Pulse Ox 07/20/21 08:00 97.7 F 62 16 137/62 96 07/20/21 02:00 97.6 F 63 17 135/64 95 07/19/21 22:45 62 20 121/57 95 07/19/21 19:33 97.8 F 69 16 151/63 94 L 07/19/21 19:26 62 20 129/61 96 07/19/21 18:05 98.2 F 66 16 131/61 95 07/19/21 12:25 97.9 F 70 18 130/65 100 Intake and Output 07/19/21 07/20/21 07/20/21 22:59 06:59 14:59 Other: Voiding Method External Catheter # Voids 1 Weight 67.268 kg Results 07/20/21 05:50 07/20/21 05:50 Cardiac Enzymes 07/19/21 07/19/21 07/19/21 Range/Units 13:45 13:45 20:41 AST 52 H (14-36) U/L Troponin I <0.012 <0.012 (0.000-0.034) ng/mL 07/20/21 07/20/21 Range/Units 01:20 05:50 AST 36 (14-36) U/L Troponin I <0.012 (0.000-0.034) ng/mL Coagulation 07/19/21 Range/Units 13:45 PT 10.1 (9.0-12.0) sec APTT 23.1 (22.0-30.0) sec CBC 07/19/21 Range/Units 13:45 WBC 6.0 (3.8-10.6) k/uL RBC 3.08 L (3.80-5.40) m/uL Hgb 9.7 L D (11.4-16.0) gm/dL Hct 27.9 L (34.0-46.0) % Plt Count 267 (150-450) k/uL Comprehensive Metabolic Panel 07/19/21 07/20/21 Range/Units 13:45 05:50 Sodium 135 L 137 (137-145) mmol/L Potassium 4.7 4.0 (3.5-5.1) mmol/L Chloride 102 102 (98-107) mmol/L Carbon Dioxide 32 H 33 H (22-30) mmol/L BUN 28 H 26 H (7-17) mg/dL Creatinine 1.08 H 1.16 H (0.52-1.04) mg/dL Glucose 144 H 63 L (74-99) mg/dL Calcium 8.4 8.2 L (8.4-10.2) mg/dL AST 52 H 36 (14-36) U/L ALT 40 H 29 (4-34) U/L Alkaline Phosphatase 104 89 (38-126) U/L Total Protein 4.7 L 4.1 L (6.3-8.2) g/dL Albumin 2.2 L 1.9 L (3.5-5.0) g/dL Current Medications Generic Name Dose Route Start Last Admin Trade Name Rory PRN Reason Stop Dose Admin Aspirin 81 mg 07/20/21 17:00 Aspirin 81 Mg PO DAILY@1700 [facility] Atorvastatin Calcium 80 mg 07/19/21 21:00 07/19/21 22:06 Atorvastatin 80 Mg Tab PO Not Given HS@2100 [facility] Bisacodyl 10 mg 07/19/21 17:03 Bisacodyl 10 Mg Supp RECTAL DAILY PRN Constipation Carvedilol 12.5 mg 07/20/21 08:00 07/20/21 09:27 Carvedilol 12.5 Mg Tab PO 12.5 mg BID@0800,1700 [facility] Administration Famotidine 20 mg 07/20/21 08:00 07/20/21 09:26 Famotidine 20 Mg Tab PO 20 mg DAILY@0800 [facility] Administration Furosemide 20 mg 07/19/21 17:05 07/20/21 09:27 Furosemide 10 Mg/Ml 2 Ml Vial IV 20 mg BID [facility] Administration Insulin Aspart 0 unit 07/19/21 17:30 07/20/21 08:49 Insulin Aspart (Novolog) 100 Unit/Ml Vial SQ Not Given ACHS [facility] Protocol Levetiracetam 750 mg 07/20/21 08:00 07/20/21 09:28 Levetiracetam 750 Mg Tab PO 750 mg BID@0800,2100 [facility] Administration Levothyroxine Sodium 112 mcg 07/20/21 06:00 07/20/21 06:07 Levothyroxine 112 Mcg Tab PO 112 mcg DAILY@0600 [facility] Administration Lisinopril 20 mg 07/20/21 08:00 07/20/21 09:27 Lisinopril 20 Mg Tab PO 20 mg BID@0800,1700 [facility] Administration Naloxone HCl 0.2 mg 07/19/21 17:38 Naloxone 0.4 Mg/Ml 1 Ml Vial IV Q2M PRN Opioid Reversal Ticagrelor 90 mg 07/20/21 08:00 07/20/21 09:26 Ticagrelor 90 Mg Tab PO 90 mg BID@0800,1700 [facility] Administration Intake and Output 07/19/21 07/20/21 07/20/21 22:59 06:59 14:59 Other: Voiding Method External Catheter # Voids 1 Weight 67.268 kg 07/19/21 13:45 07/20/21 05:50
--- NOTE | 2021-07-20 13:00 | US ---
EXAMINATION TYPE: US venous doppler duplex LE BI DATE OF EXAM: 07/20/2021 8:29 AM COMPARISON: NONE CLINICAL HISTORY: 81-year-old female swelling . SIDE PERFORMED: Bilateral TECHNIQUE: The lower extremity deep venous system is examined utilizing real time linear array sonog jose elias with graded compression, doppler sonography and color-flow sonography. FINDINGS: VESSELS IMAGED: Common Femoral Vein Deep Femoral Vein Greater Saphenous Vein * Femoral Vein Popliteal Vein Small Saphenous Vein * Proximal Calf Veins (* superficial vessels) Right pop fossa cyst with suggestion of thickened internal synovium measuring 3.7x1.1x1.4cm subcutane ous soft tissue swelling is seen on both sides. Right Leg: Negative for DVT Left Leg: Negative for DVT IMPRESSION: 1. No evidence for DVT within the bilateral lower extremities imaged from the groin to the upper calv es. 2. Bilateral subcutaneous soft tissue swelling. 3. A small, complex 3.7 cm Ellis's cyst on the right.
[2021-07-20] MEDS: PANTOPRAZOLE 40 MG/10 ML VIAL IVP SCH (13:07)
--- NOTE | 2021-07-20 13:47 | P.CNNES ---
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 Per the ED note she was normal the morning prior to that presented to the hospital then around 11 AM the patient reportedly had decreased responsiveness and had to be aggressively aroused. The patient is known to our neurology team at and was recently seen and had stroke and seizure workup and was recently discharged on 07/18/2021. Next As stated earlier the patient is known to our neurology team and initially was seen on 07/08/2021 for seizure and stroke like symptoms. Was noted the patient has new onset seizure as well as acute tiny ischemic stroke involving the anterior left periventricular region. She had encephalopathy and it was also felt that encephalopathy were due to the hypoglycemia as well as underlying UTI. Patient had a routine EEG and was reported the as moderate focal slowing in the left temporal region, suggestive of focal cortical neuronal dysfunction, may be underlying structural abnormality. No obvious epileptiform activity was seen. Also revealed generalized slowing and disorganization of the background consistent with encephalopathy. Patient had 2-1/2 hour EEG on 07/18/2021 and pending final report but the preliminary the eye was notified that it showed left temporal parietal sharps with rhythmic left delta. No seizures As I mentioned the patient had MRI of the brain and it showed the stroke which was a tiny the region she also had CT angiography of the head and neck which was negative. Patient had a transesophageal echocardiogram on 07/10/2021 and at was a revealed the patient has presence of PFO. No clot in the left atrial appendage. Normal valvular function. Normal preservative ventricular function. Patient was to be on Keppra 500 mg 1 tablet twice a day. She was also to be on Berlant 90 mg 1 tablet twice a day and aspirin 81 mg daily. Also to be on Lipitor 80 milligrams daily. As stated earlier patient was discharged on 07/18/2021 from our facility Some of the workup in our facility consisted of: Initial vital signs was blood pressure 130/65, heart rate of 70, respiratory of 18, temperature of 97.9 Fahrenheit oral and pulse ox of 100% room air. Blood cell is 6.0 thousand. Sugar level 63 and repeated is 69. CT of the head is reported as a atrophy with mild chronic-appearing periventricular white matter ischemic changes. CT cervical spine reported as degenerative disc changes and formal narrowing greatest at C5-C6. No acute osseous abnormality. Review of Systems Review of system is limited with apparent positive and negative as per HPI. Past Medical History Past Medical History: CVA/TIA, Diabetes Mellitus, Hyperlipidemia, Hypertension Additional Past Medical History / Comment(s): Last month the patient was hospitalized due to a cerebrovascular accident. Reportedly she did not have any motor loss. The son states that she had some speech changes since then and possibly some cognition changes the time. She is normally a community ambulate without any assistance. History of Any Multi-Drug Resistant Organisms: None Reported Past Surgical History: No Surgical Hx Reported Additional Past Surgical History / Comment(s): CATRACTS ABBE 2000 Past Anesthesia/Blood Transfusion Reactions: No Reported Reaction Past Psychological History: No Psychological Hx Reported Smoking Status: Never smoker Past Alcohol Use History: Occasional Past Drug Use History: None Reported - Past Family History Father Family Medical History: No Reported History Mother Family Medical History: No Reported History Medications and Allergies Home Medications Medication Instructions Recorded Confirmed Type Glimepiride [Amaryl] 2 mg PO BID@0800,1700 12/26/20 07/19/21 History metFORMIN HCL [Glucophage] 500 mg PO BID@0800,1700 12/26/20 07/19/21 History Multivit with Calcium,Iron,Min 1 tab PO DAILY@1700 07/07/21 07/19/21 History [Women's Multivitamin] Atorvastatin [Lipitor] 80 mg PO HS@2100 07/18/21 07/19/21 History Levothyroxine Sodium [Synthroid] 112 mcg PO DAILY@0600 07/18/21 07/19/21 History Magnesium Hydroxide [Milk of 7,200 mg PO DAILY PRN 07/18/21 07/19/21 History Magnesia Concentrate] Na Phos,M-B/Na Phos,Di-Ba [Fleet 133 ml RECTAL DAILY PRN 07/18/21 07/19/21 History Adult] bisacodyL [Dulcolax] 10 mg RECTAL DAILY PRN 07/18/21 07/19/21 History Aspirin 81 mg PO DAILY@1700 07/19/21 07/19/21 History Famotidine [Pepcid] 20 mg PO DAILY@0800 07/19/21 07/19/21 History Furosemide [Lasix] 40 mg PO DAILY@0800 07/19/21 07/19/21 History Ticagrelor [Brilinta] 90 mg PO BID@0800,1700 07/19/21 07/19/21 History carvediloL [Coreg*] 12.5 mg PO BID@0800,1700 07/19/21 07/19/21 History hydrALAZINE HCL [Apresoline] 75 mg PO TID@0600,1400,2200 07/19/21 07/19/21 History levETIRAcetam [Keppra] 500 mg PO BID@0800,2100 07/19/21 07/19/21 History lisinopriL [Zestril] 20 mg PO BID@0800,1700 07/19/21 07/19/21 History Allergies Allergy/AdvReac Type Severity Reaction Status Date / Time No Known Allergies Allergy Verified 07/19/21 12:57 Physical Examination - Vital Signs Vital Signs: Vital Signs Temp Pulse Pulse Resp BP BP Pulse Ox 07/20/21 08:00 97.7 F 62 16 137/62 96 07/20/21 02:00 97.6 F 63 17 135/64 95 07/19/21 22:45 62 20 121/57 95 07/19/21 19:33 97.8 F 69 16 151/63 94 L 07/19/21 19:26 62 20 129/61 96 07/19/21 18:05 98.2 F 66 16 131/61 95 07/19/21 12:25 97.9 F 70 18 130/65 100 Intake and Output 07/19/21 07/20/21 07/20/21 22:59 06:59 14:59 Other: # Voids 1 Weight 67.268 kg GENERAL: The patient is lying in bed and does not seem is not in acute distress. HENT: Echymoses around both eyes and middle of forehead. CHEST: The heart rate is regular rate rhythm. No murmurs to auscultation. No carotid bruit bilaterally. LUNG: Clear to auscultation bilaterally no wheezing noted throughout. Not labored breathing. ABDOMEN/GI: Bowel sounds present in all 4 quadrants. No tenderness to palpation throughout. NEUROLOGICAL: Higher mental function: The patient is awake, alert, oriented to self. He keep on repeating her date of . Rest of higher mental function is limited because of her cooperation. She has preservation and seems to have aphasia. She would imitate me (upon doing a fist, or thumbs up). Cranial nerves: The pupils are round, equal and reactive to light . No facial weakness. No dysarthria. Could not assess rest of cranial nerves because of her condition. Motor: Lifting upper and lower extremitiy above gravity and no drift (but could not asses individual muscle because of her cooperation). Normal tone and bulk. Cerebellum: Could not assess. Sensation: Could not assess. Reflexes (right/left): 2+ throughout except ankles are 1+ Plantars are mute bilaterally. Results - Laboratory Findings CBC and BMP: 07/20/21 17:01 07/20/21 05:50 Abnormal Lab Findings: Abnormal Labs 07/19/21 07/19/21 07/19/21 13:45 13:45 13:45 RBC 3.08 L Hgb 9.7 L D Hct 27.9 L D-Dimer 4.11 H Sodium 135 L Carbon Dioxide 32 H BUN 28 H Creatinine 1.08 H Glucose 144 H POC Glucose (mg/dL) Calcium AST 52 H ALT 40 H Total Protein 4.7 L Albumin 2.2 L TSH Urine Protein Urine Blood Ur Leukocyte Esterase Urine RBC Urine WBC Urine Bacteria 07/19/21 07/19/21 07/19/21 18:04 21:20 22:49 RBC Hgb Hct D-Dimer Sodium Carbon Dioxide BUN Creatinine Glucose POC Glucose (mg/dL) 112 H 102 H Calcium AST ALT Total Protein Albumin TSH Urine Protein 1+ H Urine Blood Moderate H Ur Leukocyte Esterase Small H Urine RBC 57 H Urine WBC 6 H Urine Bacteria Rare H 07/20/21 07/20/21 05:50 07:13 RBC Hgb Hct D-Dimer Sodium Carbon Dioxide 33 H BUN 26 H Creatinine 1.16 H Glucose 63 L POC Glucose (mg/dL) 69 L Calcium 8.2 L AST ALT Total Protein 4.1 L Albumin 1.9 L TSH 80.000 H Urine Protein Urine Blood Ur Leukocyte Esterase Urine RBC Urine WBC Urine Bacteria Assessment and Plan Assessment: Fall possibly due to syncopal episode. Cannot rule out seizures. Also because of recurrence of hypoglycemia on this past admission and current admission that can cause syncopal episodes and falls. Continues to have hypoglycemic events which can cause encephalopathy mimics seizures as well as strokes. Recent history seizure (06/2021. Just recent Prior admission) Acute tiny ischemic stroke involving the anterior left periventricular region (06/2021. 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 I was notified there is no seizures. I increased the Keppra from 500 mg 1 tablet twice a day to 750 mg 1 tablet twice a day Continue Brilinta 90mg 1 tab bid and aspirin 81 mg daily for secondary stroke prophylaxis. Continue Lipitor 80 mg daily. Every 4 hours neuro checks On cardiac monitoring PT, OT and [facility]NER are consulted Cardiology is consulted and they ordered an event monitor for 30 days. Regarding the C5-C6 spondylosis consider orthopedic consultation once the patient is better or the family desires to move forward for possible intervention. Please avoid any hypoglycemia and we'll defer the management to the primary team. We'll defer the thyroid management in the rest of medical management to the primary team. Thank you for the consultation. Brett Rich M.D. Neuro-hospitalist Time with Patient: Greater than 30
--- NOTE | 2021-07-20 13:58 | US ---
"EXAMINATION TYPE: US renals and bladder DATE OF EXAM: 07/20/2021 COMPARISON: CT abdomen and pelvis 04/30/2018 CLINICAL HISTORY: hematuria . Poor historian. Patient unable to turn on side. AMS. EXAM MEASUREMENTS: Right Kidney: 9.8 x 4.2 x 4.5 cm Left Kidney: 9.8 x 3.6 x 4.9 cm Right Kidney: Mild hydronephrosis stable. Left Kidney: Limited visualization due to bowel and patient supine position. Bladder: vascular mass visualized in right bladder = 4.7 x 4.0 x 3.5 cm with valentine scale, color Doppl er imaging performed There is no evidence for hydronephrosis at this point in time on the left. No nephrolithiasis is see n. No masses are identified. Cortical medullary differentiation is maintained. The urinary bladder is anechoic. Bilateral ureteral jets are seen. Incidental finding, right pleural effusion seen IMPRESSION: Incidental right pleural effusion as noted on patient's CT. Mild right-sided hydronephrosis be chroni c. Correlate for possible transitional cell carcinoma within the urinary bladder. A Yellow level critical message alert has been initiated for Tevin Rosario MD via the [employer] 36 0 | Critical Results System on 07/20/2021 1:55 PM. This message alert has been sent to Tevin Rosario MD via the preferences provided by the clinician for the receipt of Radiology Critical Findings. [facility] ID [id number]."
--- NOTE | 2021-07-20 14:19 | P.GSCN ---
History of Present Illness Consult date: 07/20/21 History of present illness: CHIEF COMPLAINT: Fall HISTORY OF PRESENT ILLNESS: This is a 81-year-old female who presented to the hospital after a fall with facial trauma at the snf. Patient had recent hospitalization for stroke and 2 seizures. Patient had mildly elevated LFTs. And a liver ultrasound was ordered revealing a contracted gallbladder with stones. No evidence of right renal obstruction. No dilated ducts. Common bile duct consistent with chronic gallbladder dysfunction. Surgical service was placed due to contracted gallbladder and gallstones. Patient is currently sitting up in bed. She is confused. There have been no reports of nausea or vomiting. She has been tolerating regular diet. And no complaints of abdominal pain. No blood reported in stools. PAST MEDICAL HISTORY: CVAs, Diabetes Mellitus, Hyperlipidemia, Hypertension, PAST SURGICAL HISTORY: Cataract surgery MEDICATIONS: See list. ALLERGIES: See list. SOCIAL HISTORY: No illicit drug use. REVIEW OF SYSTEMS: CONSTITUTIONAL: Denies fever or chills. HEENT: Denies blurred vision, vision changes, or eye pain. Denies hemoptysis CARDIOVASCULAR: Denies chest pain or pressure. RESPIRATORY: No shortness of breath. GASTROINTESTINAL: See HPI for pertinent findings HEMATOLOGIC: Denies bleeding disorders. GENITOURINARY: Denies any blood in urine or increased urinary frequency. SKIN: Denies pruitis. Denies rash. PHYSICAL EXAM: VITAL SIGNS: Reviewed GENERAL: Well-developed in no acute distress. HEENT: No sclera icterus. Extraocular movements grossly intact. Moist buccal mucosa. Head has facial bruising normocephalic. No nasal drainage. ABDOMEN: Soft. Nondistended. Nontender NEUROLOGIC: Pleasantly confused LABORATORY DATA: WBC 4.73 hemoglobin 9.7 down to 7.6 Sodium 137 potassium is 4.0 BUN is 26 creatinine is 1.16 AST 52 down to 36 ALT 40 down to 29 total bili normal at 0.3 TSH 80 Urinalysis small leukocyte esterase and moderate blood COVID-19 not detected IMAGING: Liver ultrasound as stated above Chest CTA small to moderate bilateral pleural effusions. Some compressive atelectasis at the left base. Moderate pericardial effusion. No acute pulmonary embolism. ASSESSMENT: 1. Chronic gallbladder dysfunction with Contracted gallbladder and gallstones noted on liver ultrasound. No abdominal pain 2. Anemia likely due to patient's facial trauma with facial bruising/hematoma and being on brilenta. Also could be dilutional from IV fluids. No black stools reported PLAN: -No surgical intervention planned -Further workup for dysfunctional gallbladder outpatient -Hold Brilenta due to the patient's anemia -Repeat CBC in a.m. -Monitor for any signs or symptoms of bleeding -Continue regular diet -Continue supportive care AQ for this consultation Physician Supervisor Stitching Department note has been reviewed by physician. Signing provider agrees with the documented findings, assessment, and plan of care. Past Medical History Past Medical History: CVA/TIA, Diabetes Mellitus, Hyperlipidemia, Hypertension Additional Past Medical History / Comment(s): Last month the patient was hospitalized due to a cerebrovascular accident. Reportedly she did not have any motor loss. The son states that she had some speech changes since then and possibly some cognition changes the time. She is normally a community ambulate without any assistance. History of Any Multi-Drug Resistant Organisms: None Reported Past Surgical History: No Surgical Hx Reported Additional Past Surgical History / Comment(s): CATRACTS ABBE 2000 Past Anesthesia/Blood Transfusion Reactions: No Reported Reaction Past Psychological History: No Psychological Hx Reported Smoking Status: Never smoker Past Alcohol Use History: Occasional Past Drug Use History: None Reported - Past Family History Father Family Medical History: No Reported History Mother Family Medical History: No Reported History Medications and Allergies Home Medications Medication Instructions Recorded Confirmed Type Glimepiride [Amaryl] 2 mg PO BID@0800,1700 12/26/20 07/19/21 History metFORMIN HCL [Glucophage] 500 mg PO BID@0800,1700 12/26/20 07/19/21 History Multivit with Calcium,Iron,Min 1 tab PO DAILY@1700 07/07/21 07/19/21 History [Women's Multivitamin] Atorvastatin [Lipitor] 80 mg PO HS@2100 07/18/21 07/19/21 History Levothyroxine Sodium [Synthroid] 112 mcg PO DAILY@0600 07/18/21 07/19/21 History Magnesium Hydroxide [Milk of 7,200 mg PO DAILY PRN 07/18/21 07/19/21 History Magnesia Concentrate] Na Phos,M-B/Na Phos,Di-Ba [Fleet 133 ml RECTAL DAILY PRN 07/18/21 07/19/21 History Adult] bisacodyL [Dulcolax] 10 mg RECTAL DAILY PRN 07/18/21 07/19/21 History Aspirin 81 mg PO DAILY@1700 07/19/21 07/19/21 History Famotidine [Pepcid] 20 mg PO DAILY@0800 07/19/21 07/19/21 History Furosemide [Lasix] 40 mg PO DAILY@0800 07/19/21 07/19/21 History Ticagrelor [Brilinta] 90 mg PO BID@0800,1700 07/19/21 07/19/21 History carvediloL [Coreg*] 12.5 mg PO BID@0800,1700 07/19/21 07/19/21 History hydrALAZINE HCL [Apresoline] 75 mg PO TID@0600,1400,2200 07/19/21 07/19/21 History levETIRAcetam [Keppra] 500 mg PO BID@0800,2100 07/19/21 07/19/21 History lisinopriL [Zestril] 20 mg PO BID@0800,1700 07/19/21 07/19/21 History Allergies Allergy/AdvReac Type Severity Reaction Status Date / Time No Known Allergies Allergy Verified 07/19/21 12:57 Surgical - Exam Vital Signs Temp Pulse Resp BP Pulse Ox 97.9 F 70 18 130/65 100 07/19/21 12:25 07/19/21 12:25 07/19/21 12:25 07/19/21 12:25 07/19/21 12:25 Results - Labs 07/20/21 05:50 07/20/21 05:50 Abnormal Lab Results - Last 24 Hours (Table) 07/19/21 07/19/21 07/19/21 Range/Units 13:45 13:45 13:45 RBC 3.08 L (3.80-5.40) m/uL Hgb 9.7 L D (11.4-16.0) gm/dL Hct 27.9 L (34.0-46.0) % MCHC (32.0-37.0) g/dL RDW (11.5-14.5) % D-Dimer 4.11 H (<0.60) mg/L FEU Sodium 135 L (137-145) mmol/L Carbon Dioxide 32 H (22-30) mmol/L BUN 28 H (7-17) mg/dL Creatinine 1.08 H (0.52-1.04) mg/dL Glucose 144 H (74-99) mg/dL POC Glucose (mg/dL) (75-99) mg/dL Calcium (8.4-10.2) mg/dL AST 52 H (14-36) U/L ALT 40 H (4-34) U/L Total Protein 4.7 L (6.3-8.2) g/dL Albumin 2.2 L (3.5-5.0) g/dL TSH (0.465-4.680) mIU/L Urine Protein (Negative) Urine Blood (Negative) Ur Leukocyte Esterase (Negative) Urine RBC (0-5) /hpf Urine WBC (0-5) /hpf Urine Bacteria (None) /hpf 07/19/21 07/19/21 07/19/21 Range/Units 18:04 21:20 22:49 RBC (3.80-5.40) m/uL Hgb (11.4-16.0) gm/dL Hct (34.0-46.0) % MCHC (32.0-37.0) g/dL RDW (11.5-14.5) % D-Dimer (<0.60) mg/L FEU Sodium (137-145) mmol/L Carbon Dioxide (22-30) mmol/L BUN (7-17) mg/dL Creatinine (0.52-1.04) mg/dL Glucose (74-99) mg/dL POC Glucose (mg/dL) 112 H 102 H (75-99) mg/dL Calcium (8.4-10.2) mg/dL AST (14-36) U/L ALT (4-34) U/L Total Protein (6.3-8.2) g/dL Albumin (3.5-5.0) g/dL TSH (0.465-4.680) mIU/L Urine Protein 1+ H (Negative) Urine Blood Moderate H (Negative) Ur Leukocyte Esterase Small H (Negative) Urine RBC 57 H (0-5) /hpf Urine WBC 6 H (0-5) /hpf Urine Bacteria Rare H (None) /hpf 07/20/21 07/20/21 07/20/21 Range/Units 05:50 05:50 07:13 RBC 2.57 L (3.80-5.40) m/uL Hgb 7.6 L (11.4-16.0) gm/dL Hct 24.9 L (34.0-46.0) % MCHC 30.5 L (32.0-37.0) g/dL RDW 14.6 H (11.5-14.5) % D-Dimer (<0.60) mg/L FEU Sodium (137-145) mmol/L Carbon Dioxide 33 H (22-30) mmol/L BUN 26 H (7-17) mg/dL Creatinine 1.16 H (0.52-1.04) mg/dL Glucose 63 L (74-99) mg/dL POC Glucose (mg/dL) 69 L (75-99) mg/dL Calcium 8.2 L (8.4-10.2) mg/dL AST (14-36) U/L ALT (4-34) U/L Total Protein 4.1 L (6.3-8.2) g/dL Albumin 1.9 L (3.5-5.0) g/dL TSH 80.000 H (0.465-4.680) mIU/L Urine Protein (Negative) Urine Blood (Negative) Ur Leukocyte Esterase (Negative) Urine RBC (0-5) /hpf Urine WBC (0-5) /hpf Urine Bacteria (None) /hpf Diabetes panel 07/19/21 07/20/21 Range/Units 13:45 05:50 Sodium 135 L 137 (137-145) mmol/L Potassium 4.7 4.0 (3.5-5.1) mmol/L Chloride 102 102 (98-107) mmol/L Carbon Dioxide 32 H 33 H (22-30) mmol/L BUN 28 H 26 H (7-17) mg/dL Creatinine 1.08 H 1.16 H (0.52-1.04) mg/dL Glucose 144 H 63 L (74-99) mg/dL Calcium 8.4 8.2 L (8.4-10.2) mg/dL AST 52 H 36 (14-36) U/L ALT 40 H 29 (4-34) U/L Alkaline Phosphatase 104 89 (38-126) U/L Total Protein 4.7 L 4.1 L (6.3-8.2) g/dL Albumin 2.2 L 1.9 L (3.5-5.0) g/dL Thyroid panel 07/20/21 Range/Units 05:50 TSH 80.000 H (0.465-4.680) mIU/L Calcium panel 07/19/21 07/20/21 Range/Units 13:45 05:50 Calcium 8.4 8.2 L (8.4-10.2) mg/dL Albumin 2.2 L 1.9 L (3.5-5.0) g/dL Pituitary panel 07/19/21 07/20/21 Range/Units 13:45 05:50 Sodium 135 L 137 (137-145) mmol/L Potassium 4.7 4.0 (3.5-5.1) mmol/L Chloride 102 102 (98-107) mmol/L Carbon Dioxide 32 H 33 H (22-30) mmol/L BUN 28 H 26 H (7-17) mg/dL Creatinine 1.08 H 1.16 H (0.52-1.04) mg/dL Glucose 144 H 63 L (74-99) mg/dL Calcium 8.4 8.2 L (8.4-10.2) mg/dL TSH 80.000 H (0.465-4.680) mIU/L Adrenal panel 07/19/21 07/20/21 Range/Units 13:45 05:50 Sodium 135 L 137 (137-145) mmol/L Potassium 4.7 4.0 (3.5-5.1) mmol/L Chloride 102 102 (98-107) mmol/L Carbon Dioxide 32 H 33 H (22-30) mmol/L BUN 28 H 26 H (7-17) mg/dL Creatinine 1.08 H 1.16 H (0.52-1.04) mg/dL Glucose 144 H 63 L (74-99) mg/dL Calcium 8.4 8.2 L (8.4-10.2) mg/dL Total Bilirubin 0.4 0.3 (0.2-1.3) mg/dL AST 52 H 36 (14-36) U/L ALT 40 H 29 (4-34) U/L Alkaline Phosphatase 104 89 (38-126) U/L Total Protein 4.7 L 4.1 L (6.3-8.2) g/dL Albumin 2.2 L 1.9 L (3.5-5.0) g/dL
[2021-07-20 14:55] LABS: Appearance,Urine Clear (Clear); Bilirubin,Urine Negative (Negative); Blood,Urine Moderate (Negative); Color,Urine Light Yellow; Glucose,Urine (UA) Negative (Negative); Hyaline Casts,Urine 1 /lpf (0-2); Ketones,Urine Negative (Negative); Leukocyte Esterase,Urine Moderate (Negative); Mucus,Urine Rare /hpf; Nitrite,Urine Negative (Negative); PH, Urine 7.5 (5.0-8.0); Protein,Urine 1+ (Negative); RBC,Urine 67 /hpf (0-5); Specific Gravity,Urine 1.013 (1.001-1.035); Urobilinogen,Urine <2.0 mg/dL (<2.0); WBC,Urine 41 /hpf (0-5)
[2021-07-20 16:34] LABS: Glucose,Whole Blood 239 mg/dL (75-99)
[2021-07-20] MEDS: ASPIRIN 81 MG PO SCH (17:17)
[2021-07-20 17:40] LABS: HCT 26.3 % (34.0-46.0); HGB 8.8 gm/dL (11.4-16.0); MCH 31.7 pg (25.0-35.0); MCHC 33.3 g/dL (31.0-37.0); MCV 95.2 fL (80.0-100.0); Mean Platelet Volume 7.3; Platelet Count 269 k/uL (150-450); RBC 2.76 m/uL (3.80-5.40); RDW 15.2 % (11.5-15.5); WBC 4.9 k/uL (3.8-10.6)
[2021-07-20 21:13] LABS: Glucose,Whole Blood 116 mg/dL (75-99)
[2021-07-20] MEDS: ATORVASTATIN 80 MG TAB PO SCH (23:01)
[2021-07-21] MEDS: LEVOTHYROXINE 137 MCG TAB PO SCH (06:04)
[2021-07-21 07:08] LABS: Glucose,Whole Blood 121 mg/dL (75-99)
[2021-07-21] MEDS ORDERED: LIDOCAINE 1% (10MG/ML) FOR IV START INTRADERMA PRN (07:12)
[2021-07-21] MEDS ORDERED: HYDROmorphone 0.5 MG/0.5 ML SYRINGE IVP PRN (07:12)
[2021-07-21] MEDS ORDERED: ONDANSETRON 4 MG/2 ML VIAL IVP ONE (07:30)
[2021-07-21] MEDS: DEXAMETHASONE SOD PHOSPHATE 4 MG/ML 1 ML VIAL IV ONE ×2 (08:21→08:58)
[2021-07-21] MEDS: LACTATED RINGERS 1,000 ML IV SCH (08:22)
[2021-07-21] MEDS: INSULIN ASPART (NovoLOG) 100 UNIT/ML VIAL SQ SCH ×4 (08:22→21:35)
[2021-07-21] MEDS: FUROSEMIDE 10 MG/ML 2 ML VIAL IV SCH ×2 (08:23→21:35)
[2021-07-21] MEDS: PANTOPRAZOLE 40 MG/10 ML VIAL IVP SCH (08:28)
[2021-07-21] MEDS: carvediloL 12.5 MG TAB PO SCH (08:35)
[2021-07-21] MEDS: lisinopriL 20 MG TAB PO SCH (08:35)
[2021-07-21 09:36] LABS: HCT 25.5 % (37.2-46.3); HGB 7.9 g/dL (12.0-15.0); MCH 30.2 pg (27.0-32.0); MCV 97.3 fL (80.0-97.0); Mean Platelet Volume 9.8 fL (9.5-12.2); Platelet Count 224 X 10*3/uL (140-440); RBC 2.62 X 10*6/uL (4.10-5.20); RDW 14.5 % (11.5-14.5); WBC 5.86 X 10*3/uL (4.50-10.00)
--- NOTE | 2021-07-21 11:14 | P.PN ---
Subjective This is a 81-year-old female with a past medical history of recent CVA 06/2021, Seizure 06/2021, recent diagnosis of PFO on JOSE 07/18/21, CVA in 12/2020, left MCA stenosis, femur fracture 01/2021, type 2 diabetes, hyperlipidemia, hypertension. 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 We have been asked to see in consultation for CHF and fall. Patient is a poor historian, HPI obtained from chart review. Patient was recently discharged from the hospital 07/19/21 for stroke and 2 seizures, cardiology was consulted for a JOSE last admission which w as performed and patient was found to have a PFO, normal LV function. 30 day event monitor was recommended, however patient was discharged to [facility] for rehab and recommended to follow up with Dr. Jansen for monitor placement. Apparently, patient has been more confused over the last 3 days, difficulty to arouse, the patient was trying to get up by herself and she fell on and landed on her face with resultant a bruise on her forehead and around both her eyes. Patient unfortunately cannot give specifics of what occurred but she does remember falling, it is unclear if the patient passed out. EKG reveals sinus rhythm, HR 67, PVC. 07/21/2021: Patient seen and examined at bedside, sitting in bed, no acute distress. She continues to be confused, alert and oriented to herself only. Overnight patient did have pauses on telemetry all less than 3 seconds. She is in sinus mechanism HR 5060s, occasional PVCs. Laboratory data reviewed hemoglobin 10.9, platelets 224, WBC 5.8. She denies any chest pain or shortness of breath. She is currently maintained on aspirin 81 mg daily, atorvastatin 80 mg daily, IV Lasix 20 mg twice a day, lisinopril 20 mg daily. Patient with 1.2L urine output over the past 24 hours. PHYSICAL EXAMINATION Blood pressure 132/62, heart 60, afebrile, maintaining saturations on room air. CONSTITUTIONAL: No apparent distress. HEENT: Bruising forehead and bilateral eyes. No JVD. CHEST EXAMINATION: Lungs are diminished bases to auscultation. HEART EXAMINATION: Regular rate and rhythm. S1, S2 heard. No murmurs, gallops or rub. ABDOMEN: Soft, nontender. Positive bowel sounds. EXTREMITIES: 2+ peripheral pulses, 2+ lower extremity edema and no calf tenderness. NEUROLOGIC EXAMINATION: Patient is awake,alert oriented to herself only. ASSESSMENT: Fall, possibly syncopal episode vs debility Lower extremity edema, elevated proBNP possibly related to acute diastolic heart failure Acute Kidney Injury Anemia- hgb 7.9 today Recent Seizure May 2021 Recent CVA May 2021 involving the anterior left periventricular region. Recent Diagnosis of PFO on JOSE 07/18/21 History CVA left parietal ischemic stroke December 2020 Old left MCA [place] involving M1 December 2020 Acute respiratory distress requiring intubation and ventilation because of seizure, extubated on 07/08 History of Covid-19 in January 2021. Hypertension Hypothyroidism, started on Synthroid. Hyperlipidemia Type 2 Diabetes PLAN: -Stop patient's beta gurjit, ok to have slightly higher blood pressures. -Continue cardiac telemetry -Monitor patient's renal function and electrolytes, patient on IV Lasix 20mg BID, will check repeat BMP -Recommend 30 day event monitor prior to discharge -Continue current medical therapy -Further recommendations based on clinical course Nurse Practitioner note has been reviewed, I agree with a documented findings and plan of care. Patient was seen and examined. Objective - Vital Signs Vital signs: Vital Signs Temp 97.7 F 07/21/21 08:00 Pulse 63 07/21/21 08:00 Resp 16 07/21/21 09:15 BP 167/69 07/21/21 08:00 Pulse Ox 94 L 07/21/21 08:00 Intake & Output 07/20/21 07/21/21 07/21/21 18:59 06:59 18:59 Intake Total 236 Output Total 800 400 Balance -800 -400 236 Intake: Oral 236 Output: Urine 800 400 Other: Voiding Method External Catheter External Catheter External Catheter # Voids 3 # Bowel Movements 1 - Labs CBC & Chem 7: 07/21/21 05:35 07/20/21 05:50 Labs: Abnormal Lab Results - Last 24 Hours (Table) 07/20/21 07/20/21 07/20/21 Range/Units 05:50 11:15 16:32 RBC (3.80-5.40) m/uL Hgb (11.4-16.0) gm/dL Hct (34.0-46.0) % MCV (80.0-97.0) fL MCHC (32.0-37.0) g/dL POC Glucose (mg/dL) 239 H (75-99) mg/dL Free T4 0.630 L (0.800-1.800) ng/dL Urine Protein 1+ H (Negative) Urine Blood Moderate H (Negative) Ur Leukocyte Esterase Moderate H (Negative) Urine RBC 67 H (0-5) /hpf Urine WBC 41 H (0-5) /hpf Urine Mucus Rare H (None) /hpf 07/20/21 07/20/21 07/21/21 Range/Units 17:01 21:12 05:35 RBC 2.76 L 2.62 L (3.80-5.40) m/uL Hgb 8.8 L 7.9 L (11.4-16.0) gm/dL Hct 26.3 L 25.5 L (34.0-46.0) % MCV 97.3 H (80.0-97.0) fL MCHC 31.0 L (32.0-37.0) g/dL POC Glucose (mg/dL) 116 H (75-99) mg/dL Free T4 (0.800-1.800) ng/dL Urine Protein (Negative) Urine Blood (Negative) Ur Leukocyte Esterase (Negative) Urine RBC (0-5) /hpf Urine WBC (0-5) /hpf Urine Mucus (None) /hpf 07/21/21 Range/Units 07:06 RBC (3.80-5.40) m/uL Hgb (11.4-16.0) gm/dL Hct (34.0-46.0) % MCV (80.0-97.0) fL MCHC (32.0-37.0) g/dL POC Glucose (mg/dL) 121 H (75-99) mg/dL Free T4 (0.800-1.800) ng/dL Urine Protein (Negative) Urine Blood (Negative) Ur Leukocyte Esterase (Negative) Urine RBC (0-5) /hpf Urine WBC (0-5) /hpf Urine Mucus (None) /hpf Microbiology - Last 24 Hours (Table) 07/20/21 11:15 Urine Culture - Preliminary Urine,Voided
[2021-07-21 11:34] LABS: African American GFR (CKD) 52 (>60 ml/min/1.73 sqM); Anion Gap 1 mmol/L; Blood Urea Nitrogen 27 mg/dL (7-17); Calcium 8.1 mg/dL (8.4-10.2); Carbon Dioxide 33 mmol/L (22-30); Chloride 102 mmol/L (98-107); Glucose 106 mg/dL (74-99); Non-African American GFR(CKD) 45 (>60 ml/min/1.73 sqM); Potassium 4.1 mmol/L (3.5-5.1); Sodium 136 mmol/L (137-145)
[2021-07-21 11:39] LABS: Glucose,Whole Blood 184 mg/dL (75-99)
--- NOTE | 2021-07-21 13:35 | P.PN ---
Subjective Progress Note Date: 07/21/21 CHIEF COMPLAINT: Fall HISTORY OF PRESENT ILLNESS: Patient is lying in bed comfortably. She denies any abdominal pain. Per nursing staff she's been eating her full meal. No nausea or vomiting reported. There is no blood reported in the stools. Her hemoglobin went from 7.6-8.8 now 7.9. Afebrile. Renal ultrasound shows incidental right pleural effusion. Mild right-sided hydronephrosis chronic. Correlate for possible transitional cell carcinoma within the urinary bladder. PHYSICAL EXAM: VITAL SIGNS: Reviewed. GENERAL: Well-developed in no acute distress. HEENT: No sclera icterus. Extraocular movements grossly intact. Moist buccal mucosa. Head has facial bruising normocephalic. ABDOMEN: Soft. Nondistended. Nontender. NEUROLOGIC: Alert and oriented. Cranial nerves II through XII grossly intact. ASSESSMENT: 1. Chronic gallbladder dysfunction with Contracted gallbladder and gallstones noted on liver ultrasound. No abdominal pain 2. Anemia likely due to patient's facial trauma with facial bruising/hematoma and being on brilenta. Also could be dilutional from IV fluids. No black stools reported PLAN: -No surgical intervention planned -Recommend laparoscopic cholecystectomy outpatient when patient is stable -Hold Brilenta due to the patient's anemia -Continue to monitor hemoglobin -Monitor for any signs or symptoms of bleeding -Continue regular diet -Continue supportive care -Recommend urology consult for possible bladder cancer Physician Cabinet Worker note has been reviewed by physician. Signing provider agrees with the documented findings, assessment, and plan of care. Objective - Vital Signs Vital signs: Vital Signs Temp 97.7 F 07/21/21 08:00 Pulse 63 07/21/21 08:00 Resp 16 07/21/21 09:15 BP 167/69 07/21/21 08:00 Pulse Ox 94 L 07/21/21 08:00 Intake & Output 07/20/21 07/21/21 07/21/21 18:59 06:59 18:59 Intake Total 536 Output Total 800 400 Balance -800 -400 536 Intake: Oral 536 Output: Urine 800 400 Other: Voiding Method External Catheter External Catheter External Catheter # Voids 3 # Bowel Movements 1 - Labs CBC & Chem 7: 07/21/21 05:35 07/21/21 05:35 Labs: Abnormal Lab Results - Last 24 Hours (Table) 07/20/21 07/20/21 07/20/21 Range/Units 05:50 11:15 16:32 RBC (3.80-5.40) m/uL Hgb (11.4-16.0) gm/dL Hct (34.0-46.0) % MCV (80.0-97.0) fL MCHC (32.0-37.0) g/dL Sodium (137-145) mmol/L Carbon Dioxide (22-30) mmol/L BUN (7-17) mg/dL Creatinine (0.52-1.04) mg/dL Glucose (74-99) mg/dL POC Glucose (mg/dL) 239 H (75-99) mg/dL Calcium (8.4-10.2) mg/dL Free T4 0.630 L (0.800-1.800) ng/dL Urine Protein 1+ H (Negative) Urine Blood Moderate H (Negative) Ur Leukocyte Esterase Moderate H (Negative) Urine RBC 67 H (0-5) /hpf Urine WBC 41 H (0-5) /hpf Urine Mucus Rare H (None) /hpf 07/20/21 07/20/21 07/21/21 Range/Units 17:01 21:12 05:35 RBC 2.76 L 2.62 L (3.80-5.40) m/uL Hgb 8.8 L 7.9 L (11.4-16.0) gm/dL Hct 26.3 L 25.5 L (34.0-46.0) % MCV 97.3 H (80.0-97.0) fL MCHC 31.0 L (32.0-37.0) g/dL Sodium (137-145) mmol/L Carbon Dioxide (22-30) mmol/L BUN (7-17) mg/dL Creatinine (0.52-1.04) mg/dL Glucose (74-99) mg/dL POC Glucose (mg/dL) 116 H (75-99) mg/dL Calcium (8.4-10.2) mg/dL Free T4 (0.800-1.800) ng/dL Urine Protein (Negative) Urine Blood (Negative) Ur Leukocyte Esterase (Negative) Urine RBC (0-5) /hpf Urine WBC (0-5) /hpf Urine Mucus (None) /hpf 07/21/21 07/21/21 07/21/21 Range/Units 05:35 07:06 11:37 RBC (3.80-5.40) m/uL Hgb (11.4-16.0) gm/dL Hct (34.0-46.0) % MCV (80.0-97.0) fL MCHC (32.0-37.0) g/dL Sodium 136 L (137-145) mmol/L Carbon Dioxide 33 H (22-30) mmol/L BUN 27 H (7-17) mg/dL Creatinine 1.15 H (0.52-1.04) mg/dL Glucose 106 H (74-99) mg/dL POC Glucose (mg/dL) 121 H 184 H (75-99) mg/dL Calcium 8.1 L (8.4-10.2) mg/dL Free T4 (0.800-1.800) ng/dL Urine Protein (Negative) Urine Blood (Negative) Ur Leukocyte Esterase (Negative) Urine RBC (0-5) /hpf Urine WBC (0-5) /hpf Urine Mucus (None) /hpf Microbiology - Last 24 Hours (Table) 07/20/21 11:15 Urine Culture - Preliminary Urine,Voided
--- NOTE | 2021-07-21 13:36 | P.PN ---
Subjective Progress Note Date: 07/21/21 Patient seen at bedside and she is accompanied by family member (Herb). Per her family member he stated that the patient had a stroke in December 2020 and ever since the stroke she had expressive aphasia but otherwise she is able to converse and 08 was using a walker and she was able to communicate. But since the mid the June 2021 admission she's not been the same. No seizure-like activity per the patient nurse. Objective - Vital Signs Vital signs: Vital Signs Temp 97.7 F 07/21/21 08:00 Pulse 63 07/21/21 08:00 Resp 16 07/21/21 09:15 BP 167/69 07/21/21 08:00 Pulse Ox 94 L 07/21/21 08:00 Intake & Output 07/20/21 07/21/21 07/21/21 18:59 06:59 18:59 Intake Total 536 Output Total 800 400 Balance -800 -400 536 Intake: Oral 536 Output: Urine 800 400 Other: Voiding Method External Catheter External Catheter External Catheter # Voids 3 # Bowel Movements 1 - Exam GENERAL: The patient is lying in bed and does not seem is not in acute distress. HENT: Echymoses around both eyes and middle of forehead. NEUROLOGICAL: Higher mental function: The patient is awake, alert, oriented to self. She states the year she is born and repeat it. She could not tell me the month, year or place we are in. She has preservation and has expressive aphasia. She was able to name watch, glasses. She is able to follow simple command such as showing thumbs up or sticking out his tongue. She would imitate me was some commands. Cranial nerves: The pupils are round, equal and reactive to light . Visual reilly appear to confrontation. No facial weakness. No dysarthria. She sticks out her tongue and moved [id number] without any difficulty Could not assess rest of cranial nerves because of her condition. Motor: Lifting upper and lower extremitiy above gravity and no drift (but could not asses individual muscle because of her cooperation). Normal tone and bulk. Cerebellum: Could not assess. Sensation: Could not assess. Reflexes (right/left): 2+ throughout except ankles are 1+ Plantars are mute bilaterally. - Labs CBC & Chem 7: 07/21/21 05:35 07/21/21 05:35 Labs: Abnormal Lab Results - Last 24 Hours (Table) 07/20/21 07/20/21 07/20/21 Range/Units 05:50 11:15 16:32 RBC (3.80-5.40) m/uL Hgb (11.4-16.0) gm/dL Hct (34.0-46.0) % MCV (80.0-97.0) fL MCHC (32.0-37.0) g/dL Sodium (137-145) mmol/L Carbon Dioxide (22-30) mmol/L BUN (7-17) mg/dL Creatinine (0.52-1.04) mg/dL Glucose (74-99) mg/dL POC Glucose (mg/dL) 239 H (75-99) mg/dL Calcium (8.4-10.2) mg/dL Free T4 0.630 L (0.800-1.800) ng/dL Urine Protein 1+ H (Negative) Urine Blood Moderate H (Negative) Ur Leukocyte Esterase Moderate H (Negative) Urine RBC 67 H (0-5) /hpf Urine WBC 41 H (0-5) /hpf Urine Mucus Rare H (None) /hpf 07/20/21 07/20/21 07/21/21 Range/Units 17:01 21:12 05:35 RBC 2.76 L 2.62 L (3.80-5.40) m/uL Hgb 8.8 L 7.9 L (11.4-16.0) gm/dL Hct 26.3 L 25.5 L (34.0-46.0) % MCV 97.3 H (80.0-97.0) fL MCHC 31.0 L (32.0-37.0) g/dL Sodium (137-145) mmol/L Carbon Dioxide (22-30) mmol/L BUN (7-17) mg/dL Creatinine (0.52-1.04) mg/dL Glucose (74-99) mg/dL POC Glucose (mg/dL) 116 H (75-99) mg/dL Calcium (8.4-10.2) mg/dL Free T4 (0.800-1.800) ng/dL Urine Protein (Negative) Urine Blood (Negative) Ur Leukocyte Esterase (Negative) Urine RBC (0-5) /hpf Urine WBC (0-5) /hpf Urine Mucus (None) /hpf 07/21/21 07/21/21 07/21/21 Range/Units 05:35 07:06 11:37 RBC (3.80-5.40) m/uL Hgb (11.4-16.0) gm/dL Hct (34.0-46.0) % MCV (80.0-97.0) fL MCHC (32.0-37.0) g/dL Sodium 136 L (137-145) mmol/L Carbon Dioxide 33 H (22-30) mmol/L BUN 27 H (7-17) mg/dL Creatinine 1.15 H (0.52-1.04) mg/dL Glucose 106 H (74-99) mg/dL POC Glucose (mg/dL) 121 H 184 H (75-99) mg/dL Calcium 8.1 L (8.4-10.2) mg/dL Free T4 (0.800-1.800) ng/dL Urine Protein (Negative) Urine Blood (Negative) Ur Leukocyte Esterase (Negative) Urine RBC (0-5) /hpf Urine WBC (0-5) /hpf Urine Mucus (None) /hpf Microbiology - Last 24 Hours (Table) 07/20/21 11:15 Urine Culture - Preliminary Urine,Voided Assessment and Plan Assessment: Fall possibly due to syncopal episode. Cannot rule out seizures. Also because of recurrence of hypoglycemia on this past admission and current admission that can cause syncopal episodes and falls. Recent history seizure (07/08/2021. Just recent Prior admission) Worsening of her aphasia due to multifactorial (metabolic encephalopathy, recent stroke)--today seems somewhat better compared to yesterday Acute tiny ischemic stroke involving the anterior left periventricular region (06/2021. Just recent Prior admission) Cervical spondylosis greatest at C5-C6 Old left parietal ischemic stroke/MCA stenosis involving M1 on 2020 with residual expressive aphasia. Hypertension Hypothyroidism Hyperlipidemia Hard of hearing History of COVID-19 19 in January 2021 Plan: * Pending final report from the 2 1/2 hour ambulatory EEG on 07/18/2021. I was notified there is no seizures. * Continue 750 mg 1 tablet twice a day * Continue Brilinta 90mg 1 tab bid and aspirin 81 mg daily for secondary stroke prophylaxis. Continue Lipitor 80 mg daily. * Every 4 hours neuro checks * On cardiac monitoring * PT, OT and [facility] are consulted * Cardiology is consulted and they ordered an event monitor for 30 days. Guarding a PFO I notified the family member that if she has a large PFO then will be recommended to close it. Otherwise 25%. I placed an would have it. And I'll defer the management to the cardiology team. * Regarding the C5-C6 spondylosis consider orthopedic consultation once the patient is better or the family desires to move forward for possible intervention. * Please avoid any hypoglycemia and we'll defer the management to the primary team. * We'll defer the thyroid management in the rest of medical management to the primary team. * We'll defer the rest of the medical metastatic the primary team * Upon discharge the patient needs to follow-up with a neurologist within 1-2 weeks as an outpatient. The plan is discussed with the patient's family member (Herb) and her nurse. There is no further neurological workup. Neurology will sign off. Please reconsult if needed. Brett Rich M.D. Neuro-hospitalist Time with Patient: Less than 30
[2021-07-21 16:34] LABS: Glucose,Whole Blood 195 mg/dL (75-99)
[2021-07-21] MEDS: ASPIRIN 81 MG PO SCH (16:41)
--- NOTE | 2021-07-21 17:38 | P.PN ---
Subjective Progress Note Date: 07/21/21 Principal diagnosis: Renal mass Fall with head trauma with a bruise on both eyes and forehead Generalized weakness and deconditioning Altered mental status Anemia Objective - Vital Signs Vital signs: Vital Signs Temp 97.7 F 07/21/21 08:00 Pulse 63 07/21/21 08:00 Resp 16 07/21/21 09:15 BP 167/69 07/21/21 08:00 Pulse Ox 94 L 07/21/21 08:00 Intake & Output 07/20/21 07/21/21 07/21/21 18:59 06:59 18:59 Intake Total 236 Output Total 800 400 Balance -800 -400 236 Intake: Oral 236 Output: Urine 800 400 Other: Voiding Method External Catheter External Catheter External Catheter # Voids 3 # Bowel Movements 1 - Exam -GENERAL: The patient is alert and oriented x2 to place with partially to person and time, not in any acute distress. Well developed, well nourished. Generally weak and deconditioned HEENT: Pupils are round and equally reacting to light. EOMI. No scleral icterus. No conjunctival pallor. Normocephalic, atraumatic. No pharyngeal erythema. No thyromegaly. CARDIOVASCULAR: S1 and S2 present. No murmurs, rubs, or gallops. PULMONARY: Chest is clear to auscultation, no wheezing or crackles. ABDOMEN: Soft, nontender, nondistended, normoactive bowel sounds. No palpable organomegaly. MUSCULOSKELETAL: No joint swelling or deformity. -EXTREMITIES: No cyanosis, clubbing, . Bilateral pitting leg edema NEUROLOGICAL: Gross neurological examination did not reveal any focal deficits. -SKIN: No rashes. No petechiae. She has a bruise on her forehead with some swelling, and bruise around both eyes, looks better than on admission - Labs CBC & Chem 7: 07/21/21 05:35 07/21/21 05:35 Labs: Abnormal Lab Results - Last 24 Hours (Table) 07/20/21 07/20/21 07/20/21 Range/Units 05:50 11:15 16:32 RBC (3.80-5.40) m/uL Hgb (11.4-16.0) gm/dL Hct (34.0-46.0) % MCV (80.0-97.0) fL MCHC (32.0-37.0) g/dL POC Glucose (mg/dL) 239 H (75-99) mg/dL Free T4 0.630 L (0.800-1.800) ng/dL Urine Protein 1+ H (Negative) Urine Blood Moderate H (Negative) Ur Leukocyte Esterase Moderate H (Negative) Urine RBC 67 H (0-5) /hpf Urine WBC 41 H (0-5) /hpf Urine Mucus Rare H (None) /hpf 07/20/21 07/20/21 07/21/21 Range/Units 17:01 21:12 05:35 RBC 2.76 L 2.62 L (3.80-5.40) m/uL Hgb 8.8 L 7.9 L (11.4-16.0) gm/dL Hct 26.3 L 25.5 L (34.0-46.0) % MCV 97.3 H (80.0-97.0) fL MCHC 31.0 L (32.0-37.0) g/dL POC Glucose (mg/dL) 116 H (75-99) mg/dL Free T4 (0.800-1.800) ng/dL Urine Protein (Negative) Urine Blood (Negative) Ur Leukocyte Esterase (Negative) Urine RBC (0-5) /hpf Urine WBC (0-5) /hpf Urine Mucus (None) /hpf 07/21/21 Range/Units 07:06 RBC (3.80-5.40) m/uL Hgb (11.4-16.0) gm/dL Hct (34.0-46.0) % MCV (80.0-97.0) fL MCHC (32.0-37.0) g/dL POC Glucose (mg/dL) 121 H (75-99) mg/dL Free T4 (0.800-1.800) ng/dL Urine Protein (Negative) Urine Blood (Negative) Ur Leukocyte Esterase (Negative) Urine RBC (0-5) /hpf Urine WBC (0-5) /hpf Urine Mucus (None) /hpf Microbiology - Last 24 Hours (Table) 07/20/21 11:15 Urine Culture - Preliminary Urine,Voided Assessment and Plan Assessment: Fall with head trauma with a bruise on both eyes and forehead Generalized weakness and deconditioning Altered mental status, could be elements of vascular dementia given her multiple strokes maybe also some elements of metabolic encephalopathy Anasarca multifactorial most likely contributing to acute on chronic diastolic CHF with ejection fraction of more than 70% anemia with a drop in hemoglobin Abnormal urine analysis, rule out UTI Chronic kidney disease stage III Mildly elevated liver enzymes Degenerative disc disease especially at C5 to C6 Vascular dementia with possible elements of Alzheimer dementia Multiple hospitalization Hypothyroidism History of seizure Diabetes mellitus Hypertension History of CVA/TIA Plan: This is a pleasant 81 years old female who presents with fall and altered mental status and deconditioning Continue with neuro check, neurology service consult continue on Lasix 20 mg twice daily We'll check liver and renal ultrasound Continue with insulin sliding scale Check your the bladder scan and urinalysis and urine culture Increased dose of levothyroxine 112 of 237. Labs and medication were reviewed.. Continue same treatment. Continue with symptomatic treatment. Resume home medication. Monitor lytes and vitals. DVT and GI prophylaxis. Further recommendations depends on the clinical course of the patient DVT prophylaxis: No Subcutaneous heparin. Because of anemia and already on aspirin and Vicryl in the GI Prophylaxis: Pepcid PT/OT: Pending Prognosis is guarded discussed CODE STATUS with the , he going to consider it with his son told and till then she remains full code and he agrees with that
--- NOTE | 2021-07-21 19:15 | P.GSCN ---
History of Present Illness Consult date: 07/21/21 Reason for Consult: Bladder tumor History of present illness: This is a 81-year-old female recently admitted to the hospital with a stroke and a seizure, she was subsequently discharged to a halfway. She presented back to the hospital with a recent fall. She underwent a renal bladder ultrasound that demonstrated evidence of a 4.5 cm right-sided bladder mass, with mild right-sided hydronephrosis. Of note she had a CT back thousand and that was within normal limits. She denies any gross hematuria, dysuria, or any urinary symptoms, but of note majority of history is obtained from her son she is a poor historian. She follows up with Dr. Claros for urinary retention. Her creatinine is 1.1, from a baseline of 0.9, but of note she received contrast on July 20. Denies any flank pain or difficulty voiding. Review of Systems ROS unobtainable: due to mental status Past Medical History Past Medical History: CVA/TIA, Diabetes Mellitus, Hyperlipidemia, Hypertension Additional Past Medical History / Comment(s): Last month the patient was hospitalized due to a cerebrovascular accident. Reportedly she did not have any motor loss. The son states that she had some speech changes since then and possibly some cognition changes the time. She is normally a community ambulate without any assistance. History of Any Multi-Drug Resistant Organisms: None Reported Past Surgical History: No Surgical Hx Reported Additional Past Surgical History / Comment(s): CATRACTS ABBE 2000 Past Anesthesia/Blood Transfusion Reactions: No Reported Reaction Past Psychological History: No Psychological Hx Reported Smoking Status: Never smoker Past Alcohol Use History: Occasional Past Drug Use History: None Reported - Past Family History Father Family Medical History: No Reported History Mother Family Medical History: No Reported History Medications and Allergies Home Medications Medication Instructions Recorded Confirmed Type Glimepiride [Amaryl] 2 mg PO BID@0800,1700 12/26/20 07/19/21 History metFORMIN HCL [Glucophage] 500 mg PO BID@0800,1700 12/26/20 07/19/21 History Multivit with Calcium,Iron,Min 1 tab PO DAILY@1700 07/07/21 07/19/21 History [Women's Multivitamin] Atorvastatin [Lipitor] 80 mg PO HS@2100 07/18/21 07/19/21 History Levothyroxine Sodium [Synthroid] 112 mcg PO DAILY@0600 07/18/21 07/19/21 History Magnesium Hydroxide [Milk of 7,200 mg PO DAILY PRN 07/18/21 07/19/21 History Magnesia Concentrate] Na Phos,M-B/Na Phos,Di-Ba [Fleet 133 ml RECTAL DAILY PRN 07/18/21 07/19/21 History Adult] bisacodyL [Dulcolax] 10 mg RECTAL DAILY PRN 07/18/21 07/19/21 History Aspirin 81 mg PO DAILY@1700 07/19/21 07/19/21 History Famotidine [Pepcid] 20 mg PO DAILY@0800 07/19/21 07/19/21 History Furosemide [Lasix] 40 mg PO DAILY@0800 07/19/21 07/19/21 History Ticagrelor [Brilinta] 90 mg PO BID@0800,1700 07/19/21 07/19/21 History hydrALAZINE HCL [Apresoline] 75 mg PO TID@0600,1400,2200 07/19/21 07/19/21 History levETIRAcetam [Keppra] 500 mg PO BID@0800,2100 07/19/21 07/19/21 History lisinopriL [Zestril] 20 mg PO BID@0800,1700 07/19/21 07/19/21 History Allergies Allergy/AdvReac Type Severity Reaction Status Date / Time No Known Allergies Allergy Verified 07/19/21 12:57 Surgical - Exam Vital Signs Temp Pulse Resp BP Pulse Ox 97.9 F 70 18 130/65 100 07/19/21 12:25 07/19/21 12:25 07/19/21 12:25 07/19/21 12:25 07/19/21 12:25 - General no distress, no pain - ENT normal nares, normal mucosa - Respiratory normal expansion, normal respiratory effort - Abdomen Abdomen: soft, no distended - Psychiatric AOx0 Results - Labs 07/21/21 05:35 07/21/21 05:35 Abnormal Lab Results - Last 24 Hours (Table) 07/20/21 07/20/21 07/21/21 Range/Units 05:50 21:12 05:35 RBC 2.62 L (4.10-5.20) X 10*6/uL Hgb 7.9 L (12.0-15.0) g/dL Hct 25.5 L (37.2-46.3) % MCV 97.3 H (80.0-97.0) fL MCHC 31.0 L (32.0-37.0) g/dL Sodium (137-145) mmol/L Carbon Dioxide (22-30) mmol/L BUN (7-17) mg/dL Creatinine (0.52-1.04) mg/dL Glucose (74-99) mg/dL POC Glucose (mg/dL) 116 H (75-99) mg/dL Calcium (8.4-10.2) mg/dL Free T4 0.630 L (0.800-1.800) ng/dL 07/21/21 07/21/21 07/21/21 Range/Units 05:35 07:06 11:37 RBC (4.10-5.20) X 10*6/uL Hgb (12.0-15.0) g/dL Hct (37.2-46.3) % MCV (80.0-97.0) fL MCHC (32.0-37.0) g/dL Sodium 136 L (137-145) mmol/L Carbon Dioxide 33 H (22-30) mmol/L BUN 27 H (7-17) mg/dL Creatinine 1.15 H (0.52-1.04) mg/dL Glucose 106 H (74-99) mg/dL POC Glucose (mg/dL) 121 H 184 H (75-99) mg/dL Calcium 8.1 L (8.4-10.2) mg/dL Free T4 (0.800-1.800) ng/dL 07/21/21 Range/Units 16:33 RBC (4.10-5.20) X 10*6/uL Hgb (12.0-15.0) g/dL Hct (37.2-46.3) % MCV (80.0-97.0) fL MCHC (32.0-37.0) g/dL Sodium (137-145) mmol/L Carbon Dioxide (22-30) mmol/L BUN (7-17) mg/dL Creatinine (0.52-1.04) mg/dL Glucose (74-99) mg/dL POC Glucose (mg/dL) 195 H (75-99) mg/dL Calcium (8.4-10.2) mg/dL Free T4 (0.800-1.800) ng/dL Microbiology - Last 24 Hours (Table) 07/20/21 11:15 Urine Culture - Preliminary Urine,Voided Diabetes panel 07/21/21 Range/Units 05:35 Sodium 136 L (137-145) mmol/L Potassium 4.1 (3.5-5.1) mmol/L Chloride 102 (98-107) mmol/L Carbon Dioxide 33 H (22-30) mmol/L BUN 27 H (7-17) mg/dL Creatinine 1.15 H (0.52-1.04) mg/dL Glucose 106 H (74-99) mg/dL Calcium 8.1 L (8.4-10.2) mg/dL Calcium panel 07/21/21 Range/Units 05:35 Calcium 8.1 L (8.4-10.2) mg/dL Pituitary panel 07/21/21 Range/Units 05:35 Sodium 136 L (137-145) mmol/L Potassium 4.1 (3.5-5.1) mmol/L Chloride 102 (98-107) mmol/L Carbon Dioxide 33 H (22-30) mmol/L BUN 27 H (7-17) mg/dL Creatinine 1.15 H (0.52-1.04) mg/dL Glucose 106 H (74-99) mg/dL Calcium 8.1 L (8.4-10.2) mg/dL Adrenal panel 07/21/21 Range/Units 05:35 Sodium 136 L (137-145) mmol/L Potassium 4.1 (3.5-5.1) mmol/L Chloride 102 (98-107) mmol/L Carbon Dioxide 33 H (22-30) mmol/L BUN 27 H (7-17) mg/dL Creatinine 1.15 H (0.52-1.04) mg/dL Glucose 106 H (74-99) mg/dL Calcium 8.1 L (8.4-10.2) mg/dL - Imaging US - kidney/bladder: image reviewed (Bladder mass) Assessment and Plan Assessment: This is 81-year-old female with a recent admission to the hospital for stroke, and new onset of seizures. She is also being currently worked up for a patent foramen ovale by cardiology. She is admitted to the hospital following a fall. Underwent a renal bladder ultrasound which showed evidence of bladder mass, with mild right-sided hydronephrosis, creatinine is fairly stable. She is asymptomatic from her bladder mass or hydronephrosis. Her UA on presentation is concerning for UTI, current cultures is pending. Given her multiple acute david oing issues, and the lack of symptoms from her bladder mass, and her possible UTI or hold off on any intervention for her bladder mass. I did discussed with her son I recommend an outpatient cystoscopy within the next 1-2 weeks to better evaluate the area, but discussed the finding is concerning for bladder cancer. Discussed also she may benefit of CT urogram to better evaluate the bladder mass, and the hydronephrosis, but given that she received contrast on July 20 her creatinine is slightly elevated since that time we'll hold off on proceeding with any contrasted images. -CT urogram once her creatinine returns to baseline, -Outaptatient cystoscopy in 1-[address] Suazo to better evaluate the bladder mass -Follow up on urine culture, we'll need 7 days of antibiotics if cultures positive -
[2021-07-21 20:09] LABS: Glucose,Whole Blood 223 mg/dL (75-99)
[2021-07-21] MEDS: ATORVASTATIN 80 MG TAB PO SCH (21:35)
[2021-07-22] MEDS: LEVOTHYROXINE 137 MCG TAB PO SCH ×2 (06:29→09:32)
[2021-07-22 06:46] LABS: African American GFR (CKD) 56 (>60 ml/min/1.73 sqM); Anion Gap 1 mmol/L; Blood Urea Nitrogen 23 mg/dL (7-17); Calcium 7.8 mg/dL (8.4-10.2); Carbon Dioxide 33 mmol/L (22-30); Chloride 100 mmol/L (98-107); Glucose 83 mg/dL (74-99); Non-African American GFR(CKD) 49 (>60 ml/min/1.73 sqM); Potassium 3.5 mmol/L (3.5-5.1); Sodium 134 mmol/L (137-145)
[2021-07-22 08:03] LABS: Glucose,Whole Blood 96 mg/dL (75-99)
[2021-07-22] MEDS ORDERED: POTASSIUM CHLORIDE ER 20 MEQ TAB.ER PO STA (08:28)
[2021-07-22 09:20] LABS: HGB 8.3 g/dL (12.0-15.0); MCH 30.7 pg (27.0-32.0); MCHC 31.9 g/dL (32.0-37.0); MCV 96.3 fL (80.0-97.0); Mean Platelet Volume 9.7 fL (9.5-12.2); Platelet Count 250 X 10*3/uL (140-440); RDW 14.5 % (11.5-14.5); WBC 6.08 X 10*3/uL (4.50-10.00)
[2021-07-22] MEDS: INSULIN ASPART (NovoLOG) 100 UNIT/ML VIAL SQ SCH ×4 (09:32→20:49)
[2021-07-22] MEDS: LACTATED RINGERS 1,000 ML IV SCH (09:33)
[2021-07-22] MEDS: FUROSEMIDE 20 MG TAB PO SCH (11:07)
[2021-07-22] MEDS: PANTOPRAZOLE 40 MG/10 ML VIAL IVP SCH (11:07)
[2021-07-22] MEDS: lisinopriL 20 MG TAB PO SCH (11:07)
[2021-07-22 11:16] LABS: Glucose,Whole Blood 100 mg/dL (75-99)
--- NOTE | 2021-07-22 11:31 | PN ---
PROGRESS NOTE This is a 81-year-old lady with recurrent falls and stroke recently. She came into the hospital after having had a fall, and this is mostly due to being unsteady on her feet. She did not have any syncope. Her heart monitor was taken off because she kept pulling it. However, until about 4 a.m. this morning she did not have any significant bradyarrhythmia. Her blood pressure and heart rate are good. She is comfortable resting. She has multiple injuries on the face with bruising. Her vital signs are stable. Heart rate is about 68 per minute. No JVD. S1, S2 heard normally. Short systolic murmur is evident. Lungs reveal bilateral air entry. Abdomen is soft. Lower extremities reveal diminished pulses. I am recommending that we should supplement her potassium, which is low at 3.5. I will switch her from IV to oral Lasix 40 mg daily and resume her heart monitor. No intervention is necessary at this time. We will continue to follow, and if she has no further bradycardia, she can be discharged and have an event monitor as an outpatient. She is supposed to see Dr. Jansen in the office. MMODL / IJN: [id number] /
[2021-07-22] MEDS ORDERED: ONDANSETRON 4 MG/2 ML VIAL IVP PRN (12:07)
--- NOTE | 2021-07-22 12:18 | P.PN ---
Subjective Progress Note Date: 07/22/21 No acute overnight event, patient is more alert. Urine culture is growing group D Enterococcus, susceptibility still pending. Denies any dysuria or gross hematuria Objective - Vital Signs Vital signs: Vital Signs Temp 97.9 F 07/22/21 08:00 Pulse 60 07/22/21 08:00 Resp 18 07/22/21 08:00 BP 179/74 07/22/21 08:00 Pulse Ox 96 07/22/21 08:00 Intake & Output 07/21/21 07/22/21 07/22/21 18:59 06:59 18:59 Intake Total 1232 596 Output Total 1000 1600 Balance 232 -1600 596 Intake: Oral 1232 596 Output: Urine 1000 1600 Other: Voiding Method External Catheter External Catheter External Catheter # Voids 2 - Constitutional General appearance: Present: no acute distress - Labs CBC & Chem 7: 07/22/21 06:06 07/22/21 06:06 Labs: Abnormal Lab Results - Last 24 Hours (Table) 07/21/21 07/21/21 07/22/21 Range/Units 16:33 20:08 06:06 RBC (4.10-5.20) X 10*6/uL Hgb (12.0-15.0) g/dL Hct (37.2-46.3) % MCHC (32.0-37.0) g/dL Sodium 134 L (137-145) mmol/L Carbon Dioxide 33 H (22-30) mmol/L BUN 23 H (7-17) mg/dL Creatinine 1.09 H (0.52-1.04) mg/dL POC Glucose (mg/dL) 195 H 223 H (75-99) mg/dL Calcium 7.8 L (8.4-10.2) mg/dL 07/22/21 07/22/21 Range/Units 06:06 11:14 RBC 2.70 L (4.10-5.20) X 10*6/uL Hgb 8.3 L (12.0-15.0) g/dL Hct 26.0 L (37.2-46.3) % MCHC 31.9 L (32.0-37.0) g/dL Sodium (137-145) mmol/L Carbon Dioxide (22-30) mmol/L BUN (7-17) mg/dL Creatinine (0.52-1.04) mg/dL POC Glucose (mg/dL) 100 H (75-99) mg/dL Calcium (8.4-10.2) mg/dL Microbiology - Last 24 Hours (Table) 07/20/21 11:15 Urine Culture - Preliminary Urine,Voided Group D Enterococcus Assessment and Plan Assessment: This is 81-year-old female with a recent admission to the hospital for stroke, and new onset of seizures. She is also being currently worked up for a patent foramen ovale by cardiology. She is admitted to the hospital following a fall. Underwent a renal bladder ultrasound which showed evidence of bladder mass, with mild right-sided hydronephrosis, creatinine is fairly stable. She is asymptomatic from her bladder mass or hydronephrosis. Her UA on presentation is concerning for UTI, current cultures is Growing Enterococcus group D, susceptibilities pending Given her multiple acute ongoing issues, and the lack of symptoms from her bladder mass, and her UTI will hold off on any intervention for her bladder mass. I did discussed with her son I recommend an outpatient cystoscopy within the next 1-2 weeks to better evaluate the area, but discussed the finding is concerning for bladder cancer. Discussed also she may benefit of CT urogram to better evaluate the bladder mass, and the hydronephrosis, but given that she received contrast on July 20 her creatinine is slightly e levated since that time we'll hold off on proceeding with any contrasted images. -CT urogram once her creatinine returns to baseline, -Outaptatient cystoscopy in 1-[address] Suazo to better evaluate the bladder mass -Follow up on final urine culture, we will start Zosyn for now until culture is finalized -
--- NOTE | 2021-07-22 12:35 | P.PN ---
Progress Note - Text Progress Note Date: 07/22/21 Patient still. He will was a 0.3. She sews no evidence of GI bleed. Anemia most likely related to dilutional and recent facial trauma. Patient will be observed.
[2021-07-22] MEDS: PIPERACILLIN-TAZOBACTAM 3.375 GM in SODIUM CHLORIDE 0.9% 100 ML IVPB SCH ×2 (16:17→23:29)
[2021-07-22] MEDS: ASPIRIN 81 MG PO SCH (16:17)
[2021-07-22 16:43] LABS: Glucose,Whole Blood 170 mg/dL (75-99)
--- NOTE | 2021-07-22 18:42 | P.PN ---
Subjective Progress Note Date: 07/22/21 Principal diagnosis: Renal mass Fall with head trauma with a bruise on both eyes and forehead Generalized weakness and deconditioning Altered mental status Anemia This is a pleasant 72 female with past medical history of CVA/TIA, Diabetes Mellitus, Hyperlipidemia, Hypertension, she was recently discharged from the hospital yesterday for stroke and 2 seizures (thought secondary to UTI and her stroke and hypoglycemia then) and she was discharged to [facility] for rehab. She is normally a community ambulate without any assistance. P sergio is poor historian omission were obtained with the help of the Mr. Pepe at bedside and nephew. As per patient has been confused over the last 3 days and actually he thinks today she is even more awake than when she left the hospital yesterday. As per family they have been told patient was trying to get up by herself and she fell on her face with resultant a bruise on her forehead and around both her eyes. She is awake and alert now, she knows she is an [facility] and knows it is June but she could not tell a year or the name of the president but she could recognize her at bed side and his name She denies any pain. She denies headache or chest pain or abdominal pain. No leg pain. She could move both upper and lower extremities slowly and sy mmetrically. She denies double vision or blurred vision. No slurred speech. She denies any urinary or bowel complaints. However patient looks very weak and somewhat confused and does not follow all but only some of commands appropriately, 07/22/2021 patient is seen and evaluated in room at bedside vital signs are reviewed and are stable with temperature of 98.4, pulse 70, respirations 16 and blood pressure of 128/66, O2 saturation 90% on room air Lab review shows WBC 6.08, hemoglobin 8.3, platelet count 250, sodium 134, potassium 3.5, BUN/creatinine of 23/1.09 patient has been evaluated by urology for bladder mass and is recommended cystoscopy as an outpatient in 2 weeks post discharge; patient remains on IV Zosyn for UTI; final culture and sensitivities pending Patient is to be discharged back to skilled rehab once clinically stable Objective - Vital Signs Vital signs: Vital Signs Temp 97.9 F 07/22/21 08:00 Pulse 60 07/22/21 08:00 Resp 18 07/22/21 08:00 BP 179/74 07/22/21 08:00 Pulse Ox 96 07/22/21 08:00 Intake & Output 07/21/21 07/22/21 07/22/21 18:59 06:59 18:59 Intake Total 1232 596 Output Total 1000 1600 Balance 232 -1600 596 Intake: Oral 1232 596 Output: Urine 1000 1600 Other: Voiding Method External Catheter External Catheter External Catheter # Voids 2 - Exam -GENERAL: The patient is alert and oriented x2 to place with partially to person and time, not in any acute distress. Well developed, well nourished. Generally weak and deconditioned HEENT: Pupils are round and equally reacting to light. EOMI. No scleral icterus. No conjunctival pallor. Normocephalic, atraumatic. No pharyngeal erythema. No thyromegaly. CARDIOVASCULAR: S1 and S2 present. No murmurs, rubs, or gallops. PULMONARY: Chest is clear to auscultation, no wheezing or crackles. ABDOMEN: Soft, nontender, nondistended, normoactive bowel sounds. No palpable organomegaly. MUSCULOSKELETAL: No joint swelling or deformity. -EXTREMITIES: No cyanosis, clubbing, . Bilateral pitting leg edema NEUROLOGICAL: Gross neurological examination did not reveal any focal deficits. -SKIN: No rashes. No petechiae. She has a bruise on her forehead with some swelling, and bruise around both eyes, looks better than on admission - Labs CBC & Chem 7: 07/22/21 06:06 07/22/21 06:06 Labs: Abnormal Lab Results - Last 24 Hours (Table) 07/21/21 07/21/21 07/22/21 Range/Units 16:33 20:08 06:06 RBC (4.10-5.20) X 10*6/uL Hgb (12.0-15.0) g/dL Hct (37.2-46.3) % MCHC (32.0-37.0) g/dL Sodium 134 L (137-145) mmol/L Carbon Dioxide 33 H (22-30) mmol/L BUN 23 H (7-17) mg/dL Creatinine 1.09 H (0.52-1.04) mg/dL POC Glucose (mg/dL) 195 H 223 H (75-99) mg/dL Calcium 7.8 L (8.4-10.2) mg/dL 07/22/21 07/22/21 Range/Units 06:06 11:14 RBC 2.70 L (4.10-5.20) X 10*6/uL Hgb 8.3 L (12.0-15.0) g/dL Hct 26.0 L (37.2-46.3) % MCHC 31.9 L (32.0-37.0) g/dL Sodium (137-145) mmol/L Carbon Dioxide (22-30) mmol/L BUN (7-17) mg/dL Creatinine (0.52-1.04) mg/dL POC Glucose (mg/dL) 100 H (75-99) mg/dL Calcium (8.4-10.2) mg/dL Microbiology - Last 24 Hours (Table) 07/20/21 11:15 Urine Culture - Preliminary Urine,Voided Group D Enterococcus Assessment and Plan Assessment: Fall with head trauma with a bruise on both eyes and forehead Generalized weakness and deconditioning Altered mental status, could be elements of vascular dementia given her multiple strokes maybe also some elements of metabolic encephalopathy Anasarca multifactorial most likely contributing to acute on chronic diastolic CHF with ejection fraction of more than 70% anemia with a drop in hemoglobin Abnormal urine analysis, rule out UTI Chronic kidney disease stage III Mildly elevated liver enzymes Degenerative disc disease especially at C5 to C6 Vascular dementia with possible elements of Alzheimer dementia Multiple hospitalization Hypothyroidism History of seizure Diabetes mellitus Hypertension History of CVA/TIA Plan: This is a pleasant 81 years old female who presents with fall and altered mental status and deconditioning Continue with neuro check, neurology service consult continue on Lasix 20 mg twice daily We'll check liver and renal ultrasound Continue with insulin sliding scale Check your the bladder scan and urinalysis and urine culture Increased dose of levothyroxine 112 of 237. Labs and medication were reviewed.. Continue same treatment. Continue with symptomatic treatment. Resume home medication. Monitor lytes and vitals. DVT and GI prophylaxis. Further recommendations depends on the clinical course of the patient DVT prophylaxis: No Subcutaneous heparin. Because of anemia and already on aspirin and Vicryl in the GI Prophylaxis: Pepcid PT/OT: Pending Prognosis is guarded discussed CODE STATUS with the , he going to consider it with his son told and till then she remains full code and he agrees with that
[2021-07-22 20:39] LABS: Glucose,Whole Blood 227 mg/dL (75-99)
[2021-07-22] MEDS: ATORVASTATIN 80 MG TAB PO SCH (20:50)
[2021-07-23] MEDS: LEVOTHYROXINE 137 MCG TAB PO SCH (05:58)
[2021-07-23 06:55] LABS: African American GFR (CKD) 48 (>60 ml/min/1.73 sqM); Anion Gap 1 mmol/L; Blood Urea Nitrogen 25 mg/dL (7-17); Calcium 7.6 mg/dL (8.4-10.2); Carbon Dioxide 31 mmol/L (22-30); Chloride 103 mmol/L (98-107); Glucose 70 mg/dL (74-99); Non-African American GFR(CKD) 42 (>60 ml/min/1.73 sqM); Potassium 4.1 mmol/L (3.5-5.1); Sodium 135 mmol/L (137-145)
[2021-07-23 07:09] LABS: Glucose,Whole Blood 82 mg/dL (75-99)
[2021-07-23] MEDS: INSULIN ASPART (NovoLOG) 100 UNIT/ML VIAL SQ SCH ×4 (08:31→21:13)
[2021-07-23] MEDS: LACTATED RINGERS 1,000 ML IV SCH (08:31)
[2021-07-23] MEDS: lisinopriL 20 MG TAB PO SCH (08:42)
[2021-07-23] MEDS: PANTOPRAZOLE 40 MG/10 ML VIAL IVP SCH (08:42)
[2021-07-23] MEDS: PIPERACILLIN-TAZOBACTAM 3.375 GM in SODIUM CHLORIDE 0.9% 100 ML IVPB SCH (08:42)
[2021-07-23] MEDS: FUROSEMIDE 20 MG TAB PO SCH (08:42)
[2021-07-23 08:57] LABS: Basophils # (A) 0.03 X 10*3/uL (0.00-0.10); Basophils % (A) 0.6 %; Eosinophils # (A) 0.15 X 10*3/uL (0.04-0.35); Eosinophils % (A) 2.9 %; HCT 22.4 % (37.2-46.3); HGB 7.1 g/dL (12.0-15.0); Lymphocytes # (A) 1.45 X 10*3/uL (0.90-5.00); Lymphocytes % (A) 28.2 %; MCH 31.1 pg (27.0-32.0); MCHC 31.7 g/dL (32.0-37.0); MCV 98.2 fL (80.0-97.0); Mean Platelet Volume 9.7 fL (9.5-12.2); Monocytes % (A) 5.8 %; Neutrophils # (A) 3.19 X 10*3/uL (1.80-7.70); Neutrophils % (A) 61.9 %; Platelet Count 214 X 10*3/uL (140-440); RBC 2.28 X 10*6/uL (4.10-5.20); RDW 14.5 % (11.5-14.5); WBC 5.15 X 10*3/uL (4.50-10.00)
[2021-07-23 11:34] LABS: Glucose,Whole Blood 172 mg/dL (75-99)
[2021-07-23] MEDS: LINEZOLID 600 MG TAB PO SCH ×2 (11:44→21:14)
--- NOTE | 2021-07-23 12:19 | PN ---
PROGRESS NOTE This lady has been admitted to the hospital with multiple falls. Yesterday we were able to place a heart monitor on. There is no evidence of any bradyarrhythmia. She has episodes of falls and I am suggesting that prior to discharge we should do an event monitor for her and she will follow with Dr. Jansen. She has no further bradycardic episodes. She seems to be somewhat confused but in no distress. Vitals are stable. No JVD. S1, S2 heard normally. Short systolic murmur noted at the base. Clear lungs. Abdomen is soft. Lower extremities reveal diminished pulses. Central nervous system grossly no focal deficits. RECOMMENDATION: Advised event monitor and follow up with Dr. Jansen in four weeks. We will see her as needed. MMODL / IJN: [id number] /
--- NOTE | 2021-07-23 12:20 | P.PN ---
Progress Note - Text Progress Note Date: 07/23/21 Patient is stable. She's had no evidence of GI bleed. Her hemoglobin 7.1. Her facial bruising is stable. Anemia. Patient's name is most likely due to dilutional and her recent trauma. She isn't shows no signs of GI bleed. We will follow.
[2021-07-23 17:09] LABS: Glucose,Whole Blood 246 mg/dL (75-99)
[2021-07-23] MEDS: ASPIRIN 81 MG PO SCH (17:25)
--- NOTE | 2021-07-23 18:18 | P.PN ---
Subjective Progress Note Date: 07/23/21 Principal diagnosis: Renal mass Fall with head trauma with a bruise on both eyes and forehead Generalized weakness and deconditioning Altered mental status Anemia This is a pleasant 72 female with past medical history of CVA/TIA, Diabetes Mellitus, Hyperlipidemia, Hypertension, she was recently discharged from the hospital yesterday for stroke and 2 seizures (thought secondary to UTI and her stroke and hypoglycemia then) and she was discharged to [facility] for rehab. She is normally a community ambulate without any assistance. [place] is poor historian omission were obtained with the help of the Mr. Pepe at bedside and nephew. As per patient has been confused over the last 3 days and actually he thinks today she is even more awake than when she left the hospital yesterday. As per family they have been told patient was trying to get up by herself and she fell on her face with resultant a bruise on her forehead and around both her eyes. She is awake and alert now, she knows she is an [facility] and knows it is June but she could not tell a year or the name of the president but she could recognize her at bed side and his name She denies any pain. She denies headache or chest pain or abdominal pain. No leg pain. She could move both upper and lower extremities slowly and sy mmetrically. She denies double vision or blurred vision. No slurred speech. She denies any urinary or bowel complaints. However patient looks very weak and somewhat confused and does not follow all but only some of commands appropriately, 07/22/2021 patient is seen and evaluated in room at bedside vital signs are reviewed and are stable with temperature of 98.4, pulse 70, respirations 16 and blood pressure of 128/66, O2 saturation 90% on room air Lab review shows WBC 6.08, hemoglobin 8.3, platelet count 250, sodium 134, potassium 3.5, BUN/creatinine of 23/1.09 patient has been evaluated by urology for bladder mass and is recommended cystoscopy as an outpatient in 2 weeks post discharge; patient remains on IV Zosyn for UTI; final culture and sensitivities pending Patient is to be discharged back to skilled rehab once clinically stable 07/23/2021 Patient is seen and evaluated with family at bedside; family is question about anemia were answered; likely secondary to trauma and dilutional; hemoglobin 7.1 this morning Cardiology is following and not able to place a heart monitor on for evaluation of recurrent falls and syncope; no bradycardia arrhythmias for noted on the monitor; patient will probably need an event monitor at time of discharge Patient to follow-up with urology as outpatient for bladder mass for cystoscopy in about 2 weeks; urine culture reveals Enterococcus faecalis; IV vancomycin was discontinued and patient is started on oral linezolid; recommending switching to nitrofurantoin once patient is ready for2 Objective - Vital Signs Vital signs: Vital Signs Temp 97.4 F L 07/23/21 08:00 Pulse 66 07/23/21 08:00 Resp 18 07/23/21 08:00 BP 156/68 07/23/21 08:00 Pulse Ox 91 L 07/23/21 08:00 Intake & Output 07/22/21 07/23/21 07/23/21 18:59 06:59 18:59 Intake Total 596 Balance 596 Intake: Oral 596 Other: Voiding Method External Catheter Diaper # Voids 3 2 # Bowel Movements 1 - Exam -GENERAL: The patient is alert and oriented x2 to place with partially to person and time, not in any acute distress. Well developed, well nourished. Generally weak and deconditioned HEENT: Pupils are round and equally reacting to light. EOMI. No scleral icterus. No conjunctival pallor. Normocephalic, atraumatic. No pharyngeal erythema. No thyromegaly. CARDIOVASCULAR: S1 and S2 present. No murmurs, rubs, or gallops. PULMONARY: Chest is clear to auscultation, no wheezing or crackles. ABDOMEN: Soft, nontender, nondistended, normoactive bowel sounds. No palpable organomegaly. MUSCULOSKELETAL: No joint swelling or deformity. -EXTREMITIES: No cyanosis, clubbing, . Bilateral pitting leg edema NEUROLOGICAL: Gross neurological examination did not reveal any focal deficits. -SKIN: No rashes. No petechiae. She has a bruise on her forehead with some swelling, and bruise around both eyes, looks better than on admission - Labs CBC & Chem 7: 07/23/21 05:29 07/23/21 05:29 Labs: Abnormal Lab Results - Last 24 Hours (Table) 07/22/21 07/22/21 07/22/21 Range/Units 11:14 16:41 20:38 RBC (4.10-5.20) X 10*6/uL Hgb (12.0-15.0) g/dL Hct (37.2-46.3) % MCV (80.0-97.0) fL MCHC (32.0-37.0) g/dL Sodium (137-145) mmol/L Carbon Dioxide (22-30) mmol/L BUN (7-17) mg/dL Creatinine (0.52-1.04) mg/dL Glucose (74-99) mg/dL POC Glucose (mg/dL) 100 H 170 H 227 H (75-99) mg/dL Calcium (8.4-10.2) mg/dL 07/23/21 07/23/21 Range/Units 05:29 05:29 RBC 2.28 L (4.10-5.20) X 10*6/uL Hgb 7.1 L (12.0-15.0) g/dL Hct 22.4 L (37.2-46.3) % MCV 98.2 H (80.0-97.0) fL MCHC 31.7 L (32.0-37.0) g/dL Sodium 135 L (137-145) mmol/L Carbon Dioxide 31 H (22-30) mmol/L BUN 25 H (7-17) mg/dL Creatinine 1.23 H (0.52-1.04) mg/dL Glucose 70 L (74-99) mg/dL POC Glucose (mg/dL) (75-99) mg/dL Calcium 7.6 L (8.4-10.2) mg/dL Microbiology - Last 24 Hours (Table) 07/20/21 11:15 Urine Culture - Final Urine,Voided Enterococcus faecalis Assessment and Plan Assessment: Fall with head trauma with a bruise on both eyes and forehead Generalized weakness and deconditioning Altered mental status, could be elements of vascular dementia given her multiple strokes maybe also some elements of metabolic encephalopathy Anasarca multifactorial most likely contributing to acute on chronic diastolic CHF with ejection fraction of more than 70% anemia with a drop in hemoglobin Abnormal urine analysis, rule out UTI Chronic kidney disease stage III Mildly elevated liver enzymes Degenerative disc disease especially at C5 to C6 Vascular dementia with possible elements of Alzheimer dementia Multiple hospitalization Hypothyroidism History of seizure Diabetes mellitus Hypertension History of CVA/TIA Plan: This is a pleasant 81 years old female who presents with fall and altered mental status and deconditioning Continue with neuro check, neurology service consult continue on Lasix 20 mg twice daily We'll check liver and renal ultrasound Continue with insulin sliding scale Check your the bladder scan and urinalysis and urine culture Increased dose of levothyroxine 112 of 237. Labs and medication were reviewed.. Continue same treatment. Continue with symptomatic treatment. Resume home medication. Monitor lytes and vitals. DVT and GI prophylaxis. Further recommendations depends on the clinical course of the patient DVT prophylaxis: No Subcutaneous heparin. Because of anemia and already on aspirin and Vicryl in the GI Prophylaxis: Pepcid PT/OT: Pending Prognosis is guarded discussed CODE STATUS with the , he going to consider it with his son told and till then she remains full code and he agrees with that
[2021-07-23 20:58] LABS: Glucose,Whole Blood 262 mg/dL (75-99)
[2021-07-23] MEDS: ATORVASTATIN 80 MG TAB PO SCH (21:14)
[2021-07-23] MEDS: FERROUS SULFATE 325 MG TAB PO SCH (21:58)
[2021-07-24] MEDS: LEVOTHYROXINE 137 MCG TAB PO SCH (06:00)
[2021-07-24 07:22] LABS: Glucose,Whole Blood 147 mg/dL (75-99)
[2021-07-24 07:49] VITALS: RESP 16; TEMP 98.3
[2021-07-24] MEDS: lisinopriL 20 MG TAB PO SCH (08:17)
[2021-07-24] MEDS: INSULIN ASPART (NovoLOG) 100 UNIT/ML VIAL SQ SCH ×2 (08:18→12:09)
[2021-07-24] MEDS: FERROUS SULFATE 325 MG TAB PO SCH (08:18)
[2021-07-24] MEDS: LINEZOLID 600 MG TAB PO SCH (08:18)
[2021-07-24] MEDS: FUROSEMIDE 20 MG TAB PO SCH (08:18)
[2021-07-24] MEDS: PANTOPRAZOLE 40 MG/10 ML VIAL IVP SCH (08:19)
[2021-07-24] MEDS: amLODIPine 5 MG TAB PO SCH ×2 (08:25→08:28)
[2021-07-24 08:36] LABS: Basophils # (A) 0.03 X 10*3/uL (0.00-0.10); Basophils % (A) 0.5 %; Eosinophils # (A) 0.22 X 10*3/uL (0.04-0.35); Eosinophils % (A) 3.7 %; HCT 25.8 % (37.2-46.3); Lymphocytes # (A) 1.65 X 10*3/uL (0.90-5.00); Lymphocytes % (A) 27.5 %; MCH 29.7 pg (27.0-32.0); MCV 95.9 fL (80.0-97.0); Mean Platelet Volume 9.6 fL (9.5-12.2); Monocytes # (A) 0.31 X 10*3/uL (0.20-1.00); Monocytes % (A) 5.2 %; Neutrophils # (A) 3.71 X 10*3/uL (1.80-7.70); Neutrophils % (A) 61.9 %; Platelet Count 254 X 10*3/uL (140-440); RBC 2.69 X 10*6/uL (4.10-5.20); RDW 14.5 % (11.5-14.5); WBC 5.99 X 10*3/uL (4.50-10.00)
--- NOTE | 2021-07-24 10:45 | P.PN ---
Subjective Progress Note Date: 07/24/21 CHIEF COMPLAINT: Fall HISTORY OF PRESENT ILLNESS: Patient is sitting in bed comfortably. She denies any abdominal pain. Patient is tolerating diet. No nausea or vomiting reported. No blood in the stools per nursing staff. Afebrile. WBC is 5.99 hemoglobin is up from 7.1 to 8.0 PHYSICAL EXAM: VITAL SIGNS: Reviewed. GENERAL: Well-developed in no acute distress. HEENT: No sclera icterus. Extraocular movements grossly intact. Moist buccal mucosa. Head has facial bruising normocephalic. ABDOMEN: Soft. Nondistended. Nontender. NEUROLOGIC: Alert and oriented. Cranial nerves II through XII grossly intact. ASSESSMENT: 1. Chronic gallbladder dysfunction with Contracted gallbladder and gallstones noted on liver ultrasound. No abdominal pain 2. Anemia likely due to patient's facial trauma with facial bruising/hematoma and being on brilenta. Also could be dilutional from IV fluids. No black stools reported PLAN: -No surgical intervention planned -Recommend laparoscopic cholecystectomy outpatient when patient is stable -Hold Brilenta due to the patient's anemia -Continue to monitor hemoglobin -Monitor for any signs or symptoms of bleeding -Continue regular diet -Continue supportive care Physician Aircraft Systems Technician note has been reviewed by physician. Signing provider agrees with the documented findings, assessment, and plan of care. Objective - Vital Signs Vital signs: Vital Signs Temp 98.3 F 07/24/21 07:48 Pulse 63 07/24/21 07:48 Resp 16 07/24/21 07:48 BP 178/79 07/24/21 07:48 Pulse Ox 95 07/24/21 07:48 Intake & Output 07/23/21 07/24/21 07/24/21 18:59 06:59 18:59 Intake Total 596 240 Output Total 700 Balance 596 -460 Intake: Oral 596 240 Output: Urine 700 Other: Voiding Method Diaper Diaper # Voids 3 2 # Bowel Movements 1 - Labs CBC & Chem 7: 07/24/21 05:38 07/23/21 05:29 Labs: Abnormal Lab Results - Last 24 Hours (Table) 07/23/21 07/23/21 07/23/21 Range/Units 11:32 17:08 20:55 RBC (4.10-5.20) X 10*6/uL Hgb (12.0-15.0) g/dL Hct (37.2-46.3) % MCHC (32.0-37.0) g/dL Immature Gran # (0.00-0.04) X 10*3/uL POC Glucose (mg/dL) 172 H 246 H 262 H (75-99) mg/dL 07/24/21 07/24/21 Range/Units 05:38 06:58 RBC 2.69 L (4.10-5.20) X 10*6/uL Hgb 8.0 L (12.0-15.0) g/dL Hct 25.8 L (37.2-46.3) % MCHC 31.0 L (32.0-37.0) g/dL Immature Gran # 0.07 H (0.00-0.04) X 10*3/uL POC Glucose (mg/dL) 147 H (75-99) mg/dL
[2021-07-24 11:44] LABS: Glucose,Whole Blood 227 mg/dL (75-99)
--- NOTE | 2021-07-24 13:19 | P.DS ---
Providers Date of admission: 07/21/21 09:02 Attending physician: Tevin Rosario MD Consults: 07/19/21 17:05 Consult Physician Urgent Consulting Provider: Melissa Leach Consult Reason/Comments: fall, chf Do you want consulting provider notified?: Yes Consult Physician Urgent Consulting Provider: Brett Rich Consult Reason/Comments: fall, recent infarct Do you want consulting provider notified?: Yes 07/19/21 21:56 Consult Physician Routine Consulting Provider: Arthur Kwon Consult Reason/Comments: contracted g.bladder with stone also patient is anemic, Do you want consulting provider notified?: Yes, Notify in am 07/20/21 14:14 Consult Physician Urgent Consulting Provider: Brain Arroyo Consult Reason/Comments: UB mass, possible cancer Do you want consulting provider notified?: Yes Primary care physician: Jasno Gonzalez Hospital Course: Fall with head trauma with a bruise on both eyes and forehead Urinary bladder mass, evaluated by urologist follow-up for cystoscopy as an outpatient Generalized weakness and deconditioning Altered mental status, could be elements of vascular dementia given her multiple strokes maybe also some elements of metabolic encephalopathy Anasarca multifactorial most likely contributing to acute on chronic diastolic CHF with ejection fraction of more than 70% , improving anemia with a drop in hemoglobin, hemoglobin stable upon discharge. Patient was cleared by general surgeon for discharge UTI secondary to enterococcus faecalis, patient will be discharged on antibiotic Chronic kidney disease stage III Mildly elevated liver enzymes, improved back to normal Degenerative disc disease especially at C5 to C6 , patient can follow up with orthopedics as an outpatient Vascular dementia with possible elements of Alzheimer dementia Chronic gallbladder dysfunction with Contracted gallbladder and gallstones noted on liver ultrasound. No abdominal pain Anemia likely due to patient's facial trauma with facial bruising/hematoma and being on brilenta. Also could be dilutional from IV fluids. No black stools reported Multiple hospitalization Hypothyroidism, with high TSH and low T4. Dose of levothyroxine increased to 137 g daily History of seizure Diabetes mellitus Hypertension History of CVA/TIA Hospital course: This is a pleasant 72 female with past medical history of CVA/TIA, Diabetes Mellitus, Hyperlipidemia, Hypertension, she was recently discharged from the hospital one day earlier for stroke and 2 seizures (thought secondary to UTI and her stroke and hypoglycemia then) and she was discharged to [facility] for rehab. She is normally ambulate without any assistance. Patient is poor historian. Information were obtained with the help of the Mr. Pepe at bedside and nephew. As per patient has been confused over the last 3 days and actually he thinks today she is even more awake than when she left the hospital yesterday. As per family they have been told patient was trying to get up by herself and she fell on her face with resultant a bruise on her forehead and around both her eyes. She is awake and alert now, she knows she is an [facility] and she is disoriented to time and person. There was a bruises around her forehead and both eyes which are improving. She denies any specific symptoms today. She has fluid overload on admission improved with IV Lasix which is switched to 20 mg oral daily upon discharge. Patient has been evaluated by several consult is occluding freight team associate, neurologist, recommended to continue with aspirin and brillinta for her recent infarct . Guidance Director recommended event monitor and follow-up with Dr. Santana in 4 weeks. Her Keppra dose increased 500 up to 750 mg twice a day Also surgeon evaluated the patient for gallbladder disease, also for her anemia and drop in her hemoglobin, her, and to continue with conservative management and follow-up as an outpatient. Surgical team recommended laparoscopic cholecystectomy as an outpatient Renal ultrasound was showing urinary bladder mass suspicious for cancer, patient and at bedside informed. Neurologist recommended outpatient follow-up for cystoscopy. Appointment made for the patient with Dr. Claros on 07/31 Patient has significantly high TSH at 80 and low free T4 at 0.6. Her home dose of levothyroxine of 112 g daily increased to 137 g daily recommend to check her thyroid function test in 1-2 months Patient's urine culture is positive for enterococcus she was treated with Zyvox and will be discharged on Augmentin She was low normal glucose. On admission and her metformin and glipizide were kept on hold and continued with insulin sliding scale. Patient was cleared for discharge by all consultants including neurology, freight team associate, general surgery and urologist Problems and management plan were discussed with the patient and he verbalized understanding and acceptance Patient was found stable and can be discharged home however he needs follow-up as an outpatient. Patient was instructed to follow up with PCP Dr. Srinivasan within one week and patient agrees i talked to Mr. Patel/Senthil on [phone] and discussed the case with him including the recommendation for outpatient follow-up for possible urinary bladder cancer with Dr. Claros next Tuesday 07/31 and he verbalized understanding and acceptance and asked me to talk to his nephew Mr. Champagne At [phone], he made aware of her possible bladder cancer and recommendation to follow-up with Dr. Claros on 07/31, both agree with this recommendation. Also informed about her appointment with Dr. Agustin on 08/[address] Jansen in 4 weeks for event monitor and Dr. Contreras on 08/01 and they verbalized understanding and acceptance Physical exam Gen: patient is a AAOx1-2, no distress, generally weak . bruise around both eyes and forehead is improving CVS: S1-S2, RRR, no murmur Lungs: B/L CTA, no wheezing Abdomen: soft, no distention, no tenderness, positive bowel sounds Extremity: no leg edema or induration Time spent more than 35 minutes Plan - Discharge Summary Discharge Rx Participant: No New Discharge Prescriptions: Discontinued carvediloL [Coreg*] 12.5 mg PO BID@0800,1700 No Action metFORMIN HCL [Glucophage] 500 mg PO BID@0800,1700 Glimepiride [Amaryl] 2 mg PO BID@0800,1700 Multivit with Calcium,Iron,Min [Women's Multivitamin] 1 tab PO DAILY@1700 Magnesium Hydroxide [Milk of Magnesia Concentrate] 7,200 mg PO DAILY PRN PRN Reason: Constipation Levothyroxine Sodium [Synthroid] 112 mcg PO DAILY@0600 Furosemide [Lasix] 40 mg PO DAILY@0800 Ticagrelor [Brilinta] 90 mg PO BID@0800,1700 hydrALAZINE HCL [Apresoline] 75 mg PO TID@0600,1400,2200 Atorvastatin [Lipitor] 80 mg PO HS@2100 bisacodyL [Dulcolax] 10 mg RECTAL DAILY PRN PRN Reason: Constipation Na Phos,M-B/Na Phos,Di-Ba [Fleet Adult] 133 ml RECTAL DAILY PRN PRN Reason: Constipation Aspirin 81 mg PO DAILY@1700 Famotidine [Pepcid] 20 mg PO DAILY@0800 levETIRAcetam [Keppra] 500 mg PO BID@0800,2100 lisinopriL [Zestril] 20 mg PO BID@0800,1700 Discharge Medication List Glimepiride [Amaryl] 2 mg PO BID@0800,1700 12/26/20 [History] metFORMIN HCL [Glucophage] 500 mg PO BID@0800,1700 12/26/20 [History] Multivit with Calcium,Iron,Min [Women's Multivitamin] 1 tab PO DAILY@169907/07/21 [History] Atorvastatin [Lipitor] 80 mg PO HS@209907/18/21 [History] Levothyroxine Sodium [Synthroid] 112 mcg PO DAILY@59907/18/21 [History] Magnesium Hydroxide [Milk of Magnesia Concentrate] 7,200 mg PO DAILY PRN 07/18/21 [History] Na Phos,M-B/Na Phos,Di-Ba [Fleet Adult] 133 ml RECTAL DAILY PRN 07/18/21 [History] bisacodyL [Dulcolax] 10 mg RECTAL DAILY PRN 07/18/21 [History] Aspirin 81 mg PO DAILY@169907/19/21 [History] Famotidine [Pepcid] 20 mg PO DAILY@0807/19/21 [History] Furosemide [Lasix] 40 mg PO DAILY@0807/19/21 [History] Ticagrelor [Brilinta] 90 mg PO BID@0800,17007/19/21 [History] hydrALAZINE HCL [Apresoline] 75 mg PO TID@0600,1400,2200 07/19/21 [History] levETIRAcetam [Keppra] 500 mg PO BID@0800,2100 07/19/21 [History] lisinopriL [Zestril] 20 mg PO BID@0800,17007/19/21 [History] Follow up Appointment(s)/Referral(s): Chepe Agustin MD [REFERRING] - 08/14/21 10:00 am (neurologist ) Jason Gonzalez MD [Primary Care Provider] - 1-2 days (ECF) Edgar Jansen MD [STAFF PHYSICIAN] - 4 Weeks (has event monitor office will call with appointment date and time ) Charlie Suazo MD [STAFF PHYSICIAN] - 07/31/21 10:40 am Arthur Kwon MD [STAFF PHYSICIAN] - 08/01/21 2:00 pm Activity/Diet/Wound Care/Special Instructions: [place] heart healthy diet activity is restricted till you see your doctor Discharge Disposition: TRANSFER TO SNF/ECF
[2021-07-24 13:57] VITALS: BP 164/94; PULSE 64
[2021-07-24] MEDS ORDERED: AMOXIC-POT CLAV 500-125 MG 1 EACH TAB PO SCH (21:00)
== END 2021-07-24 15:51 | DRG 291 ==
LOC: EC 12:22 → 4SSUR 17:39 → OBSVTOIN 07-21 09:02
PROVIDERS: ADMIT Internal Medicine; ATTEND Internal Medicine
DX: I13.0 Hypertensive heart and chronic kidney disease with heart failure and stage 1 through stage 4 chronic kidney disease, or unspecified chronic kidney disease (principal); G93.41 Metabolic encephalopathy; I50.33 Acute on chronic diastolic (congestive) heart failure; N17.9 Acute kidney failure, unspecified; I31.3 Pericardial effusion (noninflammatory); D68.32 Hemorrhagic disorder due to extrinsic circulating anticoagulants; N13.6 Pyonephrosis; Q21.1 Atrial septal defect; J98.11 Atelectasis; I66.02 Occlusion and stenosis of left middle cerebral artery; E11.649 Type 2 diabetes mellitus with hypoglycemia without coma; E11.22 Type 2 diabetes mellitus with diabetic chronic kidney disease; G30.9 Alzheimer's disease, unspecified; F01.50 Vascular dementia, unspecified severity, without behavioral disturbance, psychotic disturbance, mood disturbance, and anxiety; F02.80 Dementia in other diseases classified elsewhere, unspecified severity, without behavioral disturbance, psychotic disturbance, mood disturbance, and anxiety; N18.30 Chronic kidney disease, stage 3 unspecified; G40.909 Epilepsy, unspecified, not intractable, without status epilepticus; Z20.822 Contact with and (suspected) exposure to COVID-19; S00.83XA Contusion of other part of head, initial encounter; S00.12XA Contusion of left eyelid and periocular area, initial encounter; S00.11XA Contusion of right eyelid and periocular area, initial encounter; T45.525A Adverse effect of antithrombotic drugs, initial encounter; B95.2 Enterococcus as the cause of diseases classified elsewhere; D49.4 Neoplasm of unspecified behavior of bladder; I69.320 Aphasia following cerebral infarction; D64.9 Anemia, unspecified; E03.9 Hypothyroidism, unspecified; M50.322 Other cervical disc degeneration at C5-C6 level; G93.89 Other specified disorders of brain; R90.82 White matter disease, unspecified; E78.5 Hyperlipidemia, unspecified; H91.90 Unspecified hearing loss, unspecified ear; I49.3 Ventricular premature depolarization; R29.6 Repeated falls; R74.8 Abnormal levels of other serum enzymes; K80.20 Calculus of gallbladder without cholecystitis without obstruction; R33.9 Retention of urine, unspecified; R26.81 Unsteadiness on feet; R74.01 Elevation of levels of liver transaminase levels; M47.812 Spondylosis without myelopathy or radiculopathy, cervical region; Z79.82 Long term (current) use of aspirin; Z79.84 Long term (current) use of oral hypoglycemic drugs; Z79.02 Long term (current) use of antithrombotics/antiplatelets; Z79.890 Hormone replacement therapy; Z79.899 Other long term (current) drug therapy; Z86.16 Personal history of COVID-19; Z87.81 Personal history of (healed) traumatic fracture; Z98.42 Cataract extraction status, left eye; Z98.41 Cataract extraction status, right eye; Z98.890 Other specified postprocedural states; W19.XXXA Unspecified fall, initial encounter; Y92.129 Unspecified place in nursing home as the place of occurrence of the external cause
CPT/HCPCS: 36415; 51798; 70450; 71046; 71275; 72125; 72170; 76705; 76770; 80048; 80053; 81001; 82140; 82607; 82728; 82746; 83540; 83550; 83735; 83880; 84439; 84443; 84484; 85025; 85027; 85379; 85610; 85730; 86850; 86900; 86901; 87077; 87086; 87186; 87635; 93005; 93270; 93970; 96360; 96361; 99285

== ENCOUNTER 2021-08-09 07:06 | Day surgery (SDC) | payer MEDICARE ==
[2021-08-07 14:44] VITALS: BMI 25.7
--- NOTE | 2021-08-08 19:14 | P.GSHP ---
History of Present Illness H&P Date: 08/08/21 81 yo female with a history of incomplete bladder emptying and recurrent uti.. She underwent a cysto in the office that identified a large papillary bladder tumor on theposterior wall of the bladder. She comes for a bladder tumor resection - Constitutional Constitutional: Denies chills, Denies fever - EENT Eyes: denies blurred vision, denies pain Ears, nose, mouth and throat: Denies headache, Denies sore throat - Cardiovascular Cardiovascular: Denies chest pain, Denies shortness of breath - Respiratory Respiratory: Denies cough, Denies 7 - Gastrointestinal Gastrointestinal: Denies abdominal pain, Denies diarrhea, Denies nausea, Denies vomiting - Genitourinary (Female) Genitourinary: Denies dysuria, Denies hematuria - Genitourinary (Male) Genitourinary: Denies dysuria, Denies hematuria - Musculoskeletal Musculoskeletal: Denies myalgias - Integumentary Integumentary: Denies pruritus, Denies rash - Neurological Neurological: Denies numbness, Denies weakness - Psychiatric Psychiatric: Denies anxiety, Denies depression - Endocrine Endocrine: Denies fatigue, Denies weight change Past Medical History Past Medical History: Blood Disorder, Cancer, Heart Failure, CVA/TIA, Dementia, Diabetes Mellitus, GERD/Reflux, Hyperlipidemia, Hypertension, Musculoskeletal Disorder, Renal Disease, Seizure Disorder, Thyroid Disorder Additional Past Medical History / Comment(s): Current bladder cancer. Currently wearing heart monitor for 30 days. CKD Stage 3. Anemia. Current UTI, on Cipro. CVA 07/11 with right side affected. Hypothyroidism. Intervertebral disc degeneration. Epilepsy, no recent seizure per Angeline L[facility] at [facility]. History of Any Multi-Drug Resistant Organisms: None Reported Past Surgical History: No Surgical Hx Reported Additional Past Surgical History / Comment(s): BILATERAL CATRACTS. Past Anesthesia/Blood Transfusion Reactions: No Reported Reaction Past Psychological History: No Psychological Hx Reported Smoking Status: Never smoker Past Alcohol Use History: None Reported Past Drug Use History: None Reported - Past Family History Father Family Medical History: No Reported History Mother Family Medical History: No Reported History Medications and Allergies Home Medications Medication Instructions Recorded Confirmed Type Multivit with Calcium,Iron,Min 1 tab PO DAILY@1700 07/07/21 08/07/21 History [Women's Multivitamin] Atorvastatin [Lipitor] 80 mg PO HS@2100 07/18/21 08/07/21 History Magnesium Hydroxide [Milk of 7,200 mg PO DAILY PRN 07/18/21 08/07/21 History Magnesia Concentrate] Na Phos,M-B/Na Phos,Di-Ba [Fleet 133 ml RECTAL DAILY PRN 07/18/21 08/07/21 Hi story Adult] bisacodyL [Dulcolax] 10 mg RECTAL DAILY PRN 07/18/21 08/07/21 History Aspirin 81 mg PO DAILY@1700 07/19/21 08/07/21 History Ticagrelor [Brilinta] 90 mg PO BID@0800,1700 07/19/21 08/08/21 History hydrALAZINE HCL [Apresoline] 75 mg PO TID@0600,1400,2200 07/19/21 08/07/21 History lisinopriL [Zestril] 20 mg PO BID@0800,1700 07/19/21 08/07/21 History Furosemide [Lasix] 20 mg PO DAILY tab 07/24/21 08/07/21 Rx INSULIN ASPART (NovoLOG) [NovoLOG 0 unit SQ ACHS ml 07/24/21 08/07/21 Rx (formulary)] Levothyroxine Sodium [Synthroid] 137 mcg PO DAILY@0600 tab 07/24/21 08/07/21 Rx levETIRAcetam [Keppra] 750 mg PO BID@0800,2100 tab 07/24/21 08/07/21 Rx Ciprofloxacin HCl [Cipro] 250 mg PO Q12HR 08/07/21 08/07/21 History Ferrous Sulfate [Iron (65 MG 325 mg PO BID 08/07/21 08/07/21 History Elemental)] Glimepiride [Amaryl] 1 mg PO DAILY 08/07/21 08/07/21 History Omeprazole [PriLOSEC] 20 mg PO BID 08/07/21 08/07/21 History Allergies Allergy/AdvReac Type Severity Reaction Status Date / Time No Known Allergies Allergy Verified 08/07/21 14:03 Surgical - Exam - General no distress, chronically ill - Eyes PERRL - ENT decreased hearing - Neck no masses - Respiratory normal expansion, normal respiratory effort - Cardiovascular Rhythm: regular - Abdomen Abdomen: soft, non tender - Integumentary no rash - Psychiatric oriented to time, oriented to person, oriented to place, speech is normal Assessment and Plan Assessment: Impression: large papillary bladder cancer. Multiple medical illnesses Plan: Turbt
[~2021-08-09 07:06] MED LIST: AMPICILLIN 1,000 MG in SODIUM CHLORIDE 0.9% 50 ML IVPB PRN; GENTAMICIN 80 MG in SODIUM CHLORIDE 0.9% 100 ML IVPB PRN
[2021-08-09] MEDS ORDERED: LIDOCAINE 1% (10MG/ML) FOR IV START INTRADERMA PRN (07:21)
[2021-08-09] MEDS ORDERED: LACTATED RINGERS 1,000 ML IV SCH (07:21)
[2021-08-09] MEDS ORDERED: GLYCOPYRROLATE 0.2 MG/ML 2 ML VIAL ONE (08:23)
[2021-08-09] MEDS ORDERED: PHENYLEPHRINE-0.9% NACL SYG 1,000 MCG/10 ML SYRINGE ONE (08:23)
[2021-08-09] MEDS ORDERED: NEOSTIGMINE 1 MG/ML 10 ML VIAL ONE (08:23)
[2021-08-09] MEDS ORDERED: fentaNYL (PF) 50 MCG/ML 2 ML AMP ONE (08:23)
[2021-08-09] MEDS ORDERED: LIDOCAINE 1% INJ 10MG/ML (20 ML MDV) ONE (08:23)
[2021-08-09] MEDS ORDERED: ROCURONIUM 10 MG/ML (5 ML VIAL) IV ONE (08:23)
[2021-08-09] MEDS ORDERED: PROPOFOL 10 MG/ML 20 ML VIAL IV ONE (08:23)
[2021-08-09] MEDS ORDERED: ONDANSETRON 4 MG/2 ML VIAL ONE (08:24)
[2021-08-09] MEDS ORDERED: ONDANSETRON 4 MG/2 ML VIAL IVP ONE (08:25)
[2021-08-09] MEDS ORDERED: DEXAMETHASONE SOD PHOSPHATE 4 MG/ML 1 ML VIAL IVP ONE (08:25)
[2021-08-09 08:26] LABS: Basophils % (A) 1 %; Eosinophils # (A) 0.2 k/uL (0-0.7); Eosinophils % (A) 4 %; HCT 29.6 % (34.0-46.0); HGB 9.6 gm/dL (11.4-16.0); Lymphocytes # (A) 1.5 k/uL (1.0-4.8); Lymphocytes % (A) 28 %; MCH 31.4 pg (25.0-35.0); MCHC 32.3 g/dL (31.0-37.0); MCV 97.1 fL (80.0-100.0); Monocytes # (A) 0.2 k/uL (0-1.0); Monocytes % (A) 4 %; Neutrophils # (A) 3.3 k/uL (1.3-7.7); Neutrophils % (A) 62 %; Platelet Count 303 k/uL (150-450); RBC 3.05 m/uL (3.80-5.40); RDW 15.6 % (11.5-15.5); WBC 5.4 k/uL (3.8-10.6)
[2021-08-09] MEDS ORDERED: LACTATED RINGERS 1,000 ML IV ONE (10:03)
--- NOTE | 2021-08-09 10:08 | P.OP ---
Date of Procedure: 08/09/21 Preoperative Diagnosis: Bladder tumor, large Postoperative Diagnosis: Same Procedure(s) Performed: Injuries resection of bladder tumor large (greater than 3 cm) Anesthesia: YAZMIN Surgeon: Charlie Suazo Estimated Blood Loss (ml): 25 Pathology: other (Under tumor) Condition: stable Disposition: PACU Indications for Procedure: The patient is 81. She came to see me because of recurrent infection. Cystoscopy identified a large tumor in the right posterior lateral bladder wall. She comes for resection Description of Procedure: A shunt brought to the operating suite. She is given a general anesthetic. She's placed lithotomy position with sterile prep and drape. The 25-[place] sheath and obturator was introduced the bladder. I then introduced the oblique lens. The tumors notified on the right posterior lateral wall extending actually all the way up to the 12 o'clock position at the bladder neck a. With the Heck resectoscope, super loop resected tumor medial to lateral. The tumor appears quite invasive into the bladder wall. His a very large tumor much greater than 3 cm. The bladder is irrigated out of tumor. I reinspected the bladder tumor base it is broad and invasive. I'm sure there is more tumor deep. I cauterize thoroughly to control bleeding. An 18-[place] Gerber catheters placed awake and returned recovery in good condition. Tell procedure well and will be returned to the [facility] upon recovery. Pending the pathology report is further recommendation per the a nephew been made abreast of the situation.
[2021-08-09 10:14] VITALS: TEMP 96.9
[2021-08-09 10:18] LABS: Glucose,Whole Blood 126 mg/dL (75-99)
[2021-08-09] MEDS ORDERED: LABETALOL SYRINGE 5 MG/ML IVP ONE (11:50)
[2021-08-09 13:05] VITALS: BP 159/70; PULSE 56; RESP 16
== END 2021-08-09 14:10 ==
LOC: OR 07:06
PROVIDERS: ATTEND Urology
DX: C67.8 Malignant neoplasm of overlapping sites of bladder (principal); E11.22 Type 2 diabetes mellitus with diabetic chronic kidney disease; I13.0 Hypertensive heart and chronic kidney disease with heart failure and stage 1 through stage 4 chronic kidney disease, or unspecified chronic kidney disease; N18.30 Chronic kidney disease, stage 3 unspecified; I50.9 Heart failure, unspecified; D63.1 Anemia in chronic kidney disease; F03.90 Unspecified dementia, unspecified severity, without behavioral disturbance, psychotic disturbance, mood disturbance, and anxiety; K21.9 Gastro-esophageal reflux disease without esophagitis; E78.5 Hyperlipidemia, unspecified; G40.909 Epilepsy, unspecified, not intractable, without status epilepticus; E03.9 Hypothyroidism, unspecified; Z86.73 Personal history of transient ischemic attack (TIA), and cerebral infarction without residual deficits; Z79.899 Other long term (current) drug therapy; Z79.82 Long term (current) use of aspirin; Z79.4 Long term (current) use of insulin; Z79.890 Hormone replacement therapy; Z98.42 Cataract extraction status, left eye; Z98.41 Cataract extraction status, right eye
CPT/HCPCS: 85025; 88307; 87635; 52240; J1100; J2710; J2405; J2001; J3010; J1580; J0290; J2370; J2704

== ENCOUNTER → 2021-08-31 | Outpatient (CLI) | payer MEDICARE ==
--- NOTE | 2021-08-31 12:23 | CT ---
EXAMINATION TYPE: CT abdomen pelvis wo con DATE OF EXAM: 08/31/2021 COMPARISON: None HISTORY: Bladder ca CT DLP: 301.90 mGycm Automated exposure control for dose reduction was used. TECHNIQUE: Helical acquisition of images was performed from the lung bases through the pelvis. FINDINGS: LUNG BASES: There is coronary artery calcification, small to moderate-sized pericardial effusion and bilateral pleural effusions. LIVER/GB: There is either a porcelain gallbladder or large gallstone correlate with ultrasound. PANCREAS: No significant abnormality is seen. SPLEEN: No significant abnormality is seen. ADRENALS: No significant abnormality is seen. KIDNEYS: Air in the bladder is noted with a thickened wall correlate for recent Gerber catheter insert ion otherwise consider infectious etiology. Correlate for cystitis. There is asymmetric posterior lat eral right bladder wall thickening correlate for neoplasm. A moderate right-sided hydronephrosis and hydroureter. No evidence of nephrolithiasis. ADENOPATHY: None visualized. OSSEOUS STRUCTURES: Hypertrophic and degenerative change of the spine with an age indeterminate comp ression fracture of L1 and S1. Postsurgical change involving the right hip. BOWEL: Diverticulosis of the colon. Bowel gas pattern nonspecific.. OTHER: Extensive atherosclerotic changes of the vasculature. Atherosclerotic change of the aorta with no evidence of aneurysm. Diffuse subcutaneous edema correlate for anasarca. IMPRESSION: 1. No bladder wall thickening suspicious of neoplasm. Air within the bladder could be related to rece nt Gerber catheter insertion correlate clinically otherwise consider infectious etiology. 2. Mild to moderate right hydronephrosis and hydroureter with no calcifications identified. 3. Large gallstone or porcelain gallbladder. 4. Bilateral pleural effusions and pericardial effusion correlate clinically. Diffuse anasarca noted correlate for CHF. 5. age-indeterminate compression fractures S1 and L1 1 recommend follow-up MRI.
--- NOTE | 2021-08-31 12:37 | XR ---
EXAMINATION TYPE: XR chest 2V DATE OF EXAM: 08/31/2021 COMPARISON: 07/19/2021 INDICATION: Bladder cancer TECHNIQUE: Frontal and lateral views of the chest are obtained. FINDINGS: The heart size is normal. The pulmonary vasculature is normal. Small bilateral pleural effusions are present. Findings were present previously. In nodules in the pe riphery of the left costophrenic angle. IMPRESSION: 1. Small bilateral pleural effusions patent continued follow-ups recommended
--- NOTE | 2021-09-01 07:39 | NM ---
EXAMINATION TYPE: NM bone scan whole body DATE OF EXAM: 08/31/2021 COMPARISON: CT abdomen and pelvis study same day HISTORY: Bladder cancer. Delayed whole-body scanning was performed following the injection of 22.1 mCi Tc 99m MDP. Images acq uired 3 hours post injection. Whole body images in anterior and posterior projection. Additional spot views of the thorax abdomen and pelvis are acquired. FINDINGS: There is horizontal increased radiotracer uptake involving roughly the T12 vertebra corresponding to the sclerotic vertebra with mild to moderate height loss suggesting subacute compression type fractur e. Increased radiotracer uptake right shoulder level corresponds to ossified density near the glenohumer al joint of uncertain etiology. Advise further workup. Exophytic bony lesion needs to be considered. Lucency from surgical change right proximal femur, small foci of uptake distally are nonspecific but could reflect product of loosening in the appropriate clinical setting. Correlate clinically. There is more prominent excretion in the right kidney consistent with known mild to moderate hydronep hrosis when correlating with same day CT. No additional suspicious osseous uptake to suggest metastatic disease to the bone. IMPRESSION: As above. No convincing evidence of metastatic disease to the bone. Attention to right hi p, clinical correlation advised. Attention to right shoulder advise further workup with direct plain film correlation to better evaluate.
== END | disposition home or self-care (01) ==
LOC: RADNMMAIN 11:02
PROVIDERS: ATTEND Urology
DX: C67.9 Malignant neoplasm of bladder, unspecified (principal); J90 Pleural effusion, not elsewhere classified; N13.30 Unspecified hydronephrosis; N13.4 Hydroureter
CPT/HCPCS: 71046; 74176; 78306; A9503

== ENCOUNTER 2021-09-19 08:12 | Day surgery (SDC) | payer MEDICARE ==
[2021-09-12 10:01] VITALS: BMI 20.9
[~2021-09-19 08:12] MED LIST changes: -AMPICILLIN 1,000 MG in SODIUM CHLORIDE 0.9% 50 ML IVPB PRN; -GENTAMICIN 80 MG in SODIUM CHLORIDE 0.9% 100 ML IVPB PRN; +SODIUM CHLORIDE 0.9% 1,000 ML IV SCH
[2021-09-19 08:38] VITALS: RESP 18; TEMP 96.8
[2021-09-19] MEDS ORDERED: LIDOCAINE 1% INJ 10MG/ML (20 ML MDV) ONE (08:57)
[2021-09-19] MEDS ORDERED: hydrALAZINE HCL 20 MG/ML 1 ML VIAL IV ONE (09:00)
[2021-09-19] MEDS ORDERED: MIDAZOLAM 2 MG/2 ML VIAL IV ONE ×2 (09:00)
[2021-09-19] MEDS ORDERED: LIDOCAINE 1% INJ 10MG/ML (20 ML MDV) SQ ONE (09:03)
[2021-09-19] MEDS ORDERED: hydrALAZINE HCL 20 MG/ML 1 ML VIAL ONE (09:09)
[2021-09-19] MEDS ORDERED: ACETAMINOPHEN TAB 325 MG TAB PO PRN (09:12)
--- NOTE | 2021-09-19 09:17 | P.PCN ---
Date of Procedure: 09/19/21 Preoperative Diagnosis: Cryptogenic stroke Postoperative Diagnosis: The same Procedure(s) Performed: Insertion of the loop recorder Description of Procedure: Procedure note: Insertion of the loop recorder. Patient was brought to the lab in a fasting state. She was prepped and draped in the usual fashion. She was given Versed 1 mg IV sedation. The skin in the third intercostal space in the left side was infiltrated with lidocaine. An incision was made with the provided device and loop recorder was inserted in the standard fashion. Patient tolerated the procedure well. Stay stitches were applied for close of the incision. Patient tolerated the procedure well. Final impression: #1. Successful implantation of loop recorder. #2. The device is programmed to nominal parameters. Plan: Patient will be discharged home later today. She'll continue home medication. Follow-up in the office in one week
[2021-09-19 11:02] VITALS: BP 182/87; PULSE 84
== END 2021-09-19 10:48 | disposition home or self-care (01) ==
LOC: CATHEP 08:12
PROVIDERS: ATTEND Internal Medicine Cardiovascular Disease
DX: I63.9 Cerebral infarction, unspecified (principal); E78.5 Hyperlipidemia, unspecified; I10 Essential (primary) hypertension; Z20.822 Contact with and (suspected) exposure to COVID-19; E11.9 Type 2 diabetes mellitus without complications; I47.1 Supraventricular tachycardia; Q21.1 Atrial septal defect; E78.00 Pure hypercholesterolemia, unspecified; Z79.02 Long term (current) use of antithrombotics/antiplatelets; Z79.82 Long term (current) use of aspirin; G40.909 Epilepsy, unspecified, not intractable, without status epilepticus; Z79.01 Long term (current) use of anticoagulants; Z79.84 Long term (current) use of oral hypoglycemic drugs; Z79.890 Hormone replacement therapy; Z79.899 Other long term (current) drug therapy
CPT/HCPCS: 33285; 87635; C1764; J2250; J0360; J0690; J2001

== ENCOUNTER → 2021-10-05 | Outpatient (CLI) | payer MEDICARE ==
[2021-10-05 23:39] LABS: Basophils # (A) 0.03 X 10*3/uL (0.00-0.10); Basophils % (A) 0.4 %; Eosinophils # (A) 0.12 X 10*3/uL (0.04-0.35); Eosinophils % (A) 1.5 %; HCT 29.9 % (37.2-46.3); HGB 9.3 g/dL (12.0-15.0); Lymphocytes # (A) 1.82 X 10*3/uL (0.90-5.00); Lymphocytes % (A) 22.9 %; MCH 29.8 pg (27.0-32.0); MCHC 31.1 g/dL (32.0-37.0); MCV 95.8 fL (80.0-97.0); Mean Platelet Volume 9.7 fL (9.5-12.2); Monocytes # (A) 0.53 X 10*3/uL (0.20-1.00); Monocytes % (A) 6.7 %; Neutrophils # (A) 5.39 X 10*3/uL (1.80-7.70); Neutrophils % (A) 67.7 %; Platelet Count 291 X 10*3/uL (140-440); RBC 3.12 X 10*6/uL (4.10-5.20); RDW 13.1 % (11.5-14.5); WBC 7.95 X 10*3/uL (4.50-10.00)
[2021-10-06 01:24] LABS: % Iron Saturation 12.04 (12.00-45.00)
== END | disposition home or self-care (01) ==
LOC: LABWHC1 15:06
PROVIDERS: ATTEND Internal Medicine Gastroenterology
DX: D64.9 Anemia, unspecified (principal)
CPT/HCPCS: 36415; 82728; 83540; 83550; 85025

== ENCOUNTER → 2021-10-26 | Outpatient (CLI) | payer MEDICARE ==
--- NOTE | 2021-10-26 11:27 | US ---
EXAMINATION TYPE: US venous doppler duplex UE DATE OF EXAM: 10/26/2021 COMPARISON: NONE CLINICAL HISTORY: 81-year-old female M79.89 LEFT UPPER EXT SWELLING. SIDE PERFORMED: Bilateral TECHNIQUE: Grayscale, color doppler, spectral doppler imaging performed of the deep veins of the upp er extremities. FINDINGS: Right Arm: Negative for DVT, cephalic not seen. Left Arm: Negative for DVT, basilic not seen. Otherwise, there are normal flow, compressibility and vascular waveforms. Severe bilateral interstitial edema. IMPRESSION: 1. On the right, the cephalic vein is not seen. On the left, the basilic vein is not seen. Otherwise, no evidence for DVT within the bilateral upper extremities. 2. Pronounced subcutaneous soft tissue edema bilaterally.
== END | disposition home or self-care (01) ==
LOC: RADUSWWP 10:03
PROVIDERS: ATTEND Internal Medicine
DX: M79.89 Other specified soft tissue disorders (principal)
CPT/HCPCS: 93970

== ENCOUNTER 2021-10-27 13:46 | Inpatient (IN) | payer MEDICARE ==
[2021-10-27] MEDS ORDERED: hydrALAZINE HCL 20 MG/ML 1 ML VIAL IVP STA (14:38)
[2021-10-27] MEDS ORDERED: FUROSEMIDE 10 MG/ML 4 ML VIAL IV STA (14:41)
--- NOTE | 2021-10-27 14:47 | ED ---
General Adult HPI - General Chief complaint: Recheck/Abnormal Lab/Rx Stated complaint: edema, high bp Time Seen by Provider: 10/27/21 14:15 Source: patient, RN notes reviewed, old records reviewed Mode of arrival: wheelchair Limitations: no limitations - History of Present Illness Initial comments: This is a 81-year-old female presents emergency Department complaining of bilateral arm edema. Patient states his been ongoing for about 2 weeks. Patient states her primary medical care doctor wanted to come to the emergency department to be checked out has some IV Lasix. Patient states she used to have edema on her legs but more recently she's been elevating her feet throughout the night and the fluid appears to have left her legs for the most part and now appears to be in her arms. Patient has no difficulty breathing shortness of breath. According to the family patient up her extremity Dopplers in the were negative for DVT yesterday. Patient denies any fever chills or cough per patient denies any chest pain or palpitations. Patient denies any other symptoms at this time. - Related Data Home Medications Medication Instructions Recorded Confirmed Multivit with Calcium,Iron,Min 1 tab PO DAILY@1700 07/07/21 09/19/21 [Women's Multivitamin] Atorvastatin [Lipitor] 80 mg PO HS@2100 07/18/21 09/19/21 Magnesium Hydroxide [Milk of 7,200 mg PO DAILY PRN 07/18/21 09/19/21 Magnesia Concentrate] Na Phos,M-B/Na Phos,Di-Ba [Fleet 133 ml RECTAL DAILY PRN 07/18/21 09/19/21 Adult] bisacodyL [Dulcolax] 10 mg RECTAL DAILY PRN 07/18/21 09/19/21 Aspirin 81 mg PO DAILY@1700 07/19/21 09/19/21 Ticagrelor [Brilinta] 90 mg PO BID@0800,1700 07/19/21 09/19/21 hydrALAZINE HCL [Apresoline] 100 mg PO TID@0600,1400,2200 07/19/21 09/19/21 lisinopriL [Zestril] 20 mg PO BID@0800,1700 07/19/21 09/19/21 Ferrous Sulfate [Iron (65 MG 325 mg PO BID 08/07/21 09/19/21 Elemental)] Glimepiride [Amaryl] 1 mg PO BID 08/07/21 09/19/21 Omeprazole [PriLOSEC] 20 mg PO BID 08/07/21 09/19/21 Furosemide [Lasix] 40 mg PO DAILY 09/12/21 09/19/21 Spironolactone [Aldactone] 12.5 mg PO DAILY 09/12/21 09/19/21 Ubidecarenone [Co Q-10] 100 mg PO DAILY 09/12/21 09/19/21 Previous Rx's Medication Instructions Recorded Levothyroxine Sodium [Synthroid] 137 mcg PO DAILY@0600 tab 07/24/21 levETIRAcetam [Keppra] 750 mg PO BID@0800,2100 tab 07/24/21 Allergies Allergy/AdvReac Type Severity Reaction Status Date / Time No Known Allergies Allergy Verified 10/27/21 14:18 Review of Systems ROS Statement: Those systems with pertinent positive or pertinent negative responses have been documented in the HPI. ROS Other: All systems not noted in ROS Statement are negative. Past Medical History Past Medical History: Cancer, CVA/TIA, Diabetes Mellitus, Hyperlipidemia, Hypertension Additional Past Medical History / Comment(s): cva last stroke 12/26/20-loss of some speech 2nd stroke 07/11. bladder cancer History of Any Multi-Drug Resistant Organisms: CRE Date of last positivie culture/infection: 08/02/21 Klebsiella [id number] Carbapenmase detected/[facility] MDRO Source:: [id number] Past Surgical History: Bladder Surgery Additional Past Surgical History / Comment(s): CATRACTS ABBE 1999. mass removed from bladder. 02/16/21 fx rt femur with repair with juliet Past Anesthesia/Blood Transfusion Reactions: No Reported Reaction Past Psychological History: No Psychological Hx Reported Smoking Status: Never smoker - Past Family History Father Family Medical History: No Reported History Mother Family Medical History: No Reported History General Exam - General Exam Comments Initial Comments: GENERAL: Patient is well-developed and well-nourished. Patient is nontoxic and well- hydrated and is in no acute distress. ENT: Neck is soft and supple. No significant lymphadenopathy is noted. Oropharynx is clear. Moist mucous membranes. Neck has full range of motion without eliciting any pain. EYES: The sclera were anicteric and conjunctiva were pink and moist. Extraocular movements were intact and pupils were equal round and reactive to light. Eyelids were unremarkable. PULMONARY: Unlabored respirations. Good breath sounds bilaterally. No audible rales rhonchi or wheezing was noted. CARDIOVASCULAR: There is a regular rate and rhythm without any murmurs gallops or rubs. ABDOMEN: Soft and nontender with normal bowel sounds. SKIN: Skin is clear with no lesions or rashes and otherwise unremarkable. NEUROLOGIC: Patient is alert and oriented x3. Cranial nerves II through XII are grossly intact. Motor and sensory are also intact. Normal speech, volume and content. Symmetrical smile. MUSCULOSKELETAL: Normal extremities with adequate strength and full range of motion. Patient has 2+ edema bilaterally on the arms and 1+ edema on the legs according to the family the arms of been ongoing for 2 weeks the legs are much better than baseline LYMPHATICS: No significant lymphadenopathy is noted PSYCHIATRIC: Normal psychiatric evaluation. Limitations: no limitations Course Vital Signs 10/27/21 14:13 Temperature 98.6 F Pulse Rate 91 Respiratory 16 Rate Blood Pressure 187/92 O2 Sat by Pulse 96 Oximetry Medical Decision Making - Medical Decision Making EKG is of poor quality it does show normal sinus rhythm at 86 bpm SC interval 120 QRS is 80 QT interval 356 QTC is 428. Patient's EKG shows no obvious ST segment elevation. Chest x-ray shows pulmonary edema I spoke with some physicians agreed to admit the patient admitted the patient I wrote admitting orders. - Lab Data Result diagrams: 10/27/21 14:45 10/27/21 14:45 Lab Results 10/27/21 10/27/21 10/27/21 Range/Units 14:45 14:45 14:45 WBC 7.4 (3.8-10.6) k/uL RBC 2.82 L (3.80-5.40) m/uL Hgb 8.5 L (11.4-16.0) gm/dL Hct 26.2 L (34.0-46.0) % MCV 92.8 (80.0-100.0) fL MCH 30.3 (25.0-35.0) pg MCHC 32.6 (31.0-37.0) g/dL RDW 14.3 (11.5-15.5) % Plt Count 369 (150-450) k/uL MPV 6.7 Neutrophils % 82 % Lymphocytes % 12 % Monocytes % 3 % Eosinophils % 2 % Basophils % 0 % Neutrophils # 6.1 (1.3-7.7) k/uL Lymphocytes # 0.9 L (1.0-4.8) k/uL Monocytes # 0.2 (0-1.0) k/uL Eosinophils # 0.1 (0-0.7) k/uL Basophils # 0.0 (0-0.2) k/uL Hypochromasia Slight PT 10.3 (9.0-12.0) sec INR 1.0 (<1.2) APTT 23.0 (22.0-30.0) sec Sodium 134 L (137-145) mmol/L Potassium 4.9 (3.5-5.1) mmol/L Chloride 100 (98-107) mmol/L Carbon Dioxide 28 (22-30) mmol/L Anion Gap 6 mmol/L BUN 43 H (7-17) mg/dL Creatinine 1.79 H (0.52-1.04) mg/dL Est GFR (CKD-EPI)AfAm 31 (>60 ml/min/1.73 sqM) Est GFR (CKD-EPI)NonAf 27 (>60 ml/min/1.73 sqM) Glucose 208 H (74-99) mg/dL Calcium 7.8 L (8.4-10.2) mg/dL Magnesium 2.0 (1.6-2.3) mg/dL Total Bilirubin 0.6 (0.2-1.3) mg/dL AST 32 (14-36) U/L ALT 13 (4-34) U/L Alkaline Phosphatase 117 (38-126) U/L Troponin I (0.000-0.034) ng/mL NT-Pro-B Natriuret Pep pg/mL Total Protein 5.4 L (6.3-8.2) g/dL Albumin 2.3 L (3.5-5.0) g/dL 10/27/21 10/27/21 Range/Units 14:45 14:45 WBC (3.8-10.6) k/uL RBC (3.80-5.40) m/uL Hgb (11.4-16.0) gm/dL Hct (34.0-46.0) % MCV (80.0-100.0) fL MCH (25.0-35.0) pg MCHC (31.0-37.0) g/dL RDW (11.5-15.5) % Plt Count (150-450) k/uL MPV Neutrophils % % Lymphocytes % % Monocytes % % Eosinophils % % Basophils % % Neutrophils # (1.3-7.7) k/uL Lymphocytes # (1.0-4.8) k/uL Monocytes # (0-1.0) k/uL Eosinophils # (0-0.7) k/uL Basophils # (0-0.2) k/uL Hypochromasia PT (9.0-12.0) sec INR (<1.2) APTT (22.0-30.0) sec Sodium (137-145) mmol/L Potassium (3.5-5.1) mmol/L Chloride (98-107) mmol/L Carbon Dioxide (22-30) mmol/L Anion Gap mmol/L BUN (7-17) mg/dL Creatinine (0.52-1.04) mg/dL Est GFR (CKD-EPI)AfAm (>60 ml/min/1.73 sqM) Est GFR (CKD-EPI)NonAf (>60 ml/min/1.73 sqM) Glucose (74-99) mg/dL Calcium (8.4-10.2) mg/dL Magnesium (1.6-2.3) mg/dL Total Bilirubin (0.2-1.3) mg/dL AST (14-36) U/L ALT (4-34) U/L Alkaline Phosphatase (38-126) U/L Troponin I <0.012 (0.000-0.034) ng/mL NT-Pro-B Natriuret Pep 8950 pg/mL Total Protein (6.3-8.2) g/dL Albumin (3.5-5.0) g/dL Disposition Clinical Impression: Pulmonary edema, Hypertension Disposition: ADMITTED IP TO THIS [facility] Referrals: Inocente Tate MD [Primary Care Provider] - 1-2 days Time of Disposition: 16:28
[2021-10-27 15:15] LABS: Basophils % (A) 0 %; Eosinophils # (A) 0.1 k/uL (0-0.7); Eosinophils % (A) 2 %; HCT 26.2 % (34.0-46.0); HGB 8.5 gm/dL (11.4-16.0); Hypochromasia Slight; Lymphocytes # (A) 0.9 k/uL (1.0-4.8); Lymphocytes % (A) 12 %; MCH 30.3 pg (25.0-35.0); MCHC 32.6 g/dL (31.0-37.0); MCV 92.8 fL (80.0-100.0); Mean Platelet Volume 6.7; Monocytes # (A) 0.2 k/uL (0-1.0); Monocytes % (A) 3 %; Neutrophils # (A) 6.1 k/uL (1.3-7.7); Neutrophils % (A) 82 %; Platelet Count 369 k/uL (150-450); RBC 2.82 m/uL (3.80-5.40); RDW 14.3 % (11.5-15.5); WBC 7.4 k/uL (3.8-10.6)
[2021-10-27 15:23] LABS: Prothrombin Time 10.3 sec (9.0-12.0)
[2021-10-27 15:27] LABS: Albumin 2.3 g/dL (3.5-5.0); Calcium 7.8 mg/dL (8.4-10.2); Total Bilirubin 0.6 mg/dL (0.2-1.3); Total Protein 5.4 g/dL (6.3-8.2)
[2021-10-27 15:29] LABS: Potassium 4.9 mmol/L (3.5-5.1)
--- NOTE | 2021-10-27 16:14 | XR ---
EXAMINATION TYPE: XR chest 2V DATE OF EXAM: 10/27/2021 COMPARISON: Chest x-ray 08/31/2021 HISTORY: Difficulty breathing TECHNIQUE: Frontal and lateral views of the chest are obtained. FINDINGS: There is blunting the costophrenic angles. The heart is enlarged. There is a loop recorder centered over the left heart. Patient is rotated. No evident pneumothorax. Aorta is dense. There is underlying scoliosis. Central vascularity and interstitium are increased. Prominent underlying volume s within the lungs could be indicative of underlying COPD. IMPRESSION: Correlate for congestive heart failure with pleural effusions. Follow-up suggested.
[2021-10-27 16:54] LABS: Appearance,Urine Cloudy (Clear); Bacteria,Urine Many /hpf; Bilirubin,Urine Negative (Negative); Blood,Urine Moderate (Negative); Color,Urine Yellow; Glucose,Urine (UA) Trace (Negative); Ketones,Urine Negative (Negative); Leukocyte Esterase,Urine Large (Negative); Mucus,Urine Rare /hpf; Nitrite,Urine Negative (Negative); Protein,Urine 2+ (Negative); RBC,Urine >182 /hpf (0-5); Specific Gravity,Urine 1.011 (1.001-1.035); Squamous Epithelial Cell,Urine <1 /hpf (0-4); Urobilinogen,Urine <2.0 mg/dL (<2.0); WBC,Urine >182 /hpf (0-5)
--- NOTE | 2021-10-27 18:04 | P.HPIM ---
History of Present Illness H&P Date: 10/27/21 Chief Complaint: dyspnea, swelling 81 -year-old woman with chronic diastolic heart failure, seizure disorder, HTN/HLD/DM, recent CVA, iron deficiency anemia presented complaining of dyspnea, decreased exercise tolerance, bilateral arm edema. Patient states that this is been ongoing for about 2 weeks, does have edema chronically, however this been worsening for 2 weeks. Since the holidays, patient has spent most of her time during the day in bed, elevating her legs to decrease swelling, however, family noted that in lieu of leg swelling, she started to develop arm swelling bilaterally. They're concerned over this, brought her to the emergency room yesterday and had ultrasounds done which were negative for DVT, she was sent home on her home diuretics. However, they return today considering that patient continues to remain weak and that she has diminished exercise tolerance. Patient denies any symptoms, and is quite stoic, including fevers, chills, nausea, vomiting, chest pain, palpitations, syncope, presyncope, orthopnea, dyspnea, cough, palpitations, abdominal pain, diarrhea, constipation, numbness/weakness of extremities. In the emergency room, patient is afebrile, 187/92, heart rate 91, 96% room air. CBC is significant for anemia which is her baseline. Chemistries are significant for sodium of 134, BUNs/creatinine of 43/1.79, to a baseline of c reatinine of 0.9. Calcium is low, but so is albumin, corrected calcium is within normal range. BNP was elevated to 8950, chest x-ray is consistent with bilateral alveolar opacities consistent with heart failure. EKG demonstrates normal sinus rhythm without evidence of ischemia. Review of Systems All Systems reviewed and pertinent positives and negatives noted in HPI, all other symptoms are negative Past Medical History Past Medical History: Cancer, CVA/TIA, Diabetes Mellitus, Hyperlipidemia, Hypertension Additional Past Medical History / Comment(s): cva last stroke 12/26/20-loss of some speech 2nd stroke 07/11. bladder cancer History of Any Multi-Drug Resistant Organisms: CRE Date of last positivie culture/infection: 08/02/21 Klebsiella [id number] Carbapenmase detected/[facility] MDRO Source:: [id number] Past Surgical History: Bladder Surgery Additional Past Surgical History / Comment(s): CATRACTS ABBE 2000. mass removed from bladder. 02/16/21 fx rt femur with repair with juliet Past Anesthesia/Blood Transfusion Reactions: No Reported Reaction Past Psychological History: No Psychological Hx Reported Smoking Status: Never smoker - Past Family History Father Family Medical History: No Reported History Mother Family Medical History: No Reported History Medications and Allergies Home Medications Medication Instructions Recorded Confirmed Type Multivit with Calcium,Iron,Min 1 tab PO DAILY 07/07/21 10/27/21 History [Women's Multivitamin] Atorvastatin [Lipitor] 80 mg PO DAILY 07/18/21 10/27/21 History Aspirin 81 mg PO DAILY 07/19/21 10/27/21 History lisinopriL [Zestril] 20 mg PO BID 07/19/21 10/27/21 History Ferrous Sulfate [Iron (65 MG 325 mg PO BID 08/07/21 10/27/21 History Elemental)] Glimepiride [Amaryl] 1 mg PO BID 08/07/21 10/27/21 History Omeprazole [PriLOSEC] 20 mg PO BID 08/07/21 10/27/21 History Spironolactone [Aldactone] 12.5 mg PO DAILY 09/12/21 10/27/21 History Ubidecarenone [Co Q-10] 100 mg PO DAILY 09/12/21 10/27/21 History Clopidogrel [Plavix] 75 mg PO DAILY 10/27/21 10/27/21 History Furosemide [Lasix] 40 mg PO DAILY 10/27/21 10/27/21 History Ipratropium-Albuterol Nebulize 3 ml INHALATION RT-Q6H PRN 10/27/21 10/27/21 History [Duoneb 0.5 mg-3 mg/3 ml Soln] Levothyroxine Sodium [Synthroid] 137 mcg PO DAILY 10/27/21 10/27/21 History hydrALAZINE HCL [Apresoline] 100 mg PO TID-W/MEALS 10/27/21 10/27/21 History levETIRAcetam [Keppra] 750 mg PO BID 10/27/21 10/27/21 History Allergies Allergy/AdvReac Type Severity Reaction Status Date / Time No Known Allergies Allergy Verified 10/27/21 16:32 Physical Exam Osteopathic Statement: *. No significant issues noted on an osteopathic structural exam other than those noted in the History and Physical/Consult. Vitals: Vital Signs Temp Pulse Resp BP Pulse Ox 10/27/21 14:13 98.6 F 91 16 187/92 96 Intake and Output 10/27/21 10/27/21 10/27/21 06:59 14:59 22:59 Other: Weight 57.153 kg Gen: awake, alert HEENT: normocephalic, atraumatic, diminished hearing acuity, moist mucous membranes Resp: good air exchange, breathing comfortably with no accessory muscle use, diffuse crackles in the lungs CVS: good distal perfusion x 4, regular rate and rhythm without murmurs GI: soft, NTTP, ND : no SPT, no CVAT, partida catheter not present MSK: Diffuse pitting edema, no clubbing Neuro: non-focal, moving all extremities Psych: cooperative, euthymic mood Results CBC & Chem 7: 10/27/21 14:45 10/27/21 14:45 Labs: Abnormal Lab Results - Last 24 Hours (Table) 10/27/21 10/27/21 10/27/21 Range/Units 14:45 14:45 16:36 RBC 2.82 L (3.80-5.40) m/uL Hgb 8.5 L (11.4-16.0) gm/dL Hct 26.2 L (34.0-46.0) % Lymphocytes # 0.9 L (1.0-4.8) k/uL Sodium 134 L (137-145) mmol/L BUN 43 H (7-17) mg/dL Creatinine 1.79 H (0.52-1.04) mg/dL Glucose 208 H (74-99) mg/dL Calcium 7.8 L (8.4-10.2) mg/dL Total Protein 5.4 L (6.3-8.2) g/dL Albumin 2.3 L (3.5-5.0) g/dL Urine Appearance Cloudy H (Clear) Urine Protein 2+ H (Negative) Urine Glucose (UA) Trace H (Negative) Urine Blood Moderate H (Negative) Ur Leukocyte Esterase Large H (Negative) Urine RBC >182 H (0-5) /hpf Urine WBC >182 H (0-5) /hpf Urine WBC Clumps Many H (None) /hpf Urine Bacteria Many H (None) /hpf Urine Mucus Rare H (None) /hpf Assessment and Plan Assessment: Acute on chronic diastolic heart failure Hypertensive urgency Acute kidney injury -Admit to inpatient, telemetry -Cardiology consult -Lasix 40 mg IV 3 times a day -Strict ins and outs -Daily weights -Defer echocardiogram given 1 taken 3 months ago -Resume home hydralazine -Hold home lisinopril, spironolactone given AK I -Nitro paste 4 times a day Recent CVA Seizure disorder Hyperlipidemia Diabetes type 2 Hypothyroidism Iron deficiency anemia Bladder Mass -Home medications reviewed and reconciled -Holding home diabetes medication -Low-dose sliding scale insulin -Patient is outside of window for need for dual antiplatelet for CVA, will review records and reassess Patient is a no code Patient's is DUR[employer] DVT prophylaxis with heparin two times a day
[2021-10-27] MEDS: NITROGLYCERIN OINT 1 INCH/GM PACKET TOPICAL SCH ×2 (20:39→23:59)
[2021-10-27] MEDS: hydrALAZINE HCL 50 MG TAB PO SCH (20:39)
[2021-10-27] MEDS: FERROUS SULFATE 325 MG TAB PO SCH (20:40)
[2021-10-27] MEDS: HEPARIN SODIUM,PORCINE/PF 5,000 UNIT/0.5 ML SYRINGE SQ SCH (20:40)
[2021-10-27] MEDS ORDERED: lisinopriL 20 MG TAB PO SCH (21:00)
[2021-10-28] MEDS: FUROSEMIDE 10 MG/ML 4 ML VIAL IV SCH ×2 (02:25→10:10)
[2021-10-28 06:45] LABS: Glucose,Whole Blood 62 mg/dL (75-99)
[2021-10-28 07:02] LABS: Glucose,Whole Blood 80 mg/dL (75-99)
[2021-10-28] MEDS: INSULIN ASPART (NovoLOG) 100 UNIT/ML VIAL SQ SCH ×3 (07:02→17:30)
[2021-10-28] MEDS: hydrALAZINE HCL 50 MG TAB PO SCH ×3 (07:04→17:30)
[2021-10-28] MEDS: PANTOPRAZOLE 40 MG TABLET PO SCH (07:04)
[2021-10-28] MEDS ORDERED: NON FORMULARY DRUG (Ubidecarenone [Co Q-10] 100 MG Capsule) PO SCH (09:00)
--- NOTE | 2021-10-28 09:00 | P.CRDCN ---
History of Present Illness Consult date: 10/28/21 Reason for Consult (text): pulm edema Chief complaint: Weak, decreased exercise tolerance History of present illness: HISTORY OF PRESENTING ILLNESS This is a 81-year-old female with a past medical history of recent CVA 06/2021, Seizure 06/2021, recent diagnosis of PFO on JOSE 07/18/21, CVA in 12/2020, left MCA stenosis, chronic diastolic heart failure, femur fracture 01/2021, type 2 diabetes, hyperlipidemia, hypertension, bladder tumor status post resection on 08/09/[address] 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 Her last hospitalization in July was for stroke, placed on a 30 day event monitor and follow with Dr. Jansen. The event monitor revealed mostly sinus rhythm with brief episodes of atrial tachycardia and possible brief episodes of atrial fibrillation. She had a pause of 4.4 seconds at night, not associated with any symptoms. She was subsequently underwent loop recorder implantation with Dr. Jansen on 09/19. We have been asked to see in consultation for pulmonary edema. Patient presented to the emergency center with complaints of 2 weeks worth of increased weakness dyspnea and exercise intolerance. She also presented with bilateral arm edema for the past 2 weeks. Patient has been started on IV Lasix 40 mg every 8 hours. She denies any chest pain, shortness of breath, lightheadedness, dizziness, palpitations. She is lying in bed comfortably. Noted bilateral upper extremity edema and left greater than right. Patient states that edema in the right arm has improved. DIAGNOSTICS EKG reveals sinus rhythm, HR 86. Telemetry tracings indicate sinus rhythm, no arrhythmia or pauses noted. Chest xr reveals correlate for heart failure and pleural effusions. Ultrasound of the bilateral upper extremity revealed on the right, the cephalic vein is not seen. On the left basilic vein is not seen. Otherwise no evidence of DVT within the bilateral upper extremities. Pronounced subcutaneous soft tissue edema bilaterally. Laboratory reviewed WBCs 7.4, hemoglobin 8.5, platelets 369, sodium 134, potassium 4.9, BUN 43, serum creatinine 1.79, blood sugar 208, troponin negative x1, Pro BNP 8950. Urinalysis revealed blood moderate, leukoesterase large, RBCs greater than 182, wbc's greater than 182, WBC clumps many. Current cardiac medications include aspirin 81 mg daily, Plavix 75 mg daily, Lipitor 80 mg daily, Lasix 40 mg daily, hydralazine 100 mg 3 times daily with meals, lisinopril 20 mg twice daily, Aldactone 12.5 mg daily. REVIEW OF SYSTEMS At the time of my exam: CONSTITUTIONAL: Denies fever or chills. CARDIOVASCULAR: Denies chest pain, shortness of breath, orthopnea, PND or palpitations. RESPIRATORY: Denies cough. GASTROINTESTINAL: Denies abdominal pain, diarrhea, constipation, nausea or vomiting. MUSCULOSKELETAL: Denies myalgias. NEUROLOGIC: Denies numbness, tingling, headacbe or weakness. ENDOCRINE: Denies fatigue, weight change, polydipsia or polyurina. GENITOURINARY: Denies burning, hematuria or urgency with micturation. HEMATOLOGIC: Denies history of anemia or bleeding. PHYSICAL EXAMINATION Blood pressure 171/69, heart rate in the 70s, pulse ox 95% on room air, afebrile. CONSTITUTIONAL: No apparent distress. HEENT: Head is normocephalic. Sclerae anicteric. Mucous membranes of the mouth are moist. No JVD. No carotid bruit. CHEST EXAMINATION: Lungs are diminished bases to auscultation. No chest wall tenderness is noted on palpation or with deep breathing. HEART EXAMINATION: Regular rate and rhythm. S1, S2 heard. No murmurs, gallops or rub. ABDOMEN: Soft, nontender. Positive bowel sounds. External female catheter in place with aureliano urine EXTREMITIES: 2+ peripheral pulses, no lower extremity edema and no calf tenderness. Bilateral upper extremity edema left greater than right NEUROLOGIC EXAMINATION: Patient is awake,alert oriented to herself only. ASSESSMENT: Acute on chronic diastolic heart failure Hypertensive urgency Acute Kidney Injury Bladder carcinoma Chronic Anemia- hgb 8.5 Recent Seizure May 2021 Recent CVA May 2021 involving the anterior left periventricular region. Recent Diagnosis of PFO on JOSE 07/18/21 History CVA left parietal ischemic stroke December 2020 Old left MCA stensois involving M1 December 2020 Acute respiratory distress requiring intubation and ventilation because of seizure, 06/2021 History of Covid-19 in January 2021. Hypertension Hypothyroidism Hyperlipidemia Type 2 Diabetes PLAN: -Continue cardiac telemetry -Continue IV diuresis, monitor patient's renal function and electrolytes -Monitor cbc -Continue current medical therapy -Resume Aldactone 12.5 mg dailybut continue to hold lisinopril due to renal failure -Further recommendations based on clinical course Nurse Practitioner note has been reviewed, I agree with a documented findings and plan of care. Patient was seen and examined. Past Medical History Past Medical History: Cancer, CVA/TIA, Diabetes Mellitus, Hyperlipidemia, Hypertension Additional Past Medical History / Comment(s): cva last stroke 12/26/20-loss of some speech 2nd stroke 07/11. bladder cancer History of Any Multi-Drug Resistant Organisms: CRE Date of last positivie culture/infection: 08/02/21 Klebsiella [id number] Carbapenmase detected/[facility] MDRO Source:: [id number] Past Surgical History: Bladder Surgery Additional Past Surgical History / Comment(s): CATRACTS ABBE 1999. mass removed from bladder. 02/16/21 fx rt femur with repair with juliet Past Anesthesia/Blood Transfusion Reactions: No Reported Reaction Past Psychological History: No Psychological Hx Reported Smoking Status: Never smoker Past Alcohol Use History: Occasional Past Drug Use History: None Reported - Past Family History Father Family Medical History: No Reported History Mother Family Medical History: No Reported History Medications and Allergies Home Medications Medication Instructions Recorded Confirmed Type Multivit with Calcium,Iron,Min 1 tab PO DAILY 07/07/21 10/27/21 History [Women's Multivitamin] Atorvastatin [Lipitor] 80 mg PO DAILY 07/18/21 10/27/21 History Aspirin 81 mg PO DAILY 07/19/21 10/27/21 History lisinopriL [Zestril] 20 mg PO BID 07/19/21 10/27/21 History Ferrous Sulfate [Iron (65 MG 325 mg PO BID 08/07/21 10/27/21 History Elemental)] Glimepiride [Amaryl] 1 mg PO BID 08/07/21 10/27/21 History Omeprazole [PriLOSEC] 20 mg PO BID 08/07/21 10/27/21 History Spironolactone [Aldactone] 12.5 mg PO DAILY 09/12/21 10/27/21 History Ubidecarenone [Co Q-10] 100 mg PO DAILY 09/12/21 10/27/21 History Clopidogrel [Plavix] 75 mg PO DAILY 10/27/21 10/27/21 History Furosemide [Lasix] 40 mg PO DAILY 10/27/21 10/27/21 History Ipratropium-Albuterol Nebulize 3 ml INHALATION RT-Q6H PRN 10/27/21 10/27/21 History [Duoneb 0.5 mg-3 mg/3 ml Soln] Levothyroxine Sodium [Synthroid] 137 mcg PO DAILY 10/27/21 10/27/21 History hydrALAZINE HCL [Apresoline] 100 mg PO TID-W/MEALS 10/27/21 10/27/21 History levETIRAcetam [Keppra] 750 mg PO BID 10/27/21 10/27/21 History Allergies Allergy/AdvReac Type Severity Reaction Status Date / Time No Known Allergies Allergy Verified 10/27/21 16:32 Physical Exam Vitals: Vital Signs Temp Pulse Pulse Resp BP BP Pulse Ox 10/28/21 04:00 76 18 171/69 95 10/28/21 01:00 98.1 F 77 18 175/71 95 10/28/21 00:01 68 16 160/88 95 10/27/21 20:41 98.6 F 84 16 174/103 95 10/27/21 14:13 98.6 F 91 16 187/92 96 Intake and Output 10/27/21 10/28/21 10/28/21 22:59 06:59 14:59 Intake Total 485 Output Total 400 Balance 85 Intake: Oral 485 Output: Urine 400 Other: Voiding Method Bedpan Diaper # Voids 1 Weight 57.153 kg Results 10/27/21 14:45 10/27/21 14:45 Cardiac Enzymes 10/27/21 10/27/21 Range/Units 14:45 14:45 AST 32 (14-36) U/L Troponin I <0.012 (0.000-0.034) ng/mL Coagulation 10/27/21 Range/Units 14:45 PT 10.3 (9.0-12.0) sec APTT 23.0 (22.0-30.0) sec CBC 10/27/21 Range/Units 14:45 WBC 7.4 (3.8-10.6) k/uL RBC 2.82 L (3.80-5.40) m/uL Hgb 8.5 L (11.4-16.0) gm/dL Hct 26.2 L (34.0-46.0) % Plt Count 369 (150-450) k/uL Comprehensive Metabolic Panel 10/27/21 Range/Units 14:45 Sodium 134 L (137-145) mmol/L Potassium 4.9 (3.5-5.1) mmol/L Chloride 100 (98-107) mmol/L Carbon Dioxide 28 (22-30) mmol/L BUN 43 H (7-17) mg/dL Creatinine 1.79 H (0.52-1.04) mg/dL Glucose 208 H (74-99) mg/dL Calcium 7.8 L (8.4-10.2) mg/dL AST 32 (14-36) U/L ALT 13 (4-34) U/L Alkaline Phosphatase 117 (38-126) U/L Total Protein 5.4 L (6.3-8.2) g/dL Albumin 2.3 L (3.5-5.0) g/dL Current Medications Generic Name Dose Route Start Last Admin Trade Name Freq PRN Reason Stop Dose Admin Albuterol/Ipratropium 3 ml 10/27/21 17:28 Ipratropium-Albuterol 3 Ml Neb INHALATION RT-Q6H PRN Shortness Of Breath Aspirin 81 mg 10/28/21 09:00 Aspirin 81 Mg PO DAILY [facility] Atorvastatin Calcium 80 mg 10/28/21 09:00 Atorvastatin 80 Mg Tab PO DAILY [facility] Clopidogrel Bisulfate 75 mg 10/28/21 09:00 Clopidogrel 75 Mg Tab PO DAILY [facility] Ferrous Sulfate 325 mg 10/27/21 21:00 10/27/21 20:40 Ferrous Sulfate 325 Mg Tab PO 325 mg BID ARASH Administration Furosemide 40 mg 10/28/21 00:00 10/28/21 02:25 Furosemide 10 Mg/Ml 4 Ml Vial IV 40 mg Q8HR ARASH Administration Heparin Sodium (Porcine) 5,000 unit 10/27/21 21:00 10/27/21 20:40 Heparin Sodium,Porcine/Pf 5,000 Unit/0.5 Ml Syringe SQ 5,000 unit Q12HR ARASH Administration Hydralazine HCl 100 mg 10/27/21 17:30 10/28/21 07:04 Hydralazine Hcl 50 Mg Tab PO 100 mg TID-W/MEALS ARASH Administration Insulin Aspart 0 unit 10/28/21 07:30 10/28/21 07:02 Insulin Aspart (Novolog) 100 Unit/Ml Vial SQ Not Given AC-TID [facility] Protocol Levetiracetam 750 mg 10/27/21 21:00 10/27/21 20:40 Levetiracetam 750 Mg Tab PO 750 mg BID [facility] Administration Levothyroxine Sodium 137 mcg 10/28/21 06:30 Levothyroxine 137 Mcg Tab PO DAILY@0630 [facility] Multivitamins 1 each 10/28/21 09:00 Multivitamins, Thera 1 Each Tab PO DAILY [facility] Nitroglycerin 1 inch 10/27/21 18:00 10/27/21 23:59 Nitroglycerin Oint 1 Inch/Gm Packet TOPICAL Not Given QID [facility] Pantoprazole Sodium 40 mg 10/28/21 07:30 10/28/21 07:04 Pantoprazole 40 Mg Tablet PO 40 mg [id number] [facility] Administration Intake and Output 10/27/21 10/28/21 10/28/21 22:59 06:59 14:59 Intake Total 485 Output Total 400 Balance 85 Intake: Oral 485 Output: Urine 400 Other: Voiding Method Bedpan Diaper # Voids 1 Weight 57.153 kg 10/27/21 14:45 10/27/21 14:45
[2021-10-28] MEDS: HEPARIN SODIUM,PORCINE/PF 5,000 UNIT/0.5 ML SYRINGE SQ SCH ×2 (10:10→21:01)
[2021-10-28] MEDS: MULTIVITAMINS, THERA 1 EACH TAB PO SCH (10:11)
[2021-10-28] MEDS: ASPIRIN 81 MG PO SCH (10:11)
[2021-10-28] MEDS: NITROGLYCERIN OINT 1 INCH/GM PACKET TOPICAL SCH (10:11)
[2021-10-28] MEDS: ATORVASTATIN 80 MG TAB PO SCH (10:11)
[2021-10-28] MEDS: SPIRONOLACTONE 25 MG TAB PO SCH (10:11)
[2021-10-28] MEDS: FERROUS SULFATE 325 MG TAB PO SCH ×2 (10:11→20:17)
[2021-10-28] MEDS: LEVOTHYROXINE 137 MCG TAB PO SCH (10:11)
[2021-10-28] MEDS: CLOPIDOGREL 75 MG TAB PO SCH (10:12)
[2021-10-28] MEDS ORDERED: FUROSEMIDE 10 MG/ML 2 ML VIAL IV ONE (10:14)
[2021-10-28 11:42] LABS: Glucose,Whole Blood 241 mg/dL (75-99)
[2021-10-28 12:01] LABS: Calcium 7.7 mg/dL (8.4-10.2)
[2021-10-28 12:06] LABS: Basophils % (A) 0 %; Eosinophils # (A) 0.1 k/uL (0-0.7); Eosinophils % (A) 1 %; HCT 24.8 % (34.0-46.0); HGB 8.1 gm/dL (11.4-16.0); Hypochromasia Slight; Lymphocytes # (A) 0.9 k/uL (1.0-4.8); Lymphocytes % (A) 15 %; MCH 30.2 pg (25.0-35.0); MCHC 32.8 g/dL (31.0-37.0); MCV 92.1 fL (80.0-100.0); Monocytes # (A) 0.2 k/uL (0-1.0); Monocytes % (A) 3 %; Neutrophils # (A) 4.8 k/uL (1.3-7.7); Neutrophils % (A) 81 %; Platelet Count 319 k/uL (150-450); RBC 2.69 m/uL (3.80-5.40); RDW 13.9 % (11.5-15.5)
--- NOTE | 2021-10-28 12:07 | P.PN ---
Subjective Progress Note Date: 10/28/21 No new complaints today. Edema seems mildly improved. Objective - Vital Signs Vital signs: Vital Signs Temp 98.1 F 10/28/21 01:00 Pulse 76 10/28/21 04:00 Resp 18 10/28/21 04:00 BP 171/69 10/28/21 04:00 Pulse Ox 95 10/28/21 04:00 Intake & Output 10/27/21 10/28/21 10/28/21 18:59 06:59 18:59 Intake Total 485 118 Output Total 400 150 Balance 85 -32 Weight 57.153 kg 57.153 kg Intake: Oral 485 118 Output: Urine 400 150 Other: Voiding Method Bedpan Diaper # Voids 1 - Exam Gen: awake, alert HEENT: normocephalic, atraumatic, diminished hearing acuity, moist mucous membranes Resp: good air exchange, breathing comfortably with no accessory muscle use, diffuse crackles in the lungs CVS: good distal perfusion x 4, regular rate and rhythm without murmurs GI: soft, NTTP, ND : no SPT, no CVAT, partida catheter not present MSK: Diffuse pitting edema, no clubbing Neuro: non-focal, moving all extremities Psych: cooperative, euthymic mood - Labs CBC & Chem 7: 10/27/21 14:45 10/28/21 11:26 Labs: Abnormal Lab Results - Last 24 Hours (Table) 10/27/21 10/27/21 10/27/21 Range/Units 14:45 14:45 16:36 RBC 2.82 L (3.80-5.40) m/uL Hgb 8.5 L (11.4-16.0) gm/dL Hct 26.2 L (34.0-46.0) % Lymphocytes # 0.9 L (1.0-4.8) k/uL Sodium 134 L (137-145) mmol/L BUN 43 H (7-17) mg/dL Creatinine 1.79 H (0.52-1.04) mg/dL Glucose 208 H (74-99) mg/dL POC Glucose (mg/dL) (75-99) mg/dL Calcium 7.8 L (8.4-10.2) mg/dL Total Protein 5.4 L (6.3-8.2) g/dL Albumin 2.3 L (3.5-5.0) g/dL Urine Appearance Cloudy H (Clear) Urine Protein 2+ H (Negative) Urine Glucose (UA) Trace H (Negative) Urine Blood Moderate H (Negative) Ur Leukocyte Esterase Large H (Negative) Urine RBC >182 H (0-5) /hpf Urine WBC >182 H (0-5) /hpf Urine WBC Clumps Many H (None) /hpf Urine Bacteria Many H (None) /hpf Urine Mucus Rare H (None) /hpf 10/28/21 10/28/21 10/28/21 Range/Units 06:43 11:26 11:40 RBC (3.80-5.40) m/uL Hgb (11.4-16.0) gm/dL Hct (34.0-46.0) % Lymphocytes # (1.0-4.8) k/uL Sodium 134 L (137-145) mmol/L BUN 43 H (7-17) mg/dL Creatinine 1.79 H (0.52-1.04) mg/dL Glucose 229 H (74-99) mg/dL POC Glucose (mg/dL) 62 L 241 H (75-99) mg/dL Calcium 7.7 L (8.4-10.2) mg/dL Total Protein (6.3-8.2) g/dL Albumin (3.5-5.0) g/dL Urine Appearance (Clear) Urine Protein (Negative) Urine Glucose (UA) (Negative) Urine Blood (Negative) Ur Leukocyte Esterase (Negative) Urine RBC (0-5) /hpf Urine WBC (0-5) /hpf Urine WBC Clumps (None) /hpf Urine Bacteria (None) /hpf Urine Mucus (None) /hpf Microbiology - Last 24 Hours (Table) 10/27/21 16:36 Urine Culture - Preliminary Urine,Voided Assessment and Plan Assessment: Acute on chronic diastolic heart failure Hypertensive urgency Acute kidney injury -Admit to inpatient, telemetry -Cardiology consult -Lasix 60 mg IV two times a day -Strict ins and outs -Daily weights -Defer echocardiogram given last was taken 3 months ago -Resume home hydralazine -Hold home lisinopril, spironolactone given AK I -Added amlodipine and isosorbide dinitrate TID Recent CVA Seizure disorder Hyperlipidemia Diabetes type 2 Hypothyroidism Iron deficiency anemia Bladder Mass -Home medications reviewed and reconciled -Holding home diabetes medication -Low-dose sliding scale insulin -Patient is outside of window for need for dual antiplatelet for CVA, will review records and reassess Patient is a no code Patient's is DURABLE POWER OF DOFFER DVT prophylaxis with heparin two times a day
[2021-10-28] MEDS: ISOSORBIDE DINITRATE 20 MG TAB PO SCH ×3 (14:35→21:01)
[2021-10-28 16:46] LABS: Glucose,Whole Blood 190 mg/dL (75-99)
[2021-10-28] MEDS: amLODIPine 10 MG TAB PO SCH (17:30)
[2021-10-28 20:16] LABS: Glucose,Whole Blood 125 mg/dL (75-99)
[2021-10-28] MEDS ORDERED: FUROSEMIDE 10 MG/ML 4 ML VIAL IV SCH (21:00)
[2021-10-28] MEDS: FUROSEMIDE 10 MG/ML 10 ML VIAL IV SCH (21:01)
[2021-10-29] MEDS: INSULIN ASPART (NovoLOG) 100 UNIT/ML VIAL SQ SCH ×3 (06:29→17:13)
[2021-10-29] MEDS: LEVOTHYROXINE 137 MCG TAB PO SCH (06:32)
[2021-10-29] MEDS: PANTOPRAZOLE 40 MG TABLET PO SCH (06:32)
[2021-10-29] MEDS: hydrALAZINE HCL 50 MG TAB PO SCH ×3 (06:32→17:12)
[2021-10-29 06:53] LABS: Glucose,Whole Blood 66 mg/dL (75-99)
[2021-10-29 06:54] LABS: Glucose,Whole Blood 98 mg/dL (75-99)
[2021-10-29] MEDS: FUROSEMIDE 10 MG/ML 10 ML VIAL IV SCH ×2 (08:38→20:41)
[2021-10-29] MEDS: CLOPIDOGREL 75 MG TAB PO SCH (08:38)
[2021-10-29] MEDS: SPIRONOLACTONE 25 MG TAB PO SCH (08:38)
[2021-10-29] MEDS: ASPIRIN 81 MG PO SCH (08:38)
[2021-10-29] MEDS: HEPARIN SODIUM,PORCINE/PF 5,000 UNIT/0.5 ML SYRINGE SQ SCH ×2 (08:38→20:48)
[2021-10-29] MEDS: amLODIPine 10 MG TAB PO SCH (08:38)
[2021-10-29] MEDS: FERROUS SULFATE 325 MG TAB PO SCH ×2 (08:38→20:42)
[2021-10-29] MEDS: ATORVASTATIN 80 MG TAB PO SCH (08:38)
[2021-10-29 09:56] LABS: Basophils % (A) 1 %; Eosinophils # (A) 0.1 k/uL (0-0.7); Eosinophils % (A) 2 %; HCT 24.2 % (34.0-46.0); HGB 7.7 gm/dL (11.4-16.0); Hypochromasia Slight; Lymphocytes # (A) 0.8 k/uL (1.0-4.8); Lymphocytes % (A) 13 %; MCH 29.6 pg (25.0-35.0); MCV 92.7 fL (80.0-100.0); Mean Platelet Volume 6.9; Monocytes # (A) 0.2 k/uL (0-1.0); Monocytes % (A) 4 %; Neutrophils # (A) 4.8 k/uL (1.3-7.7); Neutrophils % (A) 80 %; Platelet Count 323 k/uL (150-450); RBC 2.61 m/uL (3.80-5.40); RDW 14.2 % (11.5-15.5)
[2021-10-29 10:08] LABS: Calcium 7.7 mg/dL (8.4-10.2)
[2021-10-29] MEDS: MULTIVITAMINS, THERA 1 EACH TAB PO SCH (10:53)
--- NOTE | 2021-10-29 12:05 | P.PN ---
Subjective Progress Note Date: 10/29/21 Weight is down, and edema improved but not resolved. Pressures are significantly improved Objective - Vital Signs Vital signs: Vital Signs Temp 97.4 F L 10/29/21 08:00 Pulse 80 10/29/21 08:00 Resp 18 10/29/21 08:00 BP 152/74 10/29/21 08:00 Pulse Ox 94 L 10/29/21 08:00 Intake & Output 10/28/21 10/29/21 10/29/21 18:59 06:59 18:59 Intake Total 236 600 Output Total 150 850 Balance 86 -250 Weight 57.153 kg 54 kg Intake: Oral 236 600 Output: Urine 150 850 Other: Voiding Method Bedpan Diaper Diaper Diaper External Catheter External Catheter # Voids 1 # Bowel Movements 1 1 - Exam Gen: awake, alert HEENT: normocephalic, atraumatic, diminished hearing acuity, moist mucous membranes Resp: good air exchange, breathing comfortably with no accessory muscle use, diffuse crackles in the lungs CVS: good distal perfusion x 4, regular rate and rhythm without murmurs GI: soft, NTTP, ND : no SPT, no CVAT, partida catheter not present MSK: Diffuse pitting edema, no clubbing Neuro: non-focal, moving all extremities Psych: cooperative, euthymic mood - Labs CBC & Chem 7: 10/29/21 09:38 10/29/21 09:38 Labs: Abnormal Lab Results - Last 24 Hours (Table) 10/28/21 10/28/21 10/28/21 Range/Units 11:26 16:45 19:59 RBC 2.69 L (3.80-5.40) m/uL Hgb 8.1 L (11.4-16.0) gm/dL Hct 24.8 L (34.0-46.0) % Lymphocytes # 0.9 L (1.0-4.8) k/uL Sodium (137-145) mmol/L Carbon Dioxide (22-30) mmol/L BUN (7-17) mg/dL Creatinine (0.52-1.04) mg/dL Glucose (74-99) mg/dL POC Glucose (mg/dL) 190 H 125 H (75-99) mg/dL Calcium (8.4-10.2) mg/dL 0110/29/21 10/29/21 Range/Units 06:23 09:38 09:38 RBC 2.61 L (3.80-5.40) m/uL Hgb 7.7 L (11.4-16.0) gm/dL Hct 24.2 L (34.0-46.0) % Lymphocytes # 0.8 L (1.0-4.8) k/uL Sodium 136 L (137-145) mmol/L Carbon Dioxide 32 H (22-30) mmol/L BUN 42 H (7-17) mg/dL Creatinine 2.01 H (0.52-1.04) mg/dL Glucose 151 H (74-99) mg/dL POC Glucose (mg/dL) 66 L (75-99) mg/dL Calcium 7.7 L (8.4-10.2) mg/dL Microbiology - Last 24 Hours (Table) 10/27/21 16:36 Urine Culture - Preliminary Urine,Voided Assessment and Plan Assessment: Acute on chronic diastolic heart failure Hypertensive urgency Acute kidney injury -Admit to inpatient, telemetry -Cardiology consult -Lasix 60 mg IV two times a day -Strict ins and outs -Daily weights -Defer echocardiogram given last was taken 3 months ago -Resume home hydralazine -Hold home lisinopril, spironolactone given AK I -Added amlodipine and isosorbide dinitrate TID Recent CVA Seizure disorder Hyperlipidemia Diabetes type 2 Hypothyroidism Iron deficiency anemia Bladder Mass -Home medications reviewed and reconciled -Holding home diabetes medication -Low-dose sliding scale insulin Patient is a no code Patient's is DURABLE POWER OF ANIMAL CARE TAKER DVT prophylaxis with heparin two times a day
[2021-10-29] MEDS: ISOSORBIDE DINITRATE 20 MG TAB PO SCH ×3 (12:18→20:48)
--- NOTE | 2021-10-29 14:50 | P.PN ---
Subjective HISTORY OF PRESENTING ILLNESS This is a 81-year-old female with a past medical history of recent CVA 06/2021, Seizure 06/2021, recent diagnosis of PFO on JOSE 07/18/21, CVA in 12/2020, left MCA stenosis, chronic diastolic heart failure, femur fracture 01/2021, type 2 diabetes, hyperlipidemia, hypertension, bladder tumor status post resection on with Dr. 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 Her last hospitalization in July was for stroke, placed on a 30 day event monitor and follow with Dr. Jansen. The event monitor revealed mostly sinus rhythm with brief episodes of atrial tachycardia and possible brief episodes of atrial fibrillation. She had a pause of 4.4 seconds at night, not associated with any symptoms. She was subsequently underwent loop recorder implantation with Dr. Jansen on 09/19. We have been asked to see in consultation for pulmonary edema. Patient presented to the emergency center with complaints of 2 weeks worth of increased weakness dyspnea and exercise intolerance. She also presented with bilateral arm edema for the past 2 weeks. Patient has been started on IV Lasix 40 mg every 8 hours. She denies any chest pain, shortness of breath, lightheadedness, dizziness, palpitations. She is lying in bed comfortably. Noted bilateral upper extremity edema and left greater than right. Patient states that edema in the right arm has improved. 10/29 Patient seen and examined. She has remained on IV Lasix with mild improvement in upper extremity edema. Creatinine noted to be mildly increased up to 2 today. PHYSICAL EXAMINATION Vitals reviewed CONSTITUTIONAL: No apparent distress. HEENT: Head is normocephalic. Sclerae anicteric. Mucous membranes of the mouth are moist. No JVD. No carotid bruit. CHEST EXAMINATION: Lungs are diminished bases to auscultation. No chest wall tenderness is noted on palpation or with deep breathing. HEART EXAMINATION: Regular rate and rhythm. S1, S2 heard. No murmurs, gallops or rub. ABDOMEN: Soft, nontender. Positive bowel sounds. External female catheter in place with aureliano urine EXTREMITIES: 2+ peripheral pulses, no lower extremity edema and no calf tenderness. Bilateral upper extremity edema left greater than right NEUROLOGIC EXAMINATION: Patient is awake,alert oriented to herself only. ASSESSMENT: Acute on chronic diastolic heart failure Hypertensive urgency Acute Kidney Injury Bladder carcinoma Chronic Anemia- hgb 8.5 Recent Seizure May 2021 Recent CVA May 2021 involving the anterior left periventricular region. Recent Diagnosis of PFO on JOSE 07/18/21 History CVA left parietal ischemic stroke December 2020 Old left MCA stensois involving M1 December 2020 Acute respiratory distress requiring intubation and ventilation because of seizure, 06/2021 History of Covid-19 in January 2021. Hypertension Hypothyroidism Hyperlipidemia Type 2 Diabetes Severe protein calorie malnutrition likely effecting oncotic pressure and worsening edema PLAN: -Continue cardiac telemetry -Continue IV diuresis, monitor patient's renal function and electrolytes -Monitor cbc -Continue current medical therapy -Resume Aldactone 12.5 mg dailybut continue to hold lisinopril due to renal fail ure -Appears may have some mild improvement in edema however creatinine also noted to increase. Continue to monitor closely. Continue with another day of IV diuresis. Edema also likely related to 3rd spacing from severe PCM. Objective - Vital Signs Vital signs: Vital Signs Temp 97.4 F L 10/29/21 08:00 Pulse 80 10/29/21 08:00 Resp 18 10/29/21 08:00 BP 152/74 10/29/21 08:00 Pulse Ox 94 L 10/29/21 08:00 Intake & Output 10/28/21 10/29/21 10/29/21 18:59 06:59 18:59 Intake Total 236 600 120 Output Total 150 850 Balance 86 -250 120 Weight 57.153 kg 54 kg Intake: Oral 236 600 120 Output: Urine 150 850 Other: Voiding Method Bedpan Diaper Diaper Diaper External Catheter External Catheter # Voids 1 # Bowel Movements 1 1 - Labs CBC & Chem 7: 10/29/21 09:38 10/29/21 09:38 Labs: Abnormal Lab Results - Last 24 Hours (Table) 10/28/21 10/28/21 10/29/21 Range/Units 16:45 19:59 06:23 RBC (3.80-5.40) m/uL Hgb (11.4-16.0) gm/dL Hct (34.0-46.0) % Lymphocytes # (1.0-4.8) k/uL Sodium (137-145) mmol/L Carbon Dioxide (22-30) mmol/L BUN (7-17) mg/dL Creatinine (0.52-1.04) mg/dL Glucose (74-99) mg/dL POC Glucose (mg/dL) 190 H 125 H 66 L (75-99) mg/dL Calcium (8.4-10.2) mg/dL 10/29/21 10/29/21 Range/Units 09:38 09:38 RBC 2.61 L (3.80-5.40) m/uL Hgb 7.7 L (11.4-16.0) gm/dL Hct 24.2 L (34.0-46.0) % Lymphocytes # 0.8 L (1.0-4.8) k/uL Sodium 136 L (137-145) mmol/L Carbon Dioxide 32 H (22-30) mmol/L BUN 42 H (7-17) mg/dL Creatinine 2.01 H (0.52-1.04) mg/dL Glucose 151 H (74-99) mg/dL POC Glucose (mg/dL) (75-99) mg/dL Calcium 7.7 L (8.4-10.2) mg/dL Microbiology - Last 24 Hours (Table) 10/27/21 16:36 Urine Culture - Preliminary Urine,Voided Gram Neg Bacilli
[2021-10-29 17:02] LABS: Glucose,Whole Blood 160 mg/dL (75-99)
[2021-10-29 20:19] LABS: Glucose,Whole Blood 188 mg/dL (75-99)
[2021-10-30 06:12] LABS: Glucose,Whole Blood 156 mg/dL (75-99)
[2021-10-30] MEDS: hydrALAZINE HCL 50 MG TAB PO SCH ×3 (06:20→16:46)
[2021-10-30] MEDS: PANTOPRAZOLE 40 MG TABLET PO SCH (06:20)
[2021-10-30] MEDS: INSULIN ASPART (NovoLOG) 100 UNIT/ML VIAL SQ SCH ×3 (06:20→19:06)
[2021-10-30] MEDS: LEVOTHYROXINE 137 MCG TAB PO SCH (06:20)
[2021-10-30] MEDS: FUROSEMIDE 10 MG/ML 10 ML VIAL IV SCH ×2 (08:24→20:31)
[2021-10-30] MEDS: ISOSORBIDE DINITRATE 20 MG TAB PO SCH ×3 (08:24→20:31)
[2021-10-30] MEDS: HEPARIN SODIUM,PORCINE/PF 5,000 UNIT/0.5 ML SYRINGE SQ SCH ×2 (08:24→21:40)
[2021-10-30] MEDS: ASPIRIN 81 MG PO SCH (08:25)
[2021-10-30] MEDS: CLOPIDOGREL 75 MG TAB PO SCH (08:25)
[2021-10-30] MEDS: MULTIVITAMINS, THERA 1 EACH TAB PO SCH (08:25)
[2021-10-30] MEDS: FERROUS SULFATE 325 MG TAB PO SCH ×2 (08:25→21:40)
[2021-10-30] MEDS: amLODIPine 10 MG TAB PO SCH (08:25)
[2021-10-30] MEDS: SPIRONOLACTONE 25 MG TAB PO SCH (08:25)
[2021-10-30] MEDS: ATORVASTATIN 80 MG TAB PO SCH (08:25)
[2021-10-30 09:06] LABS: Basophils % (A) 0 %; Eosinophils # (A) 0.1 k/uL (0-0.7); Eosinophils % (A) 2 %; HCT 28.3 % (34.0-46.0); HGB 8.7 gm/dL (11.4-16.0); Hypochromasia Slight; Lymphocytes # (A) 0.9 k/uL (1.0-4.8); Lymphocytes % (A) 15 %; MCH 28.6 pg (25.0-35.0); MCHC 30.8 g/dL (31.0-37.0); MCV 92.7 fL (80.0-100.0); Mean Platelet Volume 6.9; Monocytes # (A) 0.2 k/uL (0-1.0); Monocytes % (A) 3 %; Neutrophils # (A) 4.8 k/uL (1.3-7.7); Neutrophils % (A) 79 %; Platelet Count 350 k/uL (150-450); RBC 3.05 m/uL (3.80-5.40); RDW 13.8 % (11.5-15.5); WBC 6.1 k/uL (3.8-10.6)
[2021-10-30 09:17] LABS: Magnesium 2.1 mg/dL (1.6-2.3); Potassium 4.4 mmol/L (3.5-5.1)
[2021-10-30 11:40] LABS: Glucose,Whole Blood 195 mg/dL (75-99)
[2021-10-30] MEDS: carvediloL 3.125 MG TAB PO SCH ×2 (11:59→16:46)
--- NOTE | 2021-10-30 12:54 | P.PN ---
Subjective Progress Note Date: 10/30/21 Pt still with edema, which appears slightly worse today. Wts are improving. BPs have improved. UCx returned positive for klebsiella and e coli with ESBL. ID consulted. Objective - Vital Signs Vital signs: Vital Signs Temp 97.2 F L 10/30/21 08:20 Pulse 83 10/30/21 08:20 Resp 16 10/30/21 08:20 BP 124/67 10/30/21 08:20 Pulse Ox 96 10/30/21 08:20 Intake & Output 10/29/21 10/30/21 10/30/21 18:59 06:59 18:59 Intake Total 560 225 240 Output Total 800 650 Balance -240 -425 240 Weight 53 kg Intake: Oral 560 225 240 Output: Urine 800 650 Other: Voiding Method Diaper Diaper Diaper External Catheter External Catheter External Catheter # Voids 1 # Bowel Movements 1 - Exam Gen: awake, alert HEENT: normocephalic, atraumatic, diminished hearing acuity, moist mucous membranes Resp: good air exchange, breathing comfortably with no accessory muscle use, diffuse crackles in the lungs CVS: good distal perfusion x 4, regular rate and rhythm without murmurs GI: soft, NTTP, ND : no SPT, no CVAT, partida catheter not present MSK: Diffuse pitting edema, no clubbing Neuro: non-focal, moving all extremities Psych: cooperative, euthymic mood - Labs CBC & Chem 7: 10/30/21 08:24 10/30/21 08:24 Labs: Abnormal Lab Results - Last 24 Hours (Table) 10/29/21 10/29/21 10/30/21 Range/Units 17:01 20:12 06:00 RBC (3.80-5.40) m/uL Hgb (11.4-16.0) gm/dL Hct (34.0-46.0) % MCHC (31.0-37.0) g/dL Lymphocytes # (1.0-4.8) k/uL Sodium (137-145) mmol/L Carbon Dioxide (22-30) mmol/L BUN (7-17) mg/dL Creatinine (0.52-1.04) mg/dL Glucose (74-99) mg/dL POC Glucose (mg/dL) 160 H 188 H 156 H (75-99) mg/dL Calcium (8.4-10.2) mg/dL 10/30/21 10/30/21 10/30/21 Range/Units 08:24 08:24 11:38 RBC 3.05 L (3.80-5.40) m/uL Hgb 8.7 L (11.4-16.0) gm/dL Hct 28.3 L (34.0-46.0) % MCHC 30.8 L (31.0-37.0) g/dL Lymphocytes # 0.9 L (1.0-4.8) k/uL Sodium 135 L (137-145) mmol/L Carbon Dioxide 31 H (22-30) mmol/L BUN 43 H (7-17) mg/dL Creatinine 1.99 H (0.52-1.04) mg/dL Glucose 165 H (74-99) mg/dL POC Glucose (mg/dL) 195 H (75-99) mg/dL Calcium 8.0 L (8.4-10.2) mg/dL Microbiology - Last 24 Hours (Table) 10/27/21 16:36 Urine Culture - Final Urine,Voided Escherichia coli Klebsiella pneumoniae Assessment and Plan Assessment: Acute on chronic diastolic heart failure Hypertensive urgency Acute kidney injury -Admit to inpatient, telemetry -Cardiology consult -Lasix 60 mg IV two times a day for one more day, then switch to oral -Strict ins and outs -Daily weights -Defer echocardiogram given last was taken 3 months ago -Resume home hydralazine -Hold home lisinopril, spironolactone given AK I -Added amlodipine and isosorbide dinitrate TID Protein Calorie Malnutrition -field investigator consult pending ESBL UTI -started ertapenem -ID consulted -follow daily labs Recent CVA Seizure disorder Hyperlipidemia Diabetes type 2 Hypothyroidism Iron deficiency anemia Bladder Mass -Home medications reviewed and reconciled -Holding home diabetes medication -Low-dose sliding scale insulin Patient is a no code 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
[2021-10-30] MEDS ORDERED: ERTAPENEM 1 GM in SODIUM CHLORIDE 0.9% 50 ML IVPB SCH (13:30)
--- NOTE | 2021-10-30 13:49 | P.PN ---
Subjective This is a 81-year-old female with a past medical history of recent CVA 06/2021, Seizure 06/2021, recent diagnosis of PFO on JOSE 07/18/21, CVA in 12/2020, left MCA stenosis, chronic diastolic heart failure, femur fracture 01/2021, type 2 diabetes, hyperlipidemia, hypertension, bladder tumor status post resection on 08/09/[address] 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 Her last hospitalization in July was for stroke, placed on a 30 day event monitor and follow with Dr. Jansen. The event monitor revealed mostly sinus rhythm with brief episodes of atrial tachycardia and possible brief episodes of atrial fibrillation. She had a pause of 4.4 seconds at night, not associated with any symptoms. She was subsequently underwent loop recorder implantation with Dr. Jansen on 09/19. We have been asked to see in consultation for pulmonary edema. Patient presented to the emergency center with complaints of 2 weeks worth of increased weakness dyspnea and exercise intolerance. She also presented with bilateral arm edema for the past 2 weeks. Patient has been started on IV Lasix 40 mg every 8 hours. She denies any chest pain, shortness of breath, lightheadedness, dizziness, palp itations. She is lying in bed comfortably. Noted bilateral upper extremity edema and left greater than right. Patient states that edema in the right arm has improved. 10/30/2021 Patient seen and examined at bedside, no acute distress. She denies any chest pain. She denies any shortness of breath. She has remained on IV Lasix 60mg BID with improvement in upper extremity edema. Creatinine noted to be 1.99 today. She is diuresing well. Decrease in weight since admission. Labs reviewed. Vital signs stable. PHYSICAL EXAMINATION Vitals reviewed CONSTITUTIONAL: No apparent distress. HEENT: Neck Supple. No JVD. CHEST EXAMINATION: Lungs are diminished bases to auscultation. No chest wall te nderness is noted on palpation or with deep breathing. HEART EXAMINATION: Regular rate and rhythm. S1, S2 heard. No murmurs, gallops or rub. ABDOMEN: Soft, nontender. Positive bowel sounds. External female catheter in place with aureliano urine EXTREMITIES: 2+ peripheral pulses, no lower extremity edema and no calf tenderness. Bilateral upper extremity edema left greater than right NEUROLOGIC EXAMINATION: Patient is awake,alert oriented to herself only. ASSESSMENT: Acute on chronic diastolic heart failure Hypertensive urgency Acute Kidney Injury Bladder carcinoma Chronic Anemia- hgb 8.5 Recent Seizure May 2021 Recent CVA May 2021 involving the anterior left periventricular region. Recent Diagnosis of PFO on JOSE 07/18/21 History CVA left parietal ischemic stroke December 2020 Old left MCA stensois involving M1 December 2020 Acute respiratory distress requiring intubation and ventilation because of seizure, 06/2021 History of Covid-19 in January 2021. Hypertension Hypothyroidism Hyperlipidemia Type 2 Diabetes Severe protein calorie malnutrition likely effecting oncotic pressure and worsening edema PLAN: -Decrease IV Lasix to 40mg BID, hopefully transition to PO tomorrow -Start carvedilol 3.125 mg twice a day he -Continue cardiac telemetry -Monitor patient's renal function and electrolytes, I/Os, daily weights. -Monitor cbc -Continue current medical therapy -Continue to hold lisinopril due to renal failure -Appears may have some mild improvement in edema however creatinine also noted to increase. Continue to monitor closely. Continue with another day of IV diuresis, hopefully transition to PO Lasix tomorrow. Objective - Vital Signs Vital signs: Vital Signs Temp 97.2 F L 10/30/21 08:20 Pulse 83 10/30/21 08:20 Resp 16 10/30/21 08:20 BP 124/67 10/30/21 08:20 Pulse Ox 96 10/30/21 08:20 Intake & Output 10/29/21 10/30/21 10/30/21 18:59 06:59 18:59 Intake Total 560 225 240 Output Total 800 650 Balance -240 -425 240 Weight 53 kg Intake: Oral 560 225 240 Output: Urine 800 650 Other: Voiding Method Diaper Diaper Diaper External Catheter External Catheter External Catheter # Voids 1 # Bowel Movements 1 - Labs CBC & Chem 7: 10/30/21 08:24 10/30/21 08:24 Labs: Abnormal Lab Results - Last 24 Hours (Table) 10/29/21 10/29/21 10/30/21 Range/Units 17:01 20:12 06:00 RBC (3.80-5.40) m/uL Hgb (11.4-16.0) gm/dL Hct (34.0-46.0) % MCHC (31.0-37.0) g/dL Lymphocytes # (1.0-4.8) k/uL Sodium (137-145) mmol/L Carbon Dioxide (22-30) mmol/L BUN (7-17) mg/dL Creatinine (0.52-1.04) mg/dL Glucose (74-99) mg/dL POC Glucose (mg/dL) 160 H 188 H 156 H (75-99) mg/dL Calcium (8.4-10.2) mg/dL 10/30/21 10/30/21 10/30/21 Range/Units 08:24 08:24 11:38 RBC 3.05 L (3.80-5.40) m/uL Hgb 8.7 L (11.4-16.0) gm/dL Hct 28.3 L (34.0-46.0) % MCHC 30.8 L (31.0-37.0) g/dL Lymphocytes # 0.9 L (1.0-4.8) k/uL Sodium 135 L (137-145) mmol/L Carbon Dioxide 31 H (22-30) mmol/L BUN 43 H (7-17) mg/dL Creatinine 1.99 H (0.52-1.04) mg/dL Glucose 165 H (74-99) mg/dL POC Glucose (mg/dL) 195 H (75-99) mg/dL Calcium 8.0 L (8.4-10.2) mg/dL Microbiology - Last 24 Hours (Table) 10/27/21 16:36 Urine Culture - Final Urine,Voided Escherichia coli Klebsiella pneumoniae
[2021-10-30 16:16] LABS: Glucose,Whole Blood 145 mg/dL (75-99)
[2021-10-30 20:23] LABS: Glucose,Whole Blood 158 mg/dL (75-99)
--- NOTE | 2021-10-31 00:23 | P.CONS ---
History of Present Illness - Reason for Consult Consult date: 10/30/21 ESBL E.coli UTI Requesting physician: Michael Carey - Chief Complaint swelling of arms x days - History of Present Illness History of Present Illness : Patient is 81-year-old female presenting to the ER 3 days ago for evaluation of bilateral pulm edema and this patient symptom has been going on for 2 weeks and the patient was sent to the ER for possible IV diuretics patient on presentation to the ER was afebrile and no fever has been recorded subsequently patient did have a normal white count with no left shift BUN and creatinine was slightly elevated patient did have a positive UA salcido PCR was negative patient urine has been finalized with ESBL E. coli and Klebsiella with more than 100,000 colonies patient was started on Invanz infectious was consulted for further management of antibiotic therapy, patient currently denies having any fever or any chills she has been complaining of some urinary symptoms of decreased output and some discomfort but denies any suprapubic or flank pain denies any nausea no vomiting and did have some diarrhea but no blood or mucus in the stool Review of system: CONSTITUTIONAL: Positive for weakness denies high-grade fever. EYES: No complaint. ENT: No complaint. RESPIRATORY: No complaint. CARDIOVASCULAR: As per history of present illness. GENITOURINARY: As per history of present illness. GASTROINTESTINAL: No complaint. MUSCULOSKELETAL: No complaint. INTEGUMENTARY : No complaint. PSYCHOLOGIC: No complaint. ENDOCRINE: No complaint. NEUROLOGIC: No complaint. Past medical history : Reviewed, documented below Past surgical history : Reviewed, documented below Social history: Reviewed, documented below Medications: Reviewed, as documented below EXAMINATION: Vital sigans= Reviewed and documented below GENERAL DESCRIPTION: Elderly female lying in bed, no distress. No tachypnea or accessory muscle of respiration use. HEENT: Shows Pallor , no scleral icterus. Oral mucous membrane is dry. NECK: Trachea central, no thyromegaly. LUNGS: Unlabored breathing. Decreased breath sound at the base. No wheeze or crackle. HEART: S1, S2, regular rate and rhythm. ABDOMEN: Soft, no tenderness , guarding or rigidity EXTREMITIES: No edema feet SKIN: No rash, no masses palpable. NEUROLOGICAL: The patient is awake, alert, oriented x2, mood and affect normal. LABS AND RADIOLOGY: Reviewed results see below Assessment : Patient presented to hospital with bilateral upper extremity edema and a question of fluid overload in this patient did have a significantly positive UA and concerning for a symptomatic UTI as the patient did have some urinary symptoms however no fever or elevated white count could be more likely cystitis rather than a deep infection however the patient did have elevated BUN and creatinine and will need to rule out underlying obstructive uropathy Plan: 1-continue with ertapenem dose has been adjusted the kidney function at 500 mg daily 2-check ultrasound of the kidney and the bladder area 3-repeat UA and check inflammatory markers We will follow on clinical condition and cultures to further adjust medication if needed Thank you for this consultation we will follow the patient along with you Past Medical History Past Medical History: Cancer, CVA/TIA, Diabetes Mellitus, Hyperlipidemia, Hypertension Additional Past Medical History / Comment(s): cva last stroke 12/26/20-loss of some speech 2nd stroke 07/11. 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 mass removed from bladder. 02/16/21 fx rt femur with repair with juliet Past Anesthesia/Blood Transfusion Reactions: No Reported Reaction Past Psychological History: No Psychological Hx Reported Smoking Status: Never smoker Past Alcohol Use History: Occasional Past Drug Use History: None Reported - Past Family History Father Family Medical History: No Reported History Mother Family Medical History: No Reported History Medications and Allergies Home Medications Medication Instructions Recorded Confirmed Type Multivit with Calcium,Iron,Min 1 tab PO DAILY 07/07/21 10/27/21 History [Women's Multivitamin] Atorvastatin [Lipitor] 80 mg PO DAILY 07/18/21 10/27/21 History Aspirin 81 mg PO DAILY 07/19/21 10/27/21 History lisinopriL [Zestril] 20 mg PO BID 07/19/21 10/27/21 History Ferrous Sulfate [Iron (65 MG 325 mg PO BID 08/07/21 10/27/21 History Elemental)] Glimepiride [Amaryl] 1 mg PO BID 08/07/21 10/27/21 History Omeprazole [PriLOSEC] 20 mg PO BID 08/07/21 10/27/21 History Spironolactone [Aldactone] 12.5 mg PO DAILY 09/12/21 10/27/21 History Ubidecarenone [Co Q-10] 100 mg PO DAILY 09/12/21 10/27/21 History Clopidogrel [Plavix] 75 mg PO DAILY 10/27/21 10/27/21 History Furosemide [Lasix] 40 mg PO DAILY 10/27/21 10/27/21 History Ipratropium-Albuterol Nebulize 3 ml INHALATION RT-Q6H PRN 10/27/21 10/27/21 History [Duoneb 0.5 mg-3 mg/3 ml Soln] Levothyroxine Sodium [Synthroid] 137 mcg PO DAILY 10/27/21 10/27/21 History hydrALAZINE HCL [Apresoline] 100 mg PO TID-W/MEALS 10/27/21 10/27/21 History levETIRAcetam [Keppra] 750 mg PO BID 10/27/21 10/27/21 History Allergies Allergy/AdvReac Type Severity Reaction Status Date / Time No Known Allergies Allergy Verified 10/27/21 16:32 Physical Exam Vitals: Vital Signs Temp Pulse Resp BP Pulse Ox 10/30/21 11:45 97.0 F L 80 18 148/70 93 L 10/30/21 08:20 97.2 F L 83 16 124/67 96 10/30/21 04:43 97.8 F 78 16 160/70 97 10/30/21 02:00 18 10/29/21 23:29 97.8 F 87 18 171/78 94 L 10/29/21 20:48 97.6 F 80 16 151/96 95 Intake and Output 10/30/21 10/30/21 10/30/21 06:59 14:59 22:59 Intake Total 225 240 Output Total 650 800 Balance -425 -560 Intake: Oral 225 240 Output: Urine 650 800 Other: Voiding Method Diaper Diaper External Catheter External Catheter Weight 53 kg Results CBC & Chem 7: 10/30/21 08:24 10/30/21 08:24 Labs: Abnormal Lab Results - Last 24 Hours (Table) 10/29/21 10/29/21 10/30/21 Range/Units 17:01 20:12 06:00 RBC (3.80-5.40) m/uL Hgb (11.4-16.0) gm/dL Hct (34.0-46.0) % MCHC (31.0-37.0) g/dL Lymphocytes # (1.0-4.8) k/uL Sodium (137-145) mmol/L Carbon Dioxide (22-30) mmol/L BUN (7-17) mg/dL Creatinine (0.52-1.04) mg/dL Glucose (74-99) mg/dL POC Glucose (mg/dL) 160 H 188 H 156 H (75-99) mg/dL Calcium (8.4-10.2) mg/dL 10/30/21 10/30/21 10/30/21 Range/Units 08:24 08:24 11:38 RBC 3.05 L (3.80-5.40) m/uL Hgb 8.7 L (11.4-16.0) gm/dL Hct 28.3 L (34.0-46.0) % MCHC 30.8 L (31.0-37.0) g/dL Lymphocytes # 0.9 L (1.0-4.8) k/uL Sodium 135 L (137-145) mmol/L Carbon Dioxide 31 H (22-30) mmol/L BUN 43 H (7-17) mg/dL Creatinine 1.99 H (0.52-1.04) mg/dL Glucose 165 H (74-99) mg/dL POC Glucose (mg/dL) 195 H (75-99) mg/dL Calcium 8.0 L (8.4-10.2) mg/dL 10/30/21 Range/Units 16:15 RBC (3.80-5.40) m/uL Hgb (11.4-16.0) gm/dL Hct (34.0-46.0) % MCHC (31.0-37.0) g/dL Lymphocytes # (1.0-4.8) k/uL Sodium (137-145) mmol/L Carbon Dioxide (22-30) mmol/L BUN (7-17) mg/dL Creatinine (0.52-1.04) mg/dL Glucose (74-99) mg/dL POC Glucose (mg/dL) 145 H (75-99) mg/dL Calcium (8.4-10.2) mg/dL Microbiology - Last 24 Hours (Table) 10/27/21 16:36 Urine Culture - Final Urine,Voided Escherichia coli Klebsiella pneumoniae
[2021-10-31 05:50] LABS: Appearance,Urine Turbid (Clear); Bacteria,Urine Few /hpf; Bilirubin,Urine Negative (Negative); Blood,Urine Large (Negative); Color,Urine Red; Glucose,Urine (UA) Negative (Negative); Ketones,Urine Negative (Negative); Leukocyte Esterase,Urine Large (Negative); Nitrite,Urine Negative (Negative); PH, Urine 7.5 (5.0-8.0); Protein,Urine 2+ (Negative); RBC,Urine >182 /hpf (0-5); Urobilinogen,Urine <2.0 mg/dL (<2.0); WBC,Urine >182 /hpf (0-5)
[2021-10-31 06:15] LABS: Glucose,Whole Blood 99 mg/dL (75-99)
[2021-10-31] MEDS: INSULIN ASPART (NovoLOG) 100 UNIT/ML VIAL SQ SCH ×3 (06:20→16:51)
[2021-10-31] MEDS: hydrALAZINE HCL 50 MG TAB PO SCH ×3 (06:24→16:51)
[2021-10-31] MEDS: carvediloL 3.125 MG TAB PO SCH ×2 (06:24→16:51)
[2021-10-31] MEDS: LEVOTHYROXINE 137 MCG TAB PO SCH (06:24)
[2021-10-31] MEDS: PANTOPRAZOLE 40 MG TABLET PO SCH (06:24)
[2021-10-31 08:00] LABS: Calcium 7.6 mg/dL (8.4-10.2); Potassium 4.1 mmol/L (3.5-5.1)
[2021-10-31] MEDS: MULTIVITAMINS, THERA 1 EACH TAB PO SCH (08:21)
[2021-10-31] MEDS: amLODIPine 10 MG TAB PO SCH (08:21)
[2021-10-31] MEDS: SPIRONOLACTONE 25 MG TAB PO SCH (08:21)
[2021-10-31] MEDS: ASPIRIN 81 MG PO SCH (08:21)
[2021-10-31] MEDS: ATORVASTATIN 80 MG TAB PO SCH (08:21)
[2021-10-31] MEDS: CLOPIDOGREL 75 MG TAB PO SCH (08:21)
[2021-10-31] MEDS: FERROUS SULFATE 325 MG TAB PO SCH ×2 (08:22→20:11)
[2021-10-31] MEDS: HEPARIN SODIUM,PORCINE/PF 5,000 UNIT/0.5 ML SYRINGE SQ SCH ×2 (08:22→20:11)
[2021-10-31] MEDS: FUROSEMIDE 10 MG/ML 10 ML VIAL IV SCH (08:22)
[2021-10-31] MEDS: ISOSORBIDE DINITRATE 20 MG TAB PO SCH ×3 (08:23→20:12)
[2021-10-31 11:57] LABS: Glucose,Whole Blood 239 mg/dL (75-99)
[2021-10-31] MEDS: ERTAPENEM 0.5 GM in SODIUM CHLORIDE 0.9% 50 ML IVPB SCH (12:14)
[2021-10-31] MEDS: IPRATROPIUM-ALBUTEROL 3 ML NEB INHALATION PRN ×2 (12:14→16:05)
--- NOTE | 2021-10-31 12:54 | P.PN ---
Subjective This is a 81-year-old female with a past medical history of recent CVA 06/2021, Seizure 06/2021, recent diagnosis of PFO on JOSE 07/18/21, CVA in 12/2020, left MCA stenosis, chronic diastolic heart failure, femur fracture 01/2021, type 2 diabetes, hyperlipidemia, hypertension, bladder tumor status post resection on 08/09/[address] 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 Her last hospitalization in July was for stroke, placed on a 30 day event monitor and follow with Dr. Jansen. The event monitor revealed mostly sinus rhythm with brief episodes of atrial tachycardia and possible brief episodes of atrial fibrillation. She had a pause of 4.4 seconds at night, not associated with any symptoms. She was subsequently underwent loop recorder implantation with Dr. Jansen on 09/19. We have been asked to see in consultation for pulmonary edema. Patient presented to the emergency center with complaints of 2 weeks worth of increased weakness dyspnea and exercise intolerance. She also presented with bilateral arm edema for the past 2 weeks. Patient has been started on IV Lasix 40 mg every 8 hours. She denies any chest pain, shortness of breath, lightheadedness, dizziness, palp itations. She is lying in bed comfortably. Noted bilateral upper extremity edema and left greater than right. Patient states that edema in the right arm has improved. 10/31/21 Patient seen and examined at bedside, no acute distress. She denies any chest pain. She denies any shortness of breath. She has remained on IV Lasix 40mg BID with improvement in edema. She is lying flat in bed, comfortably. No shortness of breath. Creatinine noted to be 1.96 today, BUN 46. She is diuresing well. Decrease in weight since admission. Labs reviewed. Vital signs stable, Blood pressure has improved. PHYSICAL EXAMINATION Vitals reviewed CONSTITUTIONAL: No apparent distress. HEENT: Neck Supple. No JVD. CHEST EXAMINATION: Lungs are diminished bases to auscultation. HEART EXAMINATION: Regular rate and rhythm. S1, S2 heard. No murmurs, gallops or rub. ABDOMEN: Soft, nontender. Positive bowel sounds. External female catheter in place with aureliano urine EXTREMITIES: no lower extremity edema and no calf tenderness. NEUROLOGIC EXAMINATION: Patient is awake,alert oriented to herself only. ASSESSMENT: Acute on chronic diastolic heart failure Hypertensive urgency Acute Kidney Injury Bladder carcinoma Chronic Anemia- hgb 8.5 Recent Seizure May 2021 Recent CVA May 2021 involving the anterior left periventricular region. Recent Diagnosis of PFO on JOSE 07/18/21 History CVA left parietal ischemic stroke December 2020 Old left MCA stensois involving M1 December 2020 Acute respiratory distress requiring intubation and ventilation because of seizure, 06/2021 History of Covid-19 in January 2021. Hypertension Hypothyroidism Hyperlipidemia Type 2 Diabetes Severe protein calorie malnutrition likely effecting oncotic pressure and worsening edema PLAN: -Transition to PO Lasix 60mg daily -We will continue low dose carvedilol 3.125 mg twice a day -Continue cardiac telemetry -Monitor patient's renal function and electrolytes, I/Os, daily weights. -Monitor cbc -Continue current medical therapy -Continue to hold lisinopril due to renal failure -Further recommendations based on clinical course Objective - Vital Signs Vital signs: Vital Signs Temp 97.8 F 10/31/21 04:28 Pulse 71 10/31/21 04:28 Resp 16 10/31/21 04:28 BP 160/71 10/31/21 04:28 Pulse Ox 95 10/31/21 04:28 Intake & Output 10/30/21 10/31/21 10/31/21 18:59 06:59 18:59 Intake Total 340 790 Output Total 800 900 Balance -460 -110 Weight 53.5 kg Intake: Oral 340 790 Blood Product 0 Output: Urine 800 900 Other: Voiding Method Diaper Diaper External Catheter External Catheter - Labs CBC & Chem 7: 10/30/21 08:24 10/31/21 07:24 Labs: Abnormal Lab Results - Last 24 Hours (Table) 10/30/21 10/30/21 10/30/21 Range/Units 11:38 16:15 20:21 Sodium (137-145) mmol/L Carbon Dioxide (22-30) mmol/L BUN (7-17) mg/dL Creatinine (0.52-1.04) mg/dL POC Glucose (mg/dL) 195 H 145 H 158 H (75-99) mg/dL Calcium (8.4-10.2) mg/dL C-Reactive Protein (<1.0) mg/dL Urine Appearance (Clear) Urine Protein (Negative) Urine Blood (Negative) Ur Leukocyte Esterase (Negative) Urine RBC (0-5) /hpf Urine WBC (0-5) /hpf Urine WBC Clumps (None) /hpf Urine Bacteria (None) /hpf 10/31/21 10/31/21 Range/Units 05:18 07:24 Sodium 134 L (137-145) mmol/L Carbon Dioxide 31 H (22-30) mmol/L BUN 46 H (7-17) mg/dL Creatinine 1.96 H (0.52-1.04) mg/dL POC Glucose (mg/dL) (75-99) mg/dL Calcium 7.6 L (8.4-10.2) mg/dL C-Reactive Protein 2.0 H (<1.0) mg/dL Urine Appearance Turbid H (Clear) Urine Protein 2+ H (Negative) Urine Blood Large H (Negative) Ur Leukocyte Esterase Large H (Negative) Urine RBC >182 H (0-5) /hpf Urine WBC >182 H (0-5) /hpf Urine WBC Clumps Many H (None) /hpf Urine Bacteria Few H (None) /hpf Microbiology - Last 24 Hours (Table) 10/27/21 16:36 Urine Culture - Final Urine,Voided Escherichia coli Klebsiella pneumoniae
--- NOTE | 2021-10-31 13:03 | P.PN ---
Subjective Progress Note Date: 10/31/21 Pt has no complaints today. UOP has improved. BPs are improved. Pt grew ESBL E coli and klebsiella in her UCx and was started on ertapenem yesterday. IV abx likely required on discharge. ID consulted. Objective - Vital Signs Vital signs: Vital Signs Temp 98.1 F 10/31/21 11:37 Pulse 80 10/31/21 12:22 Resp 20 10/31/21 11:37 BP 144/61 10/31/21 11:37 Pulse Ox 92 L 10/31/21 11:37 Intake & Output 10/30/21 10/31/21 10/31/21 18:59 06:59 18:59 Intake Total 340 790 240 Output Total 800 900 Balance -460 -110 240 Weight 53.5 kg Intake: Oral 340 790 240 Blood Product 0 Output: Urine 800 900 Other: Voiding Method Diaper Diaper Diaper External Catheter External Catheter External Catheter - Exam Gen: awake, alert HEENT: normocephalic, atraumatic, diminished hearing acuity, moist mucous membranes Resp: good air exchange, breathing comfortably with no accessory muscle use, diffuse crackles in the lungs CVS: good distal perfusion x 4, regular rate and rhythm without murmurs GI: soft, NTTP, ND : no SPT, no CVAT, partida catheter not present MSK: Diffuse pitting edema, no clubbing Neuro: non-focal, moving all extremities Psych: cooperative, euthymic mood - Labs CBC & Chem 7: 10/30/21 08:24 10/31/21 07:24 Labs: Abnormal Lab Results - Last 24 Hours (Table) 10/30/21 10/30/21 10/31/21 Range/Units 16:15 20:21 05:18 Sodium (137-145) mmol/L Carbon Dioxide (22-30) mmol/L BUN (7-17) mg/dL Creatinine (0.52-1.04) mg/dL POC Glucose (mg/dL) 145 H 158 H (75-99) mg/dL Calcium (8.4-10.2) mg/dL C-Reactive Protein (<1.0) mg/dL Procalcitonin (0.02-0.09) ng/mL Urine Appearance Turbid H (Clear) Urine Protein 2+ H (Negative) Urine Blood Large H (Negative) Ur Leukocyte Esterase Large H (Negative) Urine RBC >182 H (0-5) /hpf Urine WBC >182 H (0-5) /hpf Urine WBC Clumps Many H (None) /hpf Urine Bacteria Few H (None) /hpf 10/31/21 10/31/21 10/31/21 Range/Units 07:24 07:24 11:55 Sodium 134 L (137-145) mmol/L Carbon Dioxide 31 H (22-30) mmol/L BUN 46 H (7-17) mg/dL Creatinine 1.96 H (0.52-1.04) mg/dL POC Glucose (mg/dL) 239 H (75-99) mg/dL Calcium 7.6 L (8.4-10.2) mg/dL C-Reactive Protein 2.0 H (<1.0) mg/dL Procalcitonin 0.14 H (0.02-0.09) ng/mL Urine Appearance (Clear) Urine Protein (Negative) Urine Blood (Negative) Ur Leukocyte Esterase (Negative) Urine RBC (0-5) /hpf Urine WBC (0-5) /hpf Urine WBC Clumps (None) /hpf Urine Bacteria (None) /hpf Microbiology - Last 24 Hours (Table) 10/27/21 16:36 Urine Culture - Final Urine,Voided Escherichia coli Klebsiella pneumoniae Assessment and Plan Assessment: Acute on chronic diastolic heart failure Hypertensive urgency Acute kidney injury -Admit to inpatient, telemetry -Cardiology consult -Lasix 60 mg IV two times a day for one more day, then switch to oral -Strict ins and outs -Daily weights -Defer echocardiogram given last was taken 3 months ago -Resume home hydralazine -Hold home lisinopril, spironolactone given AK I -Added amlodipine and isosorbide dinitrate TID Protein Calorie Malnutrition -specialty sales representative consult pending ESBL UTI -started ertapenem -ID consulted -follow daily labs Recent CVA Seizure disorder Hyperlipidemia Diabetes type 2 Hypothyroidism Iron deficiency anemia Bladder Mass -Home medications reviewed and reconciled -Holding home diabetes medication -Low-dose sliding scale insulin Patient is a no code Patient's is DURABLE POWER OF DIRECTOR OF STUDENT AID DVT prophylaxis with heparin two times a day
[2021-10-31] MEDS ORDERED: SENNOSIDES-DOCUSATE SODIUM 1 EACH TAB PO PRN (15:15)
[2021-10-31 16:33] LABS: Glucose,Whole Blood 175 mg/dL (75-99)
[2021-10-31] MEDS: polyethylene glycoL 3350 17 GM POWD.PACK PO SCH (16:51)
[2021-10-31 20:06] LABS: Glucose,Whole Blood 172 mg/dL (75-99)
--- NOTE | 2021-10-31 20:08 | PN ---
PROGRESS NOTE DATE OF SERVICE: 10/31/2021 REASON FOR FOLLOWUP: ESBL Klebsiella urinary tract infection. INTERVAL HISTORY: The patient is afebrile. The patient is breathing comfortably. No chest pain, shortness of breath or cough. No vomiting. No abdominal pain or diarrhea. PHYSICAL EXAMINATION: Blood pressure is 121/63 with a pulse of 73, temperature 97.6. She is 93% on room air. General description is an elderly female lying in bed in no distress. Respiratory system: Unlabored breathing, decreased intensity of breath sounds. No wheeze. Heart S1, S2. Regular rate and rhythm. Abdomen soft, no tenderness. LABS: Repeat urine is positive. DIAGNOSTIC IMPRESSION AND PLAN: Patient with ESBL Klebsiella and Escherichia coli urinary tract infection. Patient to continue with pain medications. Waiting for the ultrasound to be completed to determine the duration of her outpatient antibiotics. Daughter at the bedside. Questions and concerns were answered. MMODL / IJN: [id number] /
[2021-10-31] MEDS: DOCUSATE 100 MG CAP PO SCH (20:11)
[2021-11-01 06:11] LABS: Glucose,Whole Blood 101 mg/dL (75-99)
[2021-11-01] MEDS: hydrALAZINE HCL 50 MG TAB PO SCH ×3 (06:19→17:18)
[2021-11-01] MEDS: LEVOTHYROXINE 137 MCG TAB PO SCH (06:19)
[2021-11-01] MEDS: PANTOPRAZOLE 40 MG TABLET PO SCH (06:19)
[2021-11-01] MEDS: carvediloL 3.125 MG TAB PO SCH ×2 (06:19→17:18)
[2021-11-01] MEDS: INSULIN ASPART (NovoLOG) 100 UNIT/ML VIAL SQ SCH ×3 (06:24→17:18)
[2021-11-01 08:21] LABS: Basophils % (A) 1 %; Eosinophils # (A) 0.1 k/uL (0-0.7); Eosinophils % (A) 3 %; HCT 24.1 % (34.0-46.0); HGB 7.7 gm/dL (11.4-16.0); Hypochromasia Moderate; Lymphocytes # (A) 0.8 k/uL (1.0-4.8); Lymphocytes % (A) 16 %; MCHC 31.9 g/dL (31.0-37.0); Mean Platelet Volume 6.7; Monocytes # (A) 0.2 k/uL (0-1.0); Monocytes % (A) 4 %; Neutrophils # (A) 3.8 k/uL (1.3-7.7); Neutrophils % (A) 75 %; Platelet Count 332 k/uL (150-450); RBC 2.56 m/uL (3.80-5.40); RDW 14.5 % (11.5-15.5)
[2021-11-01 08:41] LABS: Magnesium 2.2 mg/dL (1.6-2.3); Potassium 4.3 mmol/L (3.5-5.1)
[2021-11-01] MEDS ORDERED: FUROSEMIDE 20 MG TAB PO SCH (09:00)
--- NOTE | 2021-11-01 09:14 | US ---
EXAMINATION TYPE: US kidneys/renal and bladder DATE OF EXAM: 11/01/2021 COMPARISON: CT August 31, 2021 CLINICAL HISTORY: uti and bacteremia. EXAM MEASUREMENTS: Right Kidney: 11.6 x 5.4 x 4.9 cm Left Kidney: 10.6 x 4.0 x 4.8 cm Confused patient unable to cooperate with examiner. Right Kidney: hydronephrosis Left Kidney: No hydronephrosis or masses seen Bladder: large vascular mass measuring 5.0 x 4.2 x 7.9cm Moderate to severe right-sided pyelocaliectasis redemonstrated . When scanning right kidney there is curvilinear shadowing focus at level of valeriy hepatis corresponding to rim calcified or porcelain gal lbladder. When scanning the bladder there is posterior inferior heterogeneous nearly 8.0 cm vascular mass worrisome for neoplasm. Left kidney shows no hydronephrosis. IMPRESSION: New suspicious intraluminal lobulated hypervascular bladder mass worrisome for neoplasm. Moderate to severe right-sided hydronephrosis redemonstrated. Mass may be obstructing right UVJ. Advi se cystoscopy follow-up to further evaluate. Porcelain type gallbladder redemonstrated.
[2021-11-01] MEDS: amLODIPine 10 MG TAB PO SCH (09:18)
[2021-11-01] MEDS: MULTIVITAMINS, THERA 1 EACH TAB PO SCH (09:18)
[2021-11-01] MEDS: SPIRONOLACTONE 25 MG TAB PO SCH (09:18)
[2021-11-01] MEDS: FERROUS SULFATE 325 MG TAB PO SCH ×2 (09:18→20:12)
[2021-11-01] MEDS: ATORVASTATIN 80 MG TAB PO SCH (09:18)
[2021-11-01] MEDS: CLOPIDOGREL 75 MG TAB PO SCH (09:18)
[2021-11-01] MEDS: ASPIRIN 81 MG PO SCH (09:18)
[2021-11-01] MEDS: ISOSORBIDE DINITRATE 20 MG TAB PO SCH ×3 (09:19→20:14)
[2021-11-01] MEDS: polyethylene glycoL 3350 17 GM POWD.PACK PO SCH (09:19)
[2021-11-01] MEDS: HEPARIN SODIUM,PORCINE/PF 5,000 UNIT/0.5 ML SYRINGE SQ SCH ×2 (09:19→20:12)
[2021-11-01] MEDS: DOCUSATE 100 MG CAP PO SCH ×2 (09:19→20:12)
--- NOTE | 2021-11-01 11:05 | P.PN ---
Subjective Progress Note Date: 11/01/21 Pt has no complaints today. Pt had renal US which shows bladder mass with obstruction at UPJ junction. This is likely causing her UTI and gross hematuria. Pending urology consult. Objective - Vital Signs Vital signs: Vital Signs Temp 97.4 F L 11/01/21 09:36 Pulse 70 11/01/21 09:36 Resp 18 11/01/21 09:36 BP 131/63 11/01/21 09:36 Pulse Ox 94 L 11/01/21 09:36 Intake & Output 10/31/21 11/01/21 11/01/21 18:59 06:59 18:59 Intake Total 770 Output Total 250 Balance 770 -250 Intake: Intake, IV Titration 50 Amount Ertapenem 0.5 gm In 50 Sodium Chloride 0.9% 50 ml @ 100 mls/hr IVPB DAILY@1200 [facility] Rx#: [id number] Oral 720 Output: Urine 250 Other: Voiding Method Diaper Diaper Diaper External Catheter External Catheter External Catheter - Exam Gen: awake, alert HEENT: normocephalic, atraumatic, diminished hearing acuity, moist mucous membranes Resp: good air exchange, breathing comfortably with no accessory muscle use, diffuse crackles in the lungs CVS: good distal perfusion x 4, regular rate and rhythm without murmurs GI: soft, NTTP, ND : +SPT, no CVAT, partida catheter not present MSK: Diffuse pitting edema, no clubbing Neuro: non-focal, moving all extremities Psych: cooperative, euthymic mood - Labs CBC & Chem 7: 11/01/21 07:50 11/01/21 07:50 Labs: Abnormal Lab Results - Last 24 Hours (Table) 10/31/21 10/31/21 10/31/21 Range/Units 07:24 11:55 16:29 RBC (3.80-5.40) m/uL Hgb (11.4-16.0) gm/dL Hct (34.0-46.0) % Lymphocytes # (1.0-4.8) k/uL Sodium (137-145) mmol/L Carbon Dioxide (22-30) mmol/L BUN (7-17) mg/dL Creatinine (0.52-1.04) mg/dL POC Glucose (mg/dL) 239 H 175 H (75-99) mg/dL Calcium (8.4-10.2) mg/dL Procalcitonin 0.14 H (0.02-0.09) ng/mL 10/31/21 11/01/21 11/01/21 Range/Units 20:05 06:09 07:50 RBC 2.56 L (3.80-5.40) m/uL Hgb 7.7 L (11.4-16.0) gm/dL Hct 24.1 L (34.0-46.0) % Lymphocytes # 0.8 L (1.0-4.8) k/uL Sodium (137-145) mmol/L Carbon Dioxide (22-30) mmol/L BUN (7-17) mg/dL Creatinine (0.52-1.04) mg/dL POC Glucose (mg/dL) 172 H 101 H (75-99) mg/dL Calcium (8.4-10.2) mg/dL Procalcitonin (0.02-0.09) ng/mL 11/01/21 Range/Units 07:50 RBC (3.80-5.40) m/uL Hgb (11.4-16.0) gm/dL Hct (34.0-46.0) % Lymphocytes # (1.0-4.8) k/uL Sodium 135 L (137-145) mmol/L Carbon Dioxide 31 H (22-30) mmol/L BUN 46 H (7-17) mg/dL Creatinine 2.06 H (0.52-1.04) mg/dL POC Glucose (mg/dL) (75-99) mg/dL Calcium 8.0 L (8.4-10.2) mg/dL Procalcitonin (0.02-0.09) ng/mL Microbiology - Last 24 Hours (Table) 10/31/21 05:18 Urine Culture - Preliminary Urine,Voided Assessment and Plan Assessment: Acute on chronic diastolic heart failure Hypertensive urgency Acute kidney injury -Admit to inpatient, telemetry -Cardiology consult -Lasix 60 PO daily -Strict ins and outs -Daily weights -Defer echocardiogram given last was taken 3 months ago -Resume home hydralazine -Hold home lisinopril, spironolactone given AK I -Added amlodipine and isosorbide dinitrate TID Protein Calorie Malnutrition -centerless grinder tender consult pending ESBL UTI Bladder Mass -continue ertapenem -ID consulted -follow daily labs -Urology consult, pending Recent CVA Seizure disorder Hyperlipidemia Diabetes type 2 Hypothyroidism Iron deficiency anemia Bladder Mass -Home medications reviewed and reconciled -Holding home diabetes medication -Low-dose sliding scale insulin Patient is a no code Patient's is DURABLE 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
[2021-11-01 11:34] LABS: Glucose,Whole Blood 210 mg/dL (75-99)
[2021-11-01 11:35] VITALS: BMI 19.6
[2021-11-01] MEDS: ERTAPENEM 0.5 GM in SODIUM CHLORIDE 0.9% 50 ML IVPB SCH (11:42)
--- NOTE | 2021-11-01 11:49 | P.PN ---
Subjective This is a 81-year-old female with a past medical history of recent CVA 06/2021, Seizure 06/2021, recent diagnosis of PFO on JOSE 07/18/21, CVA in 12/2020, left MCA stenosis, chronic diastolic heart failure, femur fracture 01/2021, type 2 diabetes, hyperlipidemia, hypertension, bladder tumor status post resection on 08/09/[address] 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 Her last hospitalization in July was for stroke, placed on a 30 day event monitor and follow with Dr. Jansen. The event monitor revealed mostly sinus rhythm with brief episodes of atrial tachycardia and possible brief episodes of atrial fibrillation. She had a pause of 4.4 seconds at night, not associated with any symptoms. She was subsequently underwent loop recorder implantation with Dr. Jansen on 09/19. We have been asked to see in consultation for pulmonary edema. Patient presented to the emergency center with complaints of 2 weeks worth of increased weakness dyspnea and exercise intolerance. She also presented with bilateral arm edema for the past 2 weeks. Patient has been started on IV Lasix 40 mg every 8 hours. She denies any chest pain, shortness of breath, lightheadedness, dizziness, palp itations. She is lying in bed comfortably. Noted bilateral upper extremity edema and left greater than right. Patient states that edema in the right arm has improved. 11/01/21 Patient seen and examined at bedside, no acute distress. She denies any chest pain. She denies any shortness of breath. She has remained on PO Lasix 60mg BID. Patient with decreased urine output. Ultrasound of kidneys/bladder revealed new suspicious intraluminal lobulated hypervascular bladder mass worsening for neoplasm. Moderate to severe right-sided hydronephrosis demonstrated. Mass may be obstructing right UVJ junction. She is lying flat in bed, comfortably. No shortness of breath. Creatinine noted to be up to 2.06, BUN 46. Vital signs stable. PHYSICAL EXAMINATION Vitals reviewed CONSTITUTIONAL: No apparent distress. HEENT: Neck Supple. No JVD. CHEST EXAMINATION: Lungs are diminished bases to auscultation. HEART EXAMINATION: Regular rate and rhythm. S1, S2 heard. No murmurs, gallops or rub. ABDOMEN: Soft, nontender. Positive bowel sounds. External female catheter in p lace with aureliano urine EXTREMITIES: no lower extremity edema and no calf tenderness. NEUROLOGIC EXAMINATION: Patient is awake,alert oriented to herself only. ASSESSMENT: Acute on chronic diastolic heart failure New Bladder mass worsening neoplasm with obstruction at UVJ junction seen on renal US on 11/01/21 Moderate to severe right-sided hydronephrosis Hypertensive urgency Acute Kidney Injury Bladder carcinoma Chronic Anemia- hgb 8.5 Recent Seizure May 2021 Recent CVA May 2021 involving the anterior left periventricular region. Recent Diagnosis of PFO on JOSE 07/18/21 History CVA left parietal ischemic stroke December 2020 Old left MCA stens[place] involving M1 December 2020 Acute respiratory distress requiring intubation and ventilation because of seizure, 06/2021 History of Covid-19 in January 2021. Hypertension Hypothyroidism Hyperlipidemia Type 2 Diabetes Severe protein calorie malnutrition likely effecting oncotic pressure and worsening edema PLAN: -Urology consult for new bladder mass seen on renal ultrasound -We will continue low dose carvedilol 3.125 mg twice a day -Continue cardiac telemetry -Monitor patient's renal function and electrolytes, I/Os -Continue current medical therapy -Continue to hold lisinopril due to renal failure -From a cardiology perspective, no further cardiac workup at this time. Workup for bladder mass per primary and urology. We will follow the patient as needed. Patient to follow up with Dr. Jansen outpatient. Objective - Vital Signs Vital signs: Vital Signs Temp 97.4 F L 11/01/21 09:36 Pulse 70 11/01/21 09:36 Resp 18 11/01/21 09:36 BP 131/63 11/01/21 09:36 Pulse Ox 94 L 11/01/21 09:36 Intake & Output 10/31/21 11/01/21 11/01/21 18:59 06:59 18:59 Intake Total 770 Output Total 250 Balance 770 -250 Intake: Intake, IV Titration 50 Amount Ertapenem 0.5 gm In 50 Sodium Chloride 0.9% 50 ml @ 100 mls/hr IVPB DAILY@1200 [facility] Rx#: [id number] Oral 720 Output: Urine 250 Other: Voiding Method Diaper Diaper Diaper External Catheter External Catheter External Catheter - Labs CBC & Chem 7: 11/01/21 07:50 11/01/21 07:50 Labs: Abnormal Lab Results - Last 24 Hours (Table) 0110/31/21 10/31/21 Range/Units 07:24 11:55 16:29 RBC (3.80-5.40) m/uL Hgb (11.4-16.0) gm/dL Hct (34.0-46.0) % Lymphocytes # (1.0-4.8) k/uL Sodium (137-145) mmol/L Carbon Dioxide (22-30) mmol/L BUN (7-17) mg/dL Creatinine (0.52-1.04) mg/dL POC Glucose (mg/dL) 239 H 175 H (75-99) mg/dL Calcium (8.4-10.2) mg/dL Procalcitonin 0.14 H (0.02-0.09) ng/mL 10/31/21 11/01/21 11/01/21 Range/Units 20:05 06:09 07:50 RBC 2.56 L (3.80-5.40) m/uL Hgb 7.7 L (11.4-16.0) gm/dL Hct 24.1 L (34.0-46.0) % Lymphocytes # 0.8 L (1.0-4.8) k/uL Sodium (137-145) mmol/L Carbon Dioxide (22-30) mmol/L BUN (7-17) mg/dL Creatinine (0.52-1.04) mg/dL POC Glucose (mg/dL) 172 H 101 H (75-99) mg/dL Calcium (8.4-10.2) mg/dL Procalcitonin (0.02-0.09) ng/mL 11/01/21 Range/Units 07:50 RBC (3.80-5.40) m/uL Hgb (11.4-16.0) gm/dL Hct (34.0-46.0) % Lymphocytes # (1.0-4.8) k/uL Sodium 135 L (137-145) mmol/L Carbon Dioxide 31 H (22-30) mmol/L BUN 46 H (7-17) mg/dL Creatinine 2.06 H (0.52-1.04) mg/dL POC Glucose (mg/dL) (75-99) mg/dL Calcium 8.0 L (8.4-10.2) mg/dL Procalcitonin (0.02-0.09) ng/mL Microbiology - Last 24 Hours (Table) 10/31/21 05:18 Urine Culture - Preliminary Urine,Voided
[2021-11-01 16:47] LABS: Glucose,Whole Blood 336 mg/dL (75-99)
[2021-11-01 19:53] LABS: Glucose,Whole Blood 257 mg/dL (75-99)
--- NOTE | 2021-11-01 20:32 | P.GSCN ---
History of Present Illness Consult date: 11/01/21 Reason for Consult: Bladder mass Requesting physician: Michael Carey History of present illness: The patient is a 81-year-old white female with multiple medical problems, including congestive heart failure, seizure disorder, hypertension, hyperlipidemia, diabetes mellitus, and recent stroke. She is admitted with a two-week history of increased edema, dyspnea, and decreased exercise tolerance. She has been found to have a UTI, for which she is receiving IV antibiotics. Her serum creatinine level was 1.79 at the time of admission, up from 0.9 in August 2021. Ultrasound shows moderate to severe right hydronephrosis, as well as a large bladder mass. The patient is well known to Dr. Suazo. He evaluated her in late 2020 and diagnosed a high-grade muscle invasive urothelial carcinoma of the bladder causi ng right hydronephrosis. Given the patient's age and overall condition, she is not felt to be a candidate for radical cystectomy or systemic chemotherapy. The patient was offered the option of radiation therapy, which her family declined. Review of Systems - Constitutional Denies chills, Denies fever Past Medical History Past Medical History: Cancer, CVA/TIA, Diabetes Mellitus, Hyperlipidemia, Hypert ension Additional Past Medical History / Comment(s): cva last stroke 12/26/20-loss of some speech 2nd stroke 07/11. bladder cancer History of Any Multi-Drug Resistant Organisms: CRE, ESBL Year Discovered:: 10/27/21 ESBL [email or web address] 08/02/21 Klebsiella [id number] MDRO Source:: [id number] Past Surgical History: Bladder Surgery Additional Past Surgical History / Comment(s): CATRACTS ABBE 1999. mass removed from bladder. 02/16/21 fx rt femur with repair with juliet Past Anesthesia/Blood Transfusion Reactions: No Reported Reaction Past Psychological History: No Psychological Hx Reported Smoking Status: Never smoker Past Alcohol Use History: Occasional Past Drug Use History: None Reported - Past Family History Father Family Medical History: No Reported History Mother Family Medical History: No Reported History Medications and Allergies Home Medications Medication Instructions Recorded Confirmed Type Multivit with Calcium,Iron,Min 1 tab PO DAILY 07/07/21 10/27/21 History [Women's Multivitamin] Atorvastatin [Lipitor] 80 mg PO DAILY 07/18/21 10/27/21 History Aspirin 81 mg PO DAILY 07/19/21 10/27/21 History lisinopriL [Zestril] 20 mg PO BID 07/19/21 10/27/21 History Ferrous Sulfate [Iron (65 MG 325 mg PO BID 08/07/21 10/27/21 History Elemental)] Glimepiride [Amaryl] 1 mg PO BID 08/07/21 10/27/21 History Omeprazole [PriLOSEC] 20 mg PO BID 08/07/21 10/27/21 History Spironolactone [Aldactone] 12.5 mg PO DAILY 09/12/21 10/27/21 History Ubidecarenone [Co Q-10] 100 mg PO DAILY 09/12/21 10/27/21 History Clopidogrel [Plavix] 75 mg PO DAILY 10/27/21 10/27/21 History Furosemide [Lasix] 40 mg PO DAILY 10/27/21 10/27/21 History Ipratropium-Albuterol Nebulize 3 ml INHALATION RT-Q6H PRN 10/27/21 10/27/21 History [Duoneb 0.5 mg-3 mg/3 ml Soln] Levothyroxine Sodium [Synthroid] 137 mcg PO DAILY 10/27/21 10/27/21 History hydrALAZINE HCL [Apresoline] 100 mg PO TID-W/MEALS 10/27/21 10/27/21 History levETIRAcetam [Keppra] 750 mg PO BID 10/27/21 10/27/21 History Allergies Allergy/AdvReac Type Severity Reaction Status Date / Time No Known Allergies Allergy Verified 10/27/21 16:32 Surgical - Exam Vital Signs Temp Pulse Resp BP Pulse Ox 98.6 F 91 16 187/92 96 10/27/21 14:13 10/27/21 14:13 10/27/21 14:13 10/27/21 14:13 10/27/21 14:13 - General well developed, well nourished, no distress - Respiratory normal respiratory effort - Abdomen Abdomen: soft, non tender, no guarding, no rigid, no rebound - Psychiatric oriented to time, oriented to person, oriented to place, speech is normal, memory intact Results - Labs 11/01/21 07:50 11/01/21 07:50 Abnormal Lab Results - Last 24 Hours (Table) 10/31/21 11/01/21 11/01/21 Range/Units 20:05 06:09 07:50 RBC 2.56 L (3.80-5.40) m/uL Hgb 7.7 L (11.4-16.0) gm/dL Hct 24.1 L (34.0-46.0) % Lymphocytes # 0.8 L (1.0-4.8) k/uL Sodium (137-145) mmol/L Carbon Dioxide (22-30) mmol/L BUN (7-17) mg/dL Creatinine (0.52-1.04) mg/dL POC Glucose (mg/dL) 172 H 101 H (75-99) mg/dL Calcium (8.4-10.2) mg/dL 11/01/21 11/01/21 Range/Units 07:50 11:29 RBC (3.80-5.40) m/uL Hgb (11.4-16.0) gm/dL Hct (34.0-46.0) % Lymphocytes # (1.0-4.8) k/uL Sodium 135 L (137-145) mmol/L Carbon Dioxide 31 H (22-30) mmol/L BUN 46 H (7-17) mg/dL Creatinine 2.06 H (0.52-1.04) mg/dL POC Glucose (mg/dL) 210 H (75-99) mg/dL Calcium 8.0 L (8.4-10.2) mg/dL Microbiology - Last 24 Hours (Table) 10/31/21 05:18 Urine Culture - Preliminary Urine,Voided Gram Neg Bacilli Diabetes panel 11/01/21 Range/Units 07:50 Sodium 135 L (137-145) mmol/L Potassium 4.3 (3.5-5.1) mmol/L Chloride 102 (98-107) mmol/L Carbon Dioxide 31 H (22-30) mmol/L BUN 46 H (7-17) mg/dL Creatinine 2.06 H (0.52-1.04) mg/dL Glucose 86 (74-99) mg/dL Calcium 8.0 L (8.4-10.2) mg/dL Calcium panel 11/01/21 Range/Units 07:50 Calcium 8.0 L (8.4-10.2) mg/dL Pituitary panel 11/01/21 Range/Units 07:50 Sodium 135 L (137-145) mmol/L Potassium 4.3 (3.5-5.1) mmol/L Chloride 102 (98-107) mmol/L Carbon Dioxide 31 H (22-30) mmol/L BUN 46 H (7-17) mg/dL Creatinine 2.06 H (0.52-1.04) mg/dL Glucose 86 (74-99) mg/dL Calcium 8.0 L (8.4-10.2) mg/dL Adrenal panel 11/01/21 Range/Units 07:50 Sodium 135 L (137-145) mmol/L Potassium 4.3 (3.5-5.1) mmol/L Chloride 102 (98-107) mmol/L Carbon Dioxide 31 H (22-30) mmol/L BUN 46 H (7-17) mg/dL Creatinine 2.06 H (0.52-1.04) mg/dL Glucose 86 (74-99) mg/dL Calcium 8.0 L (8.4-10.2) mg/dL - Imaging CT scan - abdomen: report reviewed US - kidney/bladder: report reviewed, image reviewed Assessment and Plan (1) Unspecified hydronephrosis Current Visit: Yes Status: Acute Code(s): N13.30 - UNSPECIFIED HYDRONEPHROSIS SNOMED Code(s): 08963121 (2) Malignant neoplasm of bladder, unspecified Current Visit: Yes Status: Acute Code(s): C67.9 - MALIGNANT NEOPLASM OF BLADDER, UNSPECIFIED SNOMED Code(s): 310120342 Plan: The patient has known right hydronephrosis due to muscle invasive urothelial carcinoma of the bladder. The patient and her family have declined treatment for this. Please notify me if I can be of any further assistance. Time with Patient: Greater than 30
--- NOTE | 2021-11-01 22:47 | PN ---
PROGRESS NOTE DATE OF SERVICE: 11/01/2021 REASON FOR FOLLOWUP: ESBL E coli, complicated urinary tract infection. INTERVAL HISTORY: Patient is afebrile. The patient is breathing comfortably. The patient denies having any chest pain, shortness of breath or cough. No vomiting. No abdominal pain or diarrhea. PHYSICAL EXAMINATION: Blood pressure 133/64 with a pulse of 70, temperature 98.1. She is 94% on room air. General description is an elderly female lying in bed in no distress. Respiratory system: Unlabored breathing, clear to auscultation anteriorly. Heart S1, S2. Regular rate and rhythm. Abdomen soft, no tenderness. LABS: Repeat urine showing a Gram-negative. Ultrasound has been suggestive of right-sided hydronephrosis and bladder mass. DIAGNOSTIC IMPRESSION AND PLAN: Patient with complicated ESBL, urinary tract infection from complicated . Patient did have right-sided hydronephrosis from an invasive bladder cancer. Apparently the patient's family has refused treatment as per urology note. Patient to continue with Invanz at this point while monitoring clinical course closely. Continue supportive care. MMODL / IJN: [id number] /
[2021-11-02 06:15] LABS: Glucose,Whole Blood 85 mg/dL (75-99)
[2021-11-02] MEDS: INSULIN ASPART (NovoLOG) 100 UNIT/ML VIAL SQ SCH ×4 (06:15→19:53)
[2021-11-02] MEDS: PANTOPRAZOLE 40 MG TABLET PO SCH (06:31)
[2021-11-02] MEDS: LEVOTHYROXINE 137 MCG TAB PO SCH (06:32)
[2021-11-02] MEDS: hydrALAZINE HCL 50 MG TAB PO SCH ×3 (06:32→17:12)
[2021-11-02] MEDS: carvediloL 3.125 MG TAB PO SCH ×2 (06:32→17:12)
[2021-11-02] MEDS: MULTIVITAMINS, THERA 1 EACH TAB PO SCH (10:27)
[2021-11-02] MEDS: ISOSORBIDE DINITRATE 20 MG TAB PO SCH ×2 (10:27→17:12)
[2021-11-02] MEDS: amLODIPine 10 MG TAB PO SCH (10:27)
[2021-11-02] MEDS: ASPIRIN 81 MG PO SCH (10:27)
[2021-11-02] MEDS: CLOPIDOGREL 75 MG TAB PO SCH (10:27)
[2021-11-02] MEDS: FUROSEMIDE 40 MG TAB PO SCH (10:27)
[2021-11-02] MEDS: polyethylene glycoL 3350 17 GM POWD.PACK PO SCH (10:27)
[2021-11-02] MEDS: ATORVASTATIN 80 MG TAB PO SCH (10:28)
[2021-11-02] MEDS: FERROUS SULFATE 325 MG TAB PO SCH ×2 (10:28→19:53)
[2021-11-02] MEDS: DOCUSATE 100 MG CAP PO SCH ×2 (10:28→19:53)
[2021-11-02] MEDS: HEPARIN SODIUM,PORCINE/PF 5,000 UNIT/0.5 ML SYRINGE SQ SCH ×2 (10:28→19:53)
[2021-11-02] MEDS: SPIRONOLACTONE 25 MG TAB PO SCH (10:28)
[2021-11-02 11:21] LABS: Glucose,Whole Blood 151 mg/dL (75-99)
--- NOTE | 2021-11-02 11:38 | P.PN ---
Subjective Progress Note Date: 11/02/21 Principal diagnosis: Patient appears to be still confused still weak we'll continue current IV antibiotics likely metabolic encephalopathy Acute on chronic diastolic heart failure Hypertensive urgency Acute kidney injury -Admit to inpatient, telemetry -Cardiology consult -Lasix 60 PO daily -Strict ins and outs -Daily weights -Defer echocardiogram given last was taken 3 months ago -Resume home hydralazine -Hold home lisinopril, spironolactone given AK I -Added amlodipine and isosorbide dinitrate TID Protein Calorie Malnutrition -weighter consult pending ESBL UTI Bladder Mass -continue ertapenem -ID consulted -follow daily labs -Urology consult, pending Recent CVA Seizure disorder Hyperlipidemia Diabetes type 2 Hypothyroidism Iron deficiency anemia Bladder Mass -Home medications reviewed and reconciled -Holding home diabetes medication -Low-dose sliding scale insulin Constitutional: No acute distress, conversant, pleasant Eyes: Anicteric sclerae, moist conjunctiva, no lid-lag PERRLA ENMT: NC/AT Oropharynx clear, no erythema, exudates Neck: Supple, FROM, no masses, or JVD No carotid bruits No thyromegaly Lungs: Clear to auscultation Clear to percussion Normal respiratory effort, no accessory muscle use Cardiovascular: Heart regular in rate and rhythm, No murmurs, gallops, or rubs No peripheral edema Abdominal: Soft Nontender, no guarding, rebound or rigidity Abdomen moving with respiration Normoactive bowel sounds No hepatomegaly, No splenomegaly No palp able mass No abdominal wall hernia noted Skin: Normal temperature, tone, texture, turgor No induration No subcutaneous nodules No rash, lesions No ulcers Extremities: No digital cyanosis No clubbing Pedal pulses intact and symmetrical Radial pulses intact and symmetrical Normal gait and station No calf tenderness Psychiatric: Neuro: Muscles Strength 5/5 in all 4 extremities Sensation to light touch grossly present throughout Cranial nerves II-XII grossly intact No focal sensory deficits Objective - Vital Signs Vital signs: Vital Signs Temp 97.4 F L 11/02/21 07:55 Pulse 64 11/02/21 07:55 Resp 18 11/02/21 07:55 BP 104/51 11/02/21 07:55 Pulse Ox 94 L 11/02/21 07:55 Intake & Output 11/01/21 11/02/21 11/02/21 18:59 06:59 18:59 Intake Total 240 120 Output Total 500 Balance 240 -500 120 Weight 53.5 kg Intake: Oral 240 120 Output: Urine 500 Other: Voiding Method Diaper Diaper Diaper External Catheter External Catheter External Catheter # Bowel Movements 1 - Labs CBC & Chem 7: 11/01/21 07:50 11/01/21 07:50 Labs: Abnormal Lab Results - Last 24 Hours (Table) 11/01/21 11/01/21 11/02/21 Range/Units 16:24 19:50 11:20 POC Glucose (mg/dL) 336 H 257 H 151 H (75-99) mg/dL Microbiology - Last 24 Hours (Table) 10/31/21 05:18 Urine Culture - Preliminary Urine,Voided Gram Neg Bacilli
[2021-11-02] MEDS: ERTAPENEM 0.5 GM in SODIUM CHLORIDE 0.9% 50 ML IVPB SCH (12:03)
[2021-11-02 16:39] LABS: Glucose,Whole Blood 260 mg/dL (75-99)
--- NOTE | 2021-11-02 18:55 | PN ---
PROGRESS NOTE DATE OF SERVICE: 11/02/2021 REASON FOR FOLLOWUP: ESBL E coli complicated urinary tract infection. INTERVAL HISTORY: The patient is afebrile. The patient is breathing comfortably. Denies having any chest pain, shortness of breath. No cough. No abdominal pain or diarrhea. PHYSICAL EXAMINATION: Blood pressure 102/57, pulse of 68, temperature 97.4. She is 94% on room air. General description is an elderly female lying in bed in no distress. Respiratory system: Unlabored breathing, clear to auscultation anteriorly. Heart S1, S2. Regular rate and rhythm. Abdomen soft, no tenderness. LABS: No new labs have been obtained. DIAGNOSTIC IMPRESSION AND PLAN: This patient has ESBL E coli complicated UTI infection. Patient to continue with Invanz 5 mg a day for another 10 days to finish a course of therapy. Med line will be placed. Discussed with the admitting physician. ELÍAS / YAMILEX: [id number] /
[2021-11-02 19:48] LABS: Glucose,Whole Blood 273 mg/dL (75-99)
[2021-11-03] MEDS: ISOSORBIDE DINITRATE 20 MG TAB PO SCH ×3 (00:14→17:02)
[2021-11-03 05:58] LABS: Glucose,Whole Blood 142 mg/dL (75-99)
[2021-11-03] MEDS: LEVOTHYROXINE 137 MCG TAB PO SCH (06:08)
[2021-11-03] MEDS: INSULIN ASPART (NovoLOG) 100 UNIT/ML VIAL SQ SCH ×3 (06:08→17:02)
[2021-11-03] MEDS: carvediloL 3.125 MG TAB PO SCH ×2 (06:08→17:02)
[2021-11-03] MEDS: PANTOPRAZOLE 40 MG TABLET PO SCH (06:08)
[2021-11-03] MEDS: hydrALAZINE HCL 50 MG TAB PO SCH ×3 (06:08→17:02)
[2021-11-03] MEDS: polyethylene glycoL 3350 17 GM POWD.PACK PO SCH (08:46)
[2021-11-03] MEDS: HEPARIN SODIUM,PORCINE/PF 5,000 UNIT/0.5 ML SYRINGE SQ SCH (08:46)
[2021-11-03] MEDS: SPIRONOLACTONE 25 MG TAB PO SCH (08:47)
[2021-11-03] MEDS: MULTIVITAMINS, THERA 1 EACH TAB PO SCH (08:47)
[2021-11-03] MEDS: CLOPIDOGREL 75 MG TAB PO SCH (08:47)
[2021-11-03] MEDS: ATORVASTATIN 80 MG TAB PO SCH (08:47)
[2021-11-03] MEDS: amLODIPine 10 MG TAB PO SCH (08:47)
[2021-11-03] MEDS: DOCUSATE 100 MG CAP PO SCH (08:47)
[2021-11-03] MEDS: FERROUS SULFATE 325 MG TAB PO SCH (08:47)
[2021-11-03] MEDS: ASPIRIN 81 MG PO SCH (08:47)
[2021-11-03] MEDS: FUROSEMIDE 40 MG TAB PO SCH (08:47)
[2021-11-03 10:13] VITALS: PULSE 65; RESP 17
[2021-11-03 11:05] LABS: Basophils % (A) 1 %; Eosinophils # (A) 0.2 k/uL (0-0.7); Eosinophils % (A) 3 %; HCT 23.2 % (34.0-46.0); HGB 7.3 gm/dL (11.4-16.0); Hypochromasia Slight; Lymphocytes # (A) 1.2 k/uL (1.0-4.8); Lymphocytes % (A) 20 %; MCH 29.2 pg (25.0-35.0); MCHC 31.6 g/dL (31.0-37.0); MCV 92.5 fL (80.0-100.0); Mean Platelet Volume 7.1; Monocytes # (A) 0.2 k/uL (0-1.0); Monocytes % (A) 4 %; Neutrophils # (A) 4.1 k/uL (1.3-7.7); Neutrophils % (A) 71 %; Platelet Count 343 k/uL (150-450); RDW 14.4 % (11.5-15.5); WBC 5.7 k/uL (3.8-10.6)
--- NOTE | 2021-11-03 11:13 | P.DS ---
Providers Date of admission: 10/27/21 16:27 Expected date of discharge: 11/03/21 Attending physician: Michael Carey MD Consults: 10/27/21 16:36 Consult Physician Routine Consulting Provider: [facility] Consult Reason/Comments: Pulmonary edema Do you want consulting provider notified?: Yes 10/30/21 12:50 Consult Physician Routine Consulting Provider: Pily Lee Consult Reason/Comments: ESBL UTI Do you want consulting provider notified?: Yes 11/01/21 11:02 Consult Physician Routine Consulting Provider: Tony Arnold Consult Reason/Comments: bladder mass obstructing right ureter Do you want consulting provider notified?: Yes Primary care physician: Inocente Tate MD Hospital Course: The patient is a 81-year-old white female with multiple medical problems, including congestive heart failure, seizure disorder, hypertension, hyperlipidemia, diabetes mellitus, and recent stroke. She is admitted with a two-week history of increased edema, dyspnea, and decreased exercise tolerance. She has been found to have a UTI, for which she is receiving IV antibiotics. Her serum creatinine level was 1.79 at the time of admission, up from 0.9 in August 2021. Ultrasound shows moderate to severe right hydronephrosis, as well as a large bladder mass. The patient is well known to Dr. Suazo. 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 Given the patient's age and overall condition, she is not felt to be a candidate for radical cystectomy or systemic chemotherapy. The patient was offered the option of radiation therapy, which her family declined. Patient overall condition remained stable creatinine remained elevated patient did have hematuria since the patient continued to have hematuria and the hemoglobin remained around 7.7 with chronic anemia Plavix will be on hold Since the patient did have a recent CVA in 2020 we'll continue low-dose aspirin CBC may need to be rechecked in the rehab in 1-2 days If further drop in the hemoglobin may consider transfusion If a multivitamin remained stable for another week or 2 consider resuming Plavix Constitutional: No acute distress, conversant, pleasant Eyes: Anicteric sclerae, moist conjunctiva, no lid-lag PERRLA ENMT: NC/AT Oropharynx clear, no erythema, exudates Neck: Supple, FROM, no masses, or JVD No carotid bruits No thyromegaly Lungs: Clear to auscultation Clear to percussion Normal respiratory effort, no accessory muscle use Cardiovascular: Heart regular in rate and rhythm, No murmurs, gallops, or rubs No peripheral edema Abdominal: Soft Nontender, no guarding, rebound or rigidity Abdomen moving with respiration Normoactive bowel sounds No hepatomegaly, No splenomegaly No pal pable mass No abdominal wall hernia noted Skin: Normal temperature, tone, texture, turgor No induration No subcutaneous nodules No rash, lesions No ulcers Extremities: No digital cyanosis No clubbing Pedal pulses intact and symmetrical Radial pulses intact and symmetrical Normal gait and station No calf tenderness Psychiatric:Alert and oriented to person, place and time Appropriate affect Intact judgement Neuro: Generalized weakness Discharge plan UTI with ESBL we'll continue IV Invanz for total of 10 days As recommended per infectious disease Acute renal failure on currently creatinine stabilized around 2 continue to monitor repeat CMP in a week or 2 Patient will be discharged to group home rehab to continue IV antibiotics Acute on chronic diastolic congestive heart failure resolved we will hold Lasix and Aldactone due to the deterioration the kidney function consider resuming Lasix or Aldactone if CHF worsens Patient Condition at Discharge: Stable Plan - Discharge Summary Discharge Rx Participant: Yes New Discharge Prescriptions: New INSULIN ASPART (NovoLOG) [NovoLOG (formulary)] 0 unit SQ ACHS ml Aspirin 81 mg PO DAILY tab Ertapenem [INVanz] 0.5 gm IVPB DAILY@1200 10 Days #10 each carvediloL [Coreg] 3.125 mg PO BID-W/MEALS tab Continue Multivit with Calcium,Iron,Min [Women's Multivitamin] 1 tab PO DAILY Omeprazole [PriLOSEC] 20 mg PO BID Ferrous Sulfate [Iron (65 MG Elemental)] 325 mg PO BID Ubidecarenone [Co Q-10] 100 mg PO DAILY Levothyroxine Sodium [Synthroid] 137 mcg PO DAILY Ipratropium-Albuterol Nebulize [Duoneb 0.5 mg-3 mg/3 ml Soln] 3 ml INHALATION RT-Q6H PRN PRN Reason: Shortness Of Breath Atorvastatin [Lipitor] 80 mg PO DAILY Glimepiride [Amaryl] 1 mg PO BID hydrALAZINE HCL [Apresoline] 100 mg PO TID-W/MEALS levETIRAcetam [Keppra] 750 mg PO BID Discontinued Spironolactone [Aldactone] 12.5 mg PO DAILY Clopidogrel [Plavix] 75 mg PO DAILY Furosemide [Lasix] 40 mg PO DAILY Aspirin 81 mg PO DAILY lisinopriL [Zestril] 20 mg PO BID Discharge Medication List Multivit with Calcium,Iron,Min [Women's Multivitamin] 1 tab PO DAILY 07/07/21 [History] Atorvastatin [Lipitor] 80 mg PO DAILY 07/18/21 [History] Ferrous Sulfate [Iron (65 MG Elemental)] 325 mg PO BID 08/07/21 [History] Glimepiride [Amaryl] 1 mg PO BID 08/07/21 [History] Omeprazole [PriLOSEC] 20 mg PO BID 08/07/21 [History] Ubidecarenone [Co Q-10] 100 mg PO DAILY 09/12/21 [History] Ipratropium-Albuterol Nebulize [Duoneb 0.5 mg-3 mg/3 ml Soln] 3 ml INHALATION RT-Q6H PRN 10/27/21 [History] Levothyroxine Sodium [Synthroid] 137 mcg PO DAILY 10/27/21 [History] hydrALAZINE HCL [Apresoline] 100 mg PO TID-W/MEALS 10/27/21 [History] levETIRAcetam [Keppra] 750 mg PO BID 10/27/21 [History] Aspirin 81 mg PO DAILY tab 11/03/21 [Rx] Ertapenem [INVanz] 0.5 gm IVPB DAILY@1200 10 Days #10 each 11/03/21 [Rx] INSULIN ASPART (NovoLOG) [NovoLOG (formulary)] 0 unit SQ ACHS ml 11/03/21 [Rx] carvediloL [Coreg] 3.125 mg PO BID-W/MEALS tab 11/03/21 [Rx] Follow up Appointment(s)/Referral(s): Inocente Tate MD [Primary Care Provider] - 1-2 days [facility], [NON-STAFF] - Edgar Jansen MD [STAFF PHYSICIAN] - 2 Weeks Discharge Disposition: TRANSFER TO SNF/ECF
[2021-11-03 11:19] LABS: Albumin 1.9 g/dL (3.5-5.0); Calcium 7.7 mg/dL (8.4-10.2); Potassium 4.8 mmol/L (3.5-5.1); Total Bilirubin 0.3 mg/dL (0.2-1.3); Total Protein 4.4 g/dL (6.3-8.2)
[2021-11-03 11:31] LABS: Glucose,Whole Blood 151 mg/dL (75-99)
[2021-11-03] MEDS: ERTAPENEM 0.5 GM in SODIUM CHLORIDE 0.9% 50 ML IVPB SCH (12:17)
[2021-11-03 16:11] VITALS: BP 119/76; TEMP 96.5
[2021-11-03 16:25] LABS: Glucose,Whole Blood 230 mg/dL (75-99)
--- NOTE | 2021-11-03 17:35 | PN ---
PROGRESS NOTE DATE OF SERVICE: 11/03/2021. REASON FOR FOLLOWUP: ESBL E. coli complicated urinary tract infection. INTERVAL HISTORY: The patient is afebrile. The patient is breathing comfortably. Denies having any chest pain, shortness of breath or cough. No abdominal pain or diarrhea. PHYSICAL EXAMINATION: Blood pressure 113/56, pulse 55, temperature 97.7. She is 94% on room air. General description is an elderly female lying in bed in no distress. Respiratory system: Unlabored breathing, clear to auscultation anteriorly. Heart S1, S2. Regular rate and rhythm. Abdomen soft, no tenderness. LAB: Hemoglobin is ( ), white count 5.7, creatinine 2.3. DIAGNOSTIC IMPRESSION AND PLAN: Patient with a complicated UTI in this patient did have bladder cancer with right-sided hydronephrosis. ( ) . Patient is ( ) close outpatient followup. MMODL / IJN: [id number] /
== END 2021-11-03 17:43 | DRG 291 ==
LOC: EC 13:46 → 3SCARD 16:27 → 3NCARDOBS 11-01 21:17
PROVIDERS: ADMIT Internal Medicine; ATTEND Internal Medicine
PROC: 05HA33Z Insertion of Infusion Device into Left Brachial Vein, Percutaneous Approach (ICD-10-PCS; principal; 2021-11-02 16:20)
DX: I11.0 Hypertensive heart disease with heart failure (principal); E43 Unspecified severe protein-calorie malnutrition; I50.33 Acute on chronic diastolic (congestive) heart failure; I47.1 Supraventricular tachycardia; N13.6 Pyonephrosis; N17.9 Acute kidney failure, unspecified; Z16.12 Extended spectrum beta lactamase (ESBL) resistance; N39.0 Urinary tract infection, site not specified; Q21.1 Atrial septal defect; Z68.1 Body mass index [BMI] 19.9 or less, adult; R60.0 Localized edema; B96.1 Klebsiella pneumoniae [K. pneumoniae] as the cause of diseases classified elsewhere; B96.20 Unspecified Escherichia coli [E. coli] as the cause of diseases classified elsewhere; Z20.822 Contact with and (suspected) exposure to COVID-19; D50.9 Iron deficiency anemia, unspecified; E03.9 Hypothyroidism, unspecified; E11.9 Type 2 diabetes mellitus without complications; E78.5 Hyperlipidemia, unspecified; G40.909 Epilepsy, unspecified, not intractable, without status epilepticus; I16.0 Hypertensive urgency; R31.0 Gross hematuria; Z79.02 Long term (current) use of antithrombotics/antiplatelets; Z79.82 Long term (current) use of aspirin; Z79.84 Long term (current) use of oral hypoglycemic drugs; Z79.890 Hormone replacement therapy; Z79.899 Other long term (current) drug therapy; Z86.16 Personal history of COVID-19; Z86.73 Personal history of transient ischemic attack (TIA), and cerebral infarction without residual deficits; C67.9 Malignant neoplasm of bladder, unspecified
CPT/HCPCS: 36410; 36415; 71046; 76770; 76937; 80048; 80053; 81001; 83735; 83880; 84145; 84484; 85025; 85610; 85730; 86140; 87077; 87086; 87186; 87635; 93005; 93970; 94640; 96374; 96375; 99285